=== PATIENT | male | born 1945 | race Caucasian/White ===

== ENCOUNTER 2016-08-29 12:55 | Inpatient (IN) | payer BC, MEDICARE ==
[2016-08-29 13:46] LABS: Basophils % (A) 0 %; CH 32.3; CHCM 33.5; Eosinophils % (A) 0 %; HCT 36.9 % (39.0-53.0); HDW 2.73; HGB 12.3 gm/dL (13.0-17.5); Luc % (Auto) 1; Lymphocytes # (A) 0.3 k/uL (1.0-4.8); Lymphocytes % (A) 3 %; MCH 32.2 pg (25.0-35.0); MCHC 33.3 g/dL (31.0-37.0); MCV 96.5 fL (80.0-100.0); Mean Platelet Volume 7.4; Monocytes # (A) 0.2 k/uL (0-1.0); Monocytes % (A) 2 %; Neutrophils # (A) 9.2 k/uL (1.3-7.7); Neutrophils % (A) 94 %; RBC 3.82 m/uL (4.30-5.90); WBC 9.8 k/uL (3.8-10.6); WBC (Perox) 9.71
[2016-08-29 13:54] LABS: ALT 38 U/L (21-72); AST 17 U/L (17-59); Alkaline Phosphatase 96 U/L (38-126); Anion Gap 12 mmol/L; Blood Urea Nitrogen 24 mg/dL (9-20); Calcium 8.6 mg/dL (8.4-10.2); Carbon Dioxide 24 mmol/L (22-30); Chloride 102 mmol/L (98-107); Glucose 116 mg/dL (74-99); Non-African American GFR(MDRD) >60 (>60 ml/min/1.73 sqM); Partial Thromboplastin Time 24.2 sec (22.0-30.0); Potassium 4.3 mmol/L (3.5-5.1); Prothrombin Time 10.3 sec (9.0-12.0); Sodium 138 mmol/L (137-145); Total Bilirubin 1.2 mg/dL (0.2-1.3); Total Protein 6.5 g/dL (6.3-8.2)
[2016-08-29] MEDS ORDERED: ACETAMINOPHEN IV (For NPO) 1,000 MG in EMPTY BAG 1 BAG IVPB ONE (14:00)
[2016-08-29] MEDS ORDERED: IBUPROFEN 400 MG TAB PO STA (14:00)
--- NOTE | 2016-08-29 14:24 | XR ---
EXAMINATION TYPE: XR chest 2V DATE OF EXAM: 08/29/2016 2:18 PM COMPARISON: NONE TECHNIQUE: PA and lateral views submitted. HISTORY: Fever and cough FINDINGS: The lungs are clear and there is no pneumothorax, pleural effusion, or focal pneumonia. Hyperinflat ion suggests COPD. There is left perihilar and lower lobe subsegmental infiltrate. Hypertrophic change of the spine and arthropathy of the shoulders noted. Coronary artery stenting not ed. IMPRESSION: 1. Left perihilar and lower lobe infiltrate. 2. COPD
[2016-08-29] MEDS ORDERED: AZITHROMYCIN 500 MG TAB PO STA (14:33)
--- NOTE | 2016-08-29 14:40 | ED ---
General Adult HPI - General Chief complaint: Weakness Stated complaint: Weakness Time Seen by Provider: 08/29/16 13:02 Source: EMS Mode of arrival: EMS Limitations: physical limitation - History of Present Illness Initial comments: Patient complains of generalized weakness, cough and shortness of breath. His symptoms have been getting worse for a few days. Patient thinks it might be related to alcoholic trouble. He states he is a daily drinker, however he has not actually had anything to drink for at least 3 weeks. Patient has no belly or back pain. He has no nausea or vomiting. He has no lightheadedness or dizziness. He has no neck pain or stiffness. His weakness is generalized. It is nonfocal. He has taken no medication for his symptoms. He is unaware of any sick contacts. He has not traveled anywhere. - Related Data Home Medications Medication Instructions Recorded Confirmed Clopidogrel Bisulfate [Plavix] 75 mg PO DAILY 08/29/16 08/29/16 Ezetimibe [Zetia] 10 mg PO DAILY 08/29/16 08/29/16 FLUoxetine HCL [PROzac] 20 mg PO DAILY 08/29/16 08/29/16 Metoprolol Tartrate [Lopressor] 25 mg PO DAILY 08/29/16 08/29/16 guaiFENesin SYRUP 100MG/5ML 200 mg PO Q6H PRN 08/29/16 08/29/16 [Robitussin] Allergies Allergy/AdvReac Type Severity Reaction Status Date / Time egg Allergy Unknown Verified 08/29/16 13:16 Penicillins Allergy Unknown Verified 08/29/16 13:16 Review of Systems ROS Statement: Those systems with pertinent positive or pertinent negative responses have been documented in the HPI. ROS Other: All systems not noted in ROS Statement are negative. Past Medical History Past Medical History: COPD, Hyperlipidemia, Hypertension, Myocardial Infarction ([place]) Additional Past Medical History / Comment(s): 2001 [place]; 7 stents; aortic aneurysm coil, pancreatitis History of Any Multi-Drug Resistant Organisms: None Reported Past Surgical History: Adenoidectomy, Tonsillectomy Past Psychological History: Depression Smoking Status: Current every day smoker Past Alcohol Use History: Heavy Past Drug Use History: None Reported General Exam Limitations: physical limitation General appearance: alert, in no apparent distress Head exam: Present: atraumatic, normocephalic, normal inspection Eye exam: Present: normal appearance, PERRL, EOMI. Absent: scleral icterus, conjunctival injection, periorbital swelling ENT exam: Present: normal exam, mucous membranes moist Neck exam: Present: normal inspection. Absent: tenderness, meningismus, lymphadenopathy Respiratory exam: Present: normal lung sounds bilaterally. Absent: respiratory distress, wheezes, rales, rhonchi, stridor Cardiovascular Exam: Present: regular rate, normal rhythm, normal heart sounds. Absent: systolic murmur, diastolic murmur, rubs, gallop, clicks GI/Abdominal exam: Present: soft, normal bowel sounds. Absent: distended, tenderness, guarding, rebound, rigid Extremities exam: Present: normal inspection, full ROM, normal capillary refill. Absent: tenderness, pedal edema, joint swelling, calf tenderness Back exam: Present: normal inspection Neurological exam: Present: alert, oriented X3, CN II-XII intact Psychiatric exam: Present: normal affect, normal mood Skin exam: Present: warm, dry, intact, normal color. Absent: rash Course Vital Signs 08/29/16 08/29/16 08/29/16 13:00 13:12 13:25 Temperature 103.1 F H Pulse Rate 121 H 114 H Pulse Rate [ 126 H [employer] Of [employer] ] Respiratory 18 18 Rate Blood Pressure 140/68 133/67 O2 Sat by Pulse 99 100 Oximetry 08/29/16 08/29/16 13:40 14:15 Temperature 101.3 F H Pulse Rate 108 H 107 H Pulse Rate [ [employer] ] Respiratory 18 18 Rate Blood Pressure 130/70 121/64 O2 Sat by Pulse 98 98 Oximetry EKG Findings - EKG Comments: EKG Findings:: Twelve-lead EKG is obtained, interpreted by me showing ventricular rate 112 bpm, normal CT interval and QRS complexes, no ST elevation or depression, interpreted by me as sinus tachycardia. Medical Decision Making - Medical Decision Making patient presents with weakness, shortness of breath. He is tachycardic and febrile. He is treated with IV fluids, antibiotics and pain medication. X-ray reveals multifocal pneumonia. Therefore I have ordered 2 antibiotics and the patient will be admitted to the hospital. - Lab Data Result diagrams: 08/29/16 13:00 08/29/16 13:00 Lab Results 08/29/16 08/29/16 08/29/16 Range/Units 13:00 13:00 13:00 WBC 9.8 (3.8-10.6) k/uL RBC 3.82 L (4.30-5.90) m/uL Hgb 12.3 L (13.0-17.5) gm/dL Hct 36.9 L (39.0-53.0) % MCV 96.5 (80.0-100.0) fL MCH 32.2 (25.0-35.0) pg MCHC 33.3 (31.0-37.0) g/dL RDW 15.0 (11.5-15.5) % Plt Count 262 (150-450) k/uL Neutrophils % 94 % Lymphocytes % 3 % Monocytes % 2 % Eosinophils % 0 % Basophils % 0 % Neutrophils # 9.2 H (1.3-7.7) k/uL Lymphocytes # 0.3 L (1.0-4.8) k/uL Monocytes # 0.2 (0-1.0) k/uL Eosinophils # 0.0 (0-0.7) k/uL Basophils # 0.0 (0-0.2) k/uL PT (9.0-12.0) sec INR (<1.1) APTT (22.0-30.0) sec Sodium 138 (137-145) mmol/L Potassium 4.3 (3.5-5.1) mmol/L Chloride 102 (98-107) mmol/L Carbon Dioxide 24 (22-30) mmol/L Anion Gap 12 mmol/L BUN 24 H (9-20) mg/dL Creatinine 1.10 (0.66-1.25) mg/dL Est GFR (MDRD) Af Amer >60 (>60 ml/min/1.73 sqM) Est GFR (MDRD) Non-Af >60 (>60 ml/min/1.73 sqM) Glucose 116 H (74-99) mg/dL Plasma Lactic Acid Mani 1.7 (0.7-2.0) mmol/L Calcium 8.6 (8.4-10.2) mg/dL Total Bilirubin 1.2 (0.2-1.3) mg/dL AST 17 (17-59) U/L ALT 38 (21-72) U/L Alkaline Phosphatase 96 (38-126) U/L Troponin I (0.000-0.034) ng/mL Total Protein 6.5 (6.3-8.2) g/dL Albumin 3.1 L (3.5-5.0) g/dL 08/29/16 08/29/16 Range/Units 13:00 13:00 WBC (3.8-10.6) k/uL RBC (4.30-5.90) m/uL Hgb (13.0-17.5) gm/dL Hct (39.0-53.0) % MCV (80.0-100.0) fL MCH (25.0-35.0) pg MCHC (31.0-37.0) g/dL RDW (11.5-15.5) % Plt Count (150-450) k/uL Neutrophils % % Lymphocytes % % Monocytes % % Eosinophils % % Basophils % % Neutrophils # (1.3-7.7) k/uL Lymphocytes # (1.0-4.8) k/uL Monocytes # (0-1.0) k/uL Eosinophils # (0-0.7) k/uL Basophils # (0-0.2) k/uL PT 10.3 (9.0-12.0) sec INR 1.0 (<1.1) APTT 24.2 (22.0-30.0) sec Sodium (137-145) mmol/L Potassium (3.5-5.1) mmol/L Chloride (98-107) mmol/L Carbon Dioxide (22-30) mmol/L Anion Gap mmol/L BUN (9-20) mg/dL Creatinine (0.66-1.25) mg/dL Est GFR (MDRD) Af Amer (>60 ml/min/1.73 sqM) Est GFR (MDRD) Non-Af (>60 ml/min/1.73 sqM) Glucose (74-99) mg/dL Plasma Lactic Acid Mani (0.7-2.0) mmol/L Calcium (8.4-10.2) mg/dL Total Bilirubin (0.2-1.3) mg/dL AST (17-59) U/L ALT (21-72) U/L Alkaline Phosphatase (38-126) U/L Troponin I <0.012 (0.000-0.034) ng/mL Total Protein (6.3-8.2) g/dL Albumin (3.5-5.0) g/dL Disposition Clinical Impression: Pneumonia Disposition: ADMITTED IP TO THIS HOSP Condition: Fair Time of Disposition: 14:40
[2016-08-29] MEDS ORDERED: NALOXONE 0.4 MG/ML 1 ML VIAL IV PRN (14:41)
[2016-08-29] MEDS ORDERED: MORPHINE SULFATE 4 MG/ML SYRINGE IV PRN (14:41)
[2016-08-29] MEDS ORDERED: ACETAMINOPHEN TAB 325 MG TAB PO PRN (14:41)
[2016-08-29] MEDS ORDERED: TEMAZEPAM 15 MG CAP PO PRN ×2 (14:41→16:35)
[2016-08-29 15:23] LABS: Appearance,Urine Clear (Clear); Bilirubin,Urine Negative (Negative); Glucose,Urine (UA) Negative (Negative); Ketones,Urine Negative (Negative); Leukocyte Esterase,Urine Negative (Negative); Mucus,Urine Rare /hpf; Nitrite,Urine Negative (Negative); Particle Count 14565; Protein,Urine 2+ (Negative); Specific Gravity,Urine 1.021 (1.001-1.035); UA Billing (MACRO vs. MICRO) MICRO
[2016-08-29] MEDS ORDERED: guaiFENesin SYRUP 100MG/5ML 200 MG/10 ML CUP PO PRN (16:34)
[2016-08-29] MEDS ORDERED: cloNIDine HCL 0.1 MG TAB PO PRN (16:35)
[2016-08-29] MEDS ORDERED: LORazepam 0.5 MG TAB PO PRN (16:35)
[2016-08-29] MEDS ORDERED: HYDROcodone/APAP 5-325MG 1 EACH TAB PO PRN (16:35)
[2016-08-29] MEDS ORDERED: HYDROmorphone 1 MG/ML 1 ML SYRINGE IVP PRN (16:35)
--- NOTE | 2016-08-29 17:25 | HP ---
DATE OF ADMISSION: 08/29/2016 CHIEF COMPLAINT: Weakness, cough and sputum. HISTORY OF PRESENT ILLNESS: This 71-year-old gentleman with a past medical history of multiple medical problems, including hypertension, COPD, hyperlipidemia, history of myocardial infarction, history of CAD, stent, aortic aneurysm, coiling, history of pancreatitis, adenoidectomy, tonsillectomy, history of depression, being followed by Dr. Surjit Cook in [place], was complaining of generalized weakness and tiredness for the last several days. Patient apparently was smoking and drinking. Patient apparently was drinking up to a fifth of alcohol. Patient stopped alcohol about 2 weeks ago. The patient was living by himself. He was extremely weak and tired. The patient was also having increasing cough and sputum for the last 2 weeks. Because of increasing difficulties, patient came to [facility]. Left hilar and left lower lobe multi-lobar pneumonia was suspected. Patient was admitted for further evaluation and treatment. There is no history of any fever, rigor, chills. No history of headache, loss of consciousness. seizures. Patient expressed a desire to go for rehab. PAST MEDICAL HISTORY: 1. History of COPD. 2. Hypertension. 3. Hyperlipidemia. 4. Myocardial infarction. 5. CAD, stents. 6. Aortic aneurysm with coiling. 7. Pancreatitis. 8. Depression. 9. Adenoidectomy. 10. Tonsillectomy. HOME MEDICATIONS: 1. Robitussin 200 mg p.o. q.6 p.r.n. 2. Lopressor 25 mg p.o. daily. 3. Prozac 20 mg daily. 4. Zetia 10 mg p.o. daily. 5. Plavix 75 mg p.o. daily. ALLERGIES: EGGS and PENICILLIN. FAMILY HISTORY: No history of any heart disease or strokes in the family. SOCIAL HISTORY: Heavy alcohol and smoking. REVIEW OF SYSTEMS: ENT: Diminished hearing. Diminished vision. CARDIOVASCULAR SYSTEM: No angina, palpitations. RESPIRATORY SYSTEM: As mentioned earlier. GI: As mentioned earlier. : No dysuria, retention. NERVOUS SYSTEM: No numbness, weakness. ALLERGY/IMMUNOLOGY: No asthma or hayfever. MUSCULOSKELETAL: As mentioned earlier. HEMATOLOGY/ONCOLOGY: No history of anemia. ENDOCRINE: No history of diabetes or hypothyroidism. CONSTITUTIONAL: As mentioned earlier. DERMATOLOGY: Negative. RHEUMATOLOGY: Negative. PSYCHIATRY: As mentioned earlier. PHYSICAL EXAMINATION: Patient is alert and oriented x3. Pulse is 107, blood pressure 124/64, respiration 18, temperature 101.3, pulse ox 98% on 2 L. HEENT: Conjunctivae normal. Oral mucosa moist. NECK: No jugular venous distention. No carotid bruit. No lymph node enlargement. CARDIOVASCULAR SYSTEM: S1 normal. S2 normal. No S3. No S4. RESPIRATORY SYSTEM: Breath sounds diminished at the bases. Bilateral scattered rhonchi and crackles. Expiratory wheezing also present. ABDOMEN: Soft, non-tender. No mass palpable. LEGS: No edema. No swelling. NERVOUS SYSTEM: Higher functions as mentioned earlier. Moves all 4 limbs. No focal motor or sensory deficit. LYMPHATICS: No lymph node palpable in neck, axillae or groin. SKIN: No ulcer, rash, bleeding. LABS: WBC 9.8, hemoglobin 12.3. Glucose is 116. Albumin is 3.1. Influenza is negative. ASSESSMENT: 1. Multi-lobar pneumonia, perihilar left lower pneumonia, possibly Gram-negative. 2. Ethanol. 3. History of nicotine dependence. 4. Moderate to severe malnutrition with a body mass index of 19.8. 5. Anemia; normocytic anemia of chronic disease. 6. Increased random blood sugar. 7. Increased BUN with some dehydration. 8. History of chronic obstructive pulmonary disease. 9. Hypertension. 10. Hyperlipidemia. 11. History of myocardial infarction 12. History of coronary artery disease, stents. 13. History of aortic aneurysm, coiling. 14. History of pancreatitis. 15. History of adenoidectomy. 16. History of tonsillectomy. 17. History of depression not otherwise specified. 18. Gait dysfunction. 19. FULL CODE. RECOMMENDATIONS AND DISCUSSION: In this 71-year-old gentleman who presented with multiple complex medical issues, we will monitor the patient closely, continue the current medication, continue with symptomatic treatment. Will initiate broad-spectrum IV antibiotics, bronchodilators, PT and OT evaluation. Otherwise, Pulmonary has been consulted. [employer] to arrange rehab for ETOH. Supplement vitamins. See orders for further details. DVT prophylaxis. Resume the home medications. Prognosis guarded because of multiple complex medical issues. Further recommendations to follow. [facility]
[2016-08-29] MEDS: SYMBICORT 160-4.5 MCG INHALER INHALATION SCH (19:19)
[2016-08-29] MEDS: LEVALBUTEROL NEB (CONC) 1.25 MG/0.5 ML AMP INHALATION SCH (19:20)
[2016-08-29] MEDS: IPRATROPIUM 0.5 MG/2.5 ML NEBU INHALATION SCH (19:20)
[2016-08-29 21:23] LABS: Glucose,Whole Blood 181 mg/dL (75-99)
[2016-08-29] MEDS: METOPROLOL TARTRATE 25 MG TAB PO SCH (21:27)
[2016-08-29] MEDS: HEPARIN SODIUM,PORCINE 5,000 UNIT/ML 1 ML VIAL SQ SCH (21:27)
[2016-08-29] MEDS: CLOPIDOGREL 75 MG TAB PO SCH (21:27)
[2016-08-29] MEDS: NICOTINE 14MG/24HR PATCH TRANSDERM SCH (21:27)
[2016-08-29] MEDS: FAMOTIDINE 20 MG TAB PO SCH (21:28)
[2016-08-29] MEDS: PANTOPRAZOLE 40 MG TABLET PO SCH (21:28)
--- NOTE | 2016-08-29 21:39 | XR ---
EXAMINATION TYPE: XR ribs LT DATE OF EXAM: 08/29/2016 6:58 PM COMPARISON: Chest x-ray 416 2:20 PM HISTORY: Left lower rib pain, recent trauma TECHNIQUE: 4 views FINDINGS: There is no displaced rib fracture. No pleural effusion or pneumothorax. However, there is obscuration of the pulmonary vasculature by increased attenuation suggesting interstitial phase pulmo nary edema not seen on the prior study earlier today. IMPRESSION: 1. Negative for fracture or malalignment or pneumothorax or pleural effusion. 2. However, positive for evidence of interstitial phase pulmonary edema, new since the prior chest x- ray of 2:20 PM today
[2016-08-29] MEDS: SODIUM CHLORIDE 0.9% 1,000 ML IV SCH (21:50)
[2016-08-29] MEDS ORDERED: VANCOMYCIN TROUGH DUE 1 EACH MISC MISCELLANE ONE (22:05)
[2016-08-29] MEDS ORDERED: VANCOMYCIN 1,250 MG in SODIUM CHLORIDE 0.9% 250 ML IVPB STA (22:13)
--- NOTE | 2016-08-29 23:03 | CT ---
EXAMINATION TYPE: CT brain wo con DATE OF EXAM: 08/29/2016 10:51 PM COMPARISON: NONE HISTORY: Lethargic. Drowsiness CT DLP: 965.2 mGycm Automated exposure control for dose reduction was used. FINDINGS: There is no acute intracranial hemorrhage, mass effect, or midline shift identified. The cortical sul ci and ventricles prominent with moderate cerebral atrophic changes. Possibility of mild degree of co mmunicating hydrocephalus cannot be excluded. Mild periventricular white matter ischemic changes are noted of chronic nature. The globes are intact and the visualized sinuses are clear. IMPRESSION: No acute intracranial hemorrhage, mass effect, or midline shift is seen. Atrophic changes of brain.
[2016-08-30] MEDS: methylPREDNISolone SOD SUCCI 125 MG/2 ML VIAL IV SCH ×4 (00:17→17:32)
[2016-08-30 00:30] LABS: Amorphous Sediment,Urine Rare /hpf; Appearance,Urine Cloudy (Clear); Bilirubin,Urine Negative (Negative); Glucose,Urine (UA) Negative (Negative); Ketones,Urine Negative (Negative); Leukocyte Esterase,Urine Negative (Negative); Mucus,Urine Rare /hpf; Nitrite,Urine Negative (Negative); Particle Count 11447; Protein,Urine 2+ (Negative); RBC,Urine 6 /hpf (0-5); Specific Gravity,Urine 1.025 (1.001-1.035); Squamous Epithelial Cell,Urine <1 /hpf (0-4); UA Billing (MACRO vs. MICRO) MICRO; WBC,Urine 8 /hpf (0-5)
[2016-08-30] MEDS: FAMOTIDINE 20 MG TAB PO SCH ×2 (01:12→07:40)
[2016-08-30] MEDS: HEPARIN SODIUM,PORCINE 5,000 UNIT/ML 1 ML VIAL SQ SCH ×3 (01:12→20:51)
[2016-08-30] MEDS: CLOPIDOGREL 75 MG TAB PO SCH ×2 (01:12→07:38)
[2016-08-30] MEDS: LEVOFLOXACIN 500MG-D5W PMX 500 MG in DEXTROSE/WATER 1 100ML.BAG IVPB SCH ×2 (02:44→23:36)
[2016-08-30 07:21] LABS: Glucose,Whole Blood 147 mg/dL (75-99)
[2016-08-30] MEDS: EZETIMIBE 10 MG TAB PO SCH (07:38)
[2016-08-30] MEDS: PANTOPRAZOLE 40 MG TABLET PO SCH (07:38)
[2016-08-30] MEDS: METOPROLOL TARTRATE 25 MG TAB PO SCH (07:39)
[2016-08-30] MEDS: NICOTINE 14MG/24HR PATCH TRANSDERM SCH (07:39)
[2016-08-30] MEDS: INSULIN LISPRO (humaLOG) 300 UNIT/3 ML VIAL SQ SCH ×4 (07:40→20:51)
[2016-08-30] MEDS: FLUoxetine HCL 20 MG CAP PO SCH (07:40)
[2016-08-30] MEDS: SODIUM CHLORIDE 0.9% 1,000 ML IV SCH ×2 (07:43→20:52)
[2016-08-30 08:30] LABS: Basophils % (A) 0 %; CHCM 32.5; Eosinophils % (A) 0 %; HCT 33.5 % (39.0-53.0); HDW 2.78; HGB 10.6 gm/dL (13.0-17.5); Luc # (Auto) 0.04; Luc % (Auto) 1; Lymphocytes # (A) 0.3 k/uL (1.0-4.8); Lymphocytes % (A) 6 %; MCH 31.1 pg (25.0-35.0); MCHC 31.5 g/dL (31.0-37.0); MCV 98.7 fL (80.0-100.0); Mean Platelet Volume 7.2; Monocytes # (A) 0.1 k/uL (0-1.0); Monocytes % (A) 2 %; Neutrophils # (A) 4.8 k/uL (1.3-7.7); Neutrophils % (A) 91 %; RBC 3.39 m/uL (4.30-5.90); WBC 5.3 k/uL (3.8-10.6); WBC (Perox) 5.48
[2016-08-30 08:50] LABS: Anion Gap 8 mmol/L; Blood Urea Nitrogen 25 mg/dL (9-20); Calcium 8.1 mg/dL (8.4-10.2); Carbon Dioxide 24 mmol/L (22-30); Chloride 106 mmol/L (98-107); Glucose 136 mg/dL (74-99); Non-African American GFR(MDRD) >60 (>60 ml/min/1.73 sqM); Potassium 4.6 mmol/L (3.5-5.1); Sodium 138 mmol/L (137-145)
[2016-08-30] MEDS: AZITHROMYCIN 500 MG in SODIUM CHLORIDE 0.9% 250 ML IVPB SCH (08:53)
[2016-08-30] MEDS: IPRATROPIUM 0.5 MG/2.5 ML NEBU INHALATION SCH ×4 (08:57→20:00)
[2016-08-30] MEDS: LEVALBUTEROL NEB (CONC) 1.25 MG/0.5 ML AMP INHALATION SCH ×4 (08:57→20:00)
[2016-08-30] MEDS: SYMBICORT 160-4.5 MCG INHALER INHALATION SCH ×2 (08:58→20:00)
[2016-08-30 11:35] LABS: Glucose,Whole Blood 259 mg/dL (75-99)
[2016-08-30] MEDS: THIAMINE 100 MG TAB PO SCH (13:00)
[2016-08-30] MEDS: FOLIC ACID 1 MG TAB PO SCH (13:00)
[2016-08-30] MEDS: MULTIVITAMINS, THERA 1 EACH TAB PO SCH (13:00)
--- NOTE | 2016-08-30 14:26 | P.CNPUL ---
History of Present Illness Consult date: 08/30/16 Reason for consult: dyspnea, cough, COPD, pneumonia Chief complaint: Weakness, shortness of breath, cough History of present illness: This is a 71-year-old patient who comes into the emergency department complaining of weakness cough shortness of breath and minimal phlegm production. Was told there that he had pneumonia. The patient is a heavy smoker. Smoking for a number of years. Apparently does have a history of underlying COPD. Also apparently has history of chronic alcohol abuse. The patient states that he denies any fever or chills. No nausea or vomiting. May had a syncopal episode at home. Not sure. Nonobstructive really good historian. The patient actually looks very well. Doesn't appear that he needs to be in the hospital. No respiratory distress. No audible wheezing. No tachypnea no dyspnea. Review of Systems A 12 point review of system is positive for weakness shortness breath and cough. Not bringing up much phlegm may be just a bit. White in color. No fever no chills. No nausea vomiting or diarrhea. In addition, the patient the patient may have had a syncopal episode. 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 Last Myocardial Infarction Date:: 2001 History of Any Multi-Drug Resistant Organisms: None Reported Past Surgical History: Adenoidectomy, Heart Catheterization With Stent, Tonsillectomy Additional Past Surgical History / Comment(s): 2 HEART CATHS-7 STENTS, AAA REPAIR, URSULA CATARACTS. Past Anesthesia/Blood Transfusion Reactions: No Reported Reaction Date of Last Stent Placement:: UNK Past Psychological History: Depression Smoking Status: Current every day smoker Past Alcohol Use History: Heavy Additional Past Alcohol Use History / Comment(s): PT STATED HAS DRANK HEAVY OFF AND ON IN HIS LIFE. HAS BEEN TO REHAB SEVERAL TIMES FOR ETOH. MORE RECENT PT STATED HE HAD QUIT FOR A FEW YEARS THEN STARTED DRINKING A FIFTH OF WHISKY DAILY FOR 2 MONTHS THEN WENT TO REHAB AT [facility]. STATES HAS'NT HAD ANY ETOH IN 2-3 WEEKS. Past Drug Use History: Heroin, Marijuana Additional Drug Use History / Comment(s): PT STATED WHEN IN HIS 20'S HE SMOPKED MARIJUANA, DID SOME LSD AND OCC SOME HEROIN-WUIT ALL DRUGS IN HIS 30'S - Past Family History Mother Additional Family Medical History / Comment(s): ETOH Father Additional Family Medical History / Comment(s): FROM AAA AT AGE 62 Medications and Allergies Home Medications Medication Instructions Recorded Confirmed Type Clopidogrel Bisulfate [Plavix] 75 mg PO DAILY 08/29/16 08/29/16 History Ezetimibe [Zetia] 10 mg PO DAILY 08/29/16 08/29/16 History FLUoxetine HCL [PROzac] 20 mg PO DAILY 08/29/16 08/29/16 History Metoprolol Tartrate [Lopressor] 25 mg PO DAILY 08/29/16 08/29/16 History guaiFENesin SYRUP 100MG/5ML 200 mg PO Q6H PRN 08/29/16 08/29/16 History [Robitussin] Allergies Allergy/AdvReac Type Severity Reaction Status Date / Time egg Allergy Anaphylaxis Verified 08/29/16 17:11 Penicillins Allergy Unknown Verified 08/29/16 13:16 Physical Exam Osteopathic Statement: *. No significant issues noted on an osteopathic structural exam other than those noted in the History and Physical/Consult. Vitals: Vital Signs Temp Pulse Pulse Pulse Resp BP BP 08/30/16 12:40 86 08/30/16 12:31 88 08/30/16 09:08 82 08/30/16 09:01 82 08/30/16 07:00 97.9 F 78 16 122/56 08/30/16 02:00 112/59 08/29/16 23:00 143/63 08/29/16 22:15 91/51 08/29/16 20:50 97.6 F 75 16 97/55 08/29/16 19:36 96 08/29/16 19:34 08/29/16 19:30 92 08/29/16 16:30 98.3 F 89 16 103/50 08/29/16 15:04 99.0 F 109 H 18 118/65 08/29/16 14:57 116 H 20 121/63 Pulse Ox 08/30/16 12:40 08/30/16 12:31 08/30/16 09:08 08/30/16 09:01 08/30/16 07:00 96 08/30/16 02:00 08/29/16 23:00 08/29/16 22:15 08/29/16 20:50 97 08/29/16 19:36 08/29/16 19:34 0 L 08/29/16 19:30 08/29/16 16:30 98 08/29/16 15:04 99 08/29/16 14:57 98 Intake and Output 08/29/16 08/30/16 08/30/16 22:59 06:59 14:59 Intake Total 975 Output Total 400 500 Balance -400 975 -500 Intake: Intake, IV Titration 975 Amount Levofloxacin 500Mg-D5w 100 Pmx 500 mg In Dextrose/ Water 1 100ml.bag @ 100 mls/hr IVPB Q24H [facility] Rx#: [id number] Sodium Chloride 0.9% 1, 625 000 ml @ 125 mls/hr IV . Q8H [facility] Rx#:[id number] Vancomycin 1,250 mg In 250 Sodium Chloride 0.9% 250 ml @ 125 mls/hr IVPB ONCE [facility] Rx#:[id number] Output: Urine 400 500 Straight 200 Other: Voiding Method Urinal Urinal No acute distress, oriented 3. Not a particularly good historian. No respiratory difficulty or distress. HEENT examination is grossly unremarkable. Mucous membranes are moist. No oral lesions. Neck supple. Full range of motion. No adenopathy or thyromegaly. Neck veins are flat. Cardiovascular examination reveals regular rhythm rate. S1-S2 normal. No S3- S4 or murmur. Pulmonary examination reveals diminished breath sounds. A few scattered rhonchi. No crackles. No distinct wheezes are noted. Abdomen soft bowel sounds are heard. No masses. Extremities are intact. Results - Laboratory Findings CBC and BMP: 08/30/16 07:53 08/30/16 07:53 PT/INR, D-dimer PT 10.3 sec (9.0-12.0) 08/29/16 13:00 INR 1.0 (<1.1) 08/29/16 13:00 Abnormal lab findings: Abnormal Labs 08/29/16 08/29/16 08/30/16 15:13 21:22 00:00 RBC Hgb Hct Lymphocytes # BUN Glucose POC Glucose (mg/dL) 181 H Calcium Urine Protein 2+ H 2+ H Urine Blood Trace H Trace H Urine RBC 6 H Urine WBC 8 H Amorphous Sediment Rare H Urine Mucus Rare H Rare H 08/30/16 08/30/16 08/30/16 07:19 07:53 07:53 RBC 3.39 L Hgb 10.6 L Hct 33.5 L Lymphocytes # 0.3 L BUN 25 H Glucose 136 H POC Glucose (mg/dL) 147 H Calcium 8.1 L Urine Protein Urine Blood Urine RBC Urine WBC Amorphous Sediment Urine Mucus 08/30/16 11:34 RBC Hgb Hct Lymphocytes # BUN Glucose POC Glucose (mg/dL) 259 H Calcium Urine Protein Urine Blood Urine RBC Urine WBC Amorphous Sediment Urine Mucus - Diagnostic Findings Chest x-ray: image reviewed (All labs x-rays and medications are reviewed.) Assessment and Plan (1) Acute bronchitis Status: Acute (2) COPD exacerbation Status: Acute (3) Pneumonia Status: Acute Plan: Plan dated 08/30/2016 The patient's x-rays not really impressive. I'll review the labs medications and x-rays. The patient needs Solu-Medrol. He'll also need Pulmicort 1 mg twice a day along with performist twice a day and duo nebs 4 times a day and when necessary. I think he can get by with one antibiotic. His chest x-ray is not impressive. He should be on so Solu-Medrol. Additional recommendations suggestions are forthcoming. Time with Patient: Greater than 30
[2016-08-30 14:53] VITALS: BMI 19.8
[2016-08-30] MEDS ORDERED: VANCOMYCIN 1,250 MG in SODIUM CHLORIDE 0.9% 250 ML IVPB SCH (16:00)
[2016-08-30 16:56] LABS: Glucose,Whole Blood 205 mg/dL (75-99)
[2016-08-30 20:15] LABS: Glucose,Whole Blood 244 mg/dL (75-99)
--- NOTE | 2016-08-30 20:43 | PN ---
DATE OF SERVICE: 08/30/2016 This 71-year-old gentleman admitted with weakness and cough and sputum had multilobar pneumonia. The patient also ETOH also. The patient is being evaluated by Dr. Beckman for chronic obstructive pulmonary disease as well. The patient is being closely monitored. CAT scan of the brain was also done, which showed no acute abnormality. The patient had an episode of unresponsive today. Rib x-ray showed no fractures. The previous chest x-ray did show some features of pulmonary edema. Past medical history reviewed. Review of systems: CARDIOVASCULAR: As mentioned earlier. RESPIRATORY: As mentioned earlier. GASTROINTESTINAL: As mentioned earlier. : No dysuria. CENTRAL NERVOUS SYSTEM: No numbness, weakness. Current medications are reviewed and include: 1. Tylenol 650 q.6 p.r.n. 2. [place] 5 mg. 3. Zithromax 500 mg daily. 4. Symbicort 160/4.5, 2 puffs b.i.d. 5. Rocephin 1 gram p.o. daily. 6. Catapres. 7. Plavix. 8. Zetia. 9. Prozac. 10. Folic acid. 11. Robitussin. 12. Heparin. 13. Dilaudid. 14. Xopenex. 15. Solu-Medrol. 16. Multivitamins. 17. Narcan. 18. Habitrol. 19. Protonix. 20. Vitamin B1. PHYSICAL EXAMINATION: The patient is alert and oriented times three. Pulse 84, blood pressure 111/59, respirations 18, temperature 97.8, pulse ox 92% on 2 L. HEENT: Conjunctivae normal. NECK: No jugular venous distention. CARDIOVASCULAR: S1, S2 muffled. RESPIRATORY: Breath sounds diminished at the bases. Bilateral scattered rhonchi and crackles, expiratory wheezing also present. ABDOMEN: Soft, nontender. No mass palpable. LEGS: No edema. No swelling. CENTRAL NERVOUS SYSTEM: Higher functions as mentioned earlier. Moves all four limbs. Mild diffuse weakness. Diffuse tremors noted. LYMPHATICS: No lymph nodes palpable in in the neck, axilla or groin. SKIN: Dry skin. LABS: WBC 5.3, hemoglobin is 10.6, sodium noted normal. Glucose noted. ASSESSMENT: 1. Chronic obstructive pulmonary disease, acute exacerbation, with multilobar pneumonia, with perihilar left lower pneumonia, possibly gram-negative. 2. History of ETOH. 3. ETOH withdrawal. 4. History of nicotine dependence. 5. Moderate severe malnutrition with body mass index of 19.8. 6. Anemia, normocytic anemia of chronic disease. 7. Increased random blood sugar. 8. Increased BUN with dehydration. 9. History of chronic obstructive pulmonary disease. 10. Hypertension. 11. Hyperlipidemia. 12. History of myocardial infarction. 13. History of coronary artery disease and stent. 14. History of aortic aneurysm coiling. 15. History of pancreatitis. 16. History of adenoidectomy. 17. History of tonsillectomy. 18. History of depression, not otherwise specified. 19. Gait dysfunction. 20. 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 21. FULL CODE. RECOMMENDATIONS AND DISCUSSION: Continue current medications, continue with monitoring, symptomatic treatment. Otherwise at this time, continue current antibiotics, steroids. Monitor blood sugars closely. Influenza negative. Guarded prognosis because of multiple complex medical issues. Further recommendations to follow. Dr. Beckman input appreciated. community health outreach worker consultation to arrange substance abuse counselling and rehab. [facility]
[2016-08-31] MEDS: methylPREDNISolone SOD SUCCI 125 MG/2 ML VIAL IV SCH ×3 (00:27→12:17)
[2016-08-31] MEDS: LEVALBUTEROL NEB (CONC) 1.25 MG/0.5 ML AMP INHALATION SCH ×3 (07:11→15:07)
[2016-08-31] MEDS: SYMBICORT 160-4.5 MCG INHALER INHALATION SCH ×2 (07:11→18:56)
[2016-08-31] MEDS: IPRATROPIUM 0.5 MG/2.5 ML NEBU INHALATION SCH ×3 (07:11→15:07)
[2016-08-31 07:22] LABS: Glucose,Whole Blood 203 mg/dL (75-99)
[2016-08-31 07:26] LABS: Basophils % (A) 0 %; CH 31.9; CHCM 32.7; Eosinophils % (A) 0 %; HCT 30.3 % (39.0-53.0); HDW 2.81; HGB 9.8 gm/dL (13.0-17.5); Luc # (Auto) 0.06; Luc % (Auto) 1; Lymphocytes # (A) 0.2 k/uL (1.0-4.8); Lymphocytes % (A) 5 %; MCH 31.8 pg (25.0-35.0); MCHC 32.5 g/dL (31.0-37.0); MCV 97.8 fL (80.0-100.0); Mean Platelet Volume 7.4; Monocytes # (A) 0.2 k/uL (0-1.0); Monocytes % (A) 4 %; Neutrophils # (A) 3.9 k/uL (1.3-7.7); Neutrophils % (A) 89 %; RBC 3.09 m/uL (4.30-5.90); RDW 14.7 % (11.5-15.5); WBC 4.3 k/uL (3.8-10.6); WBC (Perox) 4.56
[2016-08-31 07:40] LABS: Anion Gap 8 mmol/L; Blood Urea Nitrogen 22 mg/dL (9-20); Calcium 8.2 mg/dL (8.4-10.2); Carbon Dioxide 22 mmol/L (22-30); Chloride 110 mmol/L (98-107); Glucose 187 mg/dL (74-99); Non-African American GFR(MDRD) >60 (>60 ml/min/1.73 sqM); Potassium 3.7 mmol/L (3.5-5.1); Sodium 140 mmol/L (137-145)
[2016-08-31] MEDS: INSULIN LISPRO (humaLOG) 300 UNIT/3 ML VIAL SQ SCH ×4 (08:05→21:05)
[2016-08-31] MEDS: FLUoxetine HCL 20 MG CAP PO SCH (08:12)
[2016-08-31] MEDS: NICOTINE 14MG/24HR PATCH TRANSDERM SCH (08:12)
[2016-08-31] MEDS: METOPROLOL TARTRATE 12.5 MG TAB PO SCH (08:12)
[2016-08-31] MEDS: HEPARIN SODIUM,PORCINE 5,000 UNIT/ML 1 ML VIAL SQ SCH ×2 (08:12→21:07)
[2016-08-31] MEDS: CLOPIDOGREL 75 MG TAB PO SCH (08:12)
[2016-08-31] MEDS: EZETIMIBE 10 MG TAB PO SCH (08:13)
[2016-08-31] MEDS: PANTOPRAZOLE 40 MG TABLET PO SCH (08:13)
[2016-08-31] MEDS: AZITHROMYCIN 500 MG in SODIUM CHLORIDE 0.9% 250 ML IVPB SCH (10:10)
[2016-08-31 12:12] LABS: Glucose,Whole Blood 234 mg/dL (75-99)
[2016-08-31] MEDS: MULTIVITAMINS, THERA 1 EACH TAB PO SCH (12:17)
[2016-08-31] MEDS: THIAMINE 100 MG TAB PO SCH (12:17)
[2016-08-31] MEDS: FOLIC ACID 1 MG TAB PO SCH (12:17)
--- NOTE | 2016-08-31 13:10 | P.PN ---
Subjective Progress note dated 08/31/2016 This is a 71-year-old gentleman who we saw yesterday in consultation. He came with complaint came into the emergency department complaining of weakness shortness of breath cough and minimal phlegm production. Basically told him that he had a COPD exacerbation. The patient is a heavy smoker. Was told in the ER that he had pneumonia. He is feeling better. Having episode of up and down today. Still coughing. So producing some phlegm. Slight wheezing. Slight shortness of breath prior practically with exertion. No fever no chills. No nausea vomiting or diarrhea. Not a particularly good historian but he isn't able to answer questions appropriately. Objective - Vital Signs Vital signs: Vital Signs Temp 98 F 08/31/16 07:00 Pulse 74 08/31/16 11:20 Resp 17 08/31/16 08:00 BP 126/75 08/31/16 07:00 Pulse Ox 99 08/31/16 07:00 Intake & Output 08/30/16 08/31/16 08/31/16 18:59 06:59 18:59 Intake Total 400 Output Total 500 300 Balance -500 100 Weight 62.596 kg Intake: Oral 400 Output: Urine 500 300 Other: Voiding Method Urinal Urinal - Exam No acute distress, oriented 3. Sitting upright in the chair. Getting supplemental oxygen. HEENT examination is grossly unremarkable. Mucous membranes are moist. Neck supple. Full range of motion. No adenopathy. Cardiovascular examination reveals regular rhythm rate. Lungs reveal a few scattered rhonchi. No wheezes or crackles. Abdomen soft bowel sounds are heard. Extremities are intact. - Labs CBC & Chem 7: 08/31/16 06:49 08/31/16 06:49 Labs: Abnormal Lab Results - Last 24 Hours (Table) 08/30/16 08/30/16 08/31/16 Range/Units 16:55 20:11 06:49 RBC 3.09 L (4.30-5.90) m/uL Hgb 9.8 L (13.0-17.5) gm/dL Hct 30.3 L (39.0-53.0) % Lymphocytes # 0.2 L (1.0-4.8) k/uL Chloride (98-107) mmol/L BUN (9-20) mg/dL Glucose (74-99) mg/dL POC Glucose (mg/dL) 205 H 244 H (75-99) mg/dL Calcium (8.4-10.2) mg/dL 08/31/16 08/31/16 08/31/16 Range/Units 06:49 07:20 11:57 RBC (4.30-5.90) m/uL Hgb (13.0-17.5) gm/dL Hct (39.0-53.0) % Lymphocytes # (1.0-4.8) k/uL Chloride 110 H (98-107) mmol/L BUN 22 H (9-20) mg/dL Glucose 187 H (74-99) mg/dL POC Glucose (mg/dL) 203 H 234 H (75-99) mg/dL Calcium 8.2 L (8.4-10.2) mg/dL Microbiology - Last 24 Hours (Table) 08/29/16 22:22 Blood Culture - Preliminary Blood No Growth after 24 hours 08/29/16 21:55 Blood Culture - Preliminary Blood No Growth after 24 hours 08/29/16 15:13 Urine Culture - Final Urine,Catheterized 08/30/16 00:00 Urine Culture - Preliminary Urine,Catheterized Assessment and Plan (1) Acute bronchitis Status: Acute (2) COPD exacerbation Status: Acute (3) Pneumonia Status: Acute Plan: Plan dated 08/30/2016 The patient's x-rays not really impressive. I'll review the labs medications and x-rays. The patient needs Solu-Medrol. He'll also need Pulmicort 1 mg twice a day along with performist twice a day and duo nebs 4 times a day and when necessary. I think he can get by with one antibiotic. His chest x-ray is not impressive. He should be on so Solu-Medrol. Additional recommendations suggestions are forthcoming. Plan dated 08/31/2016 The patient will continue on all his current medications. He is on Pulmicort along with performist twice a day as well as duo nebs 4 times a day. He's receiving systemic corticosteroids and antibiotic. We'll continue to follow. Prognosis is guarded. Hopefully discharge in next 24-48 hours. Time with Patient: Less than 30
[2016-08-31] MEDS ORDERED: LEVALBUTEROL NEB (CONC) 1.25 MG/0.5 ML AMP INHALATION SCH (15:27)
[2016-08-31] MEDS ORDERED: IPRATROPIUM 0.5 MG/2.5 ML NEBU INHALATION SCH (15:28)
[2016-08-31 16:37] LABS: Glucose,Whole Blood 196 mg/dL (75-99)
[2016-08-31] MEDS: methylPREDNISolone SOD SUCCI 40 MG/ML 1 ML VIAL IV SCH (17:33)
[2016-08-31] MEDS: SODIUM CHLORIDE 0.9% 1,000 ML IV SCH (17:36)
--- NOTE | 2016-08-31 20:04 | PN ---
DATE OF SERVICE: 08/31/2016 This 71-year-old gentleman admitted to the hospital with COPD acute exacerbation also had left lower lobe pneumonia, also had strep pneumonia and sepsis also. Cultures are growing strep pneumonia sepsis and the patient is on extensive bronchodilators, antibiotics. The ID for the strep pneumonia is not available at this time. As mentioned earlier, the patient is on a combination of Zithromax and Levaquin, and as well as IV steroids. Past medical history reviewed. REVIEW OF SYSTEMS: CARDIOVASCULAR: No angina, palpitations. RESPIRATORY: As mentioned earlier. GASTROINTESTINAL: No nausea or vomiting. : No dysuria. Nervous system: No numbness or weakness. ALLERGY/IMMUNOLOGY: No asthma or hayfever. MUSCULOSKELETAL: As mentioned earlier. Current medications are reviewed and include: 1. Tylenol 650. 2. Jean 5 mg. 3. Symbicort 160/4.5, 2 puffs b.i.d. 4. Rocephin. 5. Plavix. 6. Zetia. 7. Prozac. 8. Folic acid. 9. Robitussin. 10. Heparin. 11. Atrovent. 12. Xopenex. 13. Levaquin. 14. Solu-Medrol. 15. Lopressor. 16. Narcan. PHYSICAL EXAMINATION: The patient is alert and oriented times three. Pulse 80. Blood pressure 126/74. Respiratory rate 17. Temperature 98 degrees, pulse ox 99% on 2 L. HEENT: Conjunctivae normal. Oral mucosa moist. NECK: No jugular venous distention. No carotid bruit. No lymph node enlargement. CARDIOVASCULAR: S1, S2 muffled. RESPIRATORY: Breath sounds diminished at the bases, bilateral scattered rhonchi and crackles. ABDOMEN: Soft, nontender. No mass palpable. Legs: No edema. No swelling. CENTRAL NERVOUS SYSTEM: No focal deficits. LABS: The 4.3, hemoglobin 9.8. Accu-Cheks are noted. ASSESSMENT: 1. Chronic obstructive pulmonary disease, acute exacerbation with of multilobar pneumonia with a perihilar left lower lobe pneumonia, possibly strep pneumonia with sepsis. 2. History of ETOH. 3. History of ETOH withdrawal. 4. History of nicotine dependence. 5. Moderate severe malnutrition body mass index 19.8. 6. Anemia, normocytic anemia of chronic disease. 7. Increased random blood sugar. 8. Increased BUN and dehydration. 9. History of chronic obstructive pulmonary disease. 10. Hypertension. 11. Hyperlipidemia. 12. History of myocardial infarction. 13. History of coronary artery disease/stent. 14. History of aortic aneurysm coiling. 15. History of pancreatitis. 16. History of adenoidectomy. 17. History of tonsillectomy. 18. History of depression, not otherwise specified. 19. Gait dysfunction. 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 RECOMMENDATIONS AND DISCUSSION: I recommend to continue with current medications, continue with monitoring, symptomatic treatment. We will check hemoglobin A1c as well. Otherwise, continue the rest of the medications. Continue broad spectrum IV antibiotics. Await ID for the strep pneumonia. Guarded prognosis. Further recommendations to follow. We will repeat a set of blood cultures also.
[2016-08-31 20:33] LABS: Glucose,Whole Blood 261 mg/dL (75-99)
[2016-09-01] MEDS: methylPREDNISolone SOD SUCCI 40 MG/ML 1 ML VIAL IV SCH ×4 (00:03→23:30)
[2016-09-01 07:17] LABS: Basophils % (A) 0 %; CH 31.9; CHCM 32.8; Eosinophils % (A) 0 %; HCT 30.8 % (39.0-53.0); HDW 2.87; HGB 9.9 gm/dL (13.0-17.5); Luc # (Auto) 0.07; Luc % (Auto) 2; Lymphocytes # (A) 0.2 k/uL (1.0-4.8); Lymphocytes % (A) 6 %; MCH 31.3 pg (25.0-35.0); MCHC 32.1 g/dL (31.0-37.0); MCV 97.6 fL (80.0-100.0); Mean Platelet Volume 7.1; Monocytes # (A) 0.3 k/uL (0-1.0); Monocytes % (A) 7 %; Neutrophils # (A) 3.2 k/uL (1.3-7.7); Neutrophils % (A) 85 %; RBC 3.15 m/uL (4.30-5.90); RDW 15.1 % (11.5-15.5); WBC 3.8 k/uL (3.8-10.6); WBC (Perox) 4.05
[2016-09-01] MEDS: IPRATROPIUM-ALBUTEROL 3 ML NEB INHALATION SCH ×4 (07:22→19:10)
[2016-09-01] MEDS: SYMBICORT 160-4.5 MCG INHALER INHALATION SCH ×2 (07:22→19:10)
[2016-09-01 07:26] LABS: Anion Gap 8 mmol/L; Blood Urea Nitrogen 20 mg/dL (9-20); Calcium 8.1 mg/dL (8.4-10.2); Carbon Dioxide 24 mmol/L (22-30); Chloride 111 mmol/L (98-107); Glucose 155 mg/dL (74-99); Non-African American GFR(MDRD) >60 (>60 ml/min/1.73 sqM); Sodium 143 mmol/L (137-145)
[2016-09-01 07:52] LABS: Glucose,Whole Blood 157 mg/dL (75-99)
[2016-09-01] MEDS: EZETIMIBE 10 MG TAB PO SCH (08:08)
[2016-09-01] MEDS: NICOTINE 14MG/24HR PATCH TRANSDERM SCH (08:08)
[2016-09-01] MEDS: CLOPIDOGREL 75 MG TAB PO SCH (08:08)
[2016-09-01] MEDS: METOPROLOL TARTRATE 12.5 MG TAB PO SCH (08:09)
[2016-09-01] MEDS: FLUoxetine HCL 20 MG CAP PO SCH (08:09)
[2016-09-01] MEDS: PANTOPRAZOLE 40 MG TABLET PO SCH (08:09)
[2016-09-01] MEDS: AZITHROMYCIN 500 MG TAB PO SCH (08:09)
[2016-09-01] MEDS: HEPARIN SODIUM,PORCINE 5,000 UNIT/ML 1 ML VIAL SQ SCH ×2 (08:09→19:47)
[2016-09-01] MEDS: INSULIN LISPRO (humaLOG) 300 UNIT/3 ML VIAL SQ SCH ×4 (08:12→19:46)
[2016-09-01 08:20] LABS: Hemoglobin A1C 5.7 % (4.2-6.1)
[2016-09-01 12:02] LABS: Glucose,Whole Blood 195 mg/dL (75-99)
[2016-09-01] MEDS: THIAMINE 100 MG TAB PO SCH (12:27)
[2016-09-01] MEDS: MULTIVITAMINS, THERA 1 EACH TAB PO SCH (12:27)
[2016-09-01] MEDS: FOLIC ACID 1 MG TAB PO SCH (12:27)
[2016-09-01] MEDS: SODIUM CHLORIDE 0.9% 1,000 ML IV SCH (12:30)
--- NOTE | 2016-09-01 14:26 | P.PN ---
Subjective Progress note dated 08/31/2016 This is a 71-year-old gentleman who we saw yesterday in consultation. He came with complaint came into the emergency department complaining of weakness shortness of breath cough and minimal phlegm production. Basically told him that he had a COPD exacerbation. The patient is a heavy smoker. Was told in the ER that he had pneumonia. He is feeling better. Having episode of up and down today. Still coughing. So producing some phlegm. Slight wheezing. Slight shortness of breath prior practically with exertion. No fever no chills. No nausea vomiting or diarrhea. Not a particularly good historian but he isn't able to answer questions appropriately. Progress note dated 09/01/2016 71-year-old male who was admitted with a diagnosis of COPD exacerbation. Has a heavy tobacco history. Also told the emergency room that he had pneumonia. Feeling a bit better. Less short of breath. Still coughing. So some wheezing. Most really mostly short of breath when he exerts himself. No chest pain. No fever no chills. No nausea vomiting or diarrhea. Objective - Vital Signs Vital signs: Vital Signs Temp 98.3 F 09/01/16 07:00 Pulse 86 09/01/16 11:17 Resp 16 09/01/16 07:37 BP 168/80 09/01/16 07:00 Pulse Ox 97 09/01/16 07:00 Intake & Output 08/31/16 09/01/16 09/01/16 18:59 06:59 18:59 Intake Total 1062 Output Total 250 250 Balance 812 -250 Weight 62.596 kg Intake: Intake, IV Titration 400 Amount Sodium Chloride 0.9% 1, 400 000 ml @ 50 mls/hr IV . Q20H [facility] Rx#:[id number] Oral 662 Output: Urine 250 250 Other: Voiding Method Urinal Urinal Urinal # Voids 1 1 1 # Bowel Movements 1 1 1 - Exam No acute distress, oriented 3. Sitting upright in the chair. Getting supplemental oxygen. HEENT examination is grossly unremarkable. Mucous membranes are moist. Neck supple. Full range of motion. No adenopathy. Cardiovascular examination reveals regular rhythm rate. Lungs reveal a few scattered rhonchi. No wheezes or crackles. Abdomen soft bowel sounds are heard. Extremities are intact. - Labs CBC & Chem 7: 09/01/16 06:57 09/01/16 06:57 Labs: Abnormal Lab Results - Last 24 Hours (Table) 08/31/16 08/31/16 09/01/16 Range/Units 16:29 20:17 06:57 RBC 3.15 L (4.30-5.90) m/uL Hgb 9.9 L (13.0-17.5) gm/dL Hct 30.8 L (39.0-53.0) % Lymphocytes # 0.2 L (1.0-4.8) k/uL Chloride (98-107) mmol/L Creatinine (0.66-1.25) mg/dL Glucose (74-99) mg/dL POC Glucose (mg/dL) 196 H 261 H (75-99) mg/dL Calcium (8.4-10.2) mg/dL 09/01/16 09/01/16 09/01/16 Range/Units 06:57 07:15 11:37 RBC (4.30-5.90) m/uL Hgb (13.0-17.5) gm/dL Hct (39.0-53.0) % Lymphocytes # (1.0-4.8) k/uL Chloride 111 H (98-107) mmol/L Creatinine 0.63 L (0.66-1.25) mg/dL Glucose 155 H (74-99) mg/dL POC Glucose (mg/dL) 157 H 195 H (75-99) mg/dL Calcium 8.1 L (8.4-10.2) mg/dL Microbiology - Last 24 Hours (Table) 08/29/16 22:22 Blood Culture - Preliminary Blood No Growth after 48 hours 08/29/16 21:55 Blood Culture - Preliminary Blood No Growth after 48 hours 08/30/16 00:00 Urine Culture - Final Urine,Catheterized Assessment and Plan (1) Acute bronchitis Status: Acute (2) COPD exacerbation Status: Acute (3) Pneumonia Status: Acute Plan: Plan dated 08/30/2016 The patient's x-rays not really impressive. I'll review the labs medications and x-rays. The patient needs Solu-Medrol. He'll also need Pulmicort 1 mg twice a day along with performist twice a day and duo nebs 4 times a day and when necessary. I think he can get by with one antibiotic. His chest x-ray is not impressive. He should be on so Solu-Medrol. Additional recommendations suggestions are forthcoming. Plan dated 08/31/2016 The patient will continue on all his current medications. He is on Pulmicort along with performist twice a day as well as morteza nebs 4 times a day. He's receiving systemic corticosteroids and antibiotic. We'll continue to follow. Prognosis is guarded. Hopefully discharge in next 24-48 hours. Plan dated 09/01/2016 The patient is doing a bit better. He'll continue on his current medications. He will see he's receiving all the usual medications including short acting beta agonist short acting muscarinic antagonist long-acting beta agonist inhaled corticosteroid systemic corticosteroids and antibiotics. Hopefully discharge soon. Meds labs and x-rays are all reviewed. Time with Patient: Less than 30
[2016-09-01 17:18] LABS: Glucose,Whole Blood 181 mg/dL (75-99)
[2016-09-01 19:45] LABS: Glucose,Whole Blood 224 mg/dL (75-99)
--- NOTE | 2016-09-01 23:59 | PN ---
DATE OF SERVICE: 09/01/2016 This is a 71-year-old gentleman was admitted with COPD, acute exacerbation and also multilobar pneumonia and as well as strep pneumonia sepsis also. The patient improving significantly. Appetite is improving. The patient also was significant history of ETOH. The patient is also seeking some type of rehab also at this time. PHYSICAL EXAMINATION: The patient is alert and oriented times three. Pulse 80. Blood pressure 168/86, respiratory rate 17, temperature 98.2. Pulse ox 97% on 2 L. HEENT: Conjunctivae normal. Oral mucosa moist. NECK: No jugular venous distention. No carotid bruit. No lymph node enlargement. CARDIOVASCULAR: S1, S2 muffled. No S3, no S4. RESPIRATORY: Breath sounds diminished at the bases. A few scattered rhonchi and crackles. ABDOMEN: Soft, nontender. Scaphoid. LEGS: No edema. No swelling. Nervous system: No focal deficits. LABS: WBC 3.8, hemoglobin is 9.9, sodium 143. Potassium 4. ASSESSMENT: 1. Chronic obstructive pulmonary disease, acute exacerbation with multilobar pneumonia with hilar and lower lobe pneumonia, possibly strep pneumonia with sepsis. 2. History of ETOH. 3. History of ETOH withdrawal. 4. History of nicotine dependence. 5. Moderate severe malnutrition with body mass index of 19.8. 6. Anemia, normocytic, anemia of chronic disease. 7. Increased random blood sugar. 8. Increased BUN and dehydration. 9. Chronic obstructive pulmonary disease. 10. Hypertension. 11. Hyperlipidemia. 12. History of myocardial infarction. 13. History of coronary artery disease and stent. 14. History of aortic aneurysm with coiling. 15. History of pancreatitis. 16. History of adenoidectomy. 17. History of tonsillectomy. 18. History of depression. 20. Gait dysfunction. 21. Steroid induced diabetes mellitus type 2 possibly. 22. FULL CODE. RECOMMENDATIONS AND DISCUSSION: Recommend to continue current medications, continue with monitoring, symptomatic treatment. Otherwise, at this time, continue with antibiotics. Continue with bronchodilators. PT, OT evaluation and possible ECF rehab. Otherwise, also manager social services to evaluate the patient for home situation and possible drug rehab also. Guarded prognosis. Further recommendations to follow. Prognosis guarded and discussed with the patient. PT has been consulted. Further recommendations to follow. MTDD
[2016-09-02] MEDS: SODIUM CHLORIDE 0.9% 1,000 ML IV SCH (05:37)
[2016-09-02 07:13] LABS: Glucose,Whole Blood 142 mg/dL (75-99)
[2016-09-02] MEDS: HEPARIN SODIUM,PORCINE 5,000 UNIT/ML 1 ML VIAL SQ SCH (07:43)
[2016-09-02] MEDS: METOPROLOL TARTRATE 12.5 MG TAB PO SCH (07:43)
[2016-09-02] MEDS: methylPREDNISolone SOD SUCCI 40 MG/ML 1 ML VIAL IV SCH (07:43)
[2016-09-02] MEDS: INSULIN LISPRO (humaLOG) 300 UNIT/3 ML VIAL SQ SCH ×2 (07:44→13:11)
[2016-09-02] MEDS: FLUoxetine HCL 20 MG CAP PO SCH (07:44)
[2016-09-02] MEDS: AZITHROMYCIN 500 MG TAB PO SCH (07:44)
[2016-09-02] MEDS: EZETIMIBE 10 MG TAB PO SCH (07:44)
[2016-09-02] MEDS: PANTOPRAZOLE 40 MG TABLET PO SCH (07:44)
[2016-09-02] MEDS: CLOPIDOGREL 75 MG TAB PO SCH (07:44)
[2016-09-02] MEDS: NICOTINE 14MG/24HR PATCH TRANSDERM SCH (07:45)
[2016-09-02 07:49] VITALS: BP 176/81; RESP 17; TEMP 98.1
[2016-09-02] MEDS: IPRATROPIUM-ALBUTEROL 3 ML NEB INHALATION SCH (08:15)
[2016-09-02] MEDS: SYMBICORT 160-4.5 MCG INHALER INHALATION SCH (08:15)
[2016-09-02 08:19] LABS: Basophils % (A) 0 %; CH 32.2; CHCM 33.1; Eosinophils % (A) 0 %; HCT 32.6 % (39.0-53.0); HDW 2.81; HGB 10.6 gm/dL (13.0-17.5); Luc # (Auto) 0.14; Luc % (Auto) 4; Lymphocytes # (A) 0.5 k/uL (1.0-4.8); Lymphocytes % (A) 12 %; MCH 31.6 pg (25.0-35.0); MCHC 32.4 g/dL (31.0-37.0); MCV 97.4 fL (80.0-100.0); Monocytes # (A) 0.3 k/uL (0-1.0); Monocytes % (A) 6 %; Neutrophils % (A) 78 %; RBC 3.35 m/uL (4.30-5.90); RDW 15.3 % (11.5-15.5); WBC 3.9 k/uL (3.8-10.6); WBC (Perox) 3.96
[2016-09-02 08:33] LABS: Anion Gap 7 mmol/L; Blood Urea Nitrogen 18 mg/dL (9-20); Calcium 8.2 mg/dL (8.4-10.2); Carbon Dioxide 26 mmol/L (22-30); Chloride 107 mmol/L (98-107); Glucose 108 mg/dL (74-99); Non-African American GFR(MDRD) >60 (>60 ml/min/1.73 sqM); Potassium 4.2 mmol/L (3.5-5.1); Sodium 140 mmol/L (137-145)
[2016-09-02 09:47] VITALS: PULSE 70
--- NOTE | 2016-09-02 11:02 | DS ---
DATE OF ADMISSION: 08/29/2016 DATE OF DISCHARGE: FINAL DIAGNOSES: 1. Chronic obstructive pulmonary disease, acute exacerbation of multilobar pneumonia with a hilar and left lower lobe pneumonia, possibly strep pneumonia, pneumonia with sepsis. 2. History of Ethyl alcohol. 3. History of Ethyl alcohol withdrawal. 4. History of nicotine dependence. 5. Moderate to severe malnutrition with body mass index of 19.8. 6. Anemia, normocytic anemia of chronic disease. 7. Increased random blood sugar. 8. Increased BUN and dehydration, present on admission. 9. Chronic obstructive pulmonary disease. 10. Hypertension essential. 11. Hyperlipidemia. 12. History of myocardial infarction. 13. History of coronary artery disease, stent. 14. History of aortic aneurysm with a coiling. 15. History of pancreatitis. 16. History of adenoidectomy. 17. History of tonsillectomy. 18. History of depression. 19. History of gait dysfunction. 20. History of steroid-induced diabetes mellitus type 2, possibly. 21. FULL CODE. DISCHARGE DISPOSITION: The patient will be discharged in a stable condition with guarded prognosis. Total time taken is 35 minutes. HISTORY OF PRESENT ILLNESS: This is a 71-year-old gentleman with a past medical history of chronic obstructive pulmonary disease acute exacerbations, strep pneumonia, sepsis, cultures are noted which showed strep pneumonia, which is sensitive to all the antibiotics. The patient treated symptomatically, improved significantly. Patient is extremely weak. PT, OT evaluation was done. On exam, CARDIOVASCULAR SYSTEM: S1, S2, muffled. Vital are stable. RESPIRATION: A few scattered rhonchi. The patient will be discharged in a stable condition with the following advice and medications. Patient will be transferred to [facility]. Also recommended an alcohol rehab and AA meetings also. 1. Discharge diet is cardiac. 2. Activity limited until followup. 3. Follow up with primary physician, Surjit Cook. 4. CBC, BMP in 2 to 3 days. Medications are: 1. Tylenol 650 q.6 p.r.n. 2. Zithromax 500 mg p.o. daily for 5 days. 3. Symbicort 160/4.5 two puffs b.i.d. 4. Ceftin 500 mg p.o. b.i.d. for one week. 5. Plavix 75 daily. 6. Yogurt 1 b.i.d.. 7. Zetia 10 mg p.o. daily. 8. Prozac 20 mg p.o. daily. 9. Folic acid 1 mg p.o. daily. 10. [place] 5 mg q.6 p.r.n. 11. Albuterol Atrovent updrafts q.i.d. and p.r.n. for shortness of breath. 12. Ativan 0.5 mg q.4 p.r.n. 13. Lopressor 25 mg p.o. daily. 14. Multivitamin 1 p.o. daily. 15. Habitrol 14 daily. 16. Protonix 40 mg daily. 17. Restoril 50 mg q.h.s. p.r.n. 18. Thiamine 100 mg p.o. daily. 19. Guaifenesin 200 mg q.6 p.r.n. 20. Accu-Cheks a.c. and at bedtime. 21. NovoLog scale, NovoLog scale is 150 to 200 = 2 units, 201 to 250 = 4 units, 251 to 300 = 6 units, 301 to 350 = 8 units, 351 to 400 = 10 units, more than 400 call. 22. Medrol dose pack as directed.
[2016-09-02 11:45] LABS: Glucose,Whole Blood 187 mg/dL (75-99)
[2016-09-02] MEDS: FOLIC ACID 1 MG TAB PO SCH (13:10)
[2016-09-02] MEDS: THIAMINE 100 MG TAB PO SCH (13:11)
[2016-09-02] MEDS: MULTIVITAMINS, THERA 1 EACH TAB PO SCH (13:11)
== END 2016-09-02 13:15 | DRG 871 ==
LOC: EC 12:55 → 5MS5E 14:43
PROVIDERS: ADMIT Hospitalist; ATTEND Hospitalist
DX: A40.9 Streptococcal sepsis, unspecified (principal); E43 Unspecified severe protein-calorie malnutrition; J15.4 Pneumonia due to other streptococci; E09.9 Drug or chemical induced diabetes mellitus without complications; D63.8 Anemia in other chronic diseases classified elsewhere; M06.9 Rheumatoid arthritis, unspecified; J44.0 Chronic obstructive pulmonary disease with (acute) lower respiratory infection; I10 Essential (primary) hypertension; J44.1 Chronic obstructive pulmonary disease with (acute) exacerbation; Z68.1 Body mass index [BMI] 19.9 or less, adult; T38.0X5A Adverse effect of glucocorticoids and synthetic analogues, initial encounter; E86.0 Dehydration; I25.10 Atherosclerotic heart disease of native coronary artery without angina pectoris; R94.4 Abnormal results of kidney function studies; I71.9 Aortic aneurysm of unspecified site, without rupture; F10.20 Alcohol dependence, uncomplicated; R00.0 Tachycardia, unspecified; H54.7 Unspecified visual loss; R53.1 Weakness; E78.5 Hyperlipidemia, unspecified; I25.2 Old myocardial infarction; N42.9 Disorder of prostate, unspecified; F32.9 Major depressive disorder, single episode, unspecified; R26.9 Unspecified abnormalities of gait and mobility; F17.200 Nicotine dependence, unspecified, uncomplicated; J45.909 Unspecified asthma, uncomplicated; H35.30 Unspecified macular degeneration; H91.90 Unspecified hearing loss, unspecified ear; Z81.1 Family history of alcohol abuse and dependence; Z82.49 Family history of ischemic heart disease and other diseases of the circulatory system; Z79.02 Long term (current) use of antithrombotics/antiplatelets; Z88.0 Allergy status to penicillin; Z87.01 Personal history of pneumonia (recurrent); Z87.828 Personal history of other (healed) physical injury and trauma; Z91.012 Allergy to eggs; Z79.899 Other long term (current) drug therapy; Z98.42 Cataract extraction status, left eye; Z98.41 Cataract extraction status, right eye; Z95.5 Presence of coronary angioplasty implant and graft; Z87.19 Personal history of other diseases of the digestive system
CPT/HCPCS: 36415; 70450; 71020; 80048; 80053; 81001; 83036; 83605; 84484; 85025; 85610; 85730; 87040; 87077; 87086; 87186; 87502; 93005; 94640; 94760; 96365; 96375; 99285

== ENCOUNTER 2017-02-13 16:08 | Observation (INO) | payer MEDICARE ==
[2017-02-13] MEDS ORDERED: SODIUM CHLORIDE 0.9% 1,000 ML IV STA (17:00)
[2017-02-13 17:39] LABS: Basophils # (A) 0.1 k/uL (0-0.2); Basophils % (A) 1 %; CHCM 33.9; Eosinophils # (A) 0.3 k/uL (0-0.7); Eosinophils % (A) 5 %; HCT 38.7 % (39.0-53.0); HDW 2.55; HGB 12.8 gm/dL (13.0-17.5); Luc # (Auto) 0.16; Luc % (Auto) 3; Lymphocytes # (A) 1.1 k/uL (1.0-4.8); Lymphocytes % (A) 20 %; MCH 31.4 pg (25.0-35.0); MCHC 33.1 g/dL (31.0-37.0); MCV 94.9 fL (80.0-100.0); Mean Platelet Volume 7.6; Monocytes # (A) 0.3 k/uL (0-1.0); Monocytes % (A) 5 %; Neutrophils # (A) 3.6 k/uL (1.3-7.7); Neutrophils % (A) 67 %; RBC 4.08 m/uL (4.30-5.90); RDW 15.1 % (11.5-15.5); WBC 5.5 k/uL (3.8-10.6)
[2017-02-13 17:49] LABS: ALT 33 U/L (21-72); AST 30 U/L (17-59); Alkaline Phosphatase 80 U/L (38-126); Anion Gap 10 mmol/L; Blood Urea Nitrogen 12 mg/dL (9-20); Calcium 8.4 mg/dL (8.4-10.2); Carbon Dioxide 24 mmol/L (22-30); Chloride 110 mmol/L (98-107); Glucose 90 mg/dL (74-99); Non-African American GFR(MDRD) >60 (>60 ml/min/1.73 sqM); Potassium 4.3 mmol/L (3.5-5.1); Sodium 144 mmol/L (137-145); Total Bilirubin 0.3 mg/dL (0.2-1.3); Total Protein 5.9 g/dL (6.3-8.2)
--- NOTE | 2017-02-13 17:51 | ED ---
General Adult HPI - General Source: EMS, RN notes reviewed Mode of arrival: EMS Limitations: no limitations, physical limitation <Abdiaziz Church - Last Filed: 02/13/17 20:00> <Dex Thomas - Last Filed: 02/13/17 20:59> - General Chief complaint: Back Pain/Injury Stated complaint: Fall/Back Pain Time Seen by Provider: 02/13/17 16:43 - History of Present Illness Initial comments: Patient 71-year-old male who presents emergency room today by EMS, the chief complaint of a fall that occurred prior to arrival. He does admit that he fell getting out of his chair. He admits that 4 days ago he fell when he was on his porch. He states was wateriness followers and tripped over his sandals falling on his lower back. He does admit that he's had pain in the back since. He states that he was getting out of his recliner when he fell forward. He states he believes it was the pain that caused the fall. He does admit that he's been experiencing pain in the lower back. Denies any radiation. Denies any bowel or bladder incontinence retention. He does admit that he fell earlier today was down for approximately an hour making his way over to the phone to call 911. Patient does admit that he did suffer some abrasions to his arms. He states tetanus is up-to-date. Does admit to being on a blood thinner. he didn' t does admit to being a daily drinker Patient denies any recent fever, chills, shortness of breath, chest pain, abdominal pain, nausea or vomiting, dysuria or hematuria, constipation or diarrhea, headaches or visual changes, or any other complaints. (Abdiaziz Church) - Related Data Home Medications Medication Instructions Recorded Confirmed Clopidogrel Bisulfate [Plavix] 75 mg PO DAILY 08/29/16 08/29/16 Ezetimibe [Zetia] 10 mg PO DAILY 08/29/16 08/29/16 FLUoxetine HCL [PROzac] 20 mg PO DAILY 08/29/16 08/29/16 Metoprolol Tartrate [Lopressor] 25 mg PO DAILY 08/29/16 08/29/16 guaiFENesin SYRUP 100MG/5ML 200 mg PO Q6H PRN 08/29/16 08/29/16 [Robitussin] Previous Rx's Medication Instructions Recorded Acetaminophen Tab [Tylenol] 650 mg PO Q6HR PRN #0 tab 09/02/16 Azithromycin [Zithromax] 500 mg PO DAILY #0 tab 09/02/16 Budesonide-Formot 160-4.5 Mcg 2 puff INHALATION RT-BID puff 09/02/16 [Symbicort 160-4.5 Mcg Inhaler] Cefuroxime Axetil [Ceftin] 500 mg PO BID #14 tab 09/02/16 Folic Acid 1 mg PO DAILY@1200 tab 09/02/16 HYDROcodone/APAP 5-325MG [Ravenden 1 each PO Q6HR PRN #20 tab 09/02/16 5-325] Ipratropium-Albuterol Nebulize 3 ml INHALATION RT-QID ampul.neb 09/02/16 [Duoneb 0.5 mg-3 mg/3 ml Soln] LORazepam [Ativan] 0.5 mg PO Q4HR PRN #20 tab 09/02/16 Multivitamins, Thera [Multivitamin 1 each PO DAILY@1200 tab 09/02/16 (formulary)] Nicotine 14Mg/24Hr Patch [Habitrol] 1 patch TRANSDERM DAILY patch 09/02/16 Pantoprazole [Protonix] 40 mg PO AC-BRKFST tablet. 09/02/16 Temazepam [Restoril] 15 mg PO HS PRN #20 cap 09/02/16 Thiamine [Vitamin B-1] 100 mg PO DAILY@1200 tab 09/02/16 methylPREDNISolone Dose Pack 4 mg PO DIRECTED #21 package 09/02/16 [Medrol Dose Pack] Hydrocodone/Acetaminophen [Ravenden 1 each PO Q6HR PRN #15 tab 02/13/17 5-325] Allergies Allergy/AdvReac Type Severity Reaction Status Date / Time egg Allergy Anaphylaxis Verified 02/13/17 17:28 Penicillins Allergy Unknown Verified 02/13/17 17:28 Childhood Review of Systems ROS Other: All systems not noted in ROS Statement are negative. <Abdiaziz Church - Last Filed: 02/13/17 20:00> ROS Other: All systems not noted in ROS Statement are negative. <Dex Thomas - Last Filed: 02/13/17 20:59> ROS Statement: Those systems with pertinent positive or pertinent negative responses have been documented in the HPI. 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 Last Myocardial Infarction Date:: 2001 History of Any Multi-Drug Resistant Organisms: None Reported Past Surgical History: Adenoidectomy, Heart Catheterization With Stent, Tonsillectomy Additional Past Surgical History / Comment(s): 2 HEART CATHS-7 STENTS, AAA REPAIR, URSULA CATARACTS. Past Anesthesia/Blood Transfusion Reactions: No Reported Reaction Date of Last Stent Placement:: UNK Past Psychological History: Depression Smoking Status: Current every day smoker Past Alcohol Use History: Heavy Past Drug Use History: Heroin, Marijuana - Past Family History Mother Additional Family Medical History / Comment(s): ETOH Father Additional Family Medical History / Comment(s): FROM AAA AT AGE 62 <Abdiaziz Church - Last Filed: 02/13/17 20:00> General Exam Limitations: no limitations, physical limitation <Abdiaziz Church - Last Filed: 02/13/17 20:00> <Dex Thomas - Last Filed: 02/13/17 20:59> - General Exam Comments Initial Comments: General: The patient is awake and alert, in no distress, and does not appear acutely ill. Eye: Pupils are equal, round and reactive to light, extra-ocular movements are intact. No nystagmus. There is normal conjunctiva bilaterally. No signs of icterus. Ears, nose, mouth and throat: There are moist mucous membranes and no oral lesions. Neck: The neck is supple, there is no tenderness or JVD. Cardiovascular: There is a regular rate and rhythm. No murmur, rub or gallop is appreciated. Respiratory: Lungs are clear to auscultation, respirations are non-labored, breath sounds are equal. No wheezes, stridor, rales, or rhonchi. Gastrointestinal: Soft, non-distended, non-tender abdomen without masses or organomegaly noted. There is no rebound or guarding present. No CVA tenderness. Bowel sounds are unremarkable. Musculoskeletal: Normal ROM patient does have normal appearance of thoracic and lumbar spine. No step-offs forms appreciated. Patient does have tenderness midline of the lower lumbar. Does have tenderness particularly in both left and right sides. Strength 5/5. Sensation intact. Pulses equal bilaterally 2+. Neurological: A&O x 3. CN II-XII intact, There are no obvious motor or sensory deficits. Coordination appears grossly intact. Speech is normal. Skin: Superficial abrasions to the forearms. No active bleeding. Psychiatric: Cooperative, appropriate mood & affect, normal judgment. (Abdiaziz Church) EKG Findings - EKG Comments: EKG Findings:: EKG performed at 1712: Shows normal sinus rhythm at 87 bpm. PA interval 138. QRS is 96. QT/QTC 378/454. No acute ST changes. <Abdiaziz Church - Last Filed: 02/13/17 20:00> Medical Decision Making - Lab Data Result diagrams: 02/13/17 17:30 02/13/17 17:30 <Abdiaziz Church - Last Filed: 02/13/17 20:00> - Lab Data Result diagrams: 02/13/17 17:30 02/13/17 17:30 <Dex Thomas - Last Filed: 02/13/17 20:59> - Medical Decision Making Case discussed in detail with attending physician Dr. Thomas. Patient's abrasions were cleaned here in the emergency room and dressed. His tetanus is up-to-date. His x-rays have been reviewed showing no acute fractures or dislocations. CT of the head was reviewed by radiologist who verbally over the phone states that there is no acute findings. Official read is unable to be seen at this time as computer system is currently down. Patient reexamined at this time shows no signs of distress. States he would like to be discharged home at this time. (Abdiaziz Church) The patient was seen and examined. All diagnostics were reviewed. The case was discussed with the PA and I agree with the findings as documented to the point that case was passed off to myself. The patient initially was going to be attempted to be discharged home however he was unable to get out of the cart. He was unable to stand due to his back pain and weakness. Is felt as though he would require admission to the hospital for further treatment. The case is discussed with internal medicine and they are agreeable. (Dex Thomas) - Lab Data Lab Results 02/13/17 02/13/17 02/13/17 Range/Units 17:30 17:30 17:30 WBC 5.5 (3.8-10.6) k/uL RBC 4.08 L (4.30-5.90) m/uL Hgb 12.8 L (13.0-17.5) gm/dL Hct 38.7 L (39.0-53.0) % MCV 94.9 (80.0-100.0) fL MCH 31.4 (25.0-35.0) pg MCHC 33.1 (31.0-37.0) g/dL RDW 15.1 (11.5-15.5) % Plt Count 164 (150-450) k/uL Neutrophils % 67 % Lymphocytes % 20 % Monocytes % 5 % Eosinophils % 5 % Basophils % 1 % Neutrophils # 3.6 (1.3-7.7) k/uL Lymphocytes # 1.1 (1.0-4.8) k/uL Monocytes # 0.3 (0-1.0) k/uL Eosinophils # 0.3 (0-0.7) k/uL Basophils # 0.1 (0-0.2) k/uL PT (9.0-12.0) sec INR (<1.2) APTT (22.0-30.0) sec Sodium 144 (137-145) mmol/L Potassium 4.3 (3.5-5.1) mmol/L Chloride 110 H (98-107) mmol/L Carbon Dioxide 24 (22-30) mmol/L Anion Gap 10 mmol/L BUN 12 (9-20) mg/dL Creatinine 0.77 (0.66-1.25) mg/dL Est GFR (MDRD) Af Amer >60 (>60 ml/min/1.73 sqM) Est GFR (MDRD) Non-Af >60 (>60 ml/min/1.73 sqM) Glucose 90 (74-99) mg/dL Calcium 8.4 (8.4-10.2) mg/dL Total Bilirubin 0.3 (0.2-1.3) mg/dL AST 30 (17-59) U/L ALT 33 (21-72) U/L Alkaline Phosphatase 80 (38-126) U/L Total Creatine Kinase 34 L (55-170) U/L CK-MB (CK-2) 1.3 (0.0-2.4) ng/mL CK-MB (CK-2) Rel Index 3.8 Troponin I <0.012 (0.000-0.034) ng/mL Total Protein 5.9 L (6.3-8.2) g/dL Albumin 3.4 L (3.5-5.0) g/dL Serum Alcohol 218 mg/dL 02/13/17 Range/Units 17:30 WBC (3.8-10.6) k/uL RBC (4.30-5.90) m/uL Hgb (13.0-17.5) gm/dL Hct (39.0-53.0) % MCV (80.0-100.0) fL MCH (25.0-35.0) pg MCHC (31.0-37.0) g/dL RDW (11.5-15.5) % Plt Count (150-450) k/uL Neutrophils % % Lymphocytes % % Monocytes % % Eosinophils % % Basophils % % Neutrophils # (1.3-7.7) k/uL Lymphocytes # (1.0-4.8) k/uL Monocytes # (0-1.0) k/uL Eosinophils # (0-0.7) k/uL Basophils # (0-0.2) k/uL PT 9.6 (9.0-12.0) sec INR 0.9 (<1.2) APTT 21.9 L (22.0-30.0) sec Sodium (137-145) mmol/L Potassium (3.5-5.1) mmol/L Chloride (98-107) mmol/L Carbon Dioxide (22-30) mmol/L Anion Gap mmol/L BUN (9-20) mg/dL Creatinine (0.66-1.25) mg/dL Est GFR (MDRD) Af Amer (>60 ml/min/1.73 sqM) Est GFR (MDRD) Non-Af (>60 ml/min/1.73 sqM) Glucose (74-99) mg/dL Calcium (8.4-10.2) mg/dL Total Bilirubin (0.2-1.3) mg/dL AST (17-59) U/L ALT (21-72) U/L Alkaline Phosphatase (38-126) U/L Total Creatine Kinase (55-170) U/L CK-MB (CK-2) (0.0-2.4) ng/mL CK-MB (CK-2) Rel Index Troponin I (0.000-0.034) ng/mL Total Protein (6.3-8.2) g/dL Albumin (3.5-5.0) g/dL Serum Alcohol mg/dL Disposition Time of Disposition: 20:08 <Abdiaziz Church - Last Filed: 02/13/17 20:00> Decision Date: 02/13/17 Decision Time: 20:58 <Dex Thomas - Last Filed: 02/13/17 20:59> Clinical Impression: Fall, Abrasion, Acute exacerbation of chronic low back pain, Arthritis, lumbar spine, Alcohol intoxication, Alcohol abuse Disposition: ADMITTED IP TO THIS [facility] Condition: Fair Additional Instructions: Please use medication as discussed. Please follow-up with family doctor in the next 2 days of symptoms have not improved. Please return to emergency room if the symptoms increase or worsen or for any other concerns. Prescriptions: Hydrocodone/Acetaminophen [Ravenden 5-325] 1 each PO Q6HR PRN #15 tab PRN Reason: Pain
[2017-02-13 17:53] LABS: INR 0.9 (<1.2); Partial Thromboplastin Time 21.9 sec (22.0-30.0); Prothrombin Time 9.6 sec (9.0-12.0)
[2017-02-13 18:00] LABS: Alcohol 218 mg/dL; Creatine Kinase 34 U/L (55-170)
[2017-02-13 18:14] LABS: Creatine Kinase MB 1.3 ng/mL (0.0-2.4); Troponin I <0.012 ng/mL (0.000-0.034)
[2017-02-13] MEDS ORDERED: MORPHINE SULFATE 4 MG/ML SYRINGE IV STA (19:53)
--- NOTE | 2017-02-13 20:51 | XR ---
EXAMINATION TYPE: XR lumbar spine 2 or 3V DATE OF EXAM: 02/13/2017 COMPARISON: NONE HISTORY: Back pain. Multiple falls. TECHNIQUE: 3 views FINDINGS: There is 15% anterior wedging of L4 vertebra. Vertebra have normal alignment. Disc spaces a re normal. Aortoiliac stent is noted. Posterior elements appear intact. Sacroiliac joints appear inta ct. IMPRESSION: Mild compression fracture of L5 with some sclerosis.. This is probably old. No definite acute fracture.
--- NOTE | 2017-02-13 20:51 | XR ---
EXAMINATION TYPE: XR pelvis AP view DATE OF EXAM: 02/13/2017 COMPARISON: NONE HISTORY: Pain TECHNIQUE: Single view FINDINGS: Pelvic ring is intact. There is narrowing of hip joint spaces with acetabular spurring. The re is spurring on the femoral heads. I see no definite fracture. IMPRESSION: Moderate hypertrophic osteoarthritis. No fracture.
--- NOTE | 2017-02-13 20:51 | XR ---
EXAMINATION TYPE: XR chest 2V DATE OF EXAM: 02/13/2017 COMPARISON: 08/29/2016 HISTORY: Back pain TECHNIQUE: Frontal and lateral views of the chest are obtained. FINDINGS: There is no heart failure nor confluent pneumonic infiltrate. There are no hilar masses. T horacic aorta is atheromatous. Heart size is normal. Bony thorax is intact. IMPRESSION: No active cardiopulmonary disease. Normal heart. There is clearing of infiltrate in the left lung compared to old exam.
[2017-02-13] MEDS ORDERED: HYDROcodone/APAP 5-325MG 1 EACH TAB PO PRN (21:04)
[2017-02-13] MEDS ORDERED: NALOXONE 0.4 MG/ML 1 ML VIAL IV PRN (21:04)
[2017-02-13] MEDS ORDERED: ONDANSETRON 4 MG/2 ML VIAL IVP PRN (21:04)
[2017-02-13] MEDS ORDERED: ACETAMINOPHEN TAB 325 MG TAB PO PRN (21:04)
[2017-02-13] MEDS ORDERED: KETOROLAC 30 MG/ML 1 ML VIAL IVP STA (21:04)
[2017-02-13] MEDS ORDERED: TEMAZEPAM 15 MG CAP PO PRN (21:07)
[2017-02-13] MEDS ORDERED: LORazepam 2 MG/ML SYRINGE IV PRN ×4 (21:08)
[2017-02-13] MEDS ORDERED: THIAMINE 100 MG/ML 2 ML VIAL IM STA (21:08)
[2017-02-14] MEDS: MORPHINE SULFATE 4 MG/ML SYRINGE IV PRN (01:02)
[2017-02-14] MEDS: SYMBICORT 160-4.5 MCG INHALER INHALATION SCH ×2 (07:18→21:29)
[2017-02-14] MEDS: IPRATROPIUM-ALBUTEROL 3 ML NEB INHALATION SCH ×4 (07:18→21:29)
--- NOTE | 2017-02-14 07:26 | CT ---
EXAMINATION TYPE: CT brain wo con DATE OF EXAM: 02/13/2017 COMPARISON: 08/29/2016 INDICATION: Pain injury fall DLP: 1039.80 mGycm, Automated exposure control for dose reduction was used. CONTRAST: None CT of the brain is performed utilizing 3 mm thick sections through the posterior fossa and 3 mm thick sections through the remaining calvarium. Study is performed within 24 hours of arrival to the hosp [facility]. No abnormal hyperdensity is present to suggest an acute intracranial hemorrhage. No mass lesion is evident. No acute infarcts are evident. Some mild periventricular white matter hypodensity is present, likely on the basis of chronic white matter ischemic changes. Ventricles and sulci are moderately prominent for the patient age. Paranasal sinuses and mastoid air cells within the [id number] are clear. IMPRESSIONS: 1. Atrophy with periventricular white matter ischemic changes. 2. Preliminary report was provided by the on-call radiologist.
[2017-02-14] MEDS: FLUoxetine HCL 20 MG CAP PO SCH (08:55)
[2017-02-14] MEDS: METOPROLOL TARTRATE 25 MG TAB PO SCH (08:55)
[2017-02-14] MEDS: ENOXAPARIN 40 MG/0.4 ML SYRINGE SQ SCH (08:55)
[2017-02-14] MEDS: NICOTINE 14MG/24HR PATCH TRANSDERM SCH (08:55)
[2017-02-14] MEDS: CLOPIDOGREL 75 MG TAB PO SCH (08:55)
[2017-02-14] MEDS: PANTOPRAZOLE 40 MG/10 ML VIAL IV SCH (08:55)
[2017-02-14] MEDS: MULTIVITAMINS, THERA 1 EACH TAB PO SCH (11:40)
[2017-02-14] MEDS: THIAMINE 100 MG TAB PO SCH ×2 (11:40→16:52)
[2017-02-14] MEDS: FOLIC ACID 1 MG TAB PO SCH (11:40)
[2017-02-14] MEDS ORDERED: THIAMINE 100 MG TAB PO SCH (12:00)
[2017-02-15] MEDS: IPRATROPIUM-ALBUTEROL 3 ML NEB INHALATION SCH ×4 (07:32→20:04)
[2017-02-15] MEDS: SYMBICORT 160-4.5 MCG INHALER INHALATION SCH ×2 (07:33→20:01)
[2017-02-15] MEDS: MORPHINE SULFATE 4 MG/ML SYRINGE IV PRN ×3 (08:19→18:44)
[2017-02-15] MEDS: METOPROLOL TARTRATE 25 MG TAB PO SCH (08:20)
[2017-02-15] MEDS: PANTOPRAZOLE 40 MG/10 ML VIAL IV SCH (08:20)
[2017-02-15] MEDS: ENOXAPARIN 40 MG/0.4 ML SYRINGE SQ SCH (08:20)
[2017-02-15] MEDS: NICOTINE 14MG/24HR PATCH TRANSDERM SCH (08:20)
[2017-02-15] MEDS: FLUoxetine HCL 20 MG CAP PO SCH (08:20)
[2017-02-15] MEDS: CLOPIDOGREL 75 MG TAB PO SCH (08:21)
--- NOTE | 2017-02-15 12:49 | HP ---
DATE OF SERVICE: 02/14/2017 The chief complaints are fall and back pain and alcohol intoxication. HISTORY OF PRESENT ILLNESS: This is a 71-year-old gentleman with the past medical history of multiple medical problems including COPD, history of myocardial infarction, CA of the pancreas, also history of EtOH, also. The patient apparent had significant alcohol intake, the patient admitted with a fall. There is no history of fever, chills or rigors. There is no history of headache, loss of consciousness at this time. PAST MEDICAL HISTORY: History of asthma, COPD, hypertension, hyperlipidemia, prostate disorder, depression. Medications prior to admission include, home medication are: 1. Humira Pen 40 mg subQ q.14 days. 2. Folic acid 1 mg daily. 3. Methotrexate 12.5 mg p.o. daily. 4. Zetia 10 mg daily. 5. Lopressor 50 mg p.o. daily. 6. Plavix 75 mg p.o. daily. Allergies are PENICILLIN. FAMILY HISTORY: EtOH. SOCIAL HISTORY: History of alcohol and history of EtOH. Remote history of THC and heroin. REVIEW OF SYSTEMS: ENT: No diminished hearing or diminished vision. CARDIOVASCULAR SYSTEM: No angina or palpitation. RESPIRATORY: As mentioned earlier. GI: No nausea. : No dysuria. NERVOUS SYSTEM: No numbness or weakness. ALLERGY/IMMUNOLOGY: No asthma or hayfever. MUSCULOSKELETAL: As mentioned earlier. HEMATOLOGY: No history of anemia. ENDOCRINE: No history of diabetes or hypothyroidism. CONSTITUTIONAL: As mentioned earlier. DERMATOLOGY: Negative. PSYCHIATRY: As mentioned earlier. PHYSICAL EXAM: Patient is alert and oriented x3. The pulse is 76, blood pressure 161/77, respirations 18, temperature is 96.9, pulse ox 99% on room air. HEENT: Conjunctivae normal. NECK: No jugular venous distension. CARDIOVASCULAR: S1, S2, muffled. RESPIRATORY: Breath sounds at the bases, a few scattered rhonchi, no crackles. ABDOMEN: Soft, nontender, no mass palpable. LEGS: No edema, no swelling. NERVOUS SYSTEM: Higher functions as mentioned earlier. Moves all 4 limbs. LYMPHATICS: No lymph node enlargement in the neck or axillae. SKIN: No ulcer, rash or bleeding. LABS: WBC is 5.5, hemoglobin is 12.8 and albumin is 3.4, alcohol 218. ASSESSMENT: 1. Acute alcohol intoxication. 2. Chronic obstructive pulmonary disease. 3. Hypertension. 4. History of pneumonia. 6. History of depression. 7. Gait dysfunction. 8. History of polysubstance abuse. 9. FULL CODE. RECOMMENDATION: In this 71-year-old gentleman who presented with multiple complex medical issues, will monitor the patient closely, continue with the symptomatic treatment, resume the home medications. Social Work consulted to arrange alcohol rehab as an outpatient. Guarded prognosis. Further recommendations to follow. MTDD
[2017-02-15] MEDS: THIAMINE 100 MG TAB PO SCH ×2 (12:54→17:48)
[2017-02-15] MEDS: FOLIC ACID 1 MG TAB PO SCH (12:54)
[2017-02-15] MEDS: MULTIVITAMINS, THERA 1 EACH TAB PO SCH (12:54)
[2017-02-15 13:56] LABS: Appearance,Urine Clear (Clear); Bilirubin,Urine Negative (Negative); Glucose,Urine (UA) Negative (Negative); Ketones,Urine Negative (Negative); Leukocyte Esterase,Urine Negative (Negative); Nitrite,Urine Negative (Negative); PH, Urine 7.5 (5.0-8.0); Protein,Urine Trace (Negative); Specific Gravity,Urine 1.009 (1.001-1.035); UA Billing (MACRO vs. MICRO) CHEM
[2017-02-16] MEDS ORDERED: PANTOPRAZOLE 40 MG TABLET PO SCH (06:30)
[2017-02-16] MEDS: MORPHINE SULFATE 4 MG/ML SYRINGE IV PRN ×2 (06:49→11:08)
[2017-02-16] MEDS: SYMBICORT 160-4.5 MCG INHALER INHALATION SCH (07:27)
[2017-02-16] MEDS: IPRATROPIUM-ALBUTEROL 3 ML NEB INHALATION SCH ×2 (07:28→11:13)
[2017-02-16] MEDS: METOPROLOL TARTRATE 25 MG TAB PO SCH (08:30)
[2017-02-16] MEDS: ENOXAPARIN 40 MG/0.4 ML SYRINGE SQ SCH (08:30)
[2017-02-16] MEDS: CLOPIDOGREL 75 MG TAB PO SCH (08:30)
[2017-02-16] MEDS: NICOTINE 14MG/24HR PATCH TRANSDERM SCH (08:30)
[2017-02-16] MEDS: FLUoxetine HCL 20 MG CAP PO SCH (08:30)
[2017-02-16 08:57] VITALS: BP 137/73; PULSE 93; RESP 16; TEMP 96.3
[2017-02-16] MEDS ORDERED: EZETIMIBE 10 MG TAB PO SCH (09:00)
[2017-02-16] MEDS: FOLIC ACID 1 MG TAB PO SCH (12:11)
[2017-02-16] MEDS: THIAMINE 100 MG TAB PO SCH (12:11)
[2017-02-16] MEDS: MULTIVITAMINS, THERA 1 EACH TAB PO SCH (12:11)
--- NOTE | 2017-02-16 13:29 | PN ---
DATE OF SERVICE: 02/15/17 This 71-year-old gentleman who was admitted with acute alcohol intoxication is also complaining of some weakness and cough also. No chest pain. No palpitations. No fever. CT scan of the brain was done which showed atrophy and periventricular changes. PHYSICAL EXAMINATION: On exam, alert and oriented times three. Pulse 80. Blood pressure 139/77. Respiratory rate 18. Temperature 98.9. Pulse ox 97% on room air. HEENT: Conjunctivae normal. NECK: No JVD. CARDIOVASCULAR: S1, S2 normal. RESPIRATORY: Breath sounds diminished at the bases. Scattered rhonchi. ABDOMEN: Soft. Nontender. LEGS: No edema. No swelling. NERVOUS SYSTEM: No focal deficits. LABS: WBC 5.8, Hemoglobin 12.8, albumin 3.4. Alcohol 289. ASSESSMENT: 1. Acute alcohol intoxication. 2. Chronic obstructive pulmonary disease. 3. Hypertension. 4. History of pneumonia. 5. History of depression. 6. Gait dysfunction. RECOMMENDATIONS AND DISCUSSION: Continue the current medications, continue monitoring, symptomatic treatment. Otherwise, at this time, I recommend continue CIWA protocol. Continue Vitamins. Increase ambulation. Guarded prognosis. Further recommendations to follow. MTDD
--- NOTE | 2017-02-16 15:53 | P.DS ---
Providers Date of admission: 02/13/17 21:04 Attending physician: Checo Blake Primary care physician: Surjit Cook DO Hospital Course: This 71-year-old gentleman was admitted with acute alcohol intoxication. Improved significantly with conservative management. On exam vitals stable cardio S1 and S2 normal abdomen soft nontender nervous system no focal deficit. Patient be discharged in stable but guarded prognosis. Recommended alcohol rehab. Assessment 1. Acute alcohol intoxication 2. COPD 3. Hypertension Patient Condition at Discharge: Fair Plan - Discharge Summary New Discharge Prescriptions: New Budesonide-Formot 160-4.5 Mcg [Symbicort 160-4.5 Mcg Inhaler] 2 puff INHALATION RT-BID puff FLUoxetine HCL [PROzac] 20 mg PO DAILY cap Folic Acid 1 mg PO DAILY@1200 tab HYDROcodone/APAP 5-325MG [Belden 5-325] 1 each PO Q4HR PRN #30 tab PRN Reason: Moderate Pain Ipratropium-Albuterol Nebulize [Duoneb 0.5 mg-3 mg/3 ml Soln] 3 ml INHALATION RT-QID neb LORazepam [Ativan] 1 mg PO TID PRN #40 tab PRN Reason: Anxiety Metoprolol Tartrate [Lopressor] 25 mg PO DAILY tab Multivitamins, Thera [Multivitamin (formulary)] 1 each PO DAILY@1200 tab Nicotine 14Mg/24Hr Patch [Habitrol] 1 patch TRANSDERM DAILY patch Thiamine [Vitamin B-1] 100 mg PO DAILY #30 tab Continue Clopidogrel Bisulfate [Plavix] 75 mg PO DAILY Metoprolol Tartrate [Lopressor] 50 mg PO DAILY Adalimumab [Humira Pen] 40 mg SQ Q14D Folic Acid 1 mg PO DAILY Methotrexate [Xatmep Oral Soln] 12.5 mg PO Q7D Ezetimibe [Zetia] 10 mg PO DAILY Discharge Medication List Clopidogrel Bisulfate [Plavix] 75 mg PO DAILY 08/29/16 [History] Adalimumab [Humira Pen] 40 mg SQ Q14D 02/14/17 [History] Ezetimibe [Zetia] 10 mg PO DAILY 02/14/17 [History] Folic Acid 1 mg PO DAILY 02/14/17 [History] Methotrexate [Xatmep Oral Soln] 12.5 mg PO Q7D 02/14/17 [History] Metoprolol Tartrate [Lopressor] 50 mg PO DAILY 02/14/17 [History] Budesonide-Formot 160-4.5 Mcg [Symbicort 160-4.5 Mcg Inhaler] 2 puff INHALATION RT-BID puff 02/16/17 [Rx] FLUoxetine HCL [PROzac] 20 mg PO DAILY cap 02/16/17 [Rx] Folic Acid 1 mg PO DAILY@1200 tab 02/16/17 [Rx] HYDROcodone/APAP 5-325MG [Belden 5-325] 1 each PO Q4HR PRN #30 tab 02/16/17 [Rx] Ipratropium-Albuterol Nebulize [Duoneb 0.5 mg-3 mg/3 ml Soln] 3 ml INHALATION RT -QID neb 02/16/17 [Rx] LORazepam [Ativan] 1 mg PO TID PRN #40 tab 02/16/17 [Rx] Metoprolol Tartrate [Lopressor] 25 mg PO DAILY tab 02/16/17 [Rx] Multivitamins, Thera [Multivitamin (formulary)] 1 each PO DAILY@1200 tab [Rx] Nicotine 14Mg/24Hr Patch [Habitrol] 1 patch TRANSDERM DAILY patch 02/16/17 [Rx] Thiamine [Vitamin B-1] 100 mg PO DAILY #30 tab 02/16/17 [Rx] Follow up Appointment(s)/Referral(s): pcp, [Other] - 3 Days Ambulatory/Diagnostic Orders: Complete Blood Count w/diff [LAB.AMB] Location: Determined By Patient Patient Instructions/Handouts: How to Stop Smoking (DC), Abuse of Alcohol (DC) , Fall Prevention (DC) Activity/Diet/Wound Care/Special Instructions: Please use medication as discussed. Please follow-up with family doctor in the next 2 days of symptoms have not improved. Please return to emergency room if the symptoms increase or worsen or for any other concerns. diet reg act limited till f/u no etoh attend rehab and aa. Discharge Disposition: HOME SELF-CARE
== END 2017-02-16 14:24 | disposition home or self-care (01) ==
LOC: EC 16:08 → 4MS4W 21:04
PROVIDERS: ADMIT Hospitalist; ATTEND Hospitalist
DX: F10.129 Alcohol abuse with intoxication, unspecified (principal); J44.9 Chronic obstructive pulmonary disease, unspecified; I10 Essential (primary) hypertension; M54.5 Low back pain; S40.819A Abrasion of unspecified upper arm, initial encounter; W07.XXXA Fall from chair, initial encounter; Y92.89 Other specified places as the place of occurrence of the external cause; E78.5 Hyperlipidemia, unspecified; I25.2 Old myocardial infarction; M06.9 Rheumatoid arthritis, unspecified; F32.9 Major depressive disorder, single episode, unspecified; F17.200 Nicotine dependence, unspecified, uncomplicated; M19.90 Unspecified osteoarthritis, unspecified site; N42.9 Disorder of prostate, unspecified; R26.9 Unspecified abnormalities of gait and mobility; Z79.899 Other long term (current) drug therapy; Z91.012 Allergy to eggs; Z88.0 Allergy status to penicillin; Z79.51 Long term (current) use of inhaled steroids; Z79.82 Long term (current) use of aspirin; Z95.5 Presence of coronary angioplasty implant and graft; Z91.81 History of falling; Z85.07 Personal history of malignant neoplasm of pancreas; Z79.02 Long term (current) use of antithrombotics/antiplatelets; Z87.01 Personal history of pneumonia (recurrent)
CPT/HCPCS: 36415; 70450; 71020; 72100; 72170; 80053; 80320; 81003; 82550; 82553; 84484; 85025; 85610; 85730; 93005; 94640; 96361; 96372; 96374; 96375; 96376; 99285

== ENCOUNTER 2017-11-22 08:55 | Inpatient (IN) | payer MEDICARE ==
[2017-11-22] MEDS ORDERED: SODIUM CHLORIDE 0.9% 1,000 ML with MVI, ADULT NO.4 WITH VIT K 10 ML, THIAMINE 100 MG, F... IV ONE ×4 (09:00)
[2017-11-22] MEDS ORDERED: SODIUM CHLORIDE 0.9% 2,000 ML IV ONE (09:00)
[2017-11-22] MEDS ORDERED: SODIUM CHLORIDE 0.9% 1,000 ML IV STA ×2 (09:00→12:30)
--- NOTE | 2017-11-22 09:24 | XR ---
EXAMINATION TYPE: XR chest 1V portable DATE OF EXAM: 11/22/2017 HISTORY: pain. REFERENCE: Previous study dated 02/13/2017. FINDINGS: The lungs are overinflated. There is some scarring at the left lung base. Lungs are otherwi se clear. Pleural spaces are clear. Heart size is upper limits of normal. IMPRESSION: 1. COPD. 2. BORDERLINE CARDIOMEGALY.
--- NOTE | 2017-11-22 09:25 | XR ---
EXAMINATION TYPE: XR pelvis AP view , ONE VIEW DATE OF EXAM ORDERED: 11/22/2017 HISTORY: Pain. COMPARISON: Previous study dated 02/13/2017. FINDINGS: There are fairly severe degenerative changes within both hips. There has been a previous a ortoiliac stent graft. Osseous structures about the pelvis are unremarkable. No fracture is seen. IMPRESSION: 1. NO ACUTE OSSEOUS LESION. 2. POSTSURGICAL CHANGE. 3. DEGENERATIVE CHANGE WITHIN BOTH HIPS.
[2017-11-22 09:39] LABS: Basophils % (A) 0 %; Eosinophils # (A) 0.1 k/uL (0-0.7); Eosinophils % (A) 1 %; HCT 46.4 % (39.0-53.0); Lymphocytes # (A) 0.5 k/uL (1.0-4.8); Lymphocytes % (A) 6 %; MCH 31.3 pg (25.0-35.0); MCHC 32.3 g/dL (31.0-37.0); MCV 97.2 fL (80.0-100.0); Mean Platelet Volume 8.8; Monocytes # (A) 0.5 k/uL (0-1.0); Monocytes % (A) 5 %; Neutrophils # (A) 7.9 k/uL (1.3-7.7); Neutrophils % (A) 88 %; Platelet Count 184 k/uL (150-450); RBC 4.78 m/uL (4.30-5.90); RDW 15.4 % (11.5-15.5)
[2017-11-22 09:47] LABS: Ammonia <9 umol/L (<30)
[2017-11-22 09:48] LABS: ALT 53 U/L (21-72); AST 67 U/L (17-59); Albumin 3.7 g/dL (3.5-5.0); Alcohol <10 mg/dL; Alkaline Phosphatase 106 U/L (38-126); Amylase 134 U/L (30-110); Anion Gap 19 mmol/L; Calcium 9.7 mg/dL (8.4-10.2); Carbon Dioxide 22 mmol/L (22-30); Chloride 110 mmol/L (98-107); Glucose 225 mg/dL (74-99); Lipase 194 U/L (23-300); Magnesium 2.6 mg/dL (1.6-2.3); Potassium 4.5 mmol/L (3.5-5.1); Sodium 151 mmol/L (137-145); Total Protein 6.4 g/dL (6.3-8.2)
[2017-11-22 09:54] LABS: INR 0.9 (<1.2); Prothrombin Time 9.4 sec (9.0-12.0)
[2017-11-22 09:55] LABS: Partial Thromboplastin Time 20.2 sec (22.0-30.0)
[2017-11-22 09:59] LABS: Blood Urea Nitrogen 84 mg/dL (9-20)
[2017-11-22 10:03] LABS: Lactic Acid, Venous 2.6 mmol/L (0.7-2.0)
[2017-11-22] MEDS ORDERED: LORazepam 2 MG/ML INJ IV STA (10:03)
[2017-11-22 10:31] LABS: Creatine Kinase MB 11.3 ng/mL (0.0-2.4); Troponin I 0.169 ng/mL (0.000-0.034)
--- NOTE | 2017-11-22 10:38 | CT ---
EXAMINATION TYPE: CT brain gabriel rothman DATE OF EXAM: 11/22/2017 COMPARISON: Previous CT scan of the brain dated 02/13/2017 HISTORY: Fall CT DLP: 1535.1 mGycm Automated exposure control for dose reduction was used. TECHNIQUE: CT scan of the head and cervical spine are performed without contrast. FINDINGS: BRAIN: There are generalized changes of sulcal prominence and ventriculomegaly, compatible with atrop hic change. There is periventricular white matter lucency, compatible small vessel ischemic change. T here is no acute focal lesion, mass effect or midline shift identified. I do not see evidence of intr acranial blood. There is a right frontal scalp hematoma. The bony calvarium is intact. Visualized por tions of the paranasal sinuses and mastoids are clear. IMPRESSION: 1. NO ACUTE INTRACRANIAL ABNORMALITY. 2. ATROPHIC CHANGE. 3. CHRONIC WHITE MATTER ISCHEMIC CHANGE. 4. RIGHT FRONTAL SCALP HEMATOMA. CERVICAL SPINE: There are emphysematous changes throughout the visualized portions of the lungs. Prevertebral soft tissues are unremarkable. Vertebral body height and alignment are maintained. Atlantoaxial relationships are normal. There is diffuse degenerative disc disease, hypertrophic spondylosis and uncovertebral joint disease with relative sparing of the C2-3 and C3-4 articulations. There is facet arthropathy in the C2-3 face t on the left and in both facets at the C3-4 level. No fracture is identified. IMPRESSION: 1. NO ACUTE OSSEOUS LESION. 2. MODERATE DEGENERATIVE CHANGES. 3. EMPHYSEMATOUS CHANGE.
--- NOTE | 2017-11-22 10:55 | ED ---
Fall HPI - General Chief Complaint: Fall Stated Complaint: Fell few days ago Time Seen by Provider: 11/22/17 08:55 Source: patient, family, EMS, RN notes reviewed, old records reviewed Mode of arrival: EMS - History of Present Illness Initial Comments: This is a 72-year-old male with a history of alcohol abuse history of using marijuana and heroin the past history of COPD pancreatic cancer who was seen by his son this morning and found on the floor he apparently laid for about 3-4 days patient not sure how he ended up on the floor he states he was not able to get up he states he has pain to his head neck is extremities this everywhere he was found be incontinent of urine per paramedics. No evidence of nausea vomiting he is a decreased oral intake for the past several days. Initial history and history depression and history of COPD and hypertension. MD Complaint: fall, other - Related Data Home Medications Medication Instructions Recorded Confirmed Clopidogrel Bisulfate [Plavix] 75 mg PO DAILY MDD SEE COMMENTS 08/29/16 11/22/17 Adalimumab [Humira Pen] 40 mg SQ Q14D 02/14/17 11/22/17 Ezetimibe [Zetia] 10 mg PO DAILY MDD SEE COMMENTS 02/14/17 11/22/17 Metoprolol Tartrate [Lopressor] 50 mg PO DAILY MDD SEE COMMENTS 02/14/17 Ergocalciferol (Vitamin D2) 50,000 unit PO Q7D 11/22/17 11/22/17 [Vitamin D2] Previous Rx's Medication Instructions Recorded Budesonide-Formot 160-4.5 Mcg 2 puff INHALATION RT-BID puff 02/16/17 [Symbicort 160-4.5 Mcg Inhaler] Allergies Allergy/AdvReac Type Severity Reaction Status Date / Time egg Allergy Anaphylaxis Verified 11/22/17 11:12 Penicillins Allergy Unknown Verified 11/22/17 11:12 Childhood Review of Systems ROS Statement: Those systems with pertinent positive or pertinent negative responses have been documented in the HPI. ROS Other: All systems not noted in ROS Statement are negative. 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 Last Myocardial Infarction Date:: 2001 History of Any Multi-Drug Resistant Organisms: None Reported Past Surgical History: Adenoidectomy, Heart Catheterization With Stent, Tonsillectomy Additional Past Surgical History / Comment(s): 2 HEART CATHS-7 STENTS, AAA REPAIR, USRULA CATARACTS. Past Anesthesia/Blood Transfusion Reactions: No Reported Reaction Date of Last Stent Placement:: UNK Past Psychological History: Depression Smoking Status: Current every day smoker Past Alcohol Use History: Abuse, Heavy Past Drug Use History: Heroin, Marijuana - Past Family History Mother Additional Family Medical History / Comment(s): ETOH Father Additional Family Medical History / Comment(s): FROM AAA AT AGE 62 General Exam - General Exam Comments Initial Comments: This a well-developed sec appearing male who is awake and alert though at times confused Limitations: no limitations General appearance: alert, lethargic Head exam: Present: normocephalic, other (Contusions noted to the right forehead no step-off or crepitation) ENT exam: Present: mucous membranes dry Neck exam: Present: normal inspection, tenderness (Cervical collar is in place mild tenderness palpation of the lateral neck musculature no definite spinous process tenderness), other. Absent: meningismus, lymphadenopathy Respiratory exam: Present: decreased breath sounds Cardiovascular Exam: Present: normal rhythm, tachycardia GI/Abdominal exam: Present: soft, normal bowel sounds. Absent: distended, tenderness, guarding, rebound, rigid Rectal exam: Present: other (Stage II sacral decubitus noted genitalia appears be unremarkable no evidence of any blood per rectum) Extremities exam: Present: full ROM, tenderness, normal capillary refill, other (Ecchymosis seen over the extremities bilaterally especially over the posterior right shoulder.) Neurological exam: Present: alert, altered, CN II-XII intact Psychiatric exam: Present: normal affect, normal mood Skin exam: Present: warm Course Vital Signs 11/22/17 11/22/17 11/22/17 08:59 10:36 12:02 Temperature 97.4 F L Pulse Rate 141 H 131 H 132 H Respiratory 24 22 16 Rate Blood Pressure 185/114 160/102 178/92 O2 Sat by Pulse 99 99 97 Oximetry - Reevaluation(s) Reevaluation #1: 11/22/17 10:55 The patient did have evidence of a tremor he was given small dose of benzodiazepine. Additionally the CT of the head and neck were negative for acute findings the c-collar was removed by me. Reevaluation #2: 11/22/17 10:56 Of note the patient was evaluated immediately upon arrival and I did remove the backboard after the initial exam. Reevaluation #3: 11/22/17 12:30 Patient is resting comfortably he did require the Ativan earlier. I did discuss the case with the patient's son was present I also did discuss case with Dr. Whitaker. The patient will be admitted Medical Decision Making - Lab Data Result diagrams: 11/22/17 09:22 11/22/17 09:22 Lab Results 11/22/17 11/22/17 11/22/17 Range/Units 09:22 09:22 09:22 WBC (3.8-10.6) k/uL RBC (4.30-5.90) m/uL Hgb (13.0-17.5) gm/dL Hct (39.0-53.0) % MCV (80.0-100.0) fL MCH (25.0-35.0) pg MCHC (31.0-37.0) g/dL RDW (11.5-15.5) % Plt Count (150-450) k/uL Neutrophils % % Lymphocytes % % Monocytes % % Eosinophils % % Basophils % % Neutrophils # (1.3-7.7) k/uL Lymphocytes # (1.0-4.8) k/uL Monocytes # (0-1.0) k/uL Eosinophils # (0-0.7) k/uL Basophils # (0-0.2) k/uL PT 9.4 (9.0-12.0) sec INR 0.9 (<1.2) APTT 20.2 L (22.0-30.0) sec Sodium (137-145) mmol/L Potassium (3.5-5.1) mmol/L Chloride (98-107) mmol/L Carbon Dioxide (22-30) mmol/L Anion Gap mmol/L BUN (9-20) mg/dL Creatinine (0.66-1.25) mg/dL Est GFR (CKD-EPI)AfAm (>60 ml/min/1.73 sqM) Est GFR (CKD-EPI)NonAf (>60 ml/min/1.73 sqM) Glucose (74-99) mg/dL Plasma Lactic Acid Mani 2.6 H* (0.7-2.0) mmol/L Calcium (8.4-10.2) mg/dL Magnesium (1.6-2.3) mg/dL Total Bilirubin (0.2-1.3) mg/dL AST (17-59) U/L ALT (21-72) U/L Alkaline Phosphatase (38-126) U/L Ammonia <9 (<30) umol/L Total Creatine Kinase (55-170) U/L CK-MB (CK-2) (0.0-2.4) ng/mL CK-MB (CK-2) Rel Index Troponin I (0.000-0.034) ng/mL NT-Pro-B Natriuret Pep 1960 pg/mL Total Protein (6.3-8.2) g/dL Albumin (3.5-5.0) g/dL Amylase (30-110) U/L Lipase (23-300) U/L Serum Alcohol mg/dL 11/22/17 11/22/17 11/22/17 Range/Units 09:22 09:22 09:22 WBC 9.0 (3.8-10.6) k/uL RBC 4.78 (4.30-5.90) m/uL Hgb 15.0 (13.0-17.5) gm/dL Hct 46.4 (39.0-53.0) % MCV 97.2 (80.0-100.0) fL MCH 31.3 (25.0-35.0) pg MCHC 32.3 (31.0-37.0) g/dL RDW 15.4 (11.5-15.5) % Plt Count 184 (150-450) k/uL Neutrophils % 88 % Lymphocytes % 6 % Monocytes % 5 % Eosinophils % 1 % Basophils % 0 % Neutrophils # 7.9 H (1.3-7.7) k/uL Lymphocytes # 0.5 L (1.0-4.8) k/uL Monocytes # 0.5 (0-1.0) k/uL Eosinophils # 0.1 (0-0.7) k/uL Basophils # 0.0 (0-0.2) k/uL PT (9.0-12.0) sec INR (<1.2) APTT (22.0-30.0) sec Sodium 151 H (137-145) mmol/L Potassium 4.5 (3.5-5.1) mmol/L Chloride 110 H (98-107) mmol/L Carbon Dioxide 22 (22-30) mmol/L Anion Gap 19 mmol/L BUN 84 H* (9-20) mg/dL Creatinine 1.41 H (0.66-1.25) mg/dL Est GFR (CKD-EPI)AfAm 57 (>60 ml/min/1.73 sqM) Est GFR (CKD-EPI)NonAf 50 (>60 ml/min/1.73 sqM) Glucose 225 H (74-99) mg/dL Plasma Lactic Acid Mani (0.7-2.0) mmol/L Calcium 9.7 (8.4-10.2) mg/dL Magnesium 2.6 H (1.6-2.3) mg/dL Total Bilirubin 2.0 H (0.2-1.3) mg/dL AST 67 H (17-59) U/L ALT 53 (21-72) U/L Alkaline Phosphatase 106 (38-126) U/L Ammonia (<30) umol/L Total Creatine Kinase 1175 H (55-170) U/L CK-MB (CK-2) 11.3 H* (0.0-2.4) ng/mL CK-MB (CK-2) Rel Index 1.0 Troponin I 0.169 H* (0.000-0.034) ng/mL NT-Pro-B Natriuret Pep pg/mL Total Protein 6.4 (6.3-8.2) g/dL Albumin 3.7 (3.5-5.0) g/dL Amylase 134 H (30-110) U/L Lipase 194 (23-300) U/L Serum Alcohol <10 mg/dL Disposition Clinical Impression: Syncope, Fall, Rhabdomyolysis, Acute renal failure (ARF), Dehydration, Alcohol abuse, Failure to thrive, Elevated troponin I level, Decubitus ulcer Disposition: ADMITTED IP TO THIS HOSP Condition: Stable Referrals: Surjit Cook MD [Primary Care Provider] - 1-2 days
[2017-11-22] MEDS ORDERED: NALOXONE 0.4 MG/ML 1 ML VIAL IV PRN (12:32)
--- NOTE | 2017-11-22 12:39 | ED ---
Medical Decision Making - Lab Data Result diagrams: 11/22/17 09:22 11/22/17 09:22 Lab Results 11/22/17 11/22/17 11/22/17 Range/Units 09:22 09:22 09:22 WBC (3.8-10.6) k/uL RBC (4.30-5.90) m/uL Hgb (13.0-17.5) gm/dL Hct (39.0-53.0) % MCV (80.0-100.0) fL MCH (25.0-35.0) pg MCHC (31.0-37.0) g/dL RDW (11.5-15.5) % Plt Count (150-450) k/uL Neutrophils % % Lymphocytes % % Monocytes % % Eosinophils % % Basophils % % Neutrophils # (1.3-7.7) k/uL Lymphocytes # (1.0-4.8) k/uL Monocytes # (0-1.0) k/uL Eosinophils # (0-0.7) k/uL Basophils # (0-0.2) k/uL PT 9.4 (9.0-12.0) sec INR 0.9 (<1.2) APTT 20.2 L (22.0-30.0) sec Sodium (137-145) mmol/L Potassium (3.5-5.1) mmol/L Chloride (98-107) mmol/L Carbon Dioxide (22-30) mmol/L Anion Gap mmol/L BUN (9-20) mg/dL Creatinine (0.66-1.25) mg/dL Est GFR (CKD-EPI)AfAm (>60 ml/min/1.73 sqM) Est GFR (CKD-EPI)NonAf (>60 ml/min/1.73 sqM) Glucose (74-99) mg/dL Plasma Lactic Acid Mani 2.6 H* (0.7-2.0) mmol/L Calcium (8.4-10.2) mg/dL Magnesium (1.6-2.3) mg/dL Total Bilirubin (0.2-1.3) mg/dL AST (17-59) U/L ALT (21-72) U/L Alkaline Phosphatase (38-126) U/L Ammonia <9 (<30) umol/L Total Creatine Kinase (55-170) U/L CK-MB (CK-2) (0.0-2.4) ng/mL CK-MB (CK-2) Rel Index Troponin I (0.000-0.034) ng/mL NT-Pro-B Natriuret Pep 1960 pg/mL Total Protein (6.3-8.2) g/dL Albumin (3.5-5.0) g/dL Amylase (30-110) U/L Lipase (23-300) U/L Serum Alcohol mg/dL 11/22/17 11/22/17 11/22/17 Range/Units 09:22 09:22 09:22 WBC 9.0 (3.8-10.6) k/uL RBC 4.78 (4.30-5.90) m/uL Hgb 15.0 (13.0-17.5) gm/dL Hct 46.4 (39.0-53.0) % MCV 97.2 (80.0-100.0) fL MCH 31.3 (25.0-35.0) pg MCHC 32.3 (31.0-37.0) g/dL RDW 15.4 (11.5-15.5) % Plt Count 184 (150-450) k/uL Neutrophils % 88 % Lymphocytes % 6 % Monocytes % 5 % Eosinophils % 1 % Basophils % 0 % Neutrophils # 7.9 H (1.3-7.7) k/uL Lymphocytes # 0.5 L (1.0-4.8) k/uL Monocytes # 0.5 (0-1.0) k/uL Eosinophils # 0.1 (0-0.7) k/uL Basophils # 0.0 (0-0.2) k/uL PT (9.0-12.0) sec INR (<1.2) APTT (22.0-30.0) sec Sodium 151 H (137-145) mmol/L Potassium 4.5 (3.5-5.1) mmol/L Chloride 110 H (98-107) mmol/L Carbon Dioxide 22 (22-30) mmol/L Anion Gap 19 mmol/L BUN 84 H* (9-20) mg/dL Creatinine 1.41 H (0.66-1.25) mg/dL Est GFR (CKD-EPI)AfAm 57 (>60 ml/min/1.73 sqM) Est GFR (CKD-EPI)NonAf 50 (>60 ml/min/1.73 sqM) Glucose 225 H (74-99) mg/dL Plasma Lactic Acid Mani (0.7-2.0) mmol/L Calcium 9.7 (8.4-10.2) mg/dL Magnesium 2.6 H (1.6-2.3) mg/dL Total Bilirubin 2.0 H (0.2-1.3) mg/dL AST 67 H (17-59) U/L ALT 53 (21-72) U/L Alkaline Phosphatase 106 (38-126) U/L Ammonia (<30) umol/L Total Creatine Kinase 1175 H (55-170) U/L CK-MB (CK-2) 11.3 H* (0.0-2.4) ng/mL CK-MB (CK-2) Rel Index 1.0 Troponin I 0.169 H* (0.000-0.034) ng/mL NT-Pro-B Natriuret Pep pg/mL Total Protein 6.4 (6.3-8.2) g/dL Albumin 3.7 (3.5-5.0) g/dL Amylase 134 H (30-110) U/L Lipase 194 (23-300) U/L Serum Alcohol <10 mg/dL Disposition Clinical Impression: Syncope, Fall, Rhabdomyolysis, Acute renal failure (ARF), Dehydration, Alcohol abuse, Failure to thrive, Elevated troponin I level, Decubitus ulcer, Tachycardia Disposition: ADMITTED IP TO THIS [facility] Condition: Serious Referrals: Surjit Cook MD [Primary Care Provider] - 1-2 days
--- NOTE | 2017-11-22 12:42 | ED ---
Medical Decision Making - Lab Data Result diagrams: 11/22/17 09:22 11/22/17 09:22 Lab Results 11/22/17 11/22/17 11/22/17 Range/Units 09:22 09:22 09:22 WBC (3.8-10.6) k/uL RBC (4.30-5.90) m/uL Hgb (13.0-17.5) gm/dL Hct (39.0-53.0) % MCV (80.0-100.0) fL MCH (25.0-35.0) pg MCHC (31.0-37.0) g/dL RDW (11.5-15.5) % Plt Count (150-450) k/uL Neutrophils % % Lymphocytes % % Monocytes % % Eosinophils % % Basophils % % Neutrophils # (1.3-7.7) k/uL Lymphocytes # (1.0-4.8) k/uL Monocytes # (0-1.0) k/uL Eosinophils # (0-0.7) k/uL Basophils # (0-0.2) k/uL PT 9.4 (9.0-12.0) sec INR 0.9 (<1.2) APTT 20.2 L (22.0-30.0) sec Sodium (137-145) mmol/L Potassium (3.5-5.1) mmol/L Chloride (98-107) mmol/L Carbon Dioxide (22-30) mmol/L Anion Gap mmol/L BUN (9-20) mg/dL Creatinine (0.66-1.25) mg/dL Est GFR (CKD-EPI)AfAm (>60 ml/min/1.73 sqM) Est GFR (CKD-EPI)NonAf (>60 ml/min/1.73 sqM) Glucose (74-99) mg/dL Plasma Lactic Acid Mani 2.6 H* (0.7-2.0) mmol/L Calcium (8.4-10.2) mg/dL Magnesium (1.6-2.3) mg/dL Total Bilirubin (0.2-1.3) mg/dL AST (17-59) U/L ALT (21-72) U/L Alkaline Phosphatase (38-126) U/L Ammonia <9 (<30) umol/L Total Creatine Kinase (55-170) U/L CK-MB (CK-2) (0.0-2.4) ng/mL CK-MB (CK-2) Rel Index Troponin I (0.000-0.034) ng/mL NT-Pro-B Natriuret Pep 1960 pg/mL Total Protein (6.3-8.2) g/dL Albumin (3.5-5.0) g/dL Amylase (30-110) U/L Lipase (23-300) U/L Serum Alcohol mg/dL 11/22/17 11/22/17 11/22/17 Range/Units 09:22 09:22 09:22 WBC 9.0 (3.8-10.6) k/uL RBC 4.78 (4.30-5.90) m/uL Hgb 15.0 (13.0-17.5) gm/dL Hct 46.4 (39.0-53.0) % MCV 97.2 (80.0-100.0) fL MCH 31.3 (25.0-35.0) pg MCHC 32.3 (31.0-37.0) g/dL RDW 15.4 (11.5-15.5) % Plt Count 184 (150-450) k/uL Neutrophils % 88 % Lymphocytes % 6 % Monocytes % 5 % Eosinophils % 1 % Basophils % 0 % Neutrophils # 7.9 H (1.3-7.7) k/uL Lymphocytes # 0.5 L (1.0-4.8) k/uL Monocytes # 0.5 (0-1.0) k/uL Eosinophils # 0.1 (0-0.7) k/uL Basophils # 0.0 (0-0.2) k/uL PT (9.0-12.0) sec INR (<1.2) APTT (22.0-30.0) sec Sodium 151 H (137-145) mmol/L Potassium 4.5 (3.5-5.1) mmol/L Chloride 110 H (98-107) mmol/L Carbon Dioxide 22 (22-30) mmol/L Anion Gap 19 mmol/L BUN 84 H* (9-20) mg/dL Creatinine 1.41 H (0.66-1.25) mg/dL Est GFR (CKD-EPI)AfAm 57 (>60 ml/min/1.73 sqM) Est GFR (CKD-EPI)NonAf 50 (>60 ml/min/1.73 sqM) Glucose 225 H (74-99) mg/dL Plasma Lactic Acid Mani (0.7-2.0) mmol/L Calcium 9.7 (8.4-10.2) mg/dL Magnesium 2.6 H (1.6-2.3) mg/dL Total Bilirubin 2.0 H (0.2-1.3) mg/dL AST 67 H (17-59) U/L ALT 53 (21-72) U/L Alkaline Phosphatase 106 (38-126) U/L Ammonia (<30) umol/L Total Creatine Kinase 1175 H (55-170) U/L CK-MB (CK-2) 11.3 H* (0.0-2.4) ng/mL CK-MB (CK-2) Rel Index 1.0 Troponin I 0.169 H* (0.000-0.034) ng/mL NT-Pro-B Natriuret Pep pg/mL Total Protein 6.4 (6.3-8.2) g/dL Albumin 3.7 (3.5-5.0) g/dL Amylase 134 H (30-110) U/L Lipase 194 (23-300) U/L Serum Alcohol <10 mg/dL Critical Care Time Critical Care Time: Yes Critical Care Time: 43 minutes of critical care time which includes initial monitoring of the EMS run and discussed with paramedics history physical labs x-rays several reevaluation of the patient discussed with patient's family regarding findings discussion with the admitting physician review of old charting that was available documentation of the above admission orders. Disposition Clinical Impression: Syncope, Fall, Rhabdomyolysis, Acute renal failure (ARF), Dehydration, Alcohol abuse, Failure to thrive, Elevated troponin I level, Decubitus ulcer, Tachycardia Disposition: ADMITTED IP TO THIS [facility] Condition: Serious Referrals: Surjit Cook MD [Primary Care Provider] - 1-2 days
[2017-11-22] MEDS ORDERED: ADALIMUMAB 80 MG/1.6 ML KIT SQ SCH (12:45)
[2017-11-22] MEDS ORDERED: THIAMINE 100 MG/ML 2 ML VIAL IM STA (12:48)
[2017-11-22] MEDS ORDERED: LORazepam 2 MG/ML INJ IV PRN ×3 (12:48)
[2017-11-22] MEDS: ERGOCALCIFEROL 50,000 UNIT CAP PO SCH (15:45)
[2017-11-22] MEDS: SODIUM CHLORIDE 0.9% 1,000 ML IV SCH ×2 (15:46→21:56)
--- NOTE | 2017-11-22 15:54 | P.HPIM ---
History of Present Illness H&P Date: 11/22/17 Chief Complaint: Found down This is a 72-year-old male with a history of alcohol abuse with binge drinking, history of marijuana use, COPD, pancreatic cancer who presented to the emergency department after he was found on the floor by his son. The patient lives by himself and normally is able to take care of himself when he does not drink. It is unknown how many days patient was laying on the floor for. When the patient was found he was very confused and not able to give any reliable history. He answered questions with meaningless words. Per the paramedics he was found incontinent to his urine. In the emergency department he was found to be tachycardic, hypertensive. Laboratory findings were significant for elevated sodium at 151, lactic acidosis 2.4, acute renal failure with a creatinine level of 1.4, total CK was elevated at 1100. Patient was given a total of 3 L of normal saline IV and subsequently was admitted to the hospital for further evaluation and management. 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 Last Myocardial Infarction Date:: 2001 History of Any Multi-Drug Resistant Organisms: None Reported Past Surgical History: Adenoidectomy, Heart Catheterization With Stent, Tonsillectomy Additional Past Surgical History / Comment(s): 2 HEART CATHS-7 STENTS, AAA REPAIR, URSULA CATARACTS. Past Anesthesia/Blood Transfusion Reactions: No Reported Reaction Date of Last Stent Placement:: UNK Past Psychological History: Depression Smoking Status: Current every day smoker Past Alcohol Use History: Abuse, Heavy Past Drug Use History: Heroin, Marijuana - Past Family History Mother Additional Family Medical History / Comment(s): ETOH Father Additional Family Medical History / Comment(s): FROM AAA AT AGE 62 Medications and Allergies Home Medications Medication Instructions Recorded Confirmed Type Clopidogrel Bisulfate [Plavix] 75 mg PO DAILY MDD SEE COMMENTS 08/29/16 History Adalimumab [Humira Pen] 40 mg SQ Q14D 02/14/17 11/22/17 History Ezetimibe [Zetia] 10 mg PO DAILY MDD SEE COMMENTS 02/14/17 11/22/17 History Metoprolol Tartrate [Lopressor] 50 mg PO DAILY MDD SEE COMMENTS 02/14/17 History Budesonide-Formot 160-4.5 Mcg 2 puff INHALATION RT-BID puff 02/16/17 11/22/17 Rx [Symbicort 160-4.5 Mcg Inhaler] Ergocalciferol (Vitamin D2) 50,000 unit PO Q7D 11/22/17 11/22/17 History [Vitamin D2] Allergies Allergy/AdvReac Type Severity Reaction Status Date / Time egg Allergy Anaphylaxis Verified 11/22/17 11:12 Penicillins Allergy Unknown Verified 11/22/17 11:12 Childhood Physical Exam Vitals: Vital Signs Temp Pulse Resp BP Pulse Ox 11/22/17 12:02 132 H 16 178/92 97 11/22/17 10:36 131 H 22 160/102 99 11/22/17 08:59 97.4 F L 141 H 24 185/114 99 Intake and Output 11/21/17 11/22/17 11/22/17 22:59 06:59 14:59 Other: Weight 65.771 kg Constitutional: No acute distress, disheveled look HEENT:Anicteric sclerae, moist conjunctiva, no lid-lag, PERRLA, right-sided scalp bruise/hematoma right above the right eye, poor oral dentition, Oropharynx clear, no erythema, exudates Neck: Supple, FROM, no masses, or JVD, No carotid bruits, No thyromegaly Lungs: Clear to auscultation, Clear to percussion, Normal respiratory effort, no accessory muscle use Cardiovascular: Tachycardic, regular, No murmurs, gallops, or rubs, No peripheral edema Abdominal: Soft, Nontender, no guarding, rebound or rigidity, Normoactive bowel sounds, No hepatomegaly, No splenomegaly, No palpable mass Skin: Multiple bruises especially on the upper extremities and face, Normal temperature, tone, texture, turgor, no induration, No subcutaneous nodules, No rash, lesions, stage I decubitus ulcer Extremities: no digital cyanosis, No clubbing, Pedal pulses intact and symmetrical, Radial pulses intact and symmetrical, No calf tenderness Psychiatric: Alert but disoriented Neuro: Gen. weakness, moving all extremities. Cranial nerves II-XII grossly intact, no focal sensory deficits Results CBC & Chem 7: 11/22/17 09:22 11/22/17 09:22 Labs: Abnormal Lab Results - Last 24 Hours (Table) 11/22/17 11/22/17 11/22/17 Range/Units 09:22 09:22 09:22 Neutrophils # (1.3-7.7) k/uL Lymphocytes # (1.0-4.8) k/uL APTT 20.2 L (22.0-30.0) sec Sodium 151 H (137-145) mmol/L Chloride 110 H (98-107) mmol/L BUN 84 H* (9-20) mg/dL Creatinine 1.41 H (0.66-1.25) mg/dL Glucose 225 H (74-99) mg/dL Plasma Lactic Acid Mani 2.6 H* (0.7-2.0) mmol/L Magnesium 2.6 H (1.6-2.3) mg/dL Total Bilirubin 2.0 H (0.2-1.3) mg/dL AST 67 H (17-59) U/L Total Creatine Kinase (55-170) U/L CK-MB (CK-2) (0.0-2.4) ng/mL Troponin I (0.000-0.034) ng/mL Amylase 134 H (30-110) U/L 11/22/17 11/22/17 Range/Units 09:22 09:22 Neutrophils # 7.9 H (1.3-7.7) k/uL Lymphocytes # 0.5 L (1.0-4.8) k/uL APTT (22.0-30.0) sec Sodium (137-145) mmol/L Chloride (98-107) mmol/L BUN (9-20) mg/dL Creatinine (0.66-1.25) mg/dL Glucose (74-99) mg/dL Plasma Lactic Acid Mani (0.7-2.0) mmol/L Magnesium (1.6-2.3) mg/dL Total Bilirubin (0.2-1.3) mg/dL AST (17-59) U/L Total Creatine Kinase 1175 H (55-170) U/L CK-MB (CK-2) 11.3 H* (0.0-2.4) ng/mL Troponin I 0.169 H* (0.000-0.034) ng/mL Amylase (30-110) U/L Assessment and Plan Plan: -Fall/Rhabdomyolysis: IV fluids CT head & neck reviewed--nothing acute -Sinus tachycardia: Likely sec to dehydration IV fluids as above -Stage 1 decub ulcer: Protect with adhesive bandage -Acute renal failure: Likely sec to rhabdo and dehydration IV fluids Follow up cr in am Avoid nephrotoxic meds -Chronic asthma, COPD, Hyperlipidemia, Hypertension, Hx of myocardial Infarction ([place]) s/p stenting, Hx of rheumatoid Arthritis ([place]): Stable Resume home meds
[2017-11-22] MEDS ORDERED: METOPROLOL SUCCINATE (ER) 50 MG TAB.ER.24H PO STA (16:07)
[2017-11-22] MEDS ORDERED: METOPROLOL TARTRATE 50 MG TAB PO STA (16:08)
[2017-11-22] MEDS: SYMBICORT 160-4.5 MCG INHALER INHALATION SCH (20:02)
[2017-11-23 06:15] LABS: Basophils % (A) 0 %; Eosinophils # (A) 0.1 k/uL (0-0.7); Eosinophils % (A) 1 %; HCT 35.5 % (39.0-53.0); HGB 11.6 gm/dL (13.0-17.5); Lymphocytes # (A) 0.7 k/uL (1.0-4.8); Lymphocytes % (A) 11 %; MCH 32.3 pg (25.0-35.0); MCHC 32.6 g/dL (31.0-37.0); Macrocytosis Slight; Mean Platelet Volume 7.6; Monocytes # (A) 0.4 k/uL (0-1.0); Monocytes % (A) 7 %; Neutrophils % (A) 79 %; Platelet Count 133 k/uL (150-450); RBC 3.58 m/uL (4.30-5.90); RDW 15.4 % (11.5-15.5); WBC 6.4 k/uL (3.8-10.6)
[2017-11-23 06:29] LABS: Albumin 2.5 g/dL (3.5-5.0); Magnesium 2.3 mg/dL (1.6-2.3); Phosphorus 3.2 mg/dL (2.5-4.5); Total Bilirubin 1.3 mg/dL (0.2-1.3); Total Protein 4.8 g/dL (6.3-8.2)
[2017-11-23] MEDS: SODIUM CHLORIDE 0.9% 1,000 ML IV SCH (06:58)
[2017-11-23] MEDS ORDERED: SODIUM CHLORIDE 0.45% 1,000 ML IV SCH (07:00)
[2017-11-23] MEDS: METOPROLOL TARTRATE 50 MG TAB PO SCH (07:53)
[2017-11-23] MEDS: EZETIMIBE 10 MG TAB PO SCH (07:54)
[2017-11-23] MEDS: CLOPIDOGREL 75 MG TAB PO SCH (07:54)
[2017-11-23] MEDS: SYMBICORT 160-4.5 MCG INHALER INHALATION SCH ×2 (09:05→19:48)
--- NOTE | 2017-11-23 12:30 | P.PN ---
Subjective Progress Note Date: 11/23/17 Principal diagnosis: Dehydration, renal failure, change in mental status Patient is more awake and oriented compared to when he came in, he is still significantly weak and not able to feed himself as of yet. Objective - Vital Signs Vital signs: Vital Signs Temp 97.2 F L 11/23/17 10:52 Pulse 83 11/23/17 10:52 Resp 18 11/23/17 10:52 BP 166/81 11/23/17 10:52 Pulse Ox 98 11/23/17 10:52 Intake & Output 11/22/17 11/23/17 11/23/17 18:59 06:59 18:59 Intake Total 250 Balance 250 Weight 65.7 kg 66.5 kg Intake: Intake, IV Titration 250 Amount Sodium Chloride 0.9% 1, 250 000 ml @ 125 mls/hr IV . Q8H [facility] Rx#:[id number] Other: Voiding Method Diaper Diaper Diaper Incontinent Incontinent Incontinent # Voids 0 1 - Exam Constitutional: No acute distress, disheveled look HEENT:Anicteric sclerae, moist conjunctiva, no lid-lag, PERRLA, right-sided scalp bruise/hematoma right above the right eye, poor oral dentition, Oropharynx clear, no erythema, exudates Neck: Supple, FROM, no masses, or JVD, No carotid bruits, No thyromegaly Lungs: Clear to auscultation, Clear to percussion, Normal respiratory effort, no accessory muscle use Cardiovascular: Tachycardic, regular, No murmurs, gallops, or rubs, No peripheral edema Abdominal: Soft, Nontender, no guarding, rebound or rigidity, Normoactive bowel sounds, No hepatomegaly, No splenomegaly, No palpable mass Skin: Multiple bruises especially on the upper extremities and face, Normal temperature, tone, texture, turgor, no induration, No subcutaneous nodules, No rash, lesions, stage I decubitus ulcer Extremities: no digital cyanosis, No clubbing, Pedal pulses intact and symmetrical, Radial pulses intact and symmetrical, No calf tenderness Psychiatric: Alert and oriented Neuro: Gen. weakness, moving all extremities. Cranial nerves II-XII grossly intact, no focal sensory deficits - Labs CBC & Chem 7: 11/23/17 05:45 11/23/17 10:42 Labs: Abnormal Lab Results - Last 24 Hours (Table) 11/22/17 11/22/17 11/23/17 Range/Units 15:10 15:10 05:45 RBC 3.58 L (4.30-5.90) m/uL Hgb 11.6 L D (13.0-17.5) gm/dL Hct 35.5 L (39.0-53.0) % Plt Count 133 L (150-450) k/uL Lymphocytes # 0.7 L (1.0-4.8) k/uL Sodium (137-145) mmol/L Chloride (98-107) mmol/L BUN (9-20) mg/dL Calcium (8.4-10.2) mg/dL Creatine Kinase 871 H (55-170) U/L Troponin I 0.150 H* (0.000-0.034) ng/mL Total Protein (6.3-8.2) g/dL Albumin (3.5-5.0) g/dL 11/23/17 11/23/17 Range/Units 05:45 10:42 RBC (4.30-5.90) m/uL Hgb (13.0-17.5) gm/dL Hct (39.0-53.0) % Plt Count (150-450) k/uL Lymphocytes # (1.0-4.8) k/uL Sodium 157 H 155 H (137-145) mmol/L Chloride 126 H* 122 H* (98-107) mmol/L BUN 47 H (9-20) mg/dL Calcium 8.0 L (8.4-10.2) mg/dL Creatine Kinase (55-170) U/L Troponin I (0.000-0.034) ng/mL Total Protein 4.8 L (6.3-8.2) g/dL Albumin 2.5 L (3.5-5.0) g/dL Assessment and Plan Plan: -Fall/Rhabdomyolysis: IV fluids CT head & neck reviewed--nothing acute -Sinus tachycardia: Likely sec to dehydration Resolved Back on metoprolol. IV fluids as above -Stage 1 decub ulcer: Protect with adhesive bandage -Acute renal failure: Resolved Likely sec to rhabdo and dehydration IV fluids -Severe hypernatremia: Likely secondary to dehydration IV fluids switched from normal saline to D5 half normal saline. Follow-up sodium levels every 6 hours -ETOH abuse: [facility] protocol -Chronic asthma, COPD, Hyperlipidemia, Hypertension, Hx of myocardial Infarction ([place]) s/p stenting, Hx of rheumatoid Arthritis ([place]): Stable Resume home meds
[2017-11-23] MEDS: DEXTROSE 5%-0.45% NACL 1,000 ML IV SCH ×2 (16:09→16:15)
[2017-11-23 17:07] LABS: Appearance,Urine Clear (Clear); Bacteria,Urine Rare /hpf; Bilirubin,Urine Negative (Negative); Blood,Urine Trace (Negative); Color,Urine Yellow; Glucose,Urine (UA) Negative (Negative); Granular Casts,Urine 5 /lpf (0); Ketones,Urine Negative (Negative); Leukocyte Esterase,Urine Negative (Negative); Mucus,Urine Rare /hpf; Nitrite,Urine Negative (Negative); PH, Urine 5.5 (5.0-8.0); Protein,Urine 1+ (Negative); RBC,Urine 1 /hpf (0-5); Squamous Epithelial Cell,Urine <1 /hpf (0-4); WBC,Urine 2 /hpf (0-5)
[2017-11-23 17:43] LABS: Amphetamine Screen,Urine Not Detected (NotDetected); Barbiturate Screen,Urine Not Detected (NotDetected); Benzodiazepines Screen,Urine Detected (NotDetected); Cocaine Screen,Urine Not Detected (NotDetected); Methadone Screen, Urine Not Detected (NotDetected); Opiate Screen,Urine Not Detected (NotDetected); Oxycodone Screen, Urine Not Detected (NotDetected); Phencyclidine Screen,Urine Not Detected (NotDetected); Tricyclic Antidepressant,Urine Not Detected (NotDetected); Urn Cannabinoid Scrn Not Detected (NotDetected)
[2017-11-23 23:53] LABS: Potassium 3.7 mmol/L (3.5-5.1)
[2017-11-24] MEDS: DEXTROSE 5%-0.45% NACL 1,000 ML IV SCH ×3 (06:22→17:31)
[2017-11-24] MEDS: SYMBICORT 160-4.5 MCG INHALER INHALATION SCH ×2 (09:16→19:11)
[2017-11-24] MEDS: CLOPIDOGREL 75 MG TAB PO SCH (09:17)
[2017-11-24] MEDS: METOPROLOL TARTRATE 50 MG TAB PO SCH (09:17)
[2017-11-24] MEDS: EZETIMIBE 10 MG TAB PO SCH (09:17)
--- NOTE | 2017-11-24 11:49 | P.PN ---
Subjective Progress Note Date: 11/24/17 Principal diagnosis: Dehydration, renal failure, change in mental status Patient is still significantly weak. He is unable to get out of bed. He is complaining of pain all over his body. No nausea or vomiting. No fevers or chills. No chest pain or shortness of breath. Objective - Vital Signs Vital signs: Vital Signs Temp 97.1 F L 11/24/17 08:00 Pulse 88 11/24/17 08:00 Resp 18 11/24/17 08:00 BP 153/70 11/24/17 08:00 Pulse Ox 96 11/24/17 08:00 Intake & Output 11/23/17 11/24/17 11/24/17 18:59 06:59 18:59 Intake Total 120 Output Total 300 Balance -180 Weight 65.5 kg Intake: Oral 120 Output: Urine 300 Other: Voiding Method Diaper Diaper Diaper Incontinent Incontinent Incontinent # Voids 1 1 - Exam Constitutional: No acute distress, disheveled look HEENT:Anicteric sclerae, moist conjunctiva, no lid-lag, PERRLA, right-sided scalp bruise/hematoma right above the right eye, poor oral dentition, Oropharynx clear, no erythema, exudates Neck: Supple, FROM, no masses, or JVD, No carotid bruits, No thyromegaly Lungs: Clear to auscultation, Clear to percussion, Normal respiratory effort, no accessory muscle use Cardiovascular: Tachycardic, regular, No murmurs, gallops, or rubs, No peripheral edema Abdominal: Soft, Nontender, no guarding, rebound or rigidity, Normoactive bowel sounds, No hepatomegaly, No splenomegaly, No palpable mass Skin: Multiple bruises especially on the upper extremities and face, Normal temperature, tone, texture, turgor, no induration, No subcutaneous nodules, No rash, lesions, stage I decubitus ulcer Extremities: no digital cyanosis, No clubbing, Pedal pulses intact and symmetrical, Radial pulses intact and symmetrical, No calf tenderness Psychiatric: Alert and oriented Neuro: Gen. weakness, moving all extremities. Cranial nerves II-XII grossly intact, no focal sensory deficits - Labs CBC & Chem 7: 11/23/17 05:45 11/23/17 23:19 Labs: Abnormal Lab Results - Last 24 Hours (Table) 11/23/17 11/23/17 11/23/17 Range/Units 16:55 16:55 16:57 Sodium 149 H (137-145) mmol/L Chloride 116 H (98-107) mmol/L Urine Protein 1+ H (Negative) Urine Blood Trace H (Negative) Urine Bacteria Rare H (None) /hpf Urine Mucus Rare H (None) /hpf U Benzodiazepines Scrn Detected H (NotDetected) 11/23/17 Range/Units 23:19 Sodium (137-145) mmol/L Chloride 114 H (98-107) mmol/L Urine Protein (Negative) Urine Blood (Negative) Urine Bacteria (None) /hpf Urine Mucus (None) /hpf U Benzodiazepines Scrn (NotDetected) Assessment and Plan Plan: -Fall/Rhabdomyolysis: Continue IV fluids Resolved -Stage 1 decub ulcer: Protect with adhesive bandage -Severe hypernatremia: Likely secondary to dehydration Resolved Continue D5 half normal saline. -ETOH abuse: [facility] protocol Advised to quit -General weakness PT/OT -Chronic asthma, COPD, Hyperlipidemia, Hypertension, Hx of myocardial Infarction ([place]) s/p stenting, Hx of rheumatoid Arthritis ([place]): Stable Resume home meds Anticipated discharge: 1-2 days, will likely need rehab placement
[2017-11-24] MEDS ORDERED: cefTRIAXone 2,000 MG in SODIUM CHLORIDE 0.9% 100 ML IVPB SCH (17:00)
--- NOTE | 2017-11-24 17:14 | XR ---
EXAMINATION: XR chest 1V portable DATE AND TIME: 11/24/2017 5:04 PM ORDERING PROVIDER: Justin Ontiveros MD CLINICAL INDICATION: pneumonia/fever TECHNIQUE: AP upright portable COMPARISON: 11/22/2017 and 02/13/2017 radiograph DESCRIPTION: There is a 1.5 cm opacity superimposed over the right scapula is superimposed over the r ight upper lobe laterally. This can be further characterized with CT. The lungs are otherwise clear. No evidence of pulmonary edema. No consolidative opacity to suggest pneumonia. The pleural spaces are negative. The cardiac silhouette is not enlarged. The mediastinal and pleural silhouettes are unremarkable. The skeletal structures are intact without focal findings. The soft tissues are unremarkable. IMPRESSION: 1.5 CM OPACITY NOTED OVER THE RIGHT SCAPULA; DISCUSSED.
--- NOTE | 2017-11-24 17:21 | P.CONS ---
History of Present Illness - Reason for Consult Consult date: 11/24/17 - Chief Complaint Fall - History of Present Illness 72-year-old male presents to Hospital EMS after the patient's son found him on the floor of his condo. Is related that the patient was hospitalized last time he did go to rehab which was the [facility] in [place]. He apparently improved and was back to his home environment. He is noted to have a history of alcohol abuse and when he is actively drinking will have follow-up. It's unclear amount of time patient was on the floor but apparently could be up to 3 days. It admission the patient was very weak, poor historian and evidence of significant metabolic derangement including hypernatremia and acute renal failure and elevated creatinine kinase level. With hydration the patient's hyponatremia has improved as has his elevated creatinine. The patient over has a pressure ulceration on the sacral area and has now developed fever and the infectious diseases consultation was requested. The patient is a poor historian although he is arousable to interact the quality of his content of speech is poor. However was able to follow simple commands. Review of data reveals difficulty with his chronic alcoholism, COPD, and no history of pancreatic cancer as well as rheumatoid arthritis. Medication list shows utilization of marrow which is now on hold given his current infection. 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 Last Myocardial Infarction Date:: 2001 History of Any Multi-Drug Resistant Organisms: None Reported Past Surgical History: Adenoidectomy, Heart Catheterization With Stent, Tonsillectomy Additional Past Surgical History / Comment(s): 2 HEART CATHS-7 STENTS, AAA REPAIR, URSULA CATARACTS. Past Anesthesia/Blood Transfusion Reactions: No Reported Reaction Date of Last Stent Placement:: UNK Past Psychological History: Depression Smoking Status: Current every day smoker Past Alcohol Use History: Abuse, Heavy Additional Past Alcohol Use History / Comment(s): As noted when he has while he lives in his condominium, no one lives with him. Current smoker. Ongoing alcohol use binging at times. Related has been many years since he has used marijuana or heroin. No animals living with him. No experience related. NoTravel is related Past Drug Use History: Heroin, Marijuana - Past Family History Mother Additional Family Medical History / Comment(s): ETOH Father Additional Family Medical History / Comment(s): FROM AAA AT AGE 62 Medications and Allergies Home Medications and Allergies Comment(s): Current Medications Acetaminophen (Tylenol Tab) 650 mg PO Q6HR PRN PRN Reason: Mild Pain or Fever > 100.5 Budesonide/Formoterol Fumarate (Symbicort 160-4.5 Mcg Inhaler) 2 puff INHALATION RT-BID [facility] Last Admin: 11/24/17 09:16 Dose: 2 puff Ceftriaxone Sodium (Rocephin) 2,000 mg IVP Q24HR [facility] Clopidogrel Bisulfate (Plavix) 75 mg PO DAILY [facility] Last Admin: 11/24/17 09:17 Dose: 75 mg Ezetimibe (Zetia) 10 mg PO DAILY [facility] Last Admin: 11/24/17 09:17 Dose: 10 mg Ergocalciferol (Vitamin D2) 50,000 unit PO Q7D [facility] Last Admin: 11/22/17 15:45 Dose: 50,000 unit Dextrose/Sodium Chloride (Dextrose 5%-1/2ns Iv Soln) 1,000 mls @ 125 mls/hr IV .Q8H [facility] Last Admin: 11/24/17 09:18 Dose: 125 mls/hr Clindamycin Phosphate 600 mg/ (Dextrose/Water) 54 mls @ 100 mls/hr IVPB Q8HR [facility] Lorazepam (Ativan) 1 mg IV Q2HR PRN PRN Reason: CIWA 8 or 9 Last Admin: 11/24/17 15:17 Dose: 1 mg Lorazepam (Ativan) 1 mg IV Q1HR PRN PRN Reason: CIWA 10 to 15 Last Admin: 11/22/17 13:23 Dose: 1 mg Metoprolol Tartrate (Lopressor) 50 mg PO DAILY [facility] Last Admin: 11/24/17 09:17 Dose: 50 mg Naloxone HCl (Narcan) 0.2 mg IV Q2M PRN PRN Reason: Opioid Reversal Home Medications Medication Instructions Recorded Confirmed Type Clopidogrel Bisulfate [Plavix] 75 mg PO DAILY MDD SEE COMMENTS 08/29/16 History Adalimumab [Humira Pen] 40 mg SQ Q14D 02/14/17 11/22/17 History Ezetimibe [Zetia] 10 mg PO DAILY MDD SEE COMMENTS 02/14/17 11/22/17 History Metoprolol Tartrate [Lopressor] 50 mg PO DAILY MDD SEE COMMENTS 02/14/17 History Budesonide-Formot 160-4.5 Mcg 2 puff INHALATION RT-BID puff 02/16/17 11/22/17 Rx [Symbicort 160-4.5 Mcg Inhaler] Ergocalciferol (Vitamin D2) 50,000 unit PO Q7D 11/22/17 11/22/17 History [Vitamin D2] Allergies Allergy/AdvReac Type Severity Reaction Status Date / Time egg Allergy Anaphylaxis Verified 11/22/17 11:12 Penicillins Allergy Unknown Verified 11/22/17 11:12 Childhood Physical Exam Vitals: Vital Signs Temp Pulse Resp BP Pulse Ox 11/24/17 16:00 103 F H 121 H 22 128/60 95 11/24/17 12:00 97.2 F L 102 H 18 136/70 94 L 11/24/17 08:00 97.1 F L 88 18 153/70 96 11/24/17 04:10 90 19 11/24/17 04:00 97.5 F L 83 18 165/72 99 11/24/17 00:15 98.9 F 85 19 144/71 99 11/23/17 20:15 97.8 F 90 19 169/74 96 Intake and Output 11/24/17 11/24/17 11/24/17 06:59 14:59 22:59 Intake Total 720 Balance 720 Intake: Oral 720 Other: Voiding Method Diaper Diaper Incontinent Incontinent # Voids 1 1 1 # Bowel Movements 3 Weight 65.5 kg 65.5 kg 72-year-old male resting quietly as I arrived. He feels warm to touch and temperature is taken at 103.2. HEENT: Anicteric conjunctiva are pink and moist nasal mucosa grossly intact without significant lesions, there is no thrush. Dentition is poor Neck: The neck is supple without significant lymphadenopathy or thyromegaly. Lungs: There is symmetrical air entry, expiratory wheezes are heard, a few basilar crackles are heard right greater than left Heart: Regular rate and rhythm with an audible S1-S2, no S3 no S4. There is no significant murmur click or rub, PMI was nondisplaced. Abdomen: Positive bowel sounds soft and nontender without palpable masses or organomegaly. There was no guarding or rebound. Extremities: The upper extremities show evidence of the IV site that is without difficulty. Evidence of multiple ecchymosis of the upper extremities are noted there are eschars on both upper extremities. The lower extremities have some edema which is minimal and the extremities are well perfused. Sacrum is evidence of the extensive eschar approximate 4 x 4 increase to the nursing photography for data. It is slightly tender to touch it is not fluctuant and there is no expressible purulence. Neuro: Patient is arousable and becomes awake, did have some Ativan earlier, is able to speak but the quality of content is poor. Results CBC & Chem 7: 11/23/17 05:45 11/23/17 23:19 Labs: Abnormal Lab Results - Last 24 Hours (Table) 11/23/17 11/23/17 11/23/17 Range/Units 16:55 16:55 16:57 Sodium 149 H (137-145) mmol/L Chloride 116 H (98-107) mmol/L Urine Protein 1+ H (Negative) Urine Blood Trace H (Negative) Urine Bacteria Rare H (None) /hpf Urine Mucus Rare H (None) /hpf U Benzodiazepines Scrn Detected H (NotDetected) 11/23/17 Range/Units 23:19 Sodium (137-145) mmol/L Chloride 114 H (98-107) mmol/L Urine Protein (Negative) Urine Blood (Negative) Urine Bacteria (None) /hpf Urine Mucus (None) /hpf U Benzodiazepines Scrn (NotDetected) Laboratory Results WBC 6.4 k/uL (3.8-10.6) 11/23/17 05:45 RBC 3.58 m/uL (4.30-5.90) L 11/23/17 05:45 Hgb 11.6 gm/dL (13.0-17.5) L D 11/23/17 05:45 Hct 35.5 % (39.0-53.0) L 11/23/17 05:45 MCV 99.0 fL (80.0-100.0) 11/23/17 05:45 MCH 32.3 pg (25.0-35.0) 11/23/17 05:45 MCHC 32.6 g/dL (31.0-37.0) 11/23/17 05:45 RDW 15.4 % (11.5-15.5) 11/23/17 05:45 Plt Count 133 k/uL (150-450) L 11/23/17 05:45 Neutrophils % 79 % 11/23/17 05:45 Lymphocytes % 11 % 11/23/17 05:45 Monocytes % 7 % 11/23/17 05:45 Eosinophils % 1 % 11/23/17 05:45 Basophils % 0 % 11/23/17 05:45 Neutrophils # 5.0 k/uL (1.3-7.7) 11/23/17 05:45 Lymphocytes # 0.7 k/uL (1.0-4.8) L 11/23/17 05:45 Monocytes # 0.4 k/uL (0-1.0) 11/23/17 05:45 Eosinophils # 0.1 k/uL (0-0.7) 11/23/17 05:45 Basophils # 0.0 k/uL (0-0.2) 11/23/17 05:45 Macrocytosis Slight 11/23/17 05:45 PT 9.4 sec (9.0-12.0) 11/22/17 09:22 INR 0.9 (<1.2) 11/22/17 09:22 APTT 20.2 sec (22.0-30.0) L 11/22/17 09:22 Sodium 144 mmol/L (137-145) 11/23/17 23:19 Potassium 3.7 mmol/L (3.5-5.1) 11/23/17 23:19 Chloride 114 mmol/L (98-107) H 11/23/17 23:19 Carbon Dioxide 23 mmol/L (22-30) 11/23/17 23:19 Anion Gap 7 mmol/L 11/23/17 23:19 BUN 47 mg/dL (9-20) H 11/23/17 05:45 Creatinine 1.02 mg/dL (0.66-1.25) 11/23/17 05:45 Est GFR (CKD-EPI)AfAm 85 (>60 ml/min/1.73 sqM) 11/23/17 05:45 Est GFR (CKD-EPI)NonAf 73 (>60 ml/min/1.73 sqM) 11/23/17 05:45 Glucose 96 mg/dL (74-99) 11/23/17 05:45 Lactic Ac Sepsis Rflx Y 11/22/17 10:03 Plasma Lactic Acid Mani 0.9 mmol/L (0.7-2.0) 11/22/17 15:10 Calcium 8.0 mg/dL (8.4-10.2) L 11/23/17 05:45 Phosphorus 3.2 mg/dL (2.5-4.5) 11/23/17 05:45 Magnesium 2.3 mg/dL (1.6-2.3) 11/23/17 05:45 Total Bilirubin 1.3 mg/dL (0.2-1.3) 11/23/17 05:45 AST 58 U/L (17-59) 11/23/17 05:45 ALT 56 U/L (21-72) 11/23/17 05:45 Alkaline Phosphatase 98 U/L (38-126) 11/23/17 05:45 Ammonia <9 umol/L (<30) 11/22/17 09:22 Creatine Kinase 871 U/L (55-170) H 11/22/17 15:10 Total Creatine Kinase 1175 U/L (55-170) H 11/22/17 09:22 CK-MB (CK-2) 11.3 ng/mL (0.0-2.4) H* 11/22/17 09:22 CK-MB (CK-2) Rel Index 1.0 11/22/17 09:22 Troponin I 0.150 ng/mL (0.000-0.034) H* 11/22/17 15:10 NT-Pro-B Natriuret Pep 1960 pg/mL 11/22/17 09:22 Total Protein 4.8 g/dL (6.3-8.2) L 11/23/17 05:45 Albumin 2.5 g/dL (3.5-5.0) L 11/23/17 05:45 Amylase 134 U/L (30-110) H 11/22/17 09:22 Lipase 194 U/L (23-300) 11/22/17 09:22 Urine Color Yellow 11/23/17 16:55 Urine Appearance Clear (Clear) 11/23/17 16:55 Urine pH 5.5 (5.0-8.0) 11/23/17 16:55 Ur Specific [place] 1.020 (1.001-1.035) 11/23/17 16:55 Urine Protein 1+ (Negative) H 11/23/17 16:55 Urine Glucose (UA) Negative (Negative) 11/23/17 16:55 Urine Ketones Negative (Negative) 11/23/17 16:55 Urine Blood Trace (Negative) H 11/23/17 16:55 Urine Nitrite Negative (Negative) 11/23/17 16:55 Urine Bilirubin Negative (Negative) 11/23/17 16:55 Urine Urobilinogen 4.0 mg/dL (<2.0) 11/23/17 16:55 Ur Leukocyte Esterase Negative (Negative) 11/23/17 16:55 Urine RBC 1 /hpf (0-5) 11/23/17 16:55 Urine WBC 2 /hpf (0-5) 11/23/17 16:55 Ur Squamous Epith Cells <1 /hpf (0-4) 11/23/17 16:55 Urine Bacteria Rare /hpf (None) H 11/23/17 16:55 Granular Casts 5 /lpf (0) 11/23/17 16:55 Urine Mucus Rare /hpf (None) H 11/23/17 16:55 Urine Opiates Screen Not Detected (NotDetected) 11/23/17 16:55 Ur Oxycodone Screen Not Detected (NotDetected) 11/23/17 16:55 Urine Methadone Screen Not Detected (NotDetected) 11/23/17 16:55 Ur Propoxyphene Screen Not Detected (NotDetected) 11/23/17 16:55 Ur Barbiturates Screen Not Detected (NotDetected) 11/23/17 16:55 U Tricyclic Antidepress Not Detected (NotDetected) 11/23/17 16:55 Ur Phencyclidine Scrn Not Detected (NotDetected) 11/23/17 16:55 Ur Amphetamines Screen Not Detected (NotDetected) 11/23/17 16:55 U Methamphetamines Scrn Not Detected (NotDetected) 11/23/17 16:55 U Benzodiazepines Scrn Detected (NotDetected) H 11/23/17 16:55 Urine Cocaine Screen Not Detected (NotDetected) 11/23/17 16:55 U Marijuana (THC) Screen Not Detected (NotDetected) 11/23/17 16:55 Serum Alcohol <10 mg/dL 11/22/17 09:22 Assessment and Plan (1) Alcohol abuse Current Visit: Yes Status: Acute Code(s): F10.10 - ALCOHOL ABUSE, UNCOMPLICATED SNOMED Code(s): 55916409 (2) Fall Current Visit: Yes Status: Acute Code(s): W19.XXXA - UNSPECIFIED FALL, INITIAL ENCOUNTER SNOMED Code(s): 2438582 (3) Rhabdomyolysis Current Visit: Yes Status: Acute Code(s): M62.82 - RHABDOMYOLYSIS SNOMED Code(s): 264073571 (4) Fever Narrative/Plan: 72-year-old male presents to Hospital after the son found patient on the floor potentially up to 3 days, after he had a fall likely after binge drinking. It admission the patient had significant metabolic derangement especially with hypernatremia, acute renal failure and elevated creatinine kinase. With hydration has been some improvement patient was showing some improvement however now has a high-grade fever of 103 and also pressure ulceration. The pressure ulcer in the operative foam is an ideal choice at this point in time since it is an eschar. We'll consider alternative therapies over the next few days. Patient however is febrile at this time there is concerns for sepsis given the high-grade fever and concerns would be to pneumonia, does have a history of Streptococcus pneumoniae bacteremia in the past, infection related to his wound as well as urinary infection. Lactic acid, urine culture and blood cultures have been requested. Given his alcoholism, altered mentation, COPD concern for aspiration pneumonia antibiotic therapy is initiated after cultures with Rocephin and clindamycin. Patient is hemodynamically stable. He is being monitored for alcohol withdrawal be the [facility] protocol. Metabolic arrangements have markedly improved since admission and hydration. Is related his mentation is improved slightly since his admission. Current Visit: Yes Status: Acute Code(s): R50.9 - FEVER, UNSPECIFIED SNOMED Code(s): 864027916
[2017-11-24] MEDS: ACETAMINOPHEN TAB 325 MG TAB PO PRN (17:31)
[2017-11-24] MEDS: cefTRIAXone IN SWFI 2,000 MG/20 ML SYRINGE IVP SCH (17:47)
[2017-11-24] MEDS: CLINDAMYCIN 600 MG in DEXTROSE 5% IN WATER 50 ML IVPB SCH ×4 (17:48→23:30)
[2017-11-24 21:07] LABS: Glucose,Whole Blood 229 mg/dL (75-99)
[2017-11-25] MEDS: DEXTROSE 5%-0.45% NACL 1,000 ML IV SCH ×2 (02:46→12:12)
[2017-11-25 06:05] LABS: Glucose,Whole Blood 124 mg/dL (75-99)
[2017-11-25 06:19] LABS: Basophils % (A) 0 %; Eosinophils # (A) 0.1 k/uL (0-0.7); Eosinophils % (A) 3 %; HCT 29.8 % (39.0-53.0); Lymphocytes # (A) 0.5 k/uL (1.0-4.8); Lymphocytes % (A) 16 %; MCH 31.5 pg (25.0-35.0); MCHC 32.3 g/dL (31.0-37.0); MCV 97.6 fL (80.0-100.0); Mean Platelet Volume 7.5; Monocytes # (A) 0.2 k/uL (0-1.0); Monocytes % (A) 7 %; Neutrophils # (A) 2.4 k/uL (1.3-7.7); Neutrophils % (A) 73 %; Platelet Count 138 k/uL (150-450); RBC 3.06 m/uL (4.30-5.90); RDW 15.4 % (11.5-15.5); WBC 3.3 k/uL (3.8-10.6)
[2017-11-25 06:29] LABS: Anion Gap 8 mmol/L; Blood Urea Nitrogen 18 mg/dL (9-20); Calcium 7.8 mg/dL (8.4-10.2); Carbon Dioxide 23 mmol/L (22-30); Chloride 111 mmol/L (98-107); Glucose 120 mg/dL (74-99); Magnesium 1.8 mg/dL (1.6-2.3); Phosphorus 2.8 mg/dL (2.5-4.5); Potassium 3.6 mmol/L (3.5-5.1); Sodium 142 mmol/L (137-145)
[2017-11-25 06:32] LABS: HGB 9.6 gm/dL (13.0-17.5)
[2017-11-25] MEDS: SYMBICORT 160-4.5 MCG INHALER INHALATION SCH ×2 (08:48→20:50)
[2017-11-25] MEDS: CLINDAMYCIN 600 MG in DEXTROSE 5% IN WATER 50 ML IVPB SCH ×4 (09:06→16:02)
[2017-11-25] MEDS: METOPROLOL TARTRATE 50 MG TAB PO SCH (09:07)
[2017-11-25] MEDS: CLOPIDOGREL 75 MG TAB PO SCH (09:07)
[2017-11-25] MEDS: EZETIMIBE 10 MG TAB PO SCH (09:07)
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
[2017-11-25 12:09] LABS: Glucose,Whole Blood 130 mg/dL (75-99)
[2017-11-25] MEDS: cefTRIAXone IN SWFI 2,000 MG/20 ML SYRINGE IVP SCH ×2 (12:10→12:11)
[2017-11-25] MEDS: PANTOPRAZOLE 40 MG TABLET PO SCH (12:11)
[2017-11-25] MEDS: ACETAMINOPHEN TAB 325 MG TAB PO PRN ×2 (16:01→18:46)
[2017-11-25] MEDS: HEPARIN SODIUM,PORCINE 5,000 UNIT/ML 1 ML VIAL SQ SCH (16:03)
[2017-11-25 16:29] LABS: Glucose,Whole Blood 188 mg/dL (75-99)
--- NOTE | 2017-11-25 19:59 | MR ---
EXAMINATION TYPE: MR dee deeine/lspine wo/w con DATE OF EXAM: 11/25/2017 COMPARISON: Lumbar spine x-ray February 13, 2017. HISTORY: Mid/lower back pain, fall TECHNIQUE: Multiplanar, multisequence images of the thoracic and lumbar spine are performed without and with IV contrast, utilizing 6 mL intravenous Gadavist FINDINGS: T-SPINE: FINDINGS: Spinal cord shows normal course, caliber, and signal as it courses the thoracic spine. Donte tebral body heights and alignment are satisfactory. There is slight scoliotic curvature on coronal im ages. No suspicious posterior disc herniations are seen on sagittal images. Bone marrow signal intens ity is maintained. No suspicious enhancement is seen. There is mild multilevel anterior spurring in t he lower thoracic spine. Review of the axial images shows no significant spinal canal stenosis or neural foraminal narrowing at any thoracic level. Incidental note is made of small bilateral pleural effusions with associated compressive atelectasis. IMPRESSION: No significant acute posttraumatic abnormality is seen to account for patient's symptoms. L-SPINE: There is moderate compression or height loss is prominent superior and anterior endplates L5 level. S ome height loss was present on prior plain films. There is new enhancement however. Slight posterior retropulsion of superior L5 is seen measured up to 3 mm. Sagittal images of the lumbar spine show donte tebral body heights and alignment to otherwise appear satisfactory. The intervertebral discs demonstr ate multilevel disc desiccation with disc space heights are fairly well-maintained. No suspicious pos terior disc herniations are present. The conus medullaris is normal in position and signal ending mid L1 level. The bone marrow signal intensity is within normal limits. Nonspecific enhancement of some lumbosacral nerve roots is present. No suspicious enhancement is otherwise identified. Mild to minim al multilevel anterior spurring is seen. Axial images show the T12-L1, L1-L2, and L2-L3 levels to appear within normal limits. Axial images at L3-L4 level show mild to moderate facet degenerative changes bilaterally. Spinal giovana l is preserved. Bilateral neural foramina are patent. Axial images at L4-L5 level show moderate to advanced facet degenerative changes and ligamentum flavu m hypertrophy. There is moderate broad disc bulge with central disc protrusion component. There is ef facement anterior and posterior lateral thecal sac and axial image 19. There is mild to moderate bila teral anterior inferior neural foraminal narrowing. Axial images at L5-S1 level show mild to moderate facet degenerative changes bilaterally. Spinal giovana l is preserved. Bilateral neural foramina are patent. There is distal infrarenal abdominal aortic aneurysm measuring up to 4.3 cm transversely axial image 16. No extension into bifurcation is seen. There are a few simple appearing cysts scattered throughou t visualized portion of both kidneys. IMPRESSION: Suspect acute on chronic moderate compression fracture L5 level. Fracture line does not e xtend to the posterior vertebral body margin, there is some posterior migration of superior L5 verteb ra along with degenerative change causing most prominent spinal canal stenosis L4-L5 and superior L5 level. Note is made of 4.3 cm aneurysm of the distal abdominal aorta.
[2017-11-25 20:34] LABS: Glucose,Whole Blood 153 mg/dL (75-99)
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
[2017-11-26] MEDS: DEXTROSE 5%-0.45% NACL 1,000 ML IV SCH ×4 (00:18→21:03)
[2017-11-26] MEDS: CLINDAMYCIN 600 MG in DEXTROSE 5% IN WATER 50 ML IVPB SCH ×6 (00:18→15:12)
[2017-11-26] MEDS: HEPARIN SODIUM,PORCINE 5,000 UNIT/ML 1 ML VIAL SQ SCH ×4 (00:18→23:07)
[2017-11-26 06:07] LABS: Glucose,Whole Blood 120 mg/dL (75-99)
[2017-11-26 06:16] LABS: Basophils % (A) 0 %; Eosinophils # (A) 0.1 k/uL (0-0.7); Eosinophils % (A) 3 %; HCT 27.8 % (39.0-53.0); HGB 9.1 gm/dL (13.0-17.5); Lymphocytes # (A) 0.5 k/uL (1.0-4.8); Lymphocytes % (A) 17 %; MCH 30.9 pg (25.0-35.0); MCHC 32.8 g/dL (31.0-37.0); MCV 94.4 fL (80.0-100.0); Mean Platelet Volume 7.6; Monocytes # (A) 0.2 k/uL (0-1.0); Monocytes % (A) 8 %; Neutrophils # (A) 1.8 k/uL (1.3-7.7); Neutrophils % (A) 69 %; Platelet Count 177 k/uL (150-450); RBC 2.95 m/uL (4.30-5.90); RDW 14.7 % (11.5-15.5); WBC 2.6 k/uL (3.8-10.6)
[2017-11-26 06:32] LABS: ALT 54 U/L (21-72); AST 29 U/L (17-59); Albumin 2.1 g/dL (3.5-5.0); Alkaline Phosphatase 89 U/L (38-126); Anion Gap 8 mmol/L; Blood Urea Nitrogen 16 mg/dL (9-20); Calcium 7.9 mg/dL (8.4-10.2); Carbon Dioxide 27 mmol/L (22-30); Chloride 106 mmol/L (98-107); Creatine Kinase 78 U/L (55-170); Glucose 112 mg/dL (74-99); Potassium 3.6 mmol/L (3.5-5.1); Sodium 141 mmol/L (137-145); Total Bilirubin 0.3 mg/dL (0.2-1.3); Total Protein 4.4 g/dL (6.3-8.2)
[2017-11-26] MEDS: PANTOPRAZOLE 40 MG TABLET PO SCH (07:01)
[2017-11-26] MEDS: METOPROLOL TARTRATE 50 MG TAB PO SCH (07:50)
[2017-11-26] MEDS: CLOPIDOGREL 75 MG TAB PO SCH (07:50)
[2017-11-26] MEDS: EZETIMIBE 10 MG TAB PO SCH (07:50)
[2017-11-26] MEDS: THIAMINE 100 MG TAB PO SCH (07:51)
[2017-11-26] MEDS: FOLIC ACID 1 MG TAB PO SCH (07:51)
[2017-11-26] MEDS: SYMBICORT 160-4.5 MCG INHALER INHALATION SCH ×2 (08:13→21:24)
[2017-11-26] MEDS ORDERED: traMADol 50 MG TAB PO PRN (09:13)
[2017-11-26 11:35] LABS: Glucose,Whole Blood 158 mg/dL (75-99)
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
[2017-11-26] MEDS: HYDROcodone/APAP 5-325MG 1 EACH TAB PO PRN ×2 (15:12→20:59)
[2017-11-26 16:31] LABS: Glucose,Whole Blood 170 mg/dL (75-99)
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
--- NOTE | 2017-11-26 21:04 | P.PN ---
Subjective Progress Note Date: 11/26/17 72-year-old male presents to Hospital EMS after the patient's son found him on the floor of his condo. Is related that the patient was hospitalized last time he did go to rehab which was the [facility] in [place]. He apparently improved and was back to his home environment. He is noted to have a history of alcohol abuse and when he is actively drinking will have follow-up. It's unclear amount of time patient was on the floor but apparently could be up to 3 days. It admission the patient was very weak, poor historian and evidence of significant metabolic derangement including hypernatremia and acute renal failure and elevated creatinine kinase level. With hydration the patient's hyponatremia has improved as has his elevated creatinine. The patient over has a pressure ulceration on the sacral area and has now developed fever and the infectious diseases consultation was requested. The patient is a poor historian although he is arousable to interact the quality of his content of speech is poor. However was able to follow simple commands. Review of data reveals difficulty with his chronic alcoholism, COPD, and no history of pancreatic cancer as well as rheumatoid arthritis. Medication list shows utilization of marrow which is now on hold given his current infection. The patient is an MRI of the LS spine show evidence of the L5 fracture remains a poor historian. The high fevers of yesterday have now improved. On 11/26/2017 the patient has shown some improvement. He is much more awake alert and interactive. Is partially sitting up in ingesting his meal without any difficulties. Relates his appetite is good and is having no nausea or emesis. Pain control is modest at this time. Objective - Vital Signs Vital signs: Vital Signs Temp 98.0 F 11/26/17 15:47 Pulse 76 11/26/17 15:47 Resp 14 11/26/17 15:47 BP 124/66 11/26/17 15:47 Pulse Ox 95 11/26/17 15:47 Intake & Output 11/26/17 11/26/17 11/27/17 06:59 18:59 06:59 Intake Total 1762 Output Total 203 400 Balance -203 1362 Weight 70.5 kg Intake: IV 1000 Dextrose 5%-0.45% NaCl 1, 1000 000 ml @ 125 mls/hr IV . Q8H [facility] Rx#:[id number] Intake, IV Titration 50 Amount Clindamycin 600 mg In 50 Dextrose 5% in Water 50 ml @ 100 mls/hr IVPB Q8HR [facility] Rx#:[id number] Oral 712 Output: Urine 200 400 Stool 3 Other: Voiding Method Diaper Urinal Incontinent Diaper Incontinent # Voids 1 - Exam 72-year-old male resting quietly not febrile today, able to sit up and eat HEENT: Anicteric conjunctiva are pink and moist nasal mucosa grossly intact without significant lesions, there is no thrush. Dentition is poor Neck: The neck is supple without significant lymphadenopathy or thyromegaly. Lungs: There is symmetrical air entry, expiratory wheezes are heard, a few basilar crackles are heard right greater than left Heart: Regular rate and rhythm with an audible S1-S2, no S3 no S4. There is no significant murmur click or rub, PMI was nondisplaced. Abdomen: Positive bowel sounds soft and nontender without palpable masses or organomegaly. There was no guarding or rebound. Extremities: The upper extremities show evidence of the IV site that is without difficulty. Evidence of multiple ecchymosis of the upper extremities are noted , as well as on the right shoulder blade and hematoma to the right temporal area , there are eschars on both upper extremities. The lower extremities have some edema which is minimal and the extremities are well perfused. Sacrum is evidence of the extensive eschar approximate 4 x 4 cm please refer to the nursing photography for data. It is slightly tender to touch it is not fluctuant and there is no expressible purulence. Neuro: Patient is now awake and alert eating his meal and able to communicate with some clarity. - Labs CBC & Chem 7: 11/26/17 05:51 11/26/17 05:51 Labs: Abnormal Lab Results - Last 24 Hours (Table) 11/26/17 11/26/17 11/26/17 Range/Units 05:51 05:51 06:06 WBC 2.6 L (3.8-10.6) k/uL RBC 2.95 L (4.30-5.90) m/uL Hgb 9.1 L (13.0-17.5) gm/dL Hct 27.8 L (39.0-53.0) % Lymphocytes # 0.5 L (1.0-4.8) k/uL Glucose 112 H (74-99) mg/dL POC Glucose (mg/dL) 120 H (75-99) mg/dL Calcium 7.9 L (8.4-10.2) mg/dL Total Protein 4.4 L (6.3-8.2) g/dL Albumin 2.1 L (3.5-5.0) g/dL 11/26/17 11/26/17 Range/Units 11:29 16:29 WBC (3.8-10.6) k/uL RBC (4.30-5.90) m/uL Hgb (13.0-17.5) gm/dL Hct (39.0-53.0) % Lymphocytes # (1.0-4.8) k/uL Glucose (74-99) mg/dL POC Glucose (mg/dL) 158 H 170 H (75-99) mg/dL Calcium (8.4-10.2) mg/dL Total Protein (6.3-8.2) g/dL Albumin (3.5-5.0) g/dL Microbiology - Last 24 Hours (Table) 11/24/17 16:52 Blood Culture - Preliminary Blood No Growth after 48 hours 11/24/17 23:25 Urine Culture - Final Urine,Voided 11/24/17 17:23 Blood Culture Gram Stain - Preliminary Blood Blood Culture - Preliminary Gram Neg Bacilli 11/24/17 17:23 Blood Culture - Final Blood Laboratory Results WBC 2.6 k/uL (3.8-10.6) L 11/26/17 05:51 RBC 2.95 m/uL (4.30-5.90) L 11/26/17 05:51 Hgb 9.1 gm/dL (13.0-17.5) L 11/26/17 05:51 Hct 27.8 % (39.0-53.0) L 11/26/17 05:51 MCV 94.4 fL (80.0-100.0) 11/26/17 05:51 MCH 30.9 pg (25.0-35.0) 11/26/17 05:51 MCHC 32.8 g/dL (31.0-37.0) 11/26/17 05:51 RDW 14.7 % (11.5-15.5) 11/26/17 05:51 Plt Count 177 k/uL (150-450) 11/26/17 05:51 Neutrophils % 69 % 11/26/17 05:51 Lymphocytes % 17 % 11/26/17 05:51 Monocytes % 8 % 11/26/17 05:51 Eosinophils % 3 % 11/26/17 05:51 Basophils % 0 % 11/26/17 05:51 Neutrophils # 1.8 k/uL (1.3-7.7) 11/26/17 05:51 Lymphocytes # 0.5 k/uL (1.0-4.8) L 11/26/17 05:51 Monocytes # 0.2 k/uL (0-1.0) 11/26/17 05:51 Eosinophils # 0.1 k/uL (0-0.7) 11/26/17 05:51 Basophils # 0.0 k/uL (0-0.2) 11/26/17 05:51 Macrocytosis Slight 11/23/17 05:45 PT 9.4 sec (9.0-12.0) 11/22/17 09:22 INR 0.9 (<1.2) 11/22/17 09:22 APTT 20.2 sec (22.0-30.0) L 11/22/17 09:22 Sodium 141 mmol/L (137-145) 11/26/17 05:51 Potassium 3.6 mmol/L (3.5-5.1) 11/26/17 05:51 Chloride 106 mmol/L (98-107) 11/26/17 05:51 Carbon Dioxide 27 mmol/L (22-30) 11/26/17 05:51 Anion Gap 8 mmol/L 11/26/17 05:51 BUN 16 mg/dL (9-20) 11/26/17 05:51 Creatinine 0.80 mg/dL (0.66-1.25) 11/26/17 05:51 Est GFR (CKD-EPI)AfAm >90 (>60 ml/min/1.73 sqM) 11/26/17 05:51 Est GFR (CKD-EPI)NonAf 90 (>60 ml/min/1.73 sqM) 11/26/17 05:51 Glucose 112 mg/dL (74-99) H 11/26/17 05:51 POC Glucose (mg/dL) 170 mg/dL (75-99) H 11/26/17 16:29 POC Glu [employer] Worker ID Stacy Cary 11/26/17 16:29 Lactic Ac Sepsis Rflx Y 11/22/17 10:03 Plasma Lactic Acid Mani 1.3 mmol/L (0.7-2.0) 11/24/17 16:52 Calcium 7.9 mg/dL (8.4-10.2) L 11/26/17 05:51 Phosphorus 2.8 mg/dL (2.5-4.5) 11/25/17 05:52 Magnesium 1.8 mg/dL (1.6-2.3) 11/25/17 05:52 Total Bilirubin 0.3 mg/dL (0.2-1.3) 11/26/17 05:51 AST 29 U/L (17-59) 11/26/17 05:51 ALT 54 U/L (21-72) 11/26/17 05:51 Alkaline Phosphatase 89 U/L (38-126) 11/26/17 05:51 Ammonia <9 umol/L (<30) 11/22/17 09:22 Creatine Kinase 78 U/L (55-170) 11/26/17 05:51 Total Creatine Kinase 1175 U/L (55-170) H 11/22/17 09:22 CK-MB (CK-2) 11.3 ng/mL (0.0-2.4) H* 11/22/17 09:22 CK-MB (CK-2) Rel Index 1.0 11/22/17 09:22 Troponin I 0.150 ng/mL (0.000-0.034) H* 11/22/17 15:10 NT-Pro-B Natriuret Pep 1960 pg/mL 11/22/17 09:22 Total Protein 4.4 g/dL (6.3-8.2) L 11/26/17 05:51 Albumin 2.1 g/dL (3.5-5.0) L 11/26/17 05:51 Amylase 134 U/L (30-110) H 11/22/17 09:22 Lipase 194 U/L (23-300) 11/22/17 09:22 Urine Color Yellow 11/23/17 16:55 Urine Appearance Clear (Clear) 11/23/17 16:55 Urine pH 5.5 (5.0-8.0) 11/23/17 16:55 Ur Specific [place] 1.020 (1.001-1.035) 11/23/17 16:55 Urine Protein 1+ (Negative) H 11/23/17 16:55 Urine Glucose (UA) Negative (Negative) 11/23/17 16:55 Urine Ketones Negative (Negative) 11/23/17 16:55 Urine Blood Trace (Negative) H 11/23/17 16:55 Urine Nitrite Negative (Negative) 11/23/17 16:55 Urine Bilirubin Negative (Negative) 11/23/17 16:55 Urine Urobilinogen 4.0 mg/dL (<2.0) 11/23/17 16:55 Ur Leukocyte Esterase Negative (Negative) 11/23/17 16:55 Urine RBC 1 /hpf (0-5) 11/23/17 16:55 Urine WBC 2 /hpf (0-5) 11/23/17 16:55 Ur Squamous Epith Cells <1 /hpf (0-4) 11/23/17 16:55 Urine Bacteria Rare /hpf (None) H 11/23/17 16:55 Granular Casts 5 /lpf (0) 11/23/17 16:55 Urine Mucus Rare /hpf (None) H 11/23/17 16:55 Urine Opiates Screen Not Detected (NotDetected) 11/23/17 16:55 Ur Oxycodone Screen Not Detected (NotDetected) 11/23/17 16:55 Urine Methadone Screen Not Detected (NotDetected) 11/23/17 16:55 Ur Propoxyphene Screen Not Detected (NotDetected) 11/23/17 16:55 Ur Barbiturates Screen Not Detected (NotDetected) 11/23/17 16:55 U Tricyclic Antidepress Not Detected (NotDetected) 11/23/17 16:55 Ur Phencyclidine Scrn Not Detected (NotDetected) 11/23/17 16:55 Ur Amphetamines Screen Not Detected (NotDetected) 11/23/17 16:55 U Methamphetamines Scrn Not Detected (NotDetected) 11/23/17 16:55 U Benzodiazepines Scrn Detected (NotDetected) H 11/23/17 16:55 Urine Cocaine Screen Not Detected (NotDetected) 11/23/17 16:55 U Marijuana (THC) Screen Not Detected (NotDetected) 11/23/17 16:55 Serum Alcohol <10 mg/dL 11/22/17 09:22 Laboratory Results WBC 2.6 k/uL (3.8-10.6) L 11/26/17 05:51 RBC 2.95 m/uL (4.30-5.90) L 11/26/17 05:51 Hgb 9.1 gm/dL (13.0-17.5) L 11/26/17 05:51 Hct 27.8 % (39.0-53.0) L 11/26/17 05:51 MCV 94.4 fL (80.0-100.0) 11/26/17 05:51 MCH 30.9 pg (25.0-35.0) 11/26/17 05:51 MCHC 32.8 g/dL (31.0-37.0) 11/26/17 05:51 RDW 14.7 % (11.5-15.5) 11/26/17 05:51 Plt Count 177 k/uL (150-450) 11/26/17 05:51 Neutrophils % 69 % 11/26/17 05:51 Lymphocytes % 17 % 11/26/17 05:51 Monocytes % 8 % 11/26/17 05:51 Eosinophils % 3 % 11/26/17 05:51 Basophils % 0 % 11/26/17 05:51 Neutrophils # 1.8 k/uL (1.3-7.7) 11/26/17 05:51 Lymphocytes # 0.5 k/uL (1.0-4.8) L 11/26/17 05:51 Monocytes # 0.2 k/uL (0-1.0) 11/26/17 05:51 Eosinophils # 0.1 k/uL (0-0.7) 11/26/17 05:51 Basophils # 0.0 k/uL (0-0.2) 11/26/17 05:51 Macrocytosis Slight 11/23/17 05:45 PT 9.4 sec (9.0-12.0) 11/22/17 09:22 INR 0.9 (<1.2) 11/22/17 09:22 APTT 20.2 sec (22.0-30.0) L 11/22/17 09:22 Sodium 141 mmol/L (137-145) 11/26/17 05:51 Potassium 3.6 mmol/L (3.5-5.1) 11/26/17 05:51 Chloride 106 mmol/L (98-107) 11/26/17 05:51 Carbon Dioxide 27 mmol/L (22-30) 11/26/17 05:51 Anion Gap 8 mmol/L 11/26/17 05:51 BUN 16 mg/dL (9-20) 11/26/17 05:51 Creatinine 0.80 mg/dL (0.66-1.25) 11/26/17 05:51 Est GFR (CKD-EPI)AfAm >90 (>60 ml/min/1.73 sqM) 11/26/17 05:51 Est GFR (CKD-EPI)NonAf 90 (>60 ml/min/1.73 sqM) 11/26/17 05:51 Glucose 112 mg/dL (74-99) H 11/26/17 05:51 POC Glucose (mg/dL) 170 mg/dL (75-99) H 11/26/17 16:29 POC Glu [employer] Work[employer] ID Stacy Cary 11/26/17 16:29 Lactic Ac Sepsis Rflx Y 11/22/17 10:03 Plasma Lactic Acid Mani 1.3 mmol/L (0.7-2.0) 11/24/17 16:52 Calcium 7.9 mg/dL (8.4-10.2) L 11/26/17 05:51 Phosphorus 2.8 mg/dL (2.5-4.5) 11/25/17 05:52 Magnesium 1.8 mg/dL (1.6-2.3) 11/25/17 05:52 Total Bilirubin 0.3 mg/dL (0.2-1.3) 11/26/17 05:51 AST 29 U/L (17-59) 11/26/17 05:51 ALT 54 U/L (21-72) 11/26/17 05:51 Alkaline Phosphatase 89 U/L (38-126) 11/26/17 05:51 Ammonia <9 umol/L (<30) 11/22/17 09:22 Creatine Kinase 78 U/L (55-170) 11/26/17 05:51 Total Creatine Kinase 1175 U/L (55-170) H 11/22/17 09:22 CK-MB (CK-2) 11.3 ng/mL (0.0-2.4) H* 11/22/17 09:22 CK-MB (CK-2) Rel Index 1.0 11/22/17 09:22 Troponin I 0.150 ng/mL (0.000-0.034) H* 11/22/17 15:10 NT-Pro-B Natriuret Pep 1960 pg/mL 11/22/17 09:22 Total Protein 4.4 g/dL (6.3-8.2) L 11/26/17 05:51 Albumin 2.1 g/dL (3.5-5.0) L 11/26/17 05:51 Amylase 134 U/L (30-110) H 11/22/17 09:22 Lipase 194 U/L (23-300) 11/22/17 09:22 Urine Color Yellow 11/23/17 16:55 Urine Appearance Clear (Clear) 11/23/17 16:55 Urine pH 5.5 (5.0-8.0) 11/23/17 16:55 Ur Specific [place] 1.020 (1.001-1.035) 11/23/17 16:55 Urine Protein 1+ (Negative) H 11/23/17 16:55 Urine Glucose (UA) Negative (Negative) 11/23/17 16:55 Urine Ketones Negative (Negative) 11/23/17 16:55 Urine Blood Trace (Negative) H 11/23/17 16:55 Urine Nitrite Negative (Negative) 11/23/17 16:55 Urine Bilirubin Negative (Negative) 11/23/17 16:55 Urine Urobilinogen 4.0 mg/dL (<2.0) 11/23/17 16:55 Ur Leukocyte Esterase Negative (Negative) 11/23/17 16:55 Urine RBC 1 /hpf (0-5) 11/23/17 16:55 Urine WBC 2 /hpf (0-5) 11/23/17 16:55 Ur Squamous Epith Cells <1 /hpf (0-4) 11/23/17 16:55 Urine Bacteria Rare /hpf (None) H 11/23/17 16:55 Granular Casts 5 /lpf (0) 11/23/17 16:55 Urine Mucus Rare /hpf (None) H 11/23/17 16:55 Urine Opiates Screen Not Detected (NotDetected) 11/23/17 16:55 Ur Oxycodone Screen Not Detected (NotDetected) 11/23/17 16:55 Urine Methadone Screen Not Detected (NotDetected) 11/23/17 16:55 Ur Propoxyphene Screen Not Detected (NotDetected) 11/23/17 16:55 Ur Barbiturates Screen Not Detected (NotDetected) 11/23/17 16:55 U Tricyclic Antidepress Not Detected (NotDetected) 11/23/17 16:55 Ur Phencyclidine Scrn Not Detected (NotDetected) 11/23/17 16:55 Ur Amphetamines Screen Not Detected (NotDetected) 11/23/17 16:55 U Methamphetamines Scrn Not Detected (NotDetected) 11/23/17 16:55 U Benzodiazepines Scrn Detected (NotDetected) H 11/23/17 16:55 Urine Cocaine Screen Not Detected (NotDetected) 11/23/17 16:55 U Marijuana (THC) Screen Not Detected (NotDetected) 11/23/17 16:55 Serum Alcohol <10 mg/dL 11/22/17 09:22 Assessment and Plan (1) Alcohol abuse Current Visit: Yes Status: Acute Code(s): F10.10 - ALCOHOL ABUSE, UNCOMPLICATED SNOMED Code(s): 16325081 (2) Fall Current Visit: Yes Status: Acute Code(s): W19.XXXA - UNSPECIFIED FALL, INITIAL ENCOUNTER SNOMED Code(s): 3780173 (3) Rhabdomyolysis Current Visit: Yes Status: Acute Code(s): M62.82 - RHABDOMYOLYSIS SNOMED Code(s): 127605699 (4) Fever Narrative/Plan: 72-year-old male presents to Hospital after the son found patient on the floor potentially up to 3 days, after he had a fall likely after binge drinking. It admission the patient had significant metabolic derangement especially with hypernatremia, acute renal failure and elevated creatinine kinase. With hydration has been some improvement patient was showing some improvement however now has a high-grade fever of 103 and also pressure ulceration. The pressure ulcer in the operative foam is an ideal choice at this point in time since it is an eschar. We'll consider alternative therapies over the next few days. Patient however is febrile at this time there is concerns for sepsis given the high-grade fever and concerns would be to pneumonia, does have a history of Streptococcus pneumoniae bacteremia in the past, infection related to his wound as well as urinary infection. Lactic acid, urine culture and blood cultures have been requested. Given his alcoholism, altered mentation, COPD concern for aspiration pneumonia antibiotic therapy is initiated after cultures with Rocephin and clindamycin. Patient is hemodynamically stable. He is being monitored for alcohol withdrawal be the [facility] protocol. Metabolic arrangements have markedly improved since admission and hydration. Is related his mentation is improved slightly since his admission. There is minimal improvement today. Most significant is improvement of fever. There is evidence of an blood culture that is positive for gram-negative bacilli , chest x-ray did not appear to reveal evidence of pneumonia at this time. Until culture is more finalized continue current antibiotic therapy and may require further alteration based on finding however with his improvement of fever seems to be showing a current improvement. The mild leukopenia that has occurred is likely on the bases the gram-negative sepsis concerns to pneumonia and urinary infection. 11/26/2017 reveals the patient has further improvement. He is now sitting up able to ingest his medial. He is more comfortable still has pain from this time on the floor with the multiple wounds. He is denying nausea or emesis. He still feels quite weak. As noted there is a positive blood culture for gram- negative bacilli. Once is identified further antibiotic alterations can be made. Follow blood culture requested to ensure that the bacteremia has resolved. Current Visit: Yes Status: Acute Code(s): R50.9 - FEVER, UNSPECIFIED SNOMED Code(s): 732084679
[2017-11-26 21:05] LABS: Glucose,Whole Blood 152 mg/dL (75-99)
--- NOTE | 2017-11-26 22:26 | CONS ---
CONSULTATION DATE OF CONSULTATION: 11/26/2017. CHIEF COMPLAINT: Rhabdomyolysis. HISTORY OF PRESENT ILLNESS: Mr. Aguirre is a 72-year-old, male, who is being evaluated by the neurology service per the request of Dr. Whitaker for rhabdomyolysis. The patient has a history of alcohol abuse and did have a binge a few days ago. It is unclear if the patient passed out on the ground or he fell to the ground. It seems like the patient was unconscious on the floor for several hours. The patient lives alone. The patient states that he remembers eventually waking up, but he was too sore to move. He actually stayed on the ground another 2 days before anyone came to check up on him. When he was found by his son, he was quite confused. EMS was called and he was brought into [facility] Emergency Room. A CT scan of the brain was done, which showed a superficial hematoma. No acute intracranial abnormalities were seen. There was generalized atrophy and small- vessel ischemic changes. His CPK was significantly elevated and he was started on IV hydration immediately. His renal function initially showed renal insufficiency, but this has improved with IV hydration. The patient was also complaining of spinal pain. He did undergo an MRI of the thoracic and lumbar spine last night which showed evidence of a compression fracture at L5. An incidental finding of a 4.3-cm abdominal aortic aneurysm was also seen. His initial CBC showed pancytopenia. A repeat CBC today showed improvement in his platelet counts at 177,000. He continues to have leukopenia at 2.6 and anemia with a hemoglobin of 9.1 and hematocrit of 27%. At the time of my evaluation, the patient is much more awake and appears to be back to his baseline. He denies any headache or dizziness. He is complaining of left knee pain. Orthopedic surgery has been consulted. PAST MEDICAL HISTORY: Alcohol abuse, asthma, chronic obstructive pulmonary disease, dyslipidemia, hypertension, coronary artery disease, history of myocardial infarction, history of coronary artery stent placement, benign prosthetic hypertrophy, rheumatoid arthritis, known history of abdominal aortic aneurysm, history of tonsillectomy and cataract surgery, history of depression. SOCIAL HISTORY: The patient is a current every day smoker. He drinks alcohol heavily. He denies any current drug use, but does have history of heroin and marijuana use in the past. FAMILY HISTORY: Positive for aneurysms and alcohol abuse. HOME MEDICATIONS: Reviewed in the chart. ALLERGIES: PENICILLIN and EGGS. REVIEW OF SYSTEMS: CONSTITUTIONAL: Negative. EYES: Negative. ENT: Positive for chronic diminished hearing. CARDIOVASCULAR: Negative. RESPIRATORY: Positive for occasional shortness of breath. NEUROLOGICAL: As mentioned above. GASTROINTESTINAL: Positive for occasional heartburn. GENITOURINARY: Positive for urinary urgency. MUSCULOSKELETAL: As mentioned above. DERMATOLOGICAL: Negative. ENDOCRINE: Negative. PSYCHIATRIC: Positive for history of depression. PHYSICAL EXAM: Vital signs show a temperature of 98.4, pulse 87, respirations 18, blood pressure 126/63. GENERAL APPEARANCE: The patient is a well-developed, elderly male, who appears to be in no acute distress. HEENT: The patient has a superficial hematoma in the right frontal region. No facial asymmetry is seen. NECK: Supple with no masses felt. CARDIOVASCULAR: Regular rate and rhythm. ABDOMEN: Nontender nondistended. Extremities showed no edema or clubbing. NEUROLOGICAL: The patient is awake and oriented x3. Speech and language are normal. Strength is 5-/5 in bilateral upper extremities, 4/5 in the left hip flexors, 4+/5 on the right lower extremity. Sensory was normal to light touch in all 4 extremities. Mild postural tremors are seen. No seizure-like activity is noticed. MUSCULOSKELETAL: Tenderness to palpation is felt along the lower lumbar spine. He also had tenderness to palpation felt along the medial left knee. Pain is present with knee flexion and extension. IMPRESSION: 1. Acute rhabdomyolysis. 2. Recent fall. 3. Alcohol abuse. 4. Lumbar compression fracture. 5. Renal insufficiency. RECOMMENDATION: The patient did have some binge drinking, as he has a long-standing history of alcohol abuse. It seems like he passed out on the ground and was out for several hours. When he woke up, he was already having significant rhabdomyolysis which likely caused him to be unable to get up. His CPK is improving with IV hydration. Continue IV hydration as tolerated. His strength is improving, though he continues to have some more weakness on the left lower extremity compared to the right. His MRI did show a compression fracture. at L5. He will likely need to be fitted for a brace. Orthopedic Surgery has been consulted. I also recommend further workup for his left knee pain by Orthopedic Surgery. Continue analgesics as tolerated. I counseled the patient extensively on alcohol and tobacco cessation. The patient currently lives alone. He will likely need inpatient rehab for further strengthening. Physical Therapy has been consulted. I will continue to follow with you. Further recommendations to follow. Thank you for allowing me to participate in the care of your patient. If you have any questions, please feel free to contact me. AMADO / TANISHA: [phone] /
[2017-11-27] MEDS: CLINDAMYCIN 600 MG in DEXTROSE 5% IN WATER 50 ML IVPB SCH ×6 (00:30→16:00)
[2017-11-27] MEDS: HYDROcodone/APAP 5-325MG 1 EACH TAB PO PRN ×3 (01:33→19:53)
[2017-11-27 07:34] LABS: HCT 27.2 % (39.0-53.0); MCH 31.4 pg (25.0-35.0); MCV 94.9 fL (80.0-100.0); Mean Platelet Volume 7.2; Platelet Count 213 k/uL (150-450); RBC 2.87 m/uL (4.30-5.90); RDW 15.2 % (11.5-15.5); WBC 3.5 k/uL (3.8-10.6)
[2017-11-27] MEDS: SYMBICORT 160-4.5 MCG INHALER INHALATION SCH ×2 (07:42→19:23)
--- NOTE | 2017-11-27 07:56 | P.PN ---
Progress Note - Text Progress Note Date: 11/27/17 The patient is seen and examined today at bedside. I reviewed the H&P and reviewed the case with physician rehabilitation assistant yesterday and is on the patient today. He says his motion in his left leg is doing somewhat better today though he still feels somewhat weak in his left leg. I reviewed the MRI as well as x-rays of his left knee. On exam he has sustained dorsal to plantar flexion and EHL at the bilateral lower extremity. He has some decreased strength with his last left quad and left hamstring globally. He is nontender to palpation over his thigh and calf. His knee does not have any significant effusion there is no crepitus or point tenderness. There is no pain with internal and external rotation of his hip. His back is nontender to palpation. His abdomen soft Imaging His MRI shows a chronic compression fracture at L5 there is some disc protrusion and disc bulging without severe stenosis. His x-rays of his left knee so show some complications of his vasculature and there are some arthritic change at the medial compartment and at the screw pole of the patella. There is no acute fracture or dislocation. Assessment and plan Muscle medical issues including rhabdomyolysis with substance issues He is continuing to be managed with ankle management and infectious disease and will continue with him in terms of his overall course. He has a chronic compression fracture at L5 Left knee pain without instability or bony fracture In terms of his orthopedic issues I do not plan any specific surgical intervention at this point. We have ordered an LSO brace for him which may help with some comfort for his low back. I think in terms of his lower extremity he may have had some injury with his prolonged issue do not see any obvious instability or injury. It does not seem to extend from his lumbar spine specifically. I think that he should try to mobilize further with physical therapy and weight-bear as tolerated. It is okay from an ORIF peek standpoint for the patient to be discharged when he is stable with medicine and infectious disease. We can follow him up in approximately 3-4 weeks for recheck evaluation of his back and leg.
--- NOTE | 2017-11-27 08:09 | XR ---
EXAMINATION TYPE: XR knee complete LT DATE OF EXAM: 11/26/2017 COMPARISON: NONE HISTORY: Pain TECHNIQUE: Four views are submitted. FINDINGS: Arthropathy of the knee joint and patellofemoral joint with small spurs noted involving the upper [place] patella. Vascular calcification seen. Mild diffuse osteopenia. Osseous structures are intact. N o acute fracture seen. IMPRESSION: 1. No acute fracture or dislocation. 2. Arthropathy.
[2017-11-27] MEDS: DEXTROSE 5%-0.45% NACL 1,000 ML IV SCH ×2 (09:10→11:35)
[2017-11-27] MEDS: HEPARIN SODIUM,PORCINE 5,000 UNIT/ML 1 ML VIAL SQ SCH ×2 (09:20→16:00)
[2017-11-27] MEDS: METOPROLOL TARTRATE 50 MG TAB PO SCH (09:20)
[2017-11-27] MEDS: CLOPIDOGREL 75 MG TAB PO SCH (09:20)
[2017-11-27] MEDS: EZETIMIBE 10 MG TAB PO SCH (09:20)
[2017-11-27] MEDS: PANTOPRAZOLE 40 MG TABLET PO SCH (09:20)
[2017-11-27] MEDS: cefTRIAXone IN SWFI 2,000 MG/20 ML SYRINGE IVP SCH (09:53)
[2017-11-27] MEDS: THIAMINE 100 MG TAB PO SCH (11:35)
[2017-11-27] MEDS: FOLIC ACID 1 MG TAB PO SCH (11:35)
[2017-11-27 11:47] VITALS: BMI 22.3
--- NOTE | 2017-11-27 12:49 | P.PN ---
Subjective Progress Note Date: 11/27/17 Principal diagnosis: Bacteremia, rhabdomyolysis Denies any chills, diet tolerated, no fever Objective - Vital Signs Vital signs: Vital Signs Temp 97.4 F L 11/27/17 09:14 Pulse 86 11/27/17 09:14 Resp 16 11/27/17 09:14 BP 123/73 11/27/17 09:16 Pulse Ox 93 L 11/27/17 09:14 Intake & Output 11/26/17 11/27/17 11/27/17 18:59 06:59 18:59 Intake Total 1762 1200 1750 Output Total 400 426 375 Balance 2370 985 1972 Weight 70.5 kg Intake: IV 1000 1200 1200 Dextrose 5%-0.45% NaCl 1, 1000 1200 1200 000 ml @ 125 mls/hr IV . Q8H [facility] Rx#:[id number] Intake, IV Titration 50 50 Amount Clindamycin 600 mg In 50 50 Dextrose 5% in Water 50 ml @ 100 mls/hr IVPB Q8HR [facility] Rx#:[id number] Oral 712 500 Output: Urine 400 425 375 Stool 1 Other: Voiding Method Urinal Urinal Urinal Diaper Diaper Diaper Incontinent Incontinent Incontinent # Voids 1 - Exam gen:alert and oriented lungs:clear to auscultation heart:s1s2 abdomen:soft and depressible,non tender ext:no edema - Labs CBC & Chem 7: 11/27/17 06:50 11/26/17 05:51 Labs: Abnormal Lab Results - Last 24 Hours (Table) 11/26/17 11/26/17 11/27/17 Range/Units 16:29 21:03 06:50 WBC 3.5 L (3.8-10.6) k/uL RBC 2.87 L (4.30-5.90) m/uL Hgb 9.0 L (13.0-17.5) gm/dL Hct 27.2 L (39.0-53.0) % POC Glucose (mg/dL) 170 H 152 H (75-99) mg/dL Microbiology - Last 24 Hours (Table) 11/24/17 17:23 Blood Culture Gram Stain - Final Blood Blood Culture - Final Escherichia coli 11/24/17 16:52 Blood Culture - Preliminary Blood No Growth after 48 hours 05/14/18 23:25 Urine Culture - Final Urine,Voided Assessment and Plan (1) Bacteremia Narrative/Plan: On Rocephin and clindamycin Infectious disease following Current Visit: Yes Status: Acute Code(s): R78.81 - BACTEREMIA SNOMED Code( s): 2296364 (2) Chronic anemia Narrative/Plan: Stable Current Visit: Yes Status: Acute Code(s): D64.9 - ANEMIA, UNSPECIFIED SNOMED Code(s): 774987824 (3) Hypertension Narrative/Plan: Controlled Continue metoprolol Current Visit: Yes Status: Acute Code(s): I10 - ESSENTIAL (PRIMARY) HYPERTENSION SNOMED Code(s): 62533057 (4) CAD (coronary artery disease) Narrative/Plan: No chest pain Continue Plavix Current Visit: Yes Status: Acute Code(s): I25.10 - ATHSCL HEART DISEASE OF [place] CORONARY ARTERY W/O ANG PCTRS SNOMED Code(s): 44351305 (5) Rheumatoid arthritis Current Visit: Yes Status: Acute Code(s): M06.9 - RHEUMATOID ARTHRITIS, UNSPECIFIED SNOMED Code(s): 42434530 (6) Alcohol abuse Current Visit: Yes Status: Acute Code(s): F10.10 - ALCOHOL ABUSE, UNCOMPLICATED SNOMED Code(s): 46227829 (7) Compression fracture of L5 lumbar vertebra Narrative/Plan: No surgical intervention at this time Brace in place Current Visit: Yes Status: Acute Code(s): S32.050A - WEDGE COMPRESSION FRACTURE OF FIFTH LUMBAR VERTEBRA, INIT SNOMED Code(s): 081951836 (8) Decubitus ulcer Current Visit: Yes Status: Acute Code(s): L89.90 - PRESSURE ULCER OF UNSPECIFIED SITE, UNSPECIFIED STAGE SNOMED Code(s): 635087440
[2017-11-27] MEDS ORDERED: ONDANSETRON 4 MG/2 ML VIAL IVP PRN (14:02)
--- NOTE | 2017-11-27 16:30 | P.PN ---
Subjective Progress Note Date: 11/27/17 Patient is a 72-year-old male who is being followed by the neurology service for rhabdomyolysis. Patient has a history of alcohol abuse and did have a binge a few days ago. Patient had a fall and it appears patient was unconscious for an unknown amount of time. Patient was on the floor for 2 days before anyone came to check on him. Patient was found by his son and he was quite confused. EMS was called and patient was brought to [facility] for further evaluation. Upon arrival, computed tomography scan of the brain was done which showed superficial hematoma. CT showed no acute intracranial abnormalities. CT did show generalized atrophy and small vessel ischemic changes. Patient was started on IV hydration immediately for elevated CPK. Patient had MRI done of the thoracic and lumbar spine due to fall. MRI did show evidence of a compression fracture at L5. Orthopedics for consult today. At the time of my evaluation, patient's resting comfortably in bed and appears to be in no acute distress. Objective - Vital Signs Vital signs: Vital Signs Temp 98.4 F 11/27/17 15:09 Pulse 69 11/27/17 15:09 Resp 18 11/27/17 15:09 BP 153/60 11/27/17 15:09 Pulse Ox 96 11/27/17 15:35 Intake & Output 11/26/17 11/27/17 11/27/17 18:59 06:59 18:59 Intake Total 1762 1200 1750 Output Total 400 426 375 Balance 9711 300 7122 Weight 70.5 kg Intake: IV 1000 1200 1200 Dextrose 5%-0.45% NaCl 1, 1000 1200 1200 000 ml @ 125 mls/hr IV . Q8H [facility] Rx#:[id number] Intake, IV Titration 50 50 Amount Clindamycin 600 mg In 50 50 Dextrose 5% in Water 50 ml @ 100 mls/hr IVPB Q8HR [facility] Rx#:[id number] Oral 712 500 Output: Urine 400 425 375 Stool 1 Other: Voiding Method Urinal Urinal Urinal Diaper Diaper Diaper Incontinent Incontinent Incontinent # Voids 1 - Exam PHYSICAL EXAM: GENERAL APPEARANCE: Patient is a well-developed, male who appears to be in no acute distress. HEENT: Normocephalic, atraumatic, no facial asymmetry is seen. Neck is supple with no masses felt. CARDIOVASCULAR: Regular rate and rhythm. ABDOMEN: Nontender, nondistended. EXTREMITIES: Show no edema or clubbing. NEUROLOGICAL EXAM: Patient is awake, alert, and oriented 3. Speech and language are normal. Strength is 5/5 in bilateral upper extremities and 4/5 in the left lower extremity and 4+/5 on the right lower extremity. Sensory exam is normal to light touch in all 4 extremities. Mild postural tremors are seen. No seizure-like activity noted. - Labs CBC & Chem 7: 11/27/17 06:50 11/26/17 05:51 Labs: Abnormal Lab Results - Last 24 Hours (Table) 11/26/17 11/26/17 11/27/17 Range/Units 16:29 21:03 06:50 WBC 3.5 L (3.8-10.6) k/uL RBC 2.87 L (4.30-5.90) m/uL Hgb 9.0 L (13.0-17.5) gm/dL Hct 27.2 L (39.0-53.0) % POC Glucose (mg/dL) 170 H 152 H (75-99) mg/dL Microbiology - Last 24 Hours (Table) 11/24/17 17:23 Blood Culture Gram Stain - Final Blood Blood Culture - Final Escherichia coli 11/24/17 16:52 Blood Culture - Preliminary Blood No Growth after 48 hours 11/24/17 23:25 Urine Culture - Final Urine,Voided Assessment and Plan Plan: Impression: 1. Acute rhabdomyolysis 2. Recent fall 3. Alcohol abuse 4. Lumbar compression fracture 5. Renal insufficiency Recommendation: Patient did sustain a fall after heavy drinking at home. Patient has lumbar compression fracture and orthosis been consulted. Due to unknown downtime, patient had developed rhabdomyolysis which is likely caused his lower extremity weakness. CPK is improving with IV hydration. As you recall, computed tomography scan showed no acute intracranial abnormality. Patient will likely need inpatient rehab since he does live alone. Continue neurological checks. No further neurological workup needed at this time. I will continue to follow with you on an as-needed basis. Feel free to call with any questions or concerns. I performed an examination of the patient and discussed the management with the STATUE CARVER. I have reviewed the STATUE CAR[facility] notes and agree with the findings and plan of therapy.
[2017-11-28] MEDS: HYDROcodone/APAP 5-325MG 1 EACH TAB PO PRN ×5 (00:30→21:06)
[2017-11-28] MEDS: CLINDAMYCIN 600 MG in DEXTROSE 5% IN WATER 50 ML IVPB SCH ×8 (00:33→23:50)
[2017-11-28] MEDS: HEPARIN SODIUM,PORCINE 5,000 UNIT/ML 1 ML VIAL SQ SCH ×4 (00:33→23:50)
[2017-11-28] MEDS: DEXTROSE 5%-0.45% NACL 1,000 ML IV SCH ×3 (06:41→21:07)
[2017-11-28] MEDS: SYMBICORT 160-4.5 MCG INHALER INHALATION SCH ×2 (07:46→21:09)
[2017-11-28 07:56] LABS: HCT 28.1 % (39.0-53.0); HGB 9.5 gm/dL (13.0-17.5); MCH 32.3 pg (25.0-35.0); MCHC 33.8 g/dL (31.0-37.0); MCV 95.6 fL (80.0-100.0); Mean Platelet Volume 7.1; Platelet Count 283 k/uL (150-450); RBC 2.94 m/uL (4.30-5.90); WBC 3.8 k/uL (3.8-10.6)
[2017-11-28 08:03] LABS: Anion Gap 6 mmol/L; Blood Urea Nitrogen 10 mg/dL (9-20); Calcium 8.1 mg/dL (8.4-10.2); Carbon Dioxide 29 mmol/L (22-30); Chloride 104 mmol/L (98-107); Glucose 115 mg/dL (74-99); Potassium 3.8 mmol/L (3.5-5.1); Sodium 139 mmol/L (137-145)
[2017-11-28] MEDS: EZETIMIBE 10 MG TAB PO SCH (09:38)
[2017-11-28] MEDS: PANTOPRAZOLE 40 MG TABLET PO SCH (09:38)
[2017-11-28] MEDS: cefTRIAXone IN SWFI 2,000 MG/20 ML SYRINGE IVP SCH (09:38)
[2017-11-28] MEDS: FOLIC ACID 1 MG TAB PO SCH (09:38)
[2017-11-28] MEDS: CLOPIDOGREL 75 MG TAB PO SCH (09:39)
[2017-11-28] MEDS: METOPROLOL TARTRATE 50 MG TAB PO SCH (09:39)
[2017-11-28] MEDS: THIAMINE 100 MG TAB PO SCH (09:39)
--- NOTE | 2017-11-28 14:13 | P.PN ---
Subjective Progress Note Date: 11/28/17 Patient complaint of severe back pain last night reports now that his pain is controlled, apparently the pa patient has not been calling for this medication around the clock. Advised him to request for his pain medications before the severity gets too bad. Patient afebrile overnight Objective - Vital Signs Vital signs: Vital Signs Temp 98.1 F 11/28/17 07:20 Pulse 75 11/28/17 07:20 Resp 16 11/28/17 07:20 BP 166/67 11/28/17 07:20 Pulse Ox 93 L 11/28/17 07:20 Intake & Output 11/27/17 11/28/17 11/28/17 18:59 06:59 18:59 Intake Total 2750 590 Output Total 375 450 Balance 2375 590 -450 Weight 70.5 kg Intake: IV 2200 Dextrose 5%-0.45% NaCl 1, 2200 000 ml @ 125 mls/hr IV . Q8H [facility] Rx#:[id number] Intake, IV Titration 50 Amount Clindamycin 600 mg In 50 Dextrose 5% in Water 50 ml @ 100 mls/hr IVPB Q8HR [facility] Rx#:[id number] Oral 500 590 Output: Urine 375 450 Other: Voiding Method Urinal Urinal Urinal Diaper Diaper Diaper Incontinent Incontinent Incontinent - Exam Constitutional: No acute distress, conversant, pleasant Eyes: Anicteric sclerae, moist conjunctiva, no lid-lag, PERRLA ENMT: NC/AT,Oropharynx clear, no erythema, exudates Neck:Supple, FROM, no masses, or JVD, No carotid bruits; No thyromegaly Lungs: Clear to auscultation, Clear to percussion, Normal respiratory effort, no accessory muscle use Cardiovascular: Heart regular in rate and rhythm, No murmurs, gallops, or rubs no peripheral edema Abdominal: Soft Nontender, nom distended, no guarding, no rebound or rigidity, Normoactive bowel sounds No hepatomegaly, No splenomegaly, No palpable mass No abdominal wall hernia noted Skin: Normal temperature, tone, texture, turgor, No induration No subcutaneous nodules, No rash, lesions, No ulcers Extremities:No digital cyanosis No clubbing, Pedal pulses intact and symmetrical Radial pulses intact and symmetrical Normal gait and station, No calf tenderness Psychiatric: Alert and oriented to person, place and time, Appropriate affect Intact judgement Neuro: Muscles Strength 5/5 in all 4 extremities, Sensation to light touch grossly present throughout, Cranial nerves II-XII grossly intact. No focal sensory deficits - Labs CBC & Chem 7: 11/28/17 07:11 11/28/17 07:11 Labs: Abnormal Lab Results - Last 24 Hours (Table) 11/28/17 11/28/17 Range/Units 07:11 07:11 RBC 2.94 L (4.30-5.90) m/uL Hgb 9.5 L (13.0-17.5) gm/dL Hct 28.1 L (39.0-53.0) % Glucose 115 H (74-99) mg/dL Calcium 8.1 L (8.4-10.2) mg/dL Microbiology - Last 24 Hours (Table) 11/24/17 16:52 Blood Culture - Preliminary Blood No Growth after 72 hours 11/26/17 15:54 Blood Culture - Preliminary Blood No Growth after 24 hours Assessment and Plan (1) E coli bacteremia Narrative/Plan: * Continue with Rocephin * Implanted DC tomorrow would continue antibiotics for another 10 days for a total of 14 days for E. coli bacteremia Current Visit: Yes Status: Acute Code(s): R78.81 - BACTEREMIA SNOMED Code( s): 068079652915 (2) Sepsis Narrative/Plan: * Secondary to E. coli bacteremia, follow-up chest x-ray not suggesting any aspiration * Blood cultures largely pansensitive * Appreciate ID recommendations per Dr. Ontiveros * Repeat blood cultures negative 1 day * Continue current antibiotic regimen Current Visit: Yes Status: Acute Code(s): A41.9 - SEPSIS, UNSPECIFIED ORGANISM SNOMED Code(s): 57391911 (3) CAD (coronary artery disease) Current Visit: Yes Status: Acute Code(s): I25.10 - ATHSCL HEART DISEASE OF [place] CORONARY ARTERY W/O ANG PCTRS SNOMED Code(s): 56922546 (4) Chronic anemia Narrative/Plan: Hemoglobin stable at 9.5 continue to monitor Current Visit: Yes Status: Acute Code(s): D64.9 - ANEMIA, UNSPECIFIED SNOMED Code(s): 956599275 (5) Compression fracture of L5 lumbar vertebra Narrative/Plan: * Patient seen by Dr. Prasia a EXOS LSO brace in place * Continue norco regimen Current Visit: Yes Status: Acute Code(s): S32.050A - WEDGE COMPRESSION FRACTURE OF FIFTH LUMBAR VERTEBRA, INIT SNOMED Code(s): 531077262 (6) Decubitus ulcer Current Visit: Yes Status: Acute Code(s): L89.90 - PRESSURE ULCER OF UNSPECIFIED SITE, UNSPECIFIED STAGE SNOMED Code(s): 623591748
[2017-11-29] MEDS: HYDROcodone/APAP 5-325MG 1 EACH TAB PO PRN ×4 (02:37→20:39)
[2017-11-29] MEDS: DEXTROSE 5%-0.45% NACL 1,000 ML IV SCH ×3 (06:49→20:40)
[2017-11-29] MEDS: SYMBICORT 160-4.5 MCG INHALER INHALATION SCH ×2 (07:21→20:07)
[2017-11-29] MEDS: EZETIMIBE 10 MG TAB PO SCH (08:06)
[2017-11-29] MEDS: CLOPIDOGREL 75 MG TAB PO SCH (08:06)
[2017-11-29] MEDS: HEPARIN SODIUM,PORCINE 5,000 UNIT/ML 1 ML VIAL SQ SCH ×2 (08:06→15:47)
[2017-11-29] MEDS: CIPROFLOXACIN HCL 500 MG TAB PO SCH ×2 (08:06→20:39)
[2017-11-29] MEDS: CLINDAMYCIN 600 MG in DEXTROSE 5% IN WATER 50 ML IVPB SCH ×4 (08:06→15:47)
[2017-11-29] MEDS: PANTOPRAZOLE 40 MG TABLET PO SCH (08:06)
[2017-11-29] MEDS: cefTRIAXone IN SWFI 2,000 MG/20 ML SYRINGE IVP SCH (08:06)
[2017-11-29] MEDS: THIAMINE 100 MG TAB PO SCH (08:07)
[2017-11-29] MEDS: METOPROLOL TARTRATE 50 MG TAB PO SCH (08:07)
[2017-11-29] MEDS: FOLIC ACID 1 MG TAB PO SCH (08:07)
[2017-11-29] MEDS: ERGOCALCIFEROL 50,000 UNIT CAP PO SCH (10:38)
--- NOTE | 2017-11-29 14:57 | P.DS ---
Providers Date of admission: 11/22/17 12:32 Expected date of discharge: 11/29/17 Attending physician: Kory Whitaker MD Consults: 11/24/17 14:39 Consult Physician Routine Consulting Provider: Justin Ontiveros Consult Reason/Comments: wound care Do you want consulting provider notified?: Yes 11/25/17 12:28 Consult Physician Routine Consulting Provider: Molina Malik Consult Reason/Comments: let leg weakness, urinary incontinence Do you want consulting provider notified?: Yes 11/26/17 10:28 Consult Physician Routine Consulting Provider: Lauren Cao Consult Reason/Comments: L5 vertebral fracture Do you want consulting provider notified?: Yes Primary care physician: Surjit Cook - Discharge Diagnosis(es) (1) Sepsis Current Visit: Yes Status: Acute (2) E coli bacteremia Current Visit: Yes Status: Acute (3) CAD (coronary artery disease) Current Visit: Yes Status: Acute (4) Chronic anemia Current Visit: Yes Status: Acute (5) Compression fracture of L5 lumbar vertebra Current Visit: Yes Status: Acute (6) Decubitus ulcer Current Visit: Yes Status: Acute (7) Rhabdomyolysis Current Visit: Yes Status: Acute Hospital Course: The patient is a 72-year-old male that was admitted for fall due to acute alcohol intoxication and subsequent rhabdomyolysis with acute renal failure and dehydration, the patient was started on IV fluids and his creatinine trended down from 1.4 back to his baseline. The patient was noted to be tachycardic with fever and was found to be septic secondary to E. coli bacteremia, given his history of alcohol intoxication and fall with chest x- ray suggesting possible infectious process it was thought that the patient also had aspiration pneumonia and he was started on clindamycin and Rocephin, repeat of the chest x-ray ruled out any underlying aspiration pneumonia is continued on Rocephin until his repeat blood cultures were clear of bacteremia. The patient had been complaining of ongoing lower back pain after his fall and MRI of the back was performed which showed acute on chronic moderate compression fracture of L5 with slight posterior retropulsion of 3 mm along with multilevel DJD, orthopedic consult was placed and the patient was seen by Dr. Soni who recommended Exos LSO brace for the L5 compression fracture deformity along with [place] 11/13/2024 every 4 hours when necessary pain. The patient was noted to have a stage I sacral decubital ulcer that did not appear infected that was treated conservatively. The patient was subsequently discharged to [facility] to receive ongoing rehab. He was discharged there on ciprofloxacin for his E. coli bacteremia to complete a total of 14 day course. This discharge process took approximately 35 minutes Constitutional: No acute distress, conversant, pleasant Eyes: Anicteric sclerae, moist conjunctiva, no lid-lag, PERRLA ENMT: NC/AT,Oropharynx clear, no erythema, exudates Neck:Supple, FROM, no masses, or JVD, No carotid bruits; No thyromegaly Lungs: Clear to auscultation, Clear to percussion, Normal respiratory effort, no accessory muscle use Cardiovascular: Heart regular in rate and rhythm, No murmurs, gallops, or rubs no peripheral edema Abdominal: Soft Nontender, nom distended, no guarding, no rebound or rigidity, Normoactive bowel sounds No hepatomegaly, No splenomegaly, No palpable mass No abdominal wall hernia noted Skin: Normal temperature, tone, texture, turgor, No induration No subcutaneous nodules, No rash, lesions, sacral decubital ulcer stage I Extremities:No digital cyanosis No clubbing, Pedal pulses intact and symmetrical Radial pulses intact and symmetrical Normal gait and station, No calf tenderness Neuro: Muscles Strength 5/5 in all 4 extremities, Sensation to light touch grossly present throughout, Cranial nerves II-XII grossly intact. No focal sensory deficits Patient Condition at Discharge: Serious Plan - Discharge Summary Discharge Rx Participant: No New Discharge Prescriptions: New Acetaminophen Tab [Tylenol] 650 mg PO Q6HR PRN tab PRN Reason: Mild Pain Or Fever > 100.5 Ciprofloxacin HCl [Cipro] 500 mg PO BID #20 tab HYDROcodone/APAP 5-325MG [[place] 5-325] 1 each PO Q4HR PRN #20 tab PRN Reason: Pain Continue Clopidogrel Bisulfate [Plavix] 75 mg PO DAILY MDD SEE COMMENTS Metoprolol Tartrate [Lopressor] 50 mg PO DAILY MDD SEE COMMENTS Adalimumab [Humira Pen] 40 mg SQ Q14D Ezetimibe [Zetia] 10 mg PO DAILY MDD SEE COMMENTS Budesonide-Formot 160-4.5 Mcg [Symbicort 160-4.5 Mcg Inhaler] 2 puff INHALATION RT-BID puff Ergocalciferol (Vitamin D2) [Vitamin D2] 50,000 unit PO Q7D Discharge Medication List Clopidogrel Bisulfate [Plavix] 75 mg PO DAILY MDD SEE COMMENTS 08/29/16 [History ] Adalimumab [Humira Pen] 40 mg SQ Q14D 02/14/17 [History] Ezetimibe [Zetia] 10 mg PO DAILY MDD SEE COMMENTS 02/14/17 [History] Metoprolol Tartrate [Lopressor] 50 mg PO DAILY MDD SEE COMMENTS 02/14/17 [ History] Budesonide-Formot 160-4.5 Mcg [Symbicort 160-4.5 Mcg Inhaler] 2 puff INHALATION RT-BID puff 02/16/17 [Rx] Ergocalciferol (Vitamin D2) [Vitamin D2] 50,000 unit PO Q7D 11/22/17 [History] Acetaminophen Tab [Tylenol] 650 mg PO Q6HR PRN tab 11/28/17 [Rx] Ciprofloxacin HCl [Cipro] 500 mg PO BID #20 tab 11/28/17 [Rx] HYDROcodone/APAP 5-325MG [[place] 5-325] 1 each PO Q4HR PRN #20 tab 11/28/17 [Rx] Follow up Appointment(s)/Referral(s): Surjit Cook MD [Primary Care Provider] - 1-2 days Lauren Cao DO [Doctor of Osteopathic Medicine] - 12/19/17 1:00 pm (For low back and left knee) Molina Malik MD [STAFF PHYSICIAN] - 1 Week (office will call the patient with the appointmentn time) Activity/Diet/Wound Care/Special Instructions: Planning for [place] upon discharge. Discharge Disposition: DC/TRNS INTERMEDIATE CARE FAC
--- NOTE | 2017-11-29 19:04 | P.PN ---
Subjective Progress Note Date: 11/29/17 72-year-old male presents to Hospital EMS after the patient's son found him on the floor of his condo. Is related that the patient was hospitalized last time he did go to rehab which was the [facility] in [place]. He apparently improved and was back to his home environment. He is noted to have a history of alcohol abuse and when he is actively drinking will have follow-up. It's unclear amount of time patient was on the floor but apparently could be up to 3 days. It admission the patient was very weak, poor historian and evidence of significant metabolic derangement including hypernatremia and acute renal failure and elevated creatinine kinase level. With hydration the patient's hyponatremia has improved as has his elevated creatinine. The patient over has a pressure ulceration on the sacral area and has now developed fever and the infectious diseases consultation was requested. The patient is a poor historian although he is arousable to interact the quality of his content of speech is poor. However was able to follow simple commands. Review of data reveals difficulty with his chronic alcoholism, COPD, and no history of pancreatic cancer as well as rheumatoid arthritis. Medication list shows utilization of marrow which is now on hold given his current infection. The patient is an MRI of the LS spine show evidence of the L5 fracture remains a poor historian. The high fevers of yesterday have now improved. On 11/26/2017 the patient has shown some improvement. He is much more awake alert and interactive. Is partially sitting up in ingesting his meal without any difficulties. Relates his appetite is good and is having no nausea or emesis. Pain control is modest at this time. 11/29/2017 the patient continues have some improvement. Overall there is improvement awaits for discharge to rehabilitation facility. Still having significant pain upon attempts for moving. Objective - Vital Signs Vital signs: Vital Signs Temp 98.4 F 11/29/17 15:46 Pulse 65 11/29/17 15:46 Resp 17 11/29/17 15:46 BP 150/65 11/29/17 15:46 Pulse Ox 95 11/29/17 15:46 Intake & Output 11/29/17 11/29/17 11/30/17 06:59 18:59 06:59 Intake Total 4690 100 Output Total 701 Balance 3989 100 Weight 68.5 kg Intake: Intake, IV Titration 2000 Amount Dextrose 5%-0.45% NaCl 1, 2000 000 ml @ 125 mls/hr IV . Q8H [facility] Rx#:[id number] Oral 2690 100 Output: Urine 700 Stool 1 Other: Voiding Method Urinal Urinal Diaper Diaper Incontinent Incontinent # Voids 4 1 # Bowel Movements 1 1 - Exam 72-year-old male resting quietly fevers completely resolved was up in the chair for a bit. HEENT: Anicteric conjunctiva are pink and moist nasal mucosa grossly intact without significant lesions, there is no thrush. Dentition is poor Neck: The neck is supple without significant lymphadenopathy or thyromegaly. Lungs: There is symmetrical air entry, expiratory wheezes are heard, a few basilar crackles are heard right greater than left Heart: Regular rate and rhythm with an audible S1-S2, no S3 no S4. There is no significant murmur click or rub, PMI was nondisplaced. Abdomen: Positive bowel sounds soft and nontender without palpable masses or organomegaly. There was no guarding or rebound. Extremities: The upper extremities show evidence of the IV site that is without difficulty. Evidence of multiple ecchymosis of the upper extremities are noted , as well as on the right shoulder blade and hematoma to the right temporal area , there are eschars on both upper extremities. The lower extremities have some edema which is minimal and the extremities are well perfused. Sacrum is evidence of the extensive eschar approximate 4 x 4 cm please refer to the nursing photography for data. It is slightly tender to touch it is not fluctuant and there is no expressible purulence. Neuro: Patient is awake alert conversational having no difficulties with eating his meals - Labs CBC & Chem 7: 11/28/17 07:11 11/28/17 07:11 Labs: Microbiology - Last 24 Hours (Table) 11/26/17 15:54 Blood Culture - Preliminary Blood No Growth after 72 hours 11/24/17 16:52 Blood Culture - Preliminary Blood No Growth after 96 hours Laboratory Results WBC 3.8 k/uL (3.8-10.6) 11/28/17 07:11 RBC 2.94 m/uL (4.30-5.90) L 11/28/17 07:11 Hgb 9.5 gm/dL (13.0-17.5) L 11/28/17 07:11 Hct 28.1 % (39.0-53.0) L 11/28/17 07:11 MCV 95.6 fL (80.0-100.0) 11/28/17 07:11 MCH 32.3 pg (25.0-35.0) 11/28/17 07:11 MCHC 33.8 g/dL (31.0-37.0) 11/28/17 07:11 RDW 15.0 % (11.5-15.5) 11/28/17 07:11 Plt Count 283 k/uL (150-450) 11/28/17 07:11 Neutrophils % 69 % 11/26/17 05:51 Lymphocytes % 17 % 11/26/17 05:51 Monocytes % 8 % 11/26/17 05:51 Eosinophils % 3 % 11/26/17 05:51 Basophils % 0 % 11/26/17 05:51 Neutrophils # 1.8 k/uL (1.3-7.7) 11/26/17 05:51 Lymphocytes # 0.5 k/uL (1.0-4.8) L 11/26/17 05:51 Monocytes # 0.2 k/uL (0-1.0) 11/26/17 05:51 Eosinophils # 0.1 k/uL (0-0.7) 11/26/17 05:51 Basophils # 0.0 k/uL (0-0.2) 11/26/17 05:51 Macrocytosis Slight 11/23/17 05:45 PT 9.4 sec (9.0-12.0) 11/22/17 09:22 INR 0.9 (<1.2) 11/22/17 09:22 APTT 20.2 sec (22.0-30.0) L 11/22/17 09:22 Sodium 139 mmol/L (137-145) 11/28/17 07:11 Potassium 3.8 mmol/L (3.5-5.1) 11/28/17 07:11 Chloride 104 mmol/L (98-107) 11/28/17 07:11 Carbon Dioxide 29 mmol/L (22-30) 11/28/17 07:11 Anion Gap 6 mmol/L 11/28/17 07:11 BUN 10 mg/dL (9-20) 11/28/17 07:11 Creatinine 0.77 mg/dL (0.66-1.25) 11/28/17 07:11 Est GFR (CKD-EPI)AfAm >90 (>60 ml/min/1.73 sqM) 11/28/17 07:11 Est GFR (CKD-EPI)NonAf >90 (>60 ml/min/1.73 sqM) 11/28/17 07:11 Glucose 115 mg/dL (74-99) H 11/28/17 07:11 POC Glucose (mg/dL) 152 mg/dL (75-99) H 11/26/17 21:03 POC Glu Kiln Tester ID Kaveh Reinoso 11/26/17 21:03 Lactic Ac Sepsis Rflx Y 11/22/17 10:03 Plasma Lactic Acid Mani 1.3 mmol/L (0.7-2.0) 11/24/17 16:52 Calcium 8.1 mg/dL (8.4-10.2) L 11/28/17 07:11 Phosphorus 2.8 mg/dL (2.5-4.5) 11/25/17 05:52 Magnesium 1.8 mg/dL (1.6-2.3) 11/25/17 05:52 Total Bilirubin 0.3 mg/dL (0.2-1.3) 11/26/17 05:51 AST 29 U/L (17-59) 11/26/17 05:51 ALT 54 U/L (21-72) 11/26/17 05:51 Alkaline Phosphatase 89 U/L (38-126) 11/26/17 05:51 Ammonia <9 umol/L (<30) 11/22/17 09:22 Creatine Kinase 78 U/L (55-170) 11/26/17 05:51 Total Creatine Kinase 1175 U/L (55-170) H 11/22/17 09:22 CK-MB (CK-2) 11.3 ng/mL (0.0-2.4) H* 11/22/17 09:22 CK-MB (CK-2) Rel Index 1.0 11/22/17 09:22 Troponin I 0.150 ng/mL (0.000-0.034) H* 11/22/17 15:10 NT-Pro-B Natriuret Pep 1960 pg/mL 11/22/17 09:22 Total Protein 4.4 g/dL (6.3-8.2) L 11/26/17 05:51 Albumin 2.1 g/dL (3.5-5.0) L 11/26/17 05:51 Amylase 134 U/L (30-110) H 11/22/17 09:22 Lipase 194 U/L (23-300) 11/22/17 09:22 Urine Color Yellow 11/23/17 16:55 Urine Appearance Clear (Clear) 11/23/17 16:55 Urine pH 5.5 (5.0-8.0) 11/23/17 16:55 Ur Specific [place] 1.020 (1.001-1.035) 11/23/17 16:55 Urine Protein 1+ (Negative) H 11/23/17 16:55 Urine Glucose (UA) Negative (Negative) 11/23/17 16:55 Urine Ketones Negative (Negative) 11/23/17 16:55 Urine Blood Trace (Negative) H 11/23/17 16:55 Urine Nitrite Negative (Negative) 11/23/17 16:55 Urine Bilirubin Negative (Negative) 11/23/17 16:55 Urine Urobilinogen 4.0 mg/dL (<2.0) 11/23/17 16:55 Ur Leukocyte Esterase Negative (Negative) 11/23/17 16:55 Urine RBC 1 /hpf (0-5) 11/23/17 16:55 Urine WBC 2 /hpf (0-5) 11/23/17 16:55 Ur Squamous Epith Cells <1 /hpf (0-4) 11/23/17 16:55 Urine Bacteria Rare /hpf (None) H 11/23/17 16:55 Granular Casts 5 /lpf (0) 11/23/17 16:55 Urine Mucus Rare /hpf (None) H 11/23/17 16:55 Urine Opiates Screen Not Detected (NotDetected) 11/23/17 16:55 Ur Oxycodone Screen Not Detected (NotDetected) 11/23/17 16:55 Urine Methadone Screen Not Detected (NotDetected) 11/23/17 16:55 Ur Propoxyphene Screen Not Detected (NotDetected) 11/23/17 16:55 Ur Barbiturates Screen Not Detected (NotDetected) 11/23/17 16:55 U Tricyclic Antidepress Not Detected (NotDetected) 11/23/17 16:55 Ur Phencyclidine Scrn Not Detected (NotDetected) 11/23/17 16:55 Ur Amphetamines Screen Not Detected (NotDetected) 11/23/17 16:55 U Methamphetamines Scrn Not Detected (NotDetected) 11/23/17 16:55 U Benzodiazepines Scrn Detected (NotDetected) H 11/23/17 16:55 Urine Cocaine Screen Not Detected (NotDetected) 11/23/17 16:55 U Marijuana (THC) Screen Not Detected (NotDetected) 11/23/17 16:55 Serum Alcohol <10 mg/dL 11/22/17 09:22 Microbiology 11/26/17 15:54 Blood Blood Culture - Preliminary No Growth after 72 hours 11/24/17 16:52 Blood Blood Culture - Preliminary No Growth after 96 hours 11/24/17 17:23 Blood Blood Culture Gram Stain - Final 11/24/17 17:23 Blood Blood Culture - Final Escherichia coli 11/24/17 23:25 Urine,Voided Urine Culture - Final 11/24/17 17:23 Blood Blood Culture - Final Assessment and Plan (1) Alcohol abuse Current Visit: Yes Status: Acute Code(s): F10.10 - ALCOHOL ABUSE, UNCOMPLICATED SNOMED Code(s): 41080582 (2) Fall Current Visit: Yes Status: Acute Code(s): W19.XXXA - UNSPECIFIED FALL, INITIAL ENCOUNTER SNOMED Code(s): 6072154 (3) Rhabdomyolysis Current Visit: Yes Status: Acute Code(s): M62.82 - RHABDOMYOLYSIS SNOMED Code(s): 614826007 (4) Fever Narrative/Plan: 72-year-old male presents to Hospital after the son found patient on the floor potentially up to 3 days, after he had a fall likely after binge drinking. It admission the patient had significant metabolic derangement especially with hypernatremia, acute renal failure and elevated creatinine kinase. With hydration has been some improvement patient was showing some improvement however now has a high-grade fever of 103 and also pressure ulceration. The pressure ulcer in the operative foam is an ideal choice at this point in time since it is an eschar. We'll consider alternative therapies over the next few days. Patient however is febrile at this time there is concerns for sepsis given the high-grade fever and concerns would be to pneumonia, does have a history of Streptococcus pneumoniae bacteremia in the past, infection related to his wound as well as urinary infection. Lactic acid, urine culture and blood cultures have been requested. Given his alcoholism, altered mentation, COPD concern for aspiration pneumonia antibiotic therapy is initiated after cultures with Rocephin and clindamycin. Patient is hemodynamically stable. He is being monitored for alcohol withdrawal be the [facility] protocol. Metabolic arrangements have markedly improved since admission and hydration. Is related his mentation is improved slightly since his admission. There is minimal improvement today. Most significant is improvement of fever. There is evidence of an blood culture that is positive for gram-negative bacilli , chest x-ray did not appear to reveal evidence of pneumonia at this time. Until culture is more finalized continue current antibiotic therapy and may require further alteration based on finding however with his improvement of fever seems to be showing a current improvement. The mild leukopenia that has occurred is likely on the bases the gram-negative sepsis concerns to pneumonia and urinary infection. 11/26/2017 reveals the patient has further improvement. He is now sitting up able to ingest his medial. He is more comfortable still has pain from this time on the floor with the multiple wounds. He is denying nausea or emesis. He still feels quite weak. As noted there is a positive blood culture for gram- negative bacilli. Once is identified further antibiotic alterations can be made. Follow blood culture requested to ensure that the bacteremia has resolved. 11/29/2017 patient continues to improve will need rehab status post his bout of sepsis and L5 fracture and profound generalized weakness. We have requested that the orthopedic surgeon again help with acquiring the LSO brace that they have requested since it is not yet arrived. This should help discomfort help him with his rehab. Case is discussed with the hospitalist and he will be a candidate for oral ciprofloxacin to complete 2 weeks of therapy for his E. coli bacteremia and sepsis that is now resolving. Continue local care to the eschar to his sacrum this occurred after his fall in his showing some improvement without evidence of purulence at that site. He other skin lesions are starting to improve with the topical therapy. Current Visit: Yes Status: Acute Code(s): R50.9 - FEVER, UNSPECIFIED SNOMED Code(s): 896748093
[2017-11-30] MEDS: HYDROcodone/APAP 5-325MG 1 EACH TAB PO PRN ×4 (00:11→16:43)
[2017-11-30] MEDS: CLINDAMYCIN 600 MG in DEXTROSE 5% IN WATER 50 ML IVPB SCH ×4 (00:11→08:23)
[2017-11-30] MEDS: HEPARIN SODIUM,PORCINE 5,000 UNIT/ML 1 ML VIAL SQ SCH ×3 (00:11→16:39)
[2017-11-30] MEDS: DEXTROSE 5%-0.45% NACL 1,000 ML IV SCH ×4 (03:55→22:53)
[2017-11-30] MEDS: SYMBICORT 160-4.5 MCG INHALER INHALATION SCH ×2 (07:26→21:11)
[2017-11-30] MEDS: CIPROFLOXACIN HCL 500 MG TAB PO SCH ×2 (08:21→22:53)
[2017-11-30] MEDS: CLOPIDOGREL 75 MG TAB PO SCH (08:21)
[2017-11-30] MEDS: PANTOPRAZOLE 40 MG TABLET PO SCH (08:21)
[2017-11-30] MEDS: FOLIC ACID 1 MG TAB PO SCH (08:21)
[2017-11-30] MEDS: METOPROLOL TARTRATE 50 MG TAB PO SCH (08:22)
[2017-11-30] MEDS: EZETIMIBE 10 MG TAB PO SCH (08:22)
[2017-11-30] MEDS: THIAMINE 100 MG TAB PO SCH (08:22)
[2017-11-30] MEDS: cefTRIAXone IN SWFI 2,000 MG/20 ML SYRINGE IVP SCH (08:23)
--- NOTE | 2017-11-30 09:29 | P.PN ---
Subjective Progress Note Date: 11/30/17 Patient much more comfortable today denies any complaints apart his back pain is improved still has not received his braces yet, otherwise no acute events overnight Objective - Vital Signs Vital signs: Vital Signs Temp 98.6 F 11/30/17 07:00 Pulse 70 11/30/17 07:00 Resp 16 11/30/17 07:02 BP 147/69 11/30/17 07:00 Pulse Ox 94 L 11/30/17 07:00 Intake & Output 11/29/17 11/30/17 11/30/17 18:59 06:59 18:59 Intake Total 100 590 250 Output Total 1600 Balance 100 -1010 250 Weight 69.8 kg Intake: Oral 100 590 250 Output: Urine 1000 Stool 600 Other: Voiding Method Urinal Urinal Diaper Diaper Incontinent Incontinent # Voids 1 3 1 # Bowel Movements 1 1 - Exam Constitutional: No acute distress, conversant, pleasant Eyes: Anicteric sclerae, moist conjunctiva, no lid-lag, PERRLA ENMT: NC/AT,Oropharynx clear, no erythema, exudates Neck:Supple, FROM, no masses, or JVD, No carotid bruits; No thyromegaly Lungs: Clear to auscultation, Clear to percussion, Normal respiratory effort, no accessory muscle use Cardiovascular: Heart regular in rate and rhythm, No murmurs, gallops, or rubs no peripheral edema Abdominal: Soft Nontender, nom distended, no guarding, no rebound or rigidity, Normoactive bowel sounds No hepatomegaly, No splenomegaly, No palpable mass No abdominal wall hernia noted Skin: Normal temperature, tone, texture, turgor, No induration No subcutaneous nodules, No rash, lesions, No ulcers Extremities:No digital cyanosis No clubbing, Pedal pulses intact and symmetrical Radial pulses intact and symmetrical Normal gait and station, No calf tenderness Psychiatric: Alert and oriented to person, place and time, Appropriate affect Intact judgement Neuro: Muscles Strength 5/5 in all 4 extremities, Sensation to light touch grossly present throughout, Cranial nerves II-XII grossly intact. No focal sensory deficits - Labs CBC & Chem 7: 11/28/17 07:11 11/28/17 07:11 Labs: Microbiology - Last 24 Hours (Table) 11/24/17 16:52 Blood Culture - Preliminary Blood No Growth after 120 hours 11/26/17 15:54 Blood Culture - Preliminary Blood No Growth after 72 hours Assessment and Plan (1) Sepsis Narrative/Plan: * Secondary to E. coli bacteremia, follow-up chest x-ray not suggesting any aspiration * Blood cultures largely pansensitive * Appreciate ID recommendations per Dr. Ontiveros * Repeat blood cultures negative 2 day * Discontinue Rocephin and clindamycin initiated ciprofloxacin Current Visit: Yes Status: Resolved Code(s): A41.9 - SEPSIS, UNSPECIFIED ORGANISM SNOMED Code(s): 97030467 (2) E coli bacteremia Narrative/Plan: * Discontinue Rocephin continue with ciprofloxacin * Implanted DC tomorrow would continue antibiotics for another 10 days for a total of 14 days for E. coli bacteremia Current Visit: Yes Status: Resolved Code(s): R78.81 - BACTEREMIA SNOMED Code(s): 785166645318 (3) CAD (coronary artery disease) Current Visit: Yes Status: Acute Code(s): I25.10 - ATHSCL HEART DISEASE OF [place] CORONARY ARTERY W/O ANG PCTRS SNOMED Code(s): 86111937 (4) Chronic anemia Narrative/Plan: Hemoglobin stable at 9.5 continue to monitor Current Visit: Yes Status: Acute Code(s): D64.9 - ANEMIA, UNSPECIFIED SNOMED Code(s): 648246966 (5) Compression fracture of L5 lumbar vertebra Narrative/Plan: * Patient seen by Dr. Zachariah tamez EXOS LSO brace in place * Continue norco regimen Current Visit: Yes Status: Acute Code(s): S32.050A - [place] COMPRESSION FRACTURE OF FIFTH LUMBAR VERTEBRA, INIT SNOMED Code(s): 942405268 (6) Decubitus ulcer Current Visit: Yes Status: Acute Code(s): L89.90 - PRESSURE ULCER OF UNSPECIFIED SITE, UNSPECIFIED STAGE SNOMED Code(s): 791978042 (7) Rhabdomyolysis Current Visit: Yes Status: Resolved Code(s): M62.82 - RHABDOMYOLYSIS SNOMED Code(s): 994556931 (8) Acute renal failure (ARF) Current Visit: Yes Status: Resolved Code(s): N17.9 - ACUTE KIDNEY FAILURE, UNSPECIFIED SNOMED Code(s): 51955408 Plan: Patient ready for discharge apparently there is a insurance prior authorization unable to be discharged to [facility] today despite being stable and ready for discharge Also awaiting patient's brace for his back
--- NOTE | 2017-11-30 09:39 | P.PN ---
Subjective Progress Note Date: 11/30/17 Patient much more comfortable today denies any complaints apart his back pain is improved still has not received his braces yet, otherwise no acute events overnight Objective - Vital Signs Vital signs: Vital Signs Temp 98.6 F 11/30/17 07:00 Pulse 70 11/30/17 07:00 Resp 16 11/30/17 07:02 BP 147/69 11/30/17 07:00 Pulse Ox 94 L 11/30/17 07:00 Intake & Output 11/29/17 11/30/17 11/30/17 18:59 06:59 18:59 Intake Total 100 590 250 Output Total 1600 Balance 100 -1010 250 Weight 69.8 kg Intake: Oral 100 590 250 Output: Urine 1000 Stool 600 Other: Voiding Method Urinal Urinal Diaper Diaper Incontinent Incontinent # Voids 1 3 1 # Bowel Movements 1 1 - Exam Constitutional: No acute distress, conversant, pleasant Eyes: Anicteric sclerae, moist conjunctiva, no lid-lag, PERRLA ENMT: NC/AT,Oropharynx clear, no erythema, exudates Neck:Supple, FROM, no masses, or JVD, No carotid bruits; No thyromegaly Lungs: Clear to auscultation, Clear to percussion, Normal respiratory effort, no accessory muscle use Cardiovascular: Heart regular in rate and rhythm, No murmurs, gallops, or rubs no peripheral edema Abdominal: Soft Nontender, nom distended, no guarding, no rebound or rigidity, Normoactive bowel sounds No hepatomegaly, No splenomegaly, No palpable mass No abdominal wall hernia noted Skin: Normal temperature, tone, texture, turgor, No induration No subcutaneous nodules, No rash, lesions, No ulcers Extremities:No digital cyanosis No clubbing, Pedal pulses intact and symmetrical Radial pulses intact and symmetrical Normal gait and station, No calf tenderness Psychiatric: Alert and oriented to person, place and time, Appropriate affect Intact judgement Neuro: Muscles Strength 5/5 in all 4 extremities, Sensation to light touch grossly present throughout, Cranial nerves II-XII grossly intact. No focal sensory deficits - Labs CBC & Chem 7: 11/28/17 07:11 11/28/17 07:11 Labs: Microbiology - Last 24 Hours (Table) 11/24/17 16:52 Blood Culture - Preliminary Blood No Growth after 120 hours 11/26/17 15:54 Blood Culture - Preliminary Blood No Growth after 72 hours Assessment and Plan (1) Sepsis Narrative/Plan: * Secondary to E. coli bacteremia, follow-up chest x-ray not suggesting any aspiration * Blood cultures largely pansensitive * Appreciate ID recommendations per Dr. Ontiveros * Repeat blood cultures negative 2 day * Discontinue Rocephin and clindamycin initiated ciprofloxacin Current Visit: Yes Status: Resolved Code(s): A41.9 - SEPSIS, UNSPECIFIED ORGANISM SNOMED Code(s): 90342750 (2) E coli bacteremia Narrative/Plan: * Discontinue Rocephin continue with ciprofloxacin * Implanted DC tomorrow would continue antibiotics for another 10 days for a total of 14 days for E. coli bacteremia Current Visit: Yes Status: Resolved Code(s): R78.81 - BACTEREMIA SNOMED Code(s): 210989644318 (3) CAD (coronary artery disease) Current Visit: Yes Status: Acute Code(s): I25.10 - ATHSCL HEART DISEASE OF [place] CORONARY ARTERY W/O ANG PCTRS SNOMED Code(s): 10740428 (4) Chronic anemia Narrative/Plan: Hemoglobin stable at 9.5 continue to monitor Current Visit: Yes Status: Acute Code(s): D64.9 - ANEMIA, UNSPECIFIED SNOMED Code(s): 554902697 (5) Compression fracture of L5 lumbar vertebra Narrative/Plan: * Patient seen by Dr. Zachariah tamez EXOS LSO brace in place * Continue norco regimen Current Visit: Yes Status: Acute Code(s): S32.050A - WEDGE COMPRESSION FRACTURE OF FIFTH LUMBAR VERTEBRA, INIT SNOMED Code(s): 558223480 (6) Decubitus ulcer Current Visit: Yes Status: Acute Code(s): L89.90 - PRESSURE ULCER OF UNSPECIFIED SITE, UNSPECIFIED STAGE SNOMED Code(s): 828496599 (7) Rhabdomyolysis Current Visit: Yes Status: Resolved Code(s): M62.82 - RHABDOMYOLYSIS SNOMED Code(s): 314037959 (8) Acute renal failure (ARF) Current Visit: Yes Status: Resolved Code(s): N17.9 - ACUTE KIDNEY FAILURE, UNSPECIFIED SNOMED Code(s): 13589051 Plan: Patient ready for discharge apparently there is a insurance prior authorization unable to be discharged to [facility] today despite being stable and ready for discharge Also awaiting patient's brace for his back
[2017-12-01] MEDS: HEPARIN SODIUM,PORCINE 5,000 UNIT/ML 1 ML VIAL SQ SCH ×2 (01:05→07:14)
[2017-12-01] MEDS: HYDROcodone/APAP 5-325MG 1 EACH TAB PO PRN ×2 (01:10→10:28)
[2017-12-01 07:04] VITALS: BP 152/61; PULSE 71; RESP 16; TEMP 98.2
[2017-12-01] MEDS: EZETIMIBE 10 MG TAB PO SCH (07:13)
[2017-12-01] MEDS: FOLIC ACID 1 MG TAB PO SCH (07:14)
[2017-12-01] MEDS: METOPROLOL TARTRATE 50 MG TAB PO SCH (07:14)
[2017-12-01] MEDS: PANTOPRAZOLE 40 MG TABLET PO SCH (07:14)
[2017-12-01] MEDS: CIPROFLOXACIN HCL 500 MG TAB PO SCH (07:14)
[2017-12-01] MEDS: CLOPIDOGREL 75 MG TAB PO SCH (07:14)
[2017-12-01] MEDS: THIAMINE 100 MG TAB PO SCH (07:14)
[2017-12-01] MEDS: DEXTROSE 5%-0.45% NACL 1,000 ML IV SCH (07:15)
[2017-12-01] MEDS: SYMBICORT 160-4.5 MCG INHALER INHALATION SCH (07:17)
--- NOTE | 2017-12-01 08:51 | P.PN ---
Progress Note - Text Progress Note Date: 12/01/17 Patient is a very pleasant 72-year-old male who is seen and examined at bedside for follow up evaluation for his known L5 compression fracture and left knee pain. Patient sustained a fall at home approximately one week ago after heavy drinking and passed out. He was unable to get up off the floor and was found by his son approximately 3 or 4 days later. He was brought to the emergency department for further evaluation on 11/22/2017 for further evaluation and has been admitted. He is currently being seen by medicine, infectious disease, and neurology. He is known to have a significant medical history including alcoholism, cardiac stenting, rheumatoid arthritis, chronic asthma, COPD, hyperlipidemia, and hypertension. He continues to be treated treated for rhabdomyolysis, decubitus ulcer with eschar over the lower sacral area, and pneumonia. He states he'll most like to be discharged today. An Exos LSO brace has been delivered and fitted appropriately. Patient states his brace has provided some relief of his low back pain at the fracture site. He states he is also had improvement of his left knee pain has increased mobility of the left lower extremity. He denies any specific lower extremity radiculopathy bilaterally. He denies any right lower extremity weakness. He is on Plavix and states he bruises easily. He has bruising on bilateral hands. He also has significant bruising over the right shoulder and trapezius after the fall. Patient states he has a history of heavy alcohol drinking over the past 50 years. He states he previously drank approximately 1 pint of liquor per day during his working years that has increased that to a fifth of liquor per day since [facility]. He states he has been in multiple facilities for rehabilitation but continues to drink. He states he does have a history of going through delirium tremens from alcohol withdrawal previously. States again at the bedside he is not experiencing any symptoms of delirium tremens. He has no new complaints today. During this admission an MRI of the lumbar spine was performed which did show increased fracture at L5. X-rays the left knee should no evidence of fracture dislocation. Physical exam: Patient is awake, alert, and oriented 3 Vital signs stable Good chest excursion with adequate inspiration and expiration; currently on an O2 nasal cannula Abdomen soft nontender Examination of lumbar spine reveals skin is intact with no abrasions, lacerations, or bruises; no erythema, purulence or signs of infection Examination of the thoracic spine shows evidence of a red elevation along the midline of the mid thoracic spine with some erythema and mild pain with palpation Oh significant with palpation along the midline of the lower lumbar spine Evidence of a dressing over the decubitus ulcer site of the lower cervical region Dorsiflexion, plantarflexion, and extensor hallucis longus positive sustained bilaterally Lower extremity strength 5/5 on the right Better range of motion with knee extension and hip flexion for the left lower extremity; is able to independently lift the left lower extremity and extend the left knee No significant pain with palpation over the left medial knee No significant swelling, erythema, bruising, or obvious signs of infection over the left knee No significant increased pain with passive range of motion of the knee No significant joint line tenderness No lower extremity hyperreflexia bilaterally Negative Lasegue's test bilaterally No signs or symptoms of DVT; no calf pain No pain with internal and external rotation of the hips bilaterally Neurovascularly intact Significant bruising over the bilateral hands and over the right shoulder and trapezius with some improvement Swelling and bruising over the right lateral forehead with some improvement Pertinent studies: X-rays left knee taken on 11/26/2017: No evidence of fracture or dislocation; arthropathy of the knee joint and patellofemoral joint with small spurs noted involving the upper margin patella; diffuse osteopenia MRI of the lumbar spine: Suspected acute on chronic moderate compression fracture deformity of L5 with slight posterior retropulsion of 3 mm; overall alignment appears be adequately maintained; multilevel disc desiccation; bone marrow signal intensity within normal limits; L3-4 moderate facet changes bilaterally; L4-5 moderate to advanced facet degenerative change, ligamentum flavum hypertrophy, broad-based disc protrusion, and posterior migration of L5 resulting in spinal canal stenosis; L5-S1 moderate facet degenerative changes bilaterally; distal infrarenal abdominal or urinary aneurysm measuring 4.3 cm Assessment: Acute on chronic L5 compression fracture deformity 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 Patient has been discussed in detail with Dr. Hal Cao. Since being seen and examined, an Exos LSO brace has been delivered and fitted appropriately for the L5 compression fracture deformity. Patient has imaging which indicates acute on chronic L5 compression fracture deformity and patient does have increased back pain status post fall. Brace should be worn while sitting upright or greater 45, while working with therapy, during ambulation, and during increase activities. Brace is not have to worn while lying in bed or while bathing. In regards to his left knee pain, we'll continue conservative treatment. He has had improvement of his left knee pain and has had better mobility of the left knee without difficulty. We not currently planning for any further treatment or evaluation regards to his left knee. 2. Infectious disease, medicine, and neurology will continue to follow patient for his other significant medical diagnoses including alcohol abuse, rhabdomyolysis, decubitus ulcer, and pneumonia
== END 2017-12-01 13:10 | DRG 872 ==
LOC: EC 08:55 → 6SEL 12:32 → 3SUR 11-27 00:43
PROVIDERS: ADMIT Internal Medicine; ATTEND Internal Medicine
DX: A41.51 Sepsis due to Escherichia coli [E. coli] (principal); D61.818 Other pancytopenia; E87.0 Hyperosmolality and hypernatremia; M48.56XA Collapsed vertebra, not elsewhere classified, lumbar region, initial encounter for fracture; M62.82 Rhabdomyolysis; N17.9 Acute kidney failure, unspecified; E78.5 Hyperlipidemia, unspecified; E86.0 Dehydration; F10.20 Alcohol dependence, uncomplicated; F32.9 Major depressive disorder, single episode, unspecified; I10 Essential (primary) hypertension; I25.10 Atherosclerotic heart disease of native coronary artery without angina pectoris; I25.2 Old myocardial infarction; I71.4 Abdominal aortic aneurysm, without rupture; L89.151 Pressure ulcer of sacral region, stage 1; M06.9 Rheumatoid arthritis, unspecified; M48.061 Spinal stenosis, lumbar region without neurogenic claudication; M51.26 Other intervertebral disc displacement, lumbar region; R32 Unspecified urinary incontinence; R62.7 Adult failure to thrive; M25.562 Pain in left knee; R79.89 Other specified abnormal findings of blood chemistry; J44.9 Chronic obstructive pulmonary disease, unspecified; S00.03XA Contusion of scalp, initial encounter; S00.83XA Contusion of other part of head, initial encounter; H35.30 Unspecified macular degeneration; F17.200 Nicotine dependence, unspecified, uncomplicated; Z79.02 Long term (current) use of antithrombotics/antiplatelets; Z79.51 Long term (current) use of inhaled steroids; Z79.899 Other long term (current) drug therapy; Z95.5 Presence of coronary angioplasty implant and graft; Z85.07 Personal history of malignant neoplasm of pancreas; Z88.0 Allergy status to penicillin; Z91.012 Allergy to eggs; Z87.01 Personal history of pneumonia (recurrent); Z98.42 Cataract extraction status, left eye; Z98.41 Cataract extraction status, right eye; Z96.1 Presence of intraocular lens; Z81.1 Family history of alcohol abuse and dependence; Z82.49 Family history of ischemic heart disease and other diseases of the circulatory system; W19.XXXA Unspecified fall, initial encounter; Y92.009 Unspecified place in unspecified non-institutional (private) residence as the place of occurrence of the external cause
CPT/HCPCS: 36415; 70450; 71045; 72125; 72157; 72158; 72170; 80048; 80051; 80053; 80306; 80320; 81001; 82140; 82150; 82550; 82553; 83605; 83690; 83735; 83880; 84100; 84484; 85025; 85027; 85610; 85730; 87040; 87077; 87086; 87186; 93005; 94640; 94760; 96365; 96366; 96375; 99291

== ENCOUNTER 2018-02-08 23:18 | Emergency (ER) | payer MEDICARE ==
--- NOTE | 2018-02-08 23:59 | ED ---
General Adult HPI <Srikanth Abbasi - Last Filed: 02/09/18 01:30> - General Source: patient, RN notes reviewed Mode of arrival: EMS Limitations: no limitations <Carlos A Kerns - Last Filed: 02/09/18 21:51> - General Chief complaint: Altered Mental Status Stated complaint: altered mental status Time Seen by Provider: 02/08/18 23:35 - History of Present Illness Initial comments: Patient is a pleasant 72-year-old male presenting to the emergency department after rolling out of bed. This did occur at the local nursing facility. Patient denies any significant injury. Patient does reportedly have cushions on the floor near his bed secondary to history of similar problems previously. Staff reported that patient was acting somewhat differently and refuses medications earlier. Patient denies any concerns and states he is feeling normal. No headache. No neck pain. No chest pain or dyspnea. (Carlos A Kerns) - Related Data Home Medications Medication Instructions Recorded Confirmed Clopidogrel Bisulfate [Plavix] 75 mg PO DAILY MDD SEE COMMENTS 08/29/16 02/09/18 Ezetimibe [Zetia] 10 mg PO DAILY MDD SEE COMMENTS 02/14/17 02/09/18 Metoprolol Tartrate [Lopressor] 50 mg PO DAILY MDD SEE COMMENTS 02/14/17 Ergocalciferol (Vitamin D2) 50,000 unit PO Q7D 11/22/17 02/09/18 [Vitamin D2] Ertapenem [INVanz] 1 gm IVPB Q24H 02/09/18 02/09/18 Lactose-Reduced Food [Ensure Plus] 1 can PO 02/09/18 Lactulose 10 gm PO 02/09/18 Mirtazapine [Remeron] 15 mg PO HS 02/09/18 02/09/18 oxyCODONE HCL [OxyCONTIN] 10 mg PO Q12H 02/09/18 02/09/18 Previous Rx's Medication Instructions Recorded Budesonide-Formot 160-4.5 Mcg 2 puff INHALATION RT-BID puff 02/16/17 [Symbicort 160-4.5 Mcg Inhaler] Acetaminophen Tab [Tylenol] 650 mg PO Q6HR PRN tab 11/28/17 Azithromycin [Zithromax Z-pack] 250 mg PO DIRECTED #6 tab 02/09/18 Allergies Allergy/AdvReac Type Severity Reaction Status Date / Time egg Allergy Anaphylaxis Verified 11/22/17 11:12 Penicillins Allergy Unknown Verified 11/22/17 11:12 Childhood Review of Systems ROS Other: All systems not noted in ROS Statement are negative. <Srikanth Abbasi - Last Filed: 02/09/18 01:30> ROS Other: All systems not noted in ROS Statement are negative. Constitutional: Denies: fever Eyes: Denies: eye pain ENT: Denies: ear pain Respiratory: Denies: cough Cardiovascular: Denies: chest pain Endocrine: Denies: fatigue Gastrointestinal: Denies: abdominal pain Genitourinary: Denies: dysuria Musculoskeletal: Reports: arthralgia (Chronic arthritis) Skin: Denies: rash Neurological: Reports: confusion <Carlos A Kenrs - Last Filed: 02/09/18 21:51> ROS Statement: Those systems with pertinent positive or pertinent negative responses have been documented in the HPI. 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 Last Myocardial Infarction Date:: 2001 History of Any Multi-Drug Resistant Organisms: None Reported Past Surgical History: Adenoidectomy, Heart Catheterization With Stent, Tonsillectomy Additional Past Surgical History / Comment(s): 2 HEART CATHS-7 STENTS, AAA REPAIR, URSULA CATARACTS. Past Anesthesia/Blood Transfusion Reactions: No Reported Reaction Date of Last Stent Placement:: UNK Past Psychological History: Depression Smoking Status: Current every day smoker Past Alcohol Use History: Abuse, Heavy Past Drug Use History: Heroin, Marijuana - Past Family History Mother Additional Family Medical History / Comment(s): ETOH Father Additional Family Medical History / Comment(s): FROM AAA AT AGE 62 <Carlos A Kerns - Last Filed: 02/09/18 21:51> General Exam Limitations: no limitations General appearance: alert, in no apparent distress Head exam: Present: atraumatic, normocephalic Eye exam: Present: normal appearance, PERRL, EOMI. Absent: nystagmus ENT exam: Present: normal oropharynx Neck exam: Present: normal inspection. Absent: tenderness Respiratory exam: Present: normal lung sounds bilaterally Cardiovascular Exam: Present: regular rate, normal rhythm GI/Abdominal exam: Present: soft. Absent: tenderness Extremities exam: Present: normal inspection, full ROM. Absent: tenderness Neurological exam: Present: alert, CN II-XII intact. Absent: motor sensory deficit Expanded Patient oriented to: Present: person, place. Absent: time Speech: Present: fluid speech Motor strength exam: RUE: 5, LUE: 5, RLE: 5, LLE: 5 Eye Response: (4) open spontaneously Motor Response: (6) obeys commands Verbal Response: (4) confused conversation (Disoriented to time) Psychiatric exam: Present: normal affect, normal mood Skin exam: Present: normal color <Carlos A Kerns - Last Filed: 02/09/18 21:51> Vital Signs 02/08/18 02/09/18 23:25 01:36 Temperature 99.5 F 98.5 F Pulse Rate 88 86 Respiratory 18 20 Rate Blood Pressure 129/68 130/62 O2 Sat by Pulse 94 L 96 Oximetry Medical Decision Making - Lab Data Result diagrams: 02/08/18 23:33 02/08/18 23:33 <Srikanth Abbasi - Last Filed: 02/09/18 01:30> - Lab Data Result diagrams: 02/08/18 23:33 02/08/18 23:33 - Radiology Data Radiology results: report reviewed (Computed tomography scan of the brain shows atrophy. No acute intercranial abnormality.), image reviewed (Chest x-ray shows atelectasis. Cannot rule out entirely pneumonia.) <Carlos A Kerns - Last Filed: 02/09/18 21:51> - Lab Data Lab Results 02/08/18 02/08/18 02/08/18 Range/Units 23:33 23:33 23:33 WBC 5.4 (3.8-10.6) k/uL RBC 3.34 L (4.30-5.90) m/uL Hgb 10.0 L (13.0-17.5) gm/dL Hct 29.5 L (39.0-53.0) % MCV 88.4 (80.0-100.0) fL MCH 29.8 (25.0-35.0) pg MCHC 33.7 (31.0-37.0) g/dL RDW 13.6 (11.5-15.5) % Plt Count 265 (150-450) k/uL Neutrophils % 58 % Lymphocytes % 23 % Monocytes % 7 % Eosinophils % 8 % Basophils % 1 % Neutrophils # 3.1 (1.3-7.7) k/uL Lymphocytes # 1.3 (1.0-4.8) k/uL Monocytes # 0.4 (0-1.0) k/uL Eosinophils # 0.4 (0-0.7) k/uL Basophils # 0.0 (0-0.2) k/uL PT 10.4 (9.0-12.0) sec INR 1.1 (<1.2) APTT 24.4 (22.0-30.0) sec Sodium 139 (137-145) mmol/L Potassium 4.6 (3.5-5.1) mmol/L Chloride 107 (98-107) mmol/L Carbon Dioxide 24 (22-30) mmol/L Anion Gap 8 mmol/L BUN 22 H (9-20) mg/dL Creatinine 0.90 (0.66-1.25) mg/dL Est GFR (CKD-EPI)AfAm >90 (>60 ml/min/1.73 sqM) Est GFR (CKD-EPI)NonAf 85 (>60 ml/min/1.73 sqM) Glucose 109 H (74-99) mg/dL Calcium 9.2 (8.4-10.2) mg/dL Total Bilirubin 0.4 (0.2-1.3) mg/dL AST 22 (17-59) U/L ALT 28 (21-72) U/L Alkaline Phosphatase 97 (38-126) U/L Total Protein 6.3 (6.3-8.2) g/dL Albumin 3.4 L (3.5-5.0) g/dL Urine Color Urine Appearance (Clear) Urine pH (5.0-8.0) Ur Specific Holder (1.001-1.035) Urine Protein (Negative) Urine Glucose (UA) (Negative) Urine Ketones (Negative) Urine Blood (Negative) Urine Nitrite (Negative) Urine Bilirubin (Negative) Urine Urobilinogen (<2.0) mg/dL Ur Leukocyte Esterase (Negative) Urine Opiates Screen (NotDetected) Ur Oxycodone Screen (NotDetected) Urine Methadone Screen (NotDetected) Ur Propoxyphene Screen (NotDetected) Ur Barbiturates Screen (NotDetected) U Tricyclic Antidepress (NotDetected) Ur Phencyclidine Scrn (NotDetected) Ur Amphetamines Screen (NotDetected) U Methamphetamines Scrn (NotDetected) U Benzodiazepines Scrn (NotDetected) Urine Cocaine Screen (NotDetected) U Marijuana (THC) Screen (NotDetected) 02/09/18 Range/Units 01:08 WBC (3.8-10.6) k/uL RBC (4.30-5.90) m/uL Hgb (13.0-17.5) gm/dL Hct (39.0-53.0) % MCV (80.0-100.0) fL MCH (25.0-35.0) pg MCHC (31.0-37.0) g/dL RDW (11.5-15.5) % Plt Count (150-450) k/uL Neutrophils % % Lymphocytes % % Monocytes % % Eosinophils % % Basophils % % Neutrophils # (1.3-7.7) k/uL Lymphocytes # (1.0-4.8) k/uL Monocytes # (0-1.0) k/uL Eosinophils # (0-0.7) k/uL Basophils # (0-0.2) k/uL PT (9.0-12.0) sec INR (<1.2) APTT (22.0-30.0) sec Sodium (137-145) mmol/L Potassium (3.5-5.1) mmol/L Chloride (98-107) mmol/L Carbon Dioxide (22-30) mmol/L Anion Gap mmol/L BUN (9-20) mg/dL Creatinine (0.66-1.25) mg/dL Est GFR (CKD-EPI)AfAm (>60 ml/min/1.73 sqM) Est GFR (CKD-EPI)NonAf (>60 ml/min/1.73 sqM) Glucose (74-99) mg/dL Calcium (8.4-10.2) mg/dL Total Bilirubin (0.2-1.3) mg/dL AST (17-59) U/L ALT (21-72) U/L Alkaline Phosphatase (38-126) U/L Total Protein (6.3-8.2) g/dL Albumin (3.5-5.0) g/dL Urine Color Yellow Urine Appearance Clear (Clear) Urine pH 6.0 (5.0-8.0) Ur Specific Holder 1.018 (1.001-1.035) Urine Protein Trace H (Negative) Urine Glucose (UA) Negative (Negative) Urine Ketones Negative (Negative) Urine Blood Negative (Negative) Urine Nitrite Negative (Negative) Urine Bilirubin Negative (Negative) Urine Urobilinogen 2.0 (<2.0) mg/dL Ur Leukocyte Esterase Negative (Negative) Urine Opiates Screen Not Detected (NotDetected) Ur Oxycodone Screen Detected H (NotDetected) Urine Methadone Screen Not Detected (NotDetected) Ur Propoxyphene Screen Not Detected (NotDetected) Ur Barbiturates Screen Not Detected (NotDetected) U Tricyclic Antidepress Not Detected (NotDetected) Ur Phencyclidine Scrn Not Detected (NotDetected) Ur Amphetamines Screen Not Detected (NotDetected) U Methamphetamines Scrn Not Detected (NotDetected) U Benzodiazepines Scrn Not Detected (NotDetected) Urine Cocaine Screen Not Detected (NotDetected) U Marijuana (THC) Screen Not Detected (NotDetected) Disposition <Srikanth Abbasi - Last Filed: 02/09/18 01:30> Is patient prescribed a controlled substance at d/c from ED?: No <Carlos A Kerns - Last Filed: 02/09/18 21:51> Clinical Impression: Pneumonia Disposition: HOME SELF-CARE Condition: Good Instructions: Altered Mental Status (ED) Prescriptions: Azithromycin [Zithromax Z-pack] 250 mg PO DIRECTED #6 tab Referrals: Felipe Crain MD [Primary Care Provider] - 1-2 days
[2018-02-09 00:12] LABS: Basophils % (A) 1 %; Eosinophils # (A) 0.4 k/uL (0-0.7); Eosinophils % (A) 8 %; HCT 29.5 % (39.0-53.0); Lymphocytes # (A) 1.3 k/uL (1.0-4.8); Lymphocytes % (A) 23 %; MCH 29.8 pg (25.0-35.0); MCHC 33.7 g/dL (31.0-37.0); MCV 88.4 fL (80.0-100.0); Mean Platelet Volume 6.4; Monocytes # (A) 0.4 k/uL (0-1.0); Monocytes % (A) 7 %; Neutrophils # (A) 3.1 k/uL (1.3-7.7); Neutrophils % (A) 58 %; Platelet Count 265 k/uL (150-450); RBC 3.34 m/uL (4.30-5.90); RDW 13.6 % (11.5-15.5); WBC 5.4 k/uL (3.8-10.6)
[2018-02-09 00:18] LABS: INR 1.1 (<1.2); Partial Thromboplastin Time 24.4 sec (22.0-30.0); Prothrombin Time 10.4 sec (9.0-12.0)
[2018-02-09 00:23] LABS: ALT 28 U/L (21-72); AST 22 U/L (17-59); Albumin 3.4 g/dL (3.5-5.0); Alkaline Phosphatase 97 U/L (38-126); Anion Gap 8 mmol/L; Blood Urea Nitrogen 22 mg/dL (9-20); Calcium 9.2 mg/dL (8.4-10.2); Carbon Dioxide 24 mmol/L (22-30); Chloride 107 mmol/L (98-107); Glucose 109 mg/dL (74-99); Potassium 4.6 mmol/L (3.5-5.1); Sodium 139 mmol/L (137-145); Total Bilirubin 0.4 mg/dL (0.2-1.3); Total Protein 6.3 g/dL (6.3-8.2)
--- NOTE | 2018-02-09 00:57 | CT ---
EXAMINATION TYPE: CT brain wo con DATE OF EXAM: 02/09/2018 COMPARISON: 11/22/2017 HISTORY: AMS CT DLP: 1047.10 mGycm Automated exposure control for dose reduction was used. FINDINGS: There is cerebral cortical atrophy. There is no mass effect nor midline shift. There is no sign of in tracranial hemorrhage. The calvarium is intact. There is debris in the right external auditory canal. IMPRESSION: CEREBRAL ATROPHY. NO ACUTE INTRACRANIAL ABNORMALITY. NO ADVERSE CHANGE COMPARED TO OLD EXAM.
--- NOTE | 2018-02-09 00:59 | XR ---
EXAMINATION TYPE: XR chest 2V DATE OF EXAM: 02/09/2018 COMPARISON: 11/24/2017 HISTORY: Altered mental status TECHNIQUE: Frontal and lateral views of the chest are obtained. FINDINGS: There is some mild linear density at the left lung base. There is no heart failure. Heart size is normal. There is probably a hiatal hernia. There is no pleural effusion. Bony thorax is intac t. There is old ununited right clavicle fracture. There is left-sided central venous catheter with th e tip in the superior vena cava. IMPRESSION: There is new atelectasis at the left lung base. Left lower lobe pneumonia cannot be enti rely excluded. Possible hiatal hernia.
[2018-02-09 01:21] LABS: Appearance,Urine Clear (Clear); Bilirubin,Urine Negative (Negative); Blood,Urine Negative (Negative); Color,Urine Yellow; Glucose,Urine (UA) Negative (Negative); Ketones,Urine Negative (Negative); Leukocyte Esterase,Urine Negative (Negative); Nitrite,Urine Negative (Negative); Protein,Urine Trace (Negative); Specific Gravity,Urine 1.018 (1.001-1.035)
[2018-02-09] MEDS ORDERED: cefTRIAXone IN SWFI 1,000 MG/10 ML SYRINGE IVP STA (01:29)
[2018-02-09] MEDS ORDERED: AZITHROMYCIN 500 MG TAB PO STA (01:29)
[2018-02-09 01:34] LABS: Amphetamine Screen,Urine Not Detected (NotDetected); Barbiturate Screen,Urine Not Detected (NotDetected); Benzodiazepines Screen,Urine Not Detected (NotDetected); Cocaine Screen,Urine Not Detected (NotDetected); Methadone Screen, Urine Not Detected (NotDetected); Opiate Screen,Urine Not Detected (NotDetected); Oxycodone Screen, Urine Detected (NotDetected); Phencyclidine Screen,Urine Not Detected (NotDetected); Tricyclic Antidepressant,Urine Not Detected (NotDetected); Urn Cannabinoid Scrn Not Detected (NotDetected)
[2018-02-09 01:38] VITALS: BP 130/62; PULSE 86; RESP 20; TEMP 98.5
== END 2018-02-09 02:06 | disposition home or self-care (01) ==
LOC: EC 23:18
DX: J18.9 Pneumonia, unspecified organism (principal); E78.5 Hyperlipidemia, unspecified; I10 Essential (primary) hypertension; I25.2 Old myocardial infarction; M06.9 Rheumatoid arthritis, unspecified; F32.9 Major depressive disorder, single episode, unspecified; F17.200 Nicotine dependence, unspecified, uncomplicated; Z79.01 Long term (current) use of anticoagulants; Z79.899 Other long term (current) drug therapy; Z88.0 Allergy status to penicillin; Z91.012 Allergy to eggs; Z95.5 Presence of coronary angioplasty implant and graft
CPT/HCPCS: 36415; 70450; 71046; 80053; 80306; 81003; 85025; 85610; 85730; 99285

== ENCOUNTER 2018-05-20 16:27 | Inpatient (IN) | payer MEDICARE ==
[2018-05-20] MEDS ORDERED: SODIUM CHLORIDE 0.9% 1,000 ML IV STA (16:55)
[2018-05-20] MEDS ORDERED: ONDANSETRON 4 MG/2 ML VIAL IVP STA (16:55)
[2018-05-20] MEDS ORDERED: PANTOPRAZOLE 40 MG/10 ML VIAL IVP STA (16:57)
--- NOTE | 2018-05-20 17:15 | ED ---
General Adult HPI - General Chief complaint: Nausea/Vomiting/Diarrhea Stated complaint: vomiting/diarrhea Time Seen by Provider: 05/20/18 16:46 Source: EMS, RN notes reviewed Mode of arrival: EMS Limitations: physical limitation - History of Present Illness Initial comments: Patient 72-year-old male presented to the emergency room today with a chief complaint of nausea vomiting diarrhea over the last 2-3 weeks. Patient does admit that his had approximately 5 bouts of diarrhea per day. He does not that it's been dark. States is supposed be on Plavix because had a difficult time keeping it down due to nausea vomiting. Patient is to abdominal cramping that' s been located on the right side of the abdomen. States comes and goes. Patient denies any other complaints or symptoms. Patient denies any recent fever , chills, shortness of breath, chest pain, back pain, numbness or tingling, dysuria or hematuria, constipation, headaches or visual changes, or any other complaints. - Related Data Home Medications Medication Instructions Recorded Confirmed Clopidogrel Bisulfate [Plavix] 75 mg PO DAILY 08/29/16 05/20/18 Ezetimibe [Zetia] 10 mg PO DAILY 02/14/17 05/20/18 Metoprolol Tartrate [Lopressor] 50 mg PO DAILY 02/14/17 05/20/18 Ergocalciferol (Vitamin D2) 50,000 unit PO FR 11/22/17 05/20/18 [Vitamin D2] FLUoxetine HCL [PROzac] 20 mg PO DAILY 02/26/18 05/20/18 Allergies Allergy/AdvReac Type Severity Reaction Status Date / Time egg Allergy Anaphylaxis Verified 05/20/18 17:03 Penicillins Allergy Unknown Verified 05/20/18 17:03 Childhood Review of Systems ROS Statement: Those systems with pertinent positive or pertinent negative responses have been documented in the HPI. ROS Other: All systems not noted in ROS Statement are negative. 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 Last Myocardial Infarction Date:: 2002 History of Any Multi-Drug Resistant Organisms: None Reported Past Surgical History: Adenoidectomy, Heart Catheterization With Stent, Tonsillectomy Additional Past Surgical History / Comment(s): 2 HEART CATHS-7 STENTS, AAA REPAIR, URSULA CATARACTS. Past Anesthesia/Blood Transfusion Reactions: No Reported Reaction Date of Last Stent Placement:: UNK Past Psychological History: Depression Smoking Status: Current every day smoker Past Alcohol Use History: Abuse, Heavy Past Drug Use History: Heroin, Marijuana - Past Family History Mother Additional Family Medical History / Comment(s): ETOH Father Additional Family Medical History / Comment(s): FROM AAA AT AGE 62 General Exam - General Exam Comments Initial Comments: General: The patient is awake and alert, in no distress, and does not appear acutely ill. Eye: Pupils are equal, round and reactive to light. Extra-ocular movements are intact. No nystagmus. There is normal conjunctiva bilaterally. No signs of icterus. Ears, nose, mouth and throat: There are moist mucous membranes and no oral lesions. Neck: The neck is supple, there is no tenderness or JVD. Cardiovascular: There is a regular rate and rhythm. No murmur, rub or gallop is appreciated. Respiratory: Lungs are clear to auscultation, respirations are non-labored, breath sounds are equal. No wheezes, stridor, rales, or rhonchi. Gastrointestinal: Soft on palpation. Patient does have tenderness both right upper and lower quadrant. No rebound, guarding or CVA tenderness. Musculoskeletal: Normal ROM, no tenderness. Sensation intact. Strength 5/5. Pulses equal bilaterally 2+. Neurological: A&O x 3. CN II-XII intact, There are no obvious motor or sensory deficits. Coordination appears grossly intact. Speech is normal. Skin: Skin is warm and dry and no rashes or lesions are noted. Psychiatric: Cooperative, appropriate mood & affect, normal judgment. Limitations: physical limitation Course Vital Signs 05/20/18 05/20/18 16:32 19:45 Temperature 98.3 F 97.9 F Pulse Rate 80 73 Respiratory 18 17 Rate Blood Pressure 114/79 127/71 O2 Sat by Pulse 100 100 Oximetry Medical Decision Making - Medical Decision Making Patient reexamined at this time is resting comfortably. Patient's abdomen soft on palpation. CT of the abdomen and pelvis does reveal a aortic aneurysm 4.5 cm. Does show left lower lobe pneumonia. No other acute abnormalities. Results were discussed with patient. Patient omits that had diarrhea for the past 3 weeks. He states that he's had a digital time getting himself to the bathroom at home. States his multiple feces throughout his apartment. He states lives by himself and there is no one there to help him. Patient will be admitted to the hospital started on antibiotic to cover for possible pneumonia. Case is discussed physician Dr Solis - Lab Data Result diagrams: 05/20/18 16:45 05/20/18 16:45 Lab Results 05/20/18 05/20/18 05/20/18 Range/Units 16:45 16:45 16:45 WBC 7.2 (3.8-10.6) k/uL RBC 4.09 L (4.30-5.90) m/uL Hgb 11.7 L (13.0-17.5) gm/dL Hct 36.5 L (39.0-53.0) % MCV 89.2 (80.0-100.0) fL MCH 28.5 (25.0-35.0) pg MCHC 31.9 (31.0-37.0) g/dL RDW 15.4 (11.5-15.5) % Plt Count 359 (150-450) k/uL Neutrophils % 77 % Lymphocytes % 14 % Monocytes % 4 % Eosinophils % 4 % Basophils % 0 % Neutrophils # 5.6 (1.3-7.7) k/uL Lymphocytes # 1.0 (1.0-4.8) k/uL Monocytes # 0.3 (0-1.0) k/uL Eosinophils # 0.3 (0-0.7) k/uL Basophils # 0.0 (0-0.2) k/uL PT 11.0 (9.0-12.0) sec INR 1.1 (<1.2) APTT 24.5 (22.0-30.0) sec Sodium 138 (137-145) mmol/L Potassium 3.9 (3.5-5.1) mmol/L Chloride 102 (98-107) mmol/L Carbon Dioxide 25 (22-30) mmol/L Anion Gap 11 mmol/L BUN 14 (9-20) mg/dL Creatinine 1.06 (0.66-1.25) mg/dL Est GFR (CKD-EPI)AfAm 81 (>60 ml/min/1.73 sqM) Est GFR (CKD-EPI)NonAf 70 (>60 ml/min/1.73 sqM) Glucose 92 (74-99) mg/dL Calcium 9.3 (8.4-10.2) mg/dL Total Bilirubin 0.5 (0.2-1.3) mg/dL AST 25 (17-59) U/L ALT 31 (21-72) U/L Alkaline Phosphatase 111 (38-126) U/L Total Protein 6.6 (6.3-8.2) g/dL Albumin 3.4 L (3.5-5.0) g/dL Amylase 83 (30-110) U/L Lipase 142 (23-300) U/L Stool Occult Blood (Negative) 05/20/18 Range/Units 17:54 WBC (3.8-10.6) k/uL RBC (4.30-5.90) m/uL Hgb (13.0-17.5) gm/dL Hct (39.0-53.0) % MCV (80.0-100.0) fL MCH (25.0-35.0) pg MCHC (31.0-37.0) g/dL RDW (11.5-15.5) % Plt Count (150-450) k/uL Neutrophils % % Lymphocytes % % Monocytes % % Eosinophils % % Basophils % % Neutrophils # (1.3-7.7) k/uL Lymphocytes # (1.0-4.8) k/uL Monocytes # (0-1.0) k/uL Eosinophils # (0-0.7) k/uL Basophils # (0-0.2) k/uL PT (9.0-12.0) sec INR (<1.2) APTT (22.0-30.0) sec Sodium (137-145) mmol/L Potassium (3.5-5.1) mmol/L Chloride (98-107) mmol/L Carbon Dioxide (22-30) mmol/L Anion Gap mmol/L BUN (9-20) mg/dL Creatinine (0.66-1.25) mg/dL Est GFR (CKD-EPI)AfAm (>60 ml/min/1.73 sqM) Est GFR (CKD-EPI)NonAf (>60 ml/min/1.73 sqM) Glucose (74-99) mg/dL Calcium (8.4-10.2) mg/dL Total Bilirubin (0.2-1.3) mg/dL AST (17-59) U/L ALT (21-72) U/L Alkaline Phosphatase (38-126) U/L Total Protein (6.3-8.2) g/dL Albumin (3.5-5.0) g/dL Amylase (30-110) U/L Lipase (23-300) U/L Stool Occult Blood Negative (Negative) Disposition Clinical Impression: Acute diarrhea, CAP (community acquired pneumonia) Disposition: HOME SELF-CARE Condition: Good Is patient prescribed a controlled substance at d/c from ED?: No Referrals: Surjit Cook DO [Primary Care Provider] - 1-2 days Time of Disposition: 20:05
[2018-05-20 17:50] LABS: Basophils % (A) 0 %; Eosinophils # (A) 0.3 k/uL (0-0.7); Eosinophils % (A) 4 %; HCT 36.5 % (39.0-53.0); HGB 11.7 gm/dL (13.0-17.5); Lymphocytes % (A) 14 %; MCH 28.5 pg (25.0-35.0); MCHC 31.9 g/dL (31.0-37.0); MCV 89.2 fL (80.0-100.0); Mean Platelet Volume 6.8; Monocytes # (A) 0.3 k/uL (0-1.0); Monocytes % (A) 4 %; Neutrophils # (A) 5.6 k/uL (1.3-7.7); Neutrophils % (A) 77 %; Platelet Count 359 k/uL (150-450); RBC 4.09 m/uL (4.30-5.90); RDW 15.4 % (11.5-15.5); WBC 7.2 k/uL (3.8-10.6)
[2018-05-20 17:58] LABS: INR 1.1 (<1.2); Partial Thromboplastin Time 24.5 sec (22.0-30.0)
[2018-05-20 18:03] LABS: Albumin 3.4 g/dL (3.5-5.0); Calcium 9.3 mg/dL (8.4-10.2); Potassium 3.9 mmol/L (3.5-5.1); Total Bilirubin 0.5 mg/dL (0.2-1.3); Total Protein 6.6 g/dL (6.3-8.2)
--- NOTE | 2018-05-20 18:54 | CT ---
EXAMINATION TYPE: CT abdomen pelvis w con DATE OF EXAM: 05/20/2018 COMPARISON: None HISTORY: N/V/D x [address] DLP: 563.9 mGycm Automated exposure control for dose reduction was used. TECHNIQUE: Helical acquisition of images was performed from the lung bases through the pelvis. CONTRAST: Performed without Oral Contrast and with IV Contrast, patient injected with 100 mL of Isovue 300. FINDINGS: There is some wedge-shaped infiltrate at the lateral left lung base. There is mild adjacent pleural t hickening. There is mild pulmonary emphysema. There is reticular infiltrate in the lingula left upper lobe. There is small linear density at the posterior lung bases. There is no mobile pleural effusion . Heart size is normal. There is no pericardial effusion. Stomach appears normal. Liver shows no focal defect. Spleen appears normal. There is no evidence of pancreatic mass. There is no adrenal mass. The kidneys show satisfactory contrast opacification. There is no hydronephrosis. There are multiple sma ll bilateral renal calculi. There are numerous bilateral renal cortical cysts. These measure up to 3. 5 cm. There is no hydronephrosis. There is aortic endograft noted. There is fusiform aneurysm of the lower abdominal aorta that measures up to 4.5 cm. There is no evidence of leakage. There is patency o f the endograft. There is no retroperitoneal adenopathy. Bladder distends smoothly. There is no inguinal hernia. There is prostatic calcification. I see no intestinal wall thickening. There are no dilated loops. There i s atherosclerotic vascular calcification. There is no ascites. There is no sign of free air. There is compression deformity of 40% of the L5 vertebral body that appears old. There is slight depr ession superior endplate of T12 of 5%. The bony pelvis appears intact. I see no focal bone destructio n. IMPRESSION: COPD. LEFT LOWER LOBE PATCHY PNEUMONIA AND SCARRING. NONOBSTRUCTING BILATERAL RENAL CALCULI. MULTIPLE RENAL CYSTS. ABDOMINAL AORTIC ANEURYSM.
[2018-05-20] MEDS ORDERED: NALOXONE 0.4 MG/ML 1 ML VIAL IV PRN (20:06)
[2018-05-20] MEDS ORDERED: ONDANSETRON 4 MG/2 ML VIAL IVP PRN (20:06)
[2018-05-20] MEDS ORDERED: LEVOFLOXACIN 500MG-D5W PMX 500 MG in DEXTROSE/WATER 1 100ML.BAG IVPB STA (20:07)
[2018-05-20 20:28] LABS: Appearance,Urine Clear (Clear); Bilirubin,Urine Negative (Negative); Blood,Urine Moderate (Negative); Color,Urine Yellow; Glucose,Urine (UA) Negative (Negative); Ketones,Urine Trace (Negative); Leukocyte Esterase,Urine Negative (Negative); Mucus,Urine Few /hpf; Nitrite,Urine Negative (Negative); PH, Urine 5.5 (5.0-8.0); Protein,Urine Trace (Negative); RBC,Urine >182 /hpf (0-5); Specific Gravity,Urine 1.022 (1.001-1.035); Squamous Epithelial Cell,Urine <1 /hpf (0-4); Urobilinogen,Urine <2.0 mg/dL (<2.0); WBC,Urine 3 /hpf (0-5)
[2018-05-20 22:16] VITALS: BMI 19.3
--- NOTE | 2018-05-20 23:22 | P.HPIM ---
History of Present Illness H&P Date: 05/20/18 Chief Complaint: diarrhea 72-year-old male with history of hypertension and CAD. Status post stents Patient presented the hospital due to repeated nausea vomiting and diarrhea. He reports the symptoms for the past 3 weeks. He tried to power through but with no improvement. He reached a point where he can't keep anything down not even his medications. He describes his vomiting as clear liquid just the water he drinks. Denies any biliary vomiting denies any bloody vomiting denies any coffee-ground vomiting. He describes his diarrhea as dark but denies any fresh blood. He he describes his diarrhea as explosive very frequent every day he had no bowel movement since he been to the hospital. Due to his poor condition he had no axis to food for the past few days as he was unable to go out and shop. He wasn't able to take his medications either. Otherwise he denies any fevers or chills he denies any recent traveling. He denies any sick contacts. He also reports some vague diffuse abdominal pain and aches rated it as 10 out of 10 with severe sometimes epigastric in nature. He also describes significant weight loss. He estimated his weight to be 175 pounds a year and a half ago currently he has lost over 100 pounds. He currently reports feeling hungry denies any chest pain or trouble breathing denies any fevers or chills, denies any coughing He otherwise feels comfortable In the ED workup revealed chronic anemia stable, CT of the abdomen showed 4.5 cm abdominal aortic aneurysm. Per ED doctor he reported that his house was filthy and patient was unable to care for himself and he did not have any family or friends to help him out. Review of Systems Pertinent positives as noted in HPI. 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 Last Myocardial Infarction Date:: 2001 History of Any Multi-Drug Resistant Organisms: None Reported Past Surgical History: Adenoidectomy, Heart Catheterization With Stent, Tonsillectomy Additional Past Surgical History / Comment(s): 2 HEART CATHS-7 STENTS, AAA REPAIR, URSULA CATARACTS. Past Anesthesia/Blood Transfusion Reactions: No Reported Reaction Date of Last Stent Placement:: UNK Past Psychological History: Depression Smoking Status: Current every day smoker Past Alcohol Use History: Abuse, Heavy Additional Past Alcohol Use History / Comment(s): As noted when he has while he lives in his condominium, no one lives with him. Current smoker. Ongoing alcohol use binging at times. Related has been many years since he has used marijuana or heroin. No animals living with him. No experience related. NoTravel is related Past Drug Use History: Heroin, Marijuana Additional Drug Use History / Comment(s): PT STATED WHEN IN HIS 20'S HE SMOPKED MARIJUANA, DID SOME LSD AND OCC SOME HEROIN-WUIT ALL DRUGS IN HIS 30'S - Past Family History Mother Additional Family Medical History / Comment(s): ETOH Father Additional Family Medical History / Comment(s): FROM AAA AT AGE 62 Medications and Allergies Home Medications Medication Instructions Recorded Confirmed Type Clopidogrel Bisulfate [Plavix] 75 mg PO DAILY 08/29/16 05/20/18 History Ezetimibe [Zetia] 10 mg PO DAILY 02/14/17 05/20/18 History Metoprolol Tartrate [Lopressor] 50 mg PO DAILY 02/14/17 05/20/18 History Ergocalciferol (Vitamin D2) 50,000 unit PO FR 11/22/17 05/20/18 History [Vitamin D2] FLUoxetine HCL [PROzac] 20 mg PO DAILY 02/26/18 05/20/18 History Allergies Allergy/AdvReac Type Severity Reaction Status Date / Time egg Allergy Anaphylaxis Verified 05/20/18 17:03 Penicillins Allergy Unknown Verified 05/20/18 17:03 Childhood Physical Exam Vitals: Vital Signs Temp Pulse Resp BP Pulse Ox 05/20/18 21:44 98.1 F 75 16 135/78 98 05/20/18 19:45 97.9 F 73 17 127/71 100 05/20/18 16:32 98.3 F 80 18 114/79 100 Intake and Output 05/20/18 05/20/18 05/21/18 14:59 22:59 06:59 Other: Weight 61.235 kg Constitutional: No acute distress, conversant, pleasant, cachectic Eyes: Anicteric sclerae, moist conjunctiva, no lid-lag Pupils equal round reactive to light ENMT: NC/AT Oropharynx clear, no erythema, exudates Neck: Supple, FROM, no masses, or JVD No carotid bruits No thyromegaly Lungs: Clear to auscultation Clear to percussion Normal respiratory effort, no accessory muscle use Cardiovascular: Heart regular in rate and rhythm, No murmurs, gallops, or rubs No peripheral edema Abdominal: Soft Nontender, no guarding, rebound or rigidity Abdomen moving with respiration Normoactive bowel sounds No hepatomegaly, No splenomegaly No palpable mass No abdominal wall hernia noted Skin: Normal temperature, tone, texture, turgor No induration No subcutaneous nodules No rash, lesions No ulcers Extremities: No digital cyanosis No clubbing Pedal pulses intact and symmetrical Radial pulses intact and symmetrical No calf tenderness Psychiatric: Alert and oriented to person, place and time Appropriate affect fair judgment Neuro Muscles Strength 4/5 in all 4 extremities Sensation to light touch grossly present throughout Cranial nerves II-XII grossly intact No focal sensory deficits Lymphatics: no palpable cervical or supraclavicular , or inguinal lymph nodes Results CBC & Chem 7: 05/20/18 16:45 05/20/18 16:45 Labs: Abnormal Lab Results - Last 24 Hours (Table) 05/20/18 05/20/18 05/20/18 Range/Units 16:45 16:45 19:45 RBC 4.09 L (4.30-5.90) m/uL Hgb 11.7 L (13.0-17.5) gm/dL Hct 36.5 L (39.0-53.0) % Albumin 3.4 L (3.5-5.0) g/dL Urine Protein Trace H (Negative) Urine Ketones Trace H (Negative) Urine Blood Moderate H (Negative) Urine RBC >182 H (0-5) /hpf Urine Mucus Few H (None) /hpf Thrombosis Risk Factor Assmnt - Choose All That Apply Any of the Below Risk Factors Present?: No Each Risk Factor Represents 2 Points: Age 61-74 years Other congenital or acquired thrombophilia - If yes, enter type in comment: No Thrombosis Risk Factor Assessment Total Risk Factor Score: 2 Thrombosis Risk Factor Assessment Level: Low Risk Assessment and Plan Assessment: 72-year-old male with history of hypertension CAD status post stents admitted as inpatient with speculum in stable more than 48 hours due to intractable nausea vomiting and frequent diarrhea for the past 3 weeks. Patient is debilitated unable to take care of himself or his apartment. Patient also reports significant weight loss of more than 100 pounds over the past year and a half. Patient reported dark stools but no stan blood and he denies any hematemesis or coffee-ground vomiting. Plan: Repeated nausea vomiting and diarrhea unclear underlying cause Symptomatic control Check stool for C. diff IV fluid hydration Encourage by mouth intake as tolerated Refeeding syndrome Patient claims that he hadn't had by mouth intake for over a week now She also claims that he has lost over 100 pounds over the past year and half Follow up phosphorus and magnesium and other electrolytes daily replace as needed Hypertension resume home meds Metoprolol History of CAD status post stents Resume Plavix Hyperlipidemia Resume Zetia Tobacco smoking Patient counseled to quit smoking Nicotine replacement therapies offered Severe protein calorie malnutrition Secondary to decreased by mouth intake Consider performing age-appropriate cancer screening as now patient including but not limited to colonoscopy. DVT prophylaxis heparin subcu 3 times a day Generalized debility PT/OT Surrogate decision-maker: Patient's son Omer CODE STATUS: Full code Discussed with: Patient, ER, RN Anticipated discharge: 48-[address]: Pending clinical course possible subacute rehab A total of 60 minutes was spent on the care of this complex patient more than 50 % of the time was spent in counseling and care coordination.
[2018-05-20] MEDS: SODIUM CHLORIDE 0.9% 1,000 ML IV SCH (23:29)
[2018-05-21] MEDS: HEPARIN SODIUM,PORCINE 5,000 UNIT/ML 1 ML VIAL SQ SCH ×3 (00:43→11:58)
[2018-05-21] MEDS: FLUoxetine HCL 20 MG CAP PO SCH (08:52)
[2018-05-21] MEDS: CLOPIDOGREL 75 MG TAB PO SCH (08:52)
[2018-05-21] MEDS: NICOTINE 21MG/24HR PATCH TRANSDERM SCH (08:53)
[2018-05-21] MEDS: SODIUM CHLORIDE 0.9% 1,000 ML IV SCH (08:53)
[2018-05-21] MEDS: METOPROLOL TARTRATE 50 MG TAB PO SCH (08:53)
[2018-05-21] MEDS ORDERED: EZETIMIBE 10 MG TAB PO SCH (09:00)
--- NOTE | 2018-05-21 11:38 | P.PN ---
Subjective Progress Note Date: 05/21/18 Principal diagnosis: diarrhea Patient is a 72 year old male with a past medical history of COPD, HTN, CT, AAA , and CT who presented with nausea, vomiting, and diarrhea has been intractable for 3 weeks. On arrival to the ER his vital signs were stable. Laboratory analysis revealed a slight anemia with hemoglobin of 11.7. Fecal occult blood was negative. Electrolytes were within normal limits. CT of abdomen and pelvis was performed which showed left lower lobe pneumonia versus scarring and nonobstructing right renal calculi with multiple renal cysts and an abdominal aortic aneurysm. There is concern about his inability to get to the bathroom and that he lived alone as well as the duration of his symptoms. He was placed in admission. He did not have a bowel movement for 12 hours after admission but did have a liquid stool on his first bowel movement. Fecal occult blood was negative. Patient seen and examined at bedside. Patient reports that he started having diarrhea 3 weeks ago and was unable to get to the bathroom. He reports that he will need a bilateral hands accompanied clean his house. He also states he has been so weak is unable to drive and has not had any new food his house for 3-4 weeks. He states that he is significantly weak and doesn't trust himself to drive. We discussed if he has someone to stay with him at home as this is typically an outpatient workup for chronic diarrhea. He complains of abdominal pain with nausea however his appetite appears intact as he ate over half of his tracing including a banana multiple glasses of orange juice per nursing as well as hashbrowns. He has been complaining of being hungry to nursing staff. He denies any chest pain or shortness of breath. He has a PCP but has not seen him in several weeks. He also follows the wound care clinic for a stage IV pressure ulcer which is healing. We discussed having him meet with social work to determine a safe discharge plan. Objective - Vital Signs Vital signs: Vital Signs Temp 98.5 F 05/21/18 07:00 Pulse 62 05/21/18 07:00 Resp 12 05/21/18 07:00 BP 130/58 05/21/18 07:00 Pulse Ox 99 05/21/18 07:00 Intake & Output 05/20/18 05/21/18 05/21/18 18:59 06:59 18:59 Intake Total 600 Balance 600 Weight 61.235 kg 61.235 kg 61.235 kg Intake: Intake, IV Titration 600 Amount Sodium Chloride 0.9% 1, 600 000 ml @ 100 mls/hr IV . Q10H [facility] Rx#:[id number] - Exam General: Chronically ill-appearing, cachectic, no distress, appears older than stated age Derm: Healing pressure wound to stay calm, no unusual rashes/lesions no unusual ecchymoses, warm, dry Head: atraumatic, normocephalic, symmetric Eyes: EOMI, no lid lag, anicteric sclera Mouth: no lip lesion, mucus membranes moist Cardiovascular: S1S2 reg, no murmur, positive posterior tibial pulse bilateral, Lungs: CTA bilateral, no rhonchi, no rales , no accessory muscle use Abdominal: soft, nontender to palpation, no guarding, no appreciable organomegaly Ext: no gross muscle atrophy, no edema, no contractures Neuro: CN II-XI grossly intact, no focal neuro deficits Psych: Alert, oriented, appropriate affect - Labs CBC & Chem 7: 05/20/18 16:45 05/20/18 16:45 Labs: Abnormal Lab Results - Last 24 Hours (Table) 05/20/18 05/20/18 05/20/18 Range/Units 16:45 16:45 19:45 RBC 4.09 L (4.30-5.90) m/uL Hgb 11.7 L (13.0-17.5) gm/dL Hct 36.5 L (39.0-53.0) % Albumin 3.4 L (3.5-5.0) g/dL Urine Protein Trace H (Negative) Urine Ketones Trace H (Negative) Urine Blood Moderate H (Negative) Urine RBC >182 H (0-5) /hpf Urine Mucus Few H (None) /hpf Assessment and Plan Assessment: Chronic diarrhea with nausea and vomiting -CT negative -Patient is tolerating diet -C. diff and fecal lactoferrin pending -Consult GI - last colonoscopy approximately 5 years ago Severe protein calorie malnutrition with BMI 19.4 and 30 pound weight loss in the last year -Dietitian consultation -Protein supplementation Concerns for possible refeeding syndrome -Repeat phosphorus and magnesium later today if patient will allow blood draw. Refused this morning -However patient electrolytes were completely within normal on presentation to the ER. Social stressors -Patient states that he needs [employer] to clean his house prior to discharge -Had social work meet with patient he adamantly refuses rehabilitation and wants to return home -Patient will attempt to coordinate a safe discharge plan with [employer] and increased services at home Stage III pressure ulcer, healing -Offload -Follow up with wound care -optifoam Dyslipidemia -Stop Zetia with side effect of diarrhea -Start Questran Hypertension -Continue metoprolol Patient will be maintained as an inpatient overnight tonight to help him facilitate a safe discharge plan. We will repeat laboratory analysis hopefully this afternoon if he is willing and plan on discharge in the morning pending GI evaluation. I discussed with the patient that he likely will need a colonoscopy and that chronic diarrhea is typically outpatient workup.
[2018-05-21] MEDS: CHOLESTYRAMINE (WITH SUGAR) 4 GM PACKET PO SCH (19:23)
[2018-05-21] MEDS ORDERED: SODIUM CHLORIDE 0.9% 1,000 ML IV ONE (20:51)
[2018-05-21] MEDS ORDERED: DICYCLOMINE 10 MG CAP PO PRN (22:51)
--- NOTE | 2018-05-21 22:59 | P.CONS ---
History of Present Illness - Reason for Consult Consult date: 05/21/18 Diarrhea Requesting physician: Jessica Rice - Chief Complaint Nausea, vomiting, diarrhea - History of Present Illness The patient is a 72-year-old male with a medical history significant for hypertension and COPD who presents to the hospital for evaluation of reported nausea, vomiting and diarrhea. Per the patient he has had over 2 weeks of symptoms. He reports multiple episodes of vomiting, nonbloody, nonbilious vomitus. He also reports daily loose bowel movements with associated urgency and episodes of incontinence. He reports he is been having 3-4 loose bowel movements daily which is unusual for him. He reports that because of the bowel movements he is been unable to leave his home and it has affected his activities of daily living. He reports associated diffuse sharp abdominal pain prior to bowel movements which is relieved with defecation. He denies any new antibiotics, unusual food, change in medications or travel. He reports his last colonoscopy was approximately 5 years ago. He states that he has lost approximately 75 pounds over the past year and a half. On presentation the patient was found to have a hemoglobin of 11.7, stool was negative for occult blood and WBC count was found to be 7.2. Patient had a computed tomography scan of the abdomen which showed a 4.5 cm abdominal aortic aneurysm, findings in the lung consistent with COPD and bilateral nonobstructing renal calculi. Review of Systems REVIEW OF SYSTEMS: CARDIO: Denies any chest pain or palpitations. PULMONARY: Denies any shortness of breath or wheezing. GENITOURINARY: No dysuria or hematuria. MUSCULOSKELETAL: No weakness reported. SKIN: Denies any new rashes or lesions, jaundice or pallor. PSYCHIATRIC: Denies any depression or anxiety. NEUROLOGY: Denies headache, denies any new focal deficits. EARS: No tinnitus, discharge or new hearing loss. NOSE: No discharge or congestion. EYES: No pain in eyes or change in vision. CONSTITUTIONAL: No recent weight loss. No fever, chills, night sweats. 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 Last Myocardial Infarction Date:: 2001 History of Any Multi-Drug Resistant Organisms: None Reported Past Surgical History: Adenoidectomy, Heart Catheterization With Stent, Tonsillectomy Additional Past Surgical History / Comment(s): 2 HEART CATHS-7 STENTS, AAA REPAIR, URSULA CATARACTS. Past Anesthesia/Blood Transfusion Reactions: No Reported Reaction Date of Last Stent Placement:: UNK Past Psychological History: Depression Smoking Status: Current every day smoker Past Alcohol Use History: Abuse, Heavy Additional Past Alcohol Use History / Comment(s): As noted when he has while he lives in his condominium, no one lives with him. Current smoker. Ongoing alcohol use binging at times. Related has been many years since he has used marijuana or heroin. No animals living with him. No experience related. NoTravel is related Past Drug Use History: Heroin, Marijuana Additional Drug Use History / Comment(s): PT STATED WHEN IN HIS 20'S HE SMOPKED MARIJUANA, DID SOME LSD AND OCC SOME HEROIN-WUIT ALL DRUGS IN HIS 30'S - Past Family History Mother Additional Family Medical History / Comment(s): ETOH Father Additional Family Medical History / Comment(s): FROM AAA AT AGE 62 Medications and Allergies Home Medications Medication Instructions Recorded Confirmed Type Clopidogrel Bisulfate [Plavix] 75 mg PO DAILY 08/29/16 05/20/18 History Ezetimibe [Zetia] 10 mg PO DAILY 02/14/17 05/20/18 History Metoprolol Tartrate [Lopressor] 50 mg PO DAILY 02/14/17 05/20/18 History Ergocalciferol (Vitamin D2) 50,000 unit PO FR 11/22/17 05/20/18 History [Vitamin D2] FLUoxetine HCL [PROzac] 20 mg PO DAILY 02/26/18 05/20/18 History Allergies Allergy/AdvReac Type Severity Reaction Status Date / Time egg Allergy Anaphylaxis Verified 05/20/18 17:03 Penicillins Allergy Unknown Verified 05/20/18 17:03 Childhood Physical Exam Vitals: Vital Signs Temp Pulse Resp BP BP Pulse Ox 05/21/18 20:20 75/35 05/21/18 19:39 98.2 F 98 13 102/38 05/21/18 19:00 82/30 102/38 05/21/18 15:00 98.6 F 74 12 81/44 95 05/21/18 07:00 98.5 F 62 12 130/58 99 05/20/18 23:00 98.4 F 67 16 120/56 98 Intake and Output 05/21/18 05/21/18 05/21/18 06:59 14:59 22:59 Intake Total 600 800 Balance 600 800 Intake: Intake, IV Titration 600 800 Amount Sodium Chloride 0.9% 1, 600 800 000 ml @ 100 mls/hr IV . Q10H BIANCA Rx#:[id number] Other: # Voids 1 Weight 61.235 kg 61.235 kg On physical examination, patient appears comfortable in no apparent distress. HEAD: Normocephalic, atraumatic. EYES: No scleral icterus. No conjunctival injection. MOUTH: No lesions, tongue midline. NECK: Trachea midline, no gross abnormalities. CHEST: Clear to auscultation with no wheezing or rhonchi appreciated. HEART: Regular rate and rhythm. ABDOMEN: Soft, obese. Bowel sounds are positive. No organomegaly. No guarding or rigidity. EXTREMITIES: No pedal edema. SKIN: No rashes, no jaundice. NEUROLOGIC: Alert and oriented x3. No focal deficits. Results CBC & Chem 7: 05/20/18 16:45 05/20/18 16:45 Labs: Microbiology - Last 24 Hours (Table) 05/21/18 10:21 Stool Culture - Preliminary Stool CT scan - abdomen: report reviewed (Computed tomography scan of the abdomen which showed a 4.5 cm abdominal aortic aneurysm, findings in the lung consistent with COPD and bilateral nonobstructing renal calculi.) Assessment and Plan (1) Acute diarrhea Narrative/Plan: Patient reports 2-3 weeks of loose bowel movements with associated urgency, incontinence and abdominal pain. Likely represents a infectious etiology, given the acuity of the symptoms. No GI pathology noted on computed tomography scan of the abdomen. Stool for occult blood was negative. Symptoms improved after admission. Current Visit: Yes Status: Acute Code(s): R19.7 - DIARRHEA, UNSPECIFIED SNOMED Code(s): 119211180 (2) Abdominal pain Narrative/Plan: Cramping abdominal pain relieved with bowel movement. Current Visit: Yes Status: Acute Code(s): R10.9 - UNSPECIFIED ABDOMINAL PAIN SNOMED Code(s): 01651783 (3) Nausea & vomiting Current Visit: Yes Status: Acute Code(s): R11.2 - NAUSEA WITH VOMITING, UNSPECIFIED SNOMED Code(s): 68890173 Plan: Supportive care Stool studies ordered including PCR for Clostridium difficile, culture, and lactoferrin Dicyclomine ordered for abdominal pain Okay for diet, will recommend low fiber low lactose Monitor stool output Continue fluid hydration Thank you for allowing us to participate in the care of this patient we will continue to follow
[2018-05-21 23:08] VITALS: RESP 16
[2018-05-22] MEDS: SODIUM CHLORIDE 0.9% 1,000 ML IV SCH ×2 (08:00→11:20)
[2018-05-22] MEDS: FLUoxetine HCL 20 MG CAP PO SCH (08:26)
[2018-05-22] MEDS: CLOPIDOGREL 75 MG TAB PO SCH (08:26)
[2018-05-22] MEDS: NICOTINE 21MG/24HR PATCH TRANSDERM SCH (08:27)
[2018-05-22 10:11] LABS: Calcium 8.2 mg/dL (8.4-10.2); Magnesium 1.5 mg/dL (1.6-2.3); Phosphorus 1.7 mg/dL (2.5-4.5); Potassium 3.6 mmol/L (3.5-5.1)
[2018-05-22 10:17] LABS: HCT 28.7 % (39.0-53.0); MCH 30.2 pg (25.0-35.0); MCHC 32.9 g/dL (31.0-37.0); MCV 91.7 fL (80.0-100.0); Mean Platelet Volume 6.6; Platelet Count 252 k/uL (150-450); RBC 3.13 m/uL (4.30-5.90); RDW 15.5 % (11.5-15.5); WBC 5.4 k/uL (3.8-10.6)
[2018-05-22] MEDS ORDERED: SODIUM PHOSPHATE 10 MMOL in SODIUM CHLORIDE 0.9% 250 ML IVPB SCH (10:30)
[2018-05-22 10:34] LABS: HGB 9.5 gm/dL (13.0-17.5)
[2018-05-22] MEDS ORDERED: SODIUM GLYCEROPHOSPHATE 20 MMOL in SODIUM CHLORIDE 0.9% 250 ML IV ONE (11:00)
[2018-05-22] MEDS: CHOLESTYRAMINE (WITH SUGAR) 4 GM PACKET PO SCH (11:21)
[2018-05-22] MEDS: HEPARIN SODIUM,PORCINE 5,000 UNIT/ML 1 ML VIAL SQ SCH ×3 (11:21→16:16)
[2018-05-22] MEDS: METOPROLOL TARTRATE 50 MG TAB PO SCH (11:21)
[2018-05-22] MEDS: MAGNESIUM SULFATE-D5W PMX 1 GM in DEXTROSE/WATER 1 100ML.BAG IVPB SCH ×3 (12:14→15:43)
[2018-05-22 14:30] VITALS: BP 103/41; PULSE 67; TEMP 98.3
--- NOTE | 2018-05-22 16:56 | P.DS ---
Providers Date of admission: 05/20/18 20:29 Expected date of discharge: 05/22/18 Attending physician: Дмитрий Sorenson MD Consults: 05/21/18 07:37 Consult Physician Routine Consulting Provider: Fernie Cruz Consult Reason/Comments: Diarrhea X 3 weeks Do you want consulting provider notified?: Yes Primary care physician: Surjit Cook, DO Hospital Course: Discharge Diagnosis: Acute diarrhea likely secondary to infectious gastroenteritis Abdominal pain Severe protein calorie malnutrition with BMI 19.4 Alcoholism Social stressors-minimal help at home. Patient refused placement. Given community resources Stage III pressure ulcer, healing Dyslipidemia Hypertension Repeating syndrome ruled out Hypomagnesemia Hypophosphatemia Anemia- at baseline of 9.5 Hospital Course: Patient is a 72 year old male with a past medical history of COPD, HTN, [place], AAA , and [place] who presented with nausea, vomiting, and diarrhea has been intractable for 3 weeks. On arrival to the ER his vital signs were stable. Laboratory analysis revealed a slight anemia with hemoglobin of 11.7. Fecal occult blood was negative. Electrolytes were within normal limits. CT of abdomen and pelvis was performed which showed left lower lobe pneumonia versus scarring and nonobstructing right renal calculi with multiple renal cysts and an abdominal aortic aneurysm. There is concern about his inability to get to the bathroom and that he lived alone as well as the duration of his symptoms. He was placed in admission. He did not have a bowel movement for 12 hours after admission but did have a liquid stool on his first bowel movement. Fecal occult blood was negative, c diff negative. Seen by GI and felt to have infectious diarrhea they recommended bentyl. Patient was tolerating a diet without vomiting. Had one bowl movement during his hospitalization. He was determined stable for discharge. We offered to set up rehab if unable to care for himself. Patient refused. He was given community resources of cleaning, home health aids, meals on wheels. We also arranged for home health. He was discharged home. He was started on questran and his zetia was stopped as it does have incidence of diarrhea. He was also started on PRN bentyl but did not require any during hospitalization. He was also started on protonix. Patient seen and examined at bedside. Still complains of a source stomach, no diarrha, no vomiting, still feels weak. Does not want rehab when asked again today. Told patient he needs to make arrangements for help at home. Vital signs reviewed and stable. General: non toxic, no distress, appears at stated age, cachexia Derm: warm, dry Head: atraumatic, normocephalic, symmetric Eyes: EOMI, no lid lag, anicteric sclera Mouth: no lip lesion, mucus membranes moist Cardiovascular: S1S2 reg, no murmur, positive posterior tibial pulse bilateral, Lungs: CTA bilateral, no rhonchi, no rales , no accessory muscle use Abdominal: soft, nontender to palpation, no guarding, no appreciable organomegaly Ext: no gross muscle atrophy, no edema, no contractures Neuro: CN II-XI grossly intact, no focal neuro deficits Psych: Alert, oriented, appropriate affect A total of 35 minutes of time were spent preparing this complex discharge summary . Pertinent Studies: CT abdomen and pelvis-COPD, left lower lobe patchy pneumonia versus scarring, nonobstructing bilateral renal calculi, aortic aneurysm Patient Condition at Discharge: Good Plan - Discharge Summary Discharge Rx Participant: No New Discharge Prescriptions: New Cholestyramine (with Sugar) [Questran Packet] 4 gm PO BID@1000,1800 #60 packet Dicyclomine [Bentyl] 10 mg PO QID PRN #40 cap PRN Reason: Gi Upset Pantoprazole [Protonix] 40 mg PO DAILY #30 tablet.dr Continue Clopidogrel Bisulfate [Plavix] 75 mg PO DAILY Metoprolol Tartrate [Lopressor] 50 mg PO DAILY Ergocalciferol (Vitamin D2) [Vitamin D2] 50,000 unit PO FR FLUoxetine HCL [PROzac] 20 mg PO DAILY Discontinued Ezetimibe [Zetia] 10 mg PO DAILY Discharge Medication List Clopidogrel Bisulfate [Plavix] 75 mg PO DAILY 08/29/16 [History] Metoprolol Tartrate [Lopressor] 50 mg PO DAILY 02/14/17 [History] Ergocalciferol (Vitamin D2) [Vitamin D2] 50,000 unit PO FR 11/22/17 [History] FLUoxetine HCL [PROzac] 20 mg PO DAILY 02/26/18 [History] Cholestyramine (with Sugar) [Questran Packet] 4 gm PO BID@1000,1800 #60 packet 05/22/18 [Rx] Dicyclomine [Bentyl] 10 mg PO QID PRN #40 cap 05/22/18 [Rx] Pantoprazole [Protonix] 40 mg PO DAILY #30 tablet. 05/22/18 [Rx] Follow up Appointment(s)/Referral(s): Surjit Cook DO [Primary Care Provider] - 05/26/18 11:00 am [facility] - Fernie Cruz MD [STAFF PHYSICIAN] - 06/09/18 11:30 am ( ) Activity/Diet/Wound Care/Special Instructions: heart healthy diet activity as tolerated Discharge Disposition: HOME WITH HOME HEALTH SERVICES
[2018-05-22] MEDS ORDERED: SODIUM GLYCEROPHOSPHATE 10 MMOL in SODIUM CHLORIDE 0.9% 250 ML IV ONE (20:00)
--- NOTE | 2018-05-27 08:23 | CDI ---
Last Revision, June 2017 Documentation Clarification Form Date: 05/27/18 From: Elizabeth Fox Phone: If you have a question regarding this query, please contact Mary Angelo at [phone] between 8am and 5pm. Admit Date: 05/20/2018 8:29:00 PM Patient Name: Omer Aguirre Visit Number: [id number] Discharge Date: 05/27/18 ATTENTION: The Clinical Documentation Specialists (CDI) and [facility] Coding Staff appreciate your assistance in clarifying documentation. Please respond to the clarification below the line at the bottom and electronically sign. The CDI & [facility] Coding staff will review the response and follow-up if needed. Please note: Queries are made part of the Legal Health Record. If you have any questions, please contact the author of this message via ITS. Дмитрий Mccarty MD A pressure ulcer stage III was documented in the discharge summary and 05/21 progress note. Pressure ulcer stage IV was documented in the 05/21 progress note. History/Risk Factors: Patient has sever malnutrition and infectious gastroenteritis with severe diarrhea. Clinical Indicators: Pressure ulcer which he follows in the wound care cliinic. Location: Unspecified Wound description: Healing Treatment: Offload, optifoam In your professional opinion, can you please clarify the location and laterality of the pressure ulcer? Also, can you please clarify the stage of the ulcer? Stage 1 Pressure/Decubitus Ulcer (intact skin, non-blanching redness of local area) Stage 2 Pressure/Decubitus Ulcer (Partial thickness, loss of dermis, pink wound bed) Stage 3 Pressure/Decubitus Ulcer (Full thickness tissue loss) Stage 4 Pressure/Decubitus Ulcer (Full thickness tissue loss with exposed bone , tendon, or muscle. May have slough or eschar present) Unstageable Other condition, please specify Unable to determine MTDD
--- NOTE | 2018-05-27 08:25 | CDI ---
Last Revision, June 2017 Documentation Clarification Form Date: 05/27/18 From: Elizabeth Fox Phone: If you have a question regarding this query, please contact Mary Angelo at [phone] between 8am and 5pm. Admit Date: 05/20/2018 8:29:00 PM Patient Name: Omer Aguirre Visit Number: [id number] Discharge Date: 05/27/18 ATTENTION: The Clinical Documentation Specialists (CDI) and [facility] Coding Staff appreciate your assistance in clarifying documentation. Please respond to the clarification below the line at the bottom and electronically sign. The CDI & [facility] Coding staff will review the response and follow-up if needed. Please note: Queries are made part of the Legal Health Record. If you have any questions, please contact the author of this message via ITS. Дмитрий Mccarty MD A pressure ulcer stage III was documented in the discharge summary and 05/21 progress note. Pressure ulcer stage IV was documented in the 05/21 progress note. History/Risk Factors: Patient has sever malnutrition and infectious gastroenteritis with severe diarrhea. Clinical Indicators: Pressure ulcer which he follows in the wound care cliinic. Location: Unspecified Wound description: Healing Treatment: Offload, optifoam In your professional opinion, can you please clarify the location and laterality of the pressure ulcer? Also, can you please clarify the stage of the ulcer? Stage 1 Pressure/Decubitus Ulcer (intact skin, non-blanching redness of local area) Stage 2 Pressure/Decubitus Ulcer (Partial thickness, loss of dermis, pink wound bed) Stage 3 Pressure/Decubitus Ulcer (Full thickness tissue loss) Stage 4 Pressure/Decubitus Ulcer (Full thickness tissue loss with exposed bone , tendon, or muscle. May have slough or eschar present) Unstageable Other condition, please specify Unable to determine Stage III pressure ulcer as documented [facility]
== END 2018-05-22 17:30 | disposition home health service (06) | DRG 391 ==
LOC: EC 16:27 → 4SSUR 20:29
PROVIDERS: ADMIT Internal Medicine; ATTEND Internal Medicine
DX: A09 Infectious gastroenteritis and colitis, unspecified (principal); L89.93 Pressure ulcer of unspecified site, stage 3; E43 Unspecified severe protein-calorie malnutrition; Z68.1 Body mass index [BMI] 19.9 or less, adult; D64.9 Anemia, unspecified; E78.5 Hyperlipidemia, unspecified; E83.39 Other disorders of phosphorus metabolism; E83.42 Hypomagnesemia; F17.210 Nicotine dependence, cigarettes, uncomplicated; F32.9 Major depressive disorder, single episode, unspecified; I10 Essential (primary) hypertension; I25.10 Atherosclerotic heart disease of native coronary artery without angina pectoris; I25.2 Old myocardial infarction; M06.9 Rheumatoid arthritis, unspecified; N20.0 Calculus of kidney; J44.9 Chronic obstructive pulmonary disease, unspecified; N42.9 Disorder of prostate, unspecified; H35.30 Unspecified macular degeneration; R15.9 Full incontinence of feces; Z79.02 Long term (current) use of antithrombotics/antiplatelets; Z79.899 Other long term (current) drug therapy; Z88.0 Allergy status to penicillin; Z91.012 Allergy to eggs; Z87.01 Personal history of pneumonia (recurrent); Z86.79 Personal history of other diseases of the circulatory system; Z95.5 Presence of coronary angioplasty implant and graft; Z98.42 Cataract extraction status, left eye; Z98.41 Cataract extraction status, right eye; Z96.1 Presence of intraocular lens; Z71.6 Tobacco abuse counseling
CPT/HCPCS: 36415; 74177; 80048; 80053; 81001; 82150; 82272; 83630; 83690; 83735; 84100; 85025; 85027; 85610; 85730; 87045; 87046; 87086; 96361; 96365; 96375; 99285

== ENCOUNTER 2018-07-13 20:54 | Emergency (ER) | payer MEDICARE ==
[2018-07-13 21:04] VITALS: RESP 16; TEMP 97
[2018-07-13] MEDS ORDERED: SODIUM CHLORIDE 0.9% 500 ML 500 ML IV STA (21:22)
[2018-07-13] MEDS ORDERED: SODIUM CHLORIDE 0.9% 1,000 ML IV STA (21:22)
[2018-07-13 22:07] LABS: Anisocytosis Moderate; Basophils # (A) 0.1 k/uL (0-0.2); Basophils % (A) 1 %; Eosinophils # (A) 0.1 k/uL (0-0.7); Eosinophils % (A) 2 %; HCT 43.3 % (39.0-53.0); HGB 13.4 gm/dL (13.0-17.5); INR 0.9 (<1.2); Lymphocytes # (A) 0.8 k/uL (1.0-4.8); Lymphocytes % (A) 13 %; MCHC 30.9 g/dL (31.0-37.0); Macrocytosis Moderate; Mean Platelet Volume 6.4; Monocytes # (A) 0.2 k/uL (0-1.0); Monocytes % (A) 3 %; Neutrophils # (A) 4.8 k/uL (1.3-7.7); Neutrophils % (A) 79 %; Platelet Count 361 k/uL (150-450); RBC 4.32 m/uL (4.30-5.90); RDW 20.1 % (11.5-15.5)
[2018-07-13 22:08] LABS: MCV 100.4 fL (80.0-100.0)
[2018-07-13 22:22] LABS: ALT 33 U/L (21-72); AST 60 U/L (17-59); Albumin 4.5 g/dL (3.5-5.0); Alkaline Phosphatase 157 U/L (38-126); Amylase 117 U/L (30-110); Anion Gap 18 mmol/L; Blood Urea Nitrogen 16 mg/dL (9-20); Calcium 9.5 mg/dL (8.4-10.2); Carbon Dioxide 22 mmol/L (22-30); Chloride 103 mmol/L (98-107); Lipase 137 U/L (23-300); Magnesium 2.1 mg/dL (1.6-2.3); Potassium 4.4 mmol/L (3.5-5.1); Sodium 143 mmol/L (137-145); Total Bilirubin 0.8 mg/dL (0.2-1.3); Total Protein 7.9 g/dL (6.3-8.2)
[2018-07-13 22:34] LABS: Creatine Kinase MB 4.6 ng/mL (0.0-2.4); Troponin I 0.016 ng/mL (0.000-0.034)
[2018-07-13 22:43] LABS: Glucose 43 mg/dL (74-99)
[2018-07-13 22:44] LABS: Alcohol 149 mg/dL
--- NOTE | 2018-07-13 22:48 | XR ---
EXAMINATION TYPE: XR chest 2V DATE OF EXAM: 07/13/2018 COMPARISON: 02/09/2018 HISTORY: Cough TECHNIQUE: Frontal and lateral views of the chest are obtained. FINDINGS: There is some coarse infiltrate and probable pleural thickening in the left lower lateral lung field. The other lung gil are clear. There is old right clavicle fracture. There is no pleura l effusion. Heart size is normal. Thoracic aorta is atheromatous. Thoracic spine is intact. IMPRESSION: There is some pleural and pulmonary scarring in the lingula left upper lobe increased co mpared to last exam. Normal heart.
--- NOTE | 2018-07-13 22:50 | XR ---
EXAMINATION TYPE: XR pelvis AP view DATE OF EXAM: 07/13/2018 COMPARISON: 11/22/2017 HISTORY: Pain after a fall TECHNIQUE: Single view FINDINGS: There is narrowing of hip joint spaces with acetabular spurring. There is deformity of the left femoral head articular surface consistent with chronic avascular necrosis. There is aorto iliac stent noted. The pelvic ring appears intact. I see no pelvic fracture. IMPRESSION: Osteoarthritis. Chronic avascular necrosis left femoral head. No fracture seen. No change compared to old exam.
--- NOTE | 2018-07-13 22:52 | XR ---
EXAMINATION TYPE: XR lumbosacral spine min 4V DATE OF EXAM: 07/13/2018 COMPARISON: 02/13/2017 HISTORY: Back pain TECHNIQUE: 6 views. FINDINGS: The lumbar vertebra have normal alignment. There is 40% anterior wedging of L5 vertebral body. There is aortoiliac stent noted. The sacroiliac joints appear normal. Posterior elements appear intact. IMPRESSION: There is compression fracture of L5 that has progressed slightly compared to old exam. No evidence of an fracture.
--- NOTE | 2018-07-14 00:23 | ED ---
Alcohol HPI - General Chief Complaint: Alcohol Stated Complaint: ETOH, Fall Time Seen by Provider: 07/13/18 21:11 Source: patient, EMS, RN notes reviewed Mode of arrival: EMS Limitations: no limitations - History of Present Illness Initial Comments: This is a 73-year-old male brought in for evaluation he does admit to drinking alcohol tonight he states he could not get out of his chair note he felt very weak no headache no blurry vision just generalized weakness that he could not get up he denies any chest pain cough phlegm production fevers chills or sweats no focal weakness to his generalized weakness. He complains some pain to his low back area as he did apparently fall when trying to get up. No head neck or upper back pain MD Complaint: alcohol intoxication - Related Data Home Medications Medication Instructions Recorded Confirmed Clopidogrel Bisulfate [Plavix] 75 mg PO DAILY 08/29/16 05/20/18 Metoprolol Tartrate [Lopressor] 50 mg PO DAILY 02/14/17 05/20/18 Ergocalciferol (Vitamin D2) 50,000 unit PO FR 11/22/17 05/20/18 [Vitamin D2] FLUoxetine HCL [PROzac] 20 mg PO DAILY 02/26/18 05/20/18 Previous Rx's Medication Instructions Recorded Cholestyramine (with Sugar) 4 gm PO BID@1000,1800 #60 packet 05/22/18 [Questran Packet] Dicyclomine [Bentyl] 10 mg PO QID PRN #40 cap 05/22/18 Pantoprazole [Protonix] 40 mg PO DAILY #30 tablet. 05/22/18 Ibuprofen 800 mg PO Q6HR PRN #20 tablet 07/14/18 Allergies Allergy/AdvReac Type Severity Reaction Status Date / Time egg Allergy Anaphylaxis Verified 07/13/18 21:03 Penicillins Allergy Unknown Verified 07/13/18 21:03 Childhood Review of Systems ROS Statement: Those systems with pertinent positive or pertinent negative responses have been documented in the HPI. ROS Other: All systems not noted in ROS Statement are negative. 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 Last Myocardial Infarction Date:: 2001 History of Any Multi-Drug Resistant Organisms: None Reported Past Surgical History: Adenoidectomy, Heart Catheterization With Stent, Tonsillectomy Additional Past Surgical History / Comment(s): 2 HEART CATHS-7 STENTS, AAA REPAIR, URSULA CATARACTS. Past Anesthesia/Blood Transfusion Reactions: No Reported Reaction Date of Last Stent Placement:: UNK Past Psychological History: Depression Smoking Status: Current every day smoker Past Alcohol Use History: Abuse, Heavy Past Drug Use History: Heroin, Marijuana - Past Family History Mother Additional Family Medical History / Comment(s): ETOH Father Additional Family Medical History / Comment(s): FROM AAA AT AGE 62 General Exam - General Exam Comments Initial Comments: Is a well-developed well-nourished awake alert male he does have smell of alcohol conjoiners on his breath Limitations: no limitations General appearance: alert, in no apparent distress, lethargic Head exam: Present: atraumatic, normocephalic, normal inspection Eye exam: Present: normal appearance, PERRL, EOMI. Absent: scleral icterus, conjunctival injection, periorbital swelling ENT exam: Present: normal exam, mucous membranes moist Neck exam: Present: normal inspection. Absent: tenderness, meningismus, lymphadenopathy Respiratory exam: Present: normal lung sounds bilaterally. Absent: respiratory distress, wheezes, rales, rhonchi, stridor Cardiovascular Exam: Present: regular rate, normal rhythm, normal heart sounds. Absent: systolic murmur, diastolic murmur, rubs, gallop, clicks GI/Abdominal exam: Present: soft, normal bowel sounds. Absent: distended, tenderness, guarding, rebound, rigid Extremities exam: Present: normal inspection, full ROM, normal capillary refill. Absent: tenderness, pedal edema, joint swelling, calf tenderness Back exam: Present: normal inspection, tenderness, paraspinal tenderness. Absent: CVA tenderness (R), CVA tenderness (L), muscle spasm, vertebral tenderness Neurological exam: Present: alert, oriented X3, CN II-XII intact Psychiatric exam: Present: normal affect, normal mood Skin exam: Present: warm, dry, intact, normal color. Absent: rash Course Vital Signs 07/13/18 07/13/18 21:00 23:22 Temperature 97 F L Pulse Rate 93 110 H Respiratory 16 16 Rate Blood Pressure 184/85 165/92 O2 Sat by Pulse 97 Oximetry - Reevaluation(s) Reevaluation #1: 07/14/18 00:22 Patient was noted have a blood glucose and evaluation of 43. He was given food and did improve his mentation Medical Decision Making - Medical Decision Making Reevaluation patient reveals he is more awake and alert I did discuss the findings with him no evidence of acute fractures or subluxations. I did send the patient is deemed to be sober he will be discharged additionally repeat Accu -Chek is adequate. He did have a diet while here. - Lab Data Result diagrams: 07/13/18 21:48 07/13/18 21:48 Lab Results 07/13/18 07/13/18 07/13/18 Range/Units 21:48 21:48 21:48 WBC (3.8-10.6) k/uL RBC (4.30-5.90) m/uL Hgb (13.0-17.5) gm/dL Hct (39.0-53.0) % MCV (80.0-100.0) fL MCH (25.0-35.0) pg MCHC (31.0-37.0) g/dL RDW (11.5-15.5) % Plt Count (150-450) k/uL Neutrophils % % Lymphocytes % % Monocytes % % Eosinophils % % Basophils % % Neutrophils # (1.3-7.7) k/uL Lymphocytes # (1.0-4.8) k/uL Monocytes # (0-1.0) k/uL Eosinophils # (0-0.7) k/uL Basophils # (0-0.2) k/uL Anisocytosis Macrocytosis PT 10.0 (9.0-12.0) sec INR 0.9 (<1.2) Sodium 143 (137-145) mmol/L Potassium 4.4 (3.5-5.1) mmol/L Chloride 103 (98-107) mmol/L Carbon Dioxide 22 (22-30) mmol/L Anion Gap 18 mmol/L BUN 16 (9-20) mg/dL Creatinine 0.87 (0.66-1.25) mg/dL Est GFR (CKD-EPI)AfAm >90 (>60 ml/min/1.73 sqM) Est GFR (CKD-EPI)NonAf 86 (>60 ml/min/1.73 sqM) Glucose 43 L* (74-99) mg/dL Calcium 9.5 (8.4-10.2) mg/dL Magnesium 2.1 (1.6-2.3) mg/dL Total Bilirubin 0.8 (0.2-1.3) mg/dL AST 60 H (17-59) U/L ALT 33 (21-72) U/L Alkaline Phosphatase 157 H (38-126) U/L Ammonia (<30) umol/L Total Creatine Kinase 142 (55-170) U/L CK-MB (CK-2) 4.6 H (0.0-2.4) ng/mL CK-MB (CK-2) Rel Index 3.2 Troponin I 0.016 (0.000-0.034) ng/mL Total Protein 7.9 (6.3-8.2) g/dL Albumin 4.5 (3.5-5.0) g/dL Amylase 117 H (30-110) U/L Lipase 137 (23-300) U/L Serum Alcohol 149 mg/dL 07/13/18 07/13/18 Range/Units 21:48 22:38 WBC 6.0 (3.8-10.6) k/uL RBC 4.32 (4.30-5.90) m/uL Hgb 13.4 D (13.0-17.5) gm/dL Hct 43.3 (39.0-53.0) % MCV 100.4 H D (80.0-100.0) fL MCH 31.0 (25.0-35.0) pg MCHC 30.9 L (31.0-37.0) g/dL RDW 20.1 H (11.5-15.5) % Plt Count 361 (150-450) k/uL Neutrophils % 79 % Lymphocytes % 13 % Monocytes % 3 % Eosinophils % 2 % Basophils % 1 % Neutrophils # 4.8 (1.3-7.7) k/uL Lymphocytes # 0.8 L (1.0-4.8) k/uL Monocytes # 0.2 (0-1.0) k/uL Eosinophils # 0.1 (0-0.7) k/uL Basophils # 0.1 (0-0.2) k/uL Anisocytosis Moderate Macrocytosis Moderate PT (9.0-12.0) sec INR (<1.2) Sodium (137-145) mmol/L Potassium (3.5-5.1) mmol/L Chloride (98-107) mmol/L Carbon Dioxide (22-30) mmol/L Anion Gap mmol/L BUN (9-20) mg/dL Creatinine (0.66-1.25) mg/dL Est GFR (CKD-EPI)AfAm (>60 ml/min/1.73 sqM) Est GFR (CKD-EPI)NonAf (>60 ml/min/1.73 sqM) Glucose (74-99) mg/dL Calcium (8.4-10.2) mg/dL Magnesium (1.6-2.3) mg/dL Total Bilirubin (0.2-1.3) mg/dL AST (17-59) U/L ALT (21-72) U/L Alkaline Phosphatase (38-126) U/L Ammonia <9 (<30) umol/L Total Creatine Kinase (55-170) U/L CK-MB (CK-2) (0.0-2.4) ng/mL CK-MB (CK-2) Rel Index Troponin I (0.000-0.034) ng/mL Total Protein (6.3-8.2) g/dL Albumin (3.5-5.0) g/dL Amylase (30-110) U/L Lipase (23-300) U/L Serum Alcohol mg/dL - EKG Data -: EKG Interpreted by Me EKG shows normal: sinus rhythm (X-ray of the rate 91 appear interval 136 QRS 120 QT since QTC 396/487 left exodeviation pulmonary disease pattern no acute changes noted) - Radiology Data Radiology results: report reviewed (I did review the imaging and reports no evidence of acute findings.), image reviewed Disposition Clinical Impression: Alcohol intoxication, Hypoglycemia, Back pain Disposition: HOME SELF-CARE Condition: Good Instructions: Alcohol Intoxication (ED), Non-diabetic Hypoglycemia (ED) Prescriptions: Ibuprofen 800 mg PO Q6HR PRN #20 tablet PRN Reason: Pain Is patient prescribed a controlled substance at d/c from ED?: No Referrals: Surjit Cook, DO [Primary Care Provider] - 1-2 days
[2018-07-14 00:35] LABS: Glucose,Whole Blood 142 mg/dL (75-99)
[2018-07-14 00:35] LABS: Glucose,Whole Blood 52 mg/dL (75-99)
[2018-07-14] MEDS ORDERED: IBUPROFEN 800 MG TAB PO STA (00:37)
[2018-07-14 00:43] VITALS: BP 157/98; PULSE 101
== END 2018-07-14 03:01 | disposition home or self-care (01) ==
LOC: EC 20:54
DX: F10.129 Alcohol abuse with intoxication, unspecified (principal); E16.2 Hypoglycemia, unspecified; M54.5 Low back pain; J98.4 Other disorders of lung; I10 Essential (primary) hypertension; I25.2 Old myocardial infarction; F32.9 Major depressive disorder, single episode, unspecified; F17.200 Nicotine dependence, unspecified, uncomplicated; Z81.1 Family history of alcohol abuse and dependence; Z88.0 Allergy status to penicillin; Z91.012 Allergy to eggs; Z79.02 Long term (current) use of antithrombotics/antiplatelets; Z79.899 Other long term (current) drug therapy; Z95.5 Presence of coronary angioplasty implant and graft; Z86.79 Personal history of other diseases of the circulatory system; W19.XXXA Unspecified fall, initial encounter; Y93.89 Activity, other specified; Y92.009 Unspecified place in unspecified non-institutional (private) residence as the place of occurrence of the external cause
CPT/HCPCS: 99284; 96360; 96361; 36415 ×2; 93005; 80053; 82140; 82150; 82550; 82553; 83690; 83735; 84484; 85025; 85610; 72110; 72170; 71046; G0480; 80320

== ENCOUNTER 2018-07-21 20:06 | Inpatient (IN) | payer MEDICARE ==
[2018-07-21] MEDS ORDERED: SODIUM CHLORIDE 0.9% 1,000 ML with MVI, ADULT NO.4 WITH VIT K 10 ML, THIAMINE 100 MG, F... IV ONE ×4 (20:55)
[2018-07-21] MEDS ORDERED: SODIUM CHLORIDE 0.9% 500 ML 500 ML IV STA (20:55)
[2018-07-21 21:24] LABS: Ammonia <9 umol/L (<30)
[2018-07-21 21:26] LABS: ALT 57 U/L (21-72); AST 101 U/L (17-59); Albumin 3.4 g/dL (3.5-5.0); Alcohol <10 mg/dL; Alkaline Phosphatase 117 U/L (38-126); Amylase 112 U/L (30-110); Anion Gap 10 mmol/L; Blood Urea Nitrogen 36 mg/dL (9-20); Calcium 8.7 mg/dL (8.4-10.2); Carbon Dioxide 24 mmol/L (22-30); Chloride 108 mmol/L (98-107); Glucose 163 mg/dL (74-99); INR 0.9 (<1.2); Lactic Acid, Venous 6.1 mmol/L (0.7-2.0); Lipase 95 U/L (23-300); Magnesium 1.9 mg/dL (1.6-2.3); Partial Thromboplastin Time 22.4 sec (22.0-30.0); Potassium 4.1 mmol/L (3.5-5.1); Prothrombin Time 9.8 sec (9.0-12.0); Sodium 142 mmol/L (137-145); Total Bilirubin 1.1 mg/dL (0.2-1.3)
[2018-07-21] MEDS ORDERED: SODIUM CHLORIDE 0.9% 1,000 ML IV STA (21:28)
[2018-07-21] MEDS ORDERED: SODIUM CHLORIDE 0.9% 2,000 ML IV ONE (21:28)
[2018-07-21 21:32] LABS: Anisocytosis Slight; Basophils % (A) 0 %; Eosinophils # (A) 0.1 k/uL (0-0.7); Eosinophils % (A) 2 %; HCT 37.4 % (39.0-53.0); HGB 12.4 gm/dL (13.0-17.5); Lymphocytes # (A) 0.4 k/uL (1.0-4.8); Lymphocytes % (A) 10 %; MCH 33.2 pg (25.0-35.0); MCHC 33.1 g/dL (31.0-37.0); MCV 100.3 fL (80.0-100.0); Macrocytosis Moderate; Mean Platelet Volume 7.6; Monocytes # (A) 0.3 k/uL (0-1.0); Monocytes % (A) 8 %; Neutrophils # (A) 3.1 k/uL (1.3-7.7); Neutrophils % (A) 78 %; Platelet Count 186 k/uL (150-450); RBC 3.73 m/uL (4.30-5.90); RDW 19.2 % (11.5-15.5)
[2018-07-21 21:41] LABS: Creatine Kinase MB 4.9 ng/mL (0.0-2.4)
[2018-07-21 21:42] LABS: Troponin I 0.057 ng/mL (0.000-0.034)
--- NOTE | 2018-07-21 22:18 | CT ---
EXAMINATION: CT brain wo con DATE AND TIME: 07/21/2018 9:58 PM CLINICAL INDICATION: PHH; Pain TECHNIQUE: Standard departmental protocol.; 1204.4; COMPARISON: 02/09/2018 FINDINGS: The calvarium is intact. There is no intracranial hemorrhage. There is no intracranial mass or mass effect. No definite new intra-axial attenuation defect. The angelica tricles are noted to be more prominent than the sulcal pattern and cisterns; this is similar to the p rior study. The paranasal sinuses, middle ear cavities, and mastoid sinus air cells are clear. The orbits are unremarkable. IMPRESSION: 1) NO DEFINITE ACUTE PROCESS. 2) Ventricles more prominent than the sulcal pattern, a nonspecific pattern which can correlate with a clinical diagnosis of normal pressure hydrocephalus.
--- NOTE | 2018-07-21 22:32 | XR ---
EXAMINATION TYPE: XR Hip RT and AP Pelvis DATE OF EXAM: 07/21/2018 COMPARISON: 07/13/2018 HISTORY: Fall. Hip pain TECHNIQUE: A single AP view of the pelvis is obtained. Two views of the right hip are obtained. FINDINGS: The pelvic ring appears intact. There is hypertrophic acetabular spurring and hip joint spa ce narrowing. There is hypertrophic spurring of the femoral heads. I see no acute right femoral fract ure. 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 No fracture seen. No change.
--- NOTE | 2018-07-21 22:34 | XR ---
EXAMINATION TYPE: XR chest 2V DATE OF EXAM: 07/21/2018 COMPARISON: 07/13/2018 HISTORY: COPD TECHNIQUE: Frontal and lateral views of the chest are obtained. FINDINGS: There is no heart failure. There is minimal infiltrate left lower lobe. Heart size is norm al. Thoracic aorta is atheromatous. There is osteopenia. IMPRESSION: No heart failure. There is increased infiltrate and atelectasis in left lower lobe luis antonio red to old exam.
[2018-07-21 22:41] LABS: Appearance,Urine Clear (Clear); Bilirubin,Urine Negative (Negative); Blood,Urine Moderate (Negative); Color,Urine Yellow; Glucose,Urine (UA) Negative (Negative); Ketones,Urine 1+ (Negative); Leukocyte Esterase,Urine Negative (Negative); Mucus,Urine Rare /hpf; Nitrite,Urine Negative (Negative); Protein,Urine 3+ (Negative); RBC,Urine 7 /hpf (0-5); Specific Gravity,Urine 1.022 (1.001-1.035); Urobilinogen,Urine <2.0 mg/dL (<2.0); WBC,Urine 2 /hpf (0-5)
--- NOTE | 2018-07-21 22:59 | ED ---
General Adult HPI - General Chief complaint: Fall Stated complaint: fall Time Seen by Provider: 07/21/18 20:50 Source: patient, EMS, RN notes reviewed Mode of arrival: EMS Limitations: altered mental status - History of Present Illness Initial comments: Is a 73-year-old male history of alcoholism who was brought in by EMS due to falls. He drinking a lot. He denies any head neck or back pain. He does complain some hip pain. He purely fell was on the ground for 2 days. He has a fevers chills nausea vomiting sweats at this time - Related Data Home Medications Medication Instructions Recorded Confirmed Clopidogrel Bisulfate [Plavix] 75 mg PO DAILY 08/29/16 05/20/18 Metoprolol Tartrate [Lopressor] 50 mg PO DAILY 02/14/17 05/20/18 Ergocalciferol (Vitamin D2) 50,000 unit PO FR 11/22/17 05/20/18 [Vitamin D2] FLUoxetine HCL [PROzac] 20 mg PO DAILY 02/26/18 05/20/18 Previous Rx's Medication Instructions Recorded Cholestyramine (with Sugar) 4 gm PO BID@1000,1800 #60 packet 05/22/18 [Questran Packet] Dicyclomine [Bentyl] 10 mg PO QID PRN #40 cap 05/22/18 Pantoprazole [Protonix] 40 mg PO DAILY #30 tablet. 05/22/18 Levofloxacin [Levaquin] 750 mg PO DAILY 5 Days #5 tab 07/24/18 Ibuprofen [Motrin] 600 mg PO Q8HR PRN #1 tab 07/28/18 Multivitamins, Thera [Multivitamin 1 each PO DAILY@1200 tab 07/28/18 (formulary)] Thiamine [Vitamin B-1] 100 mg PO DAILY tab 07/28/18 Allergies Allergy/AdvReac Type Severity Reaction Status Date / Time egg Allergy Anaphylaxis Verified 07/22/18 11:16 Penicillins Allergy Unknown Verified 07/22/18 11:16 Childhood Review of Systems ROS Statement: Those systems with pertinent positive or pertinent negative responses have been documented in the HPI. ROS Other: All systems not noted in ROS Statement are negative. 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 Last Myocardial Infarction Date:: 2001 History of Any Multi-Drug Resistant Organisms: None Reported Past Surgical History: Adenoidectomy, Heart Catheterization With Stent, Tonsillectomy Additional Past Surgical History / Comment(s): 2 HEART CATHS-7 STENTS, AAA REPAIR, URSULA CATARACTS. Past Anesthesia/Blood Transfusion Reactions: No Reported Reaction Date of Last Stent Placement:: UNK Past Psychological History: Depression Smoking Status: Current every day smoker Past Alcohol Use History: Abuse, Heavy Past Drug Use History: Heroin, Marijuana - Past Family History Mother Additional Family Medical History / Comment(s): ETOH Father Additional Family Medical History / Comment(s): FROM AAA AT AGE 62 General Exam - General Exam Comments Initial Comments: Is a well-developed sec appearing male who is awake alert oriented 3 with a [place] Coma Scale of 15 he does have bruising around his right orbit. No step- off or crepitation patient is disheveled. Limitations: altered mental status General appearance: alert, in no apparent distress Head exam: Present: normocephalic, other Eye exam: Present: PERRL, EOMI, other (Injected conjunctiva) ENT exam: Present: mucous membranes dry Neck exam: Present: normal inspection, full ROM, other (No stridor JVD or bruits ). Absent: tenderness, meningismus, lymphadenopathy Respiratory exam: Present: decreased breath sounds Cardiovascular Exam: Present: normal rhythm, tachycardia, normal heart sounds. Absent: systolic murmur, diastolic murmur, rubs, gallop, clicks GI/Abdominal exam: Present: soft, normal bowel sounds. Absent: distended, tenderness, guarding, rebound, rigid Rectal exam: Present: deferred Extremities exam: Present: full ROM, tenderness, normal capillary refill, other (Abrasions over the right lower leg lateral aspect some tenderness over the hip no step-off or crepitation no shortening or rotation) Back exam: Present: full ROM, tenderness, paraspinal tenderness. Absent: CVA tenderness (R), CVA tenderness (L), muscle spasm, vertebral tenderness Neurological exam: Present: alert, oriented X3, CN II-XII intact Psychiatric exam: Present: normal affect, normal mood Skin exam: Present: warm, dry. Absent: intact Course Vital Signs 07/21/18 07/21/18 07/21/18 20:08 20:33 21:00 Temperature 98.9 F Pulse Rate 117 H 106 H Pulse Rate [ Pulse Oximetery ] Respiratory 18 29 H Rate Blood Pressure 178/98 178/90 Blood Pressure [Left Arm] O2 Sat by Pulse 95 95 95 Oximetry 07/21/18 07/21/18 07/21/18 22:00 22:26 23:00 Temperature Pulse Rate 105 H 117 H Pulse Rate [ Pulse Oximetery ] Respiratory 18 28 H Rate Blood Pressure 171/88 171/91 181/88 Blood Pressure [Left Arm] O2 Sat by Pulse 97 Oximetry 07/22/18 07/22/18 07/22/18 04:49 05:00 05:39 Temperature 98.2 F 98.2 F Pulse Rate 92 Pulse Rate [ 111 H 110 H Pulse Oximetery ] Respiratory 18 29 H 18 Rate Blood Pressure 146/74 Blood Pressure 152/77 152/77 [Left Arm] O2 Sat by Pulse 93 L 93 L Oximetry 07/22/18 07/22/18 06:00 08:50 Temperature 98.4 F Pulse Rate 98 Pulse Rate [ 82 Pulse Oximetery ] Respiratory 30 H 18 Rate Blood Pressure 158/83 Blood Pressure 153/80 [Left Arm] O2 Sat by Pulse Oximetry EKG Findings - EKG Results: EKG: interpreted by ERMD, sinus rhythm (Sinus tachycardia rate 120. Interval 1: 30 QRS duration 110 daily since QTC 340/491 left exodeviation poor R-wave progression possible left atrial enlargement) Medical Decision Making - Medical Decision Making This case was started on computer in a paper supplement for the paper charting the patient was admitted with diagnosis of rhabdomyolysis dehydration alcohol abuse lactic acidosis failure to thrive also elevated troponin I did discuss case with Dr. Rodney. Patient was admitted to telemetry. - Lab Data Result diagrams: 07/28/18 06:37 07/28/18 06:37 Lab Results 07/21/18 07/21/18 07/21/18 Range/Units 20:47 20:47 20:47 WBC (3.8-10.6) k/uL RBC (4.30-5.90) m/uL Hgb (13.0-17.5) gm/dL Hct (39.0-53.0) % MCV (80.0-100.0) fL MCH (25.0-35.0) pg MCHC (31.0-37.0) g/dL RDW (11.5-15.5) % Plt Count (150-450) k/uL Neutrophils % % Lymphocytes % % Monocytes % % Eosinophils % % Basophils % % Neutrophils # (1.3-7.7) k/uL Lymphocytes # (1.0-4.8) k/uL Monocytes # (0-1.0) k/uL Eosinophils # (0-0.7) k/uL Basophils # (0-0.2) k/uL Anisocytosis Macrocytosis PT 9.8 (9.0-12.0) sec INR 0.9 (<1.2) APTT 22.4 (22.0-30.0) sec Sodium 142 (137-145) mmol/L Potassium 4.1 (3.5-5.1) mmol/L Chloride 108 H (98-107) mmol/L Carbon Dioxide 24 (22-30) mmol/L Anion Gap 10 mmol/L BUN 36 H (9-20) mg/dL Creatinine 0.96 (0.66-1.25) mg/dL Est GFR (CKD-EPI)AfAm >90 (>60 ml/min/1.73 sqM) Est GFR (CKD-EPI)NonAf 79 (>60 ml/min/1.73 sqM) Glucose 163 H (74-99) mg/dL POC Glucose (mg/dL) (75-99) mg/dL POC Glu [employer] ID Lactic Ac Sepsis Rflx Plasma Lactic Acid Mani (0.7-2.0) mmol/L Calcium 8.7 (8.4-10.2) mg/dL Magnesium 1.9 (1.6-2.3) mg/dL Total Bilirubin 1.1 (0.2-1.3) mg/dL AST 101 H (17-59) U/L ALT 57 (21-72) U/L Alkaline Phosphatase 117 (38-126) U/L Ammonia (<30) umol/L Total Creatine Kinase 867 H (55-170) U/L CK-MB (CK-2) 4.9 H (0.0-2.4) ng/mL CK-MB (CK-2) Rel Index 0.6 Troponin I 0.057 H* (0.000-0.034) ng/mL Total Protein 6.0 L (6.3-8.2) g/dL Albumin 3.4 L (3.5-5.0) g/dL Amylase 112 H (30-110) U/L Lipase 95 (23-300) U/L Urine Color Urine Appearance (Clear) Urine pH (5.0-8.0) Ur Specific [place] (1.001-1.035) Urine Protein (Negative) Urine Glucose (UA) (Negative) Urine Ketones (Negative) Urine Blood (Negative) Urine Nitrite (Negative) Urine Bilirubin (Negative) Urine Urobilinogen (<2.0) mg/dL Ur Leukocyte Esterase (Negative) Urine RBC (0-5) /hpf Urine WBC (0-5) /hpf Urine Mucus (None) /hpf Serum Alcohol <10 mg/dL 07/21/18 07/21/18 07/21/18 Range/Units 20:47 20:47 21:26 WBC 4.0 (3.8-10.6) k/uL RBC 3.73 L (4.30-5.90) m/uL Hgb 12.4 L (13.0-17.5) gm/dL Hct 37.4 L (39.0-53.0) % MCV 100.3 H (80.0-100.0) fL MCH 33.2 (25.0-35.0) pg MCHC 33.1 (31.0-37.0) g/dL RDW 19.2 H (11.5-15.5) % Plt Count 186 (150-450) k/uL Neutrophils % 78 % Lymphocytes % 10 % Monocytes % 8 % Eosinophils % 2 % Basophils % 0 % Neutrophils # 3.1 (1.3-7.7) k/uL Lymphocytes # 0.4 L (1.0-4.8) k/uL Monocytes # 0.3 (0-1.0) k/uL Eosinophils # 0.1 (0-0.7) k/uL Basophils # 0.0 (0-0.2) k/uL Anisocytosis Slight Macrocytosis Moderate PT (9.0-12.0) sec INR (<1.2) APTT (22.0-30.0) sec Sodium (137-145) mmol/L Potassium (3.5-5.1) mmol/L Chloride (98-107) mmol/L Carbon Dioxide (22-30) mmol/L Anion Gap mmol/L BUN (9-20) mg/dL Creatinine (0.66-1.25) mg/dL Est GFR (CKD-EPI)AfAm (>60 ml/min/1.73 sqM) Est GFR (CKD-EPI)NonAf (>60 ml/min/1.73 sqM) Glucose (74-99) mg/dL POC Glucose (mg/dL) (75-99) mg/dL POC Glu [employer] ID Lactic Ac Sepsis Rflx Y Plasma Lactic Acid Mani 6.1 H* (0.7-2.0) mmol/L Calcium (8.4-10.2) mg/dL Magnesium (1.6-2.3) mg/dL Total Bilirubin (0.2-1.3) mg/dL AST (17-59) U/L ALT (21-72) U/L Alkaline Phosphatase (38-126) U/L Ammonia <9 (<30) umol/L Total Creatine Kinase (55-170) U/L CK-MB (CK-2) (0.0-2.4) ng/mL CK-MB (CK-2) Rel Index Troponin I (0.000-0.034) ng/mL Total Protein (6.3-8.2) g/dL Albumin (3.5-5.0) g/dL Amylase (30-110) U/L Lipase (23-300) U/L Urine Color Urine Appearance (Clear) Urine pH (5.0-8.0) Ur Specific [place] (1.001-1.035) Urine Protein (Negative) Urine Glucose (UA) (Negative) Urine Ketones (Negative) Urine Blood (Negative) Urine Nitrite (Negative) Urine Bilirubin (Negative) Urine Urobilinogen (<2.0) mg/dL Ur Leukocyte Esterase (Negative) Urine RBC (0-5) /hpf Urine WBC (0-5) /hpf Urine Mucus (None) /hpf Serum Alcohol mg/dL 07/21/18 07/22/18 07/22/18 Range/Units 22:25 02:45 12:45 WBC (3.8-10.6) k/uL RBC (4.30-5.90) m/uL Hgb (13.0-17.5) gm/dL Hct (39.0-53.0) % MCV (80.0-100.0) fL MCH (25.0-35.0) pg MCHC (31.0-37.0) g/dL RDW (11.5-15.5) % Plt Count (150-450) k/uL Neutrophils % % Lymphocytes % % Monocytes % % Eosinophils % % Basophils % % Neutrophils # (1.3-7.7) k/uL Lymphocytes # (1.0-4.8) k/uL Monocytes # (0-1.0) k/uL Eosinophils # (0-0.7) k/uL Basophils # (0-0.2) k/uL Anisocytosis Macrocytosis PT (9.0-12.0) sec INR (<1.2) APTT (22.0-30.0) sec Sodium (137-145) mmol/L Potassium (3.5-5.1) mmol/L Chloride (98-107) mmol/L Carbon Dioxide (22-30) mmol/L Anion Gap mmol/L BUN (9-20) mg/dL Creatinine (0.66-1.25) mg/dL Est GFR (CKD-EPI)AfAm (>60 ml/min/1.73 sqM) Est GFR (CKD-EPI)NonAf (>60 ml/min/1.73 sqM) Glucose (74-99) mg/dL POC Glucose (mg/dL) (75-99) mg/dL POC Glu [employer] ID Lactic Ac Sepsis Rflx Plasma Lactic Acid Mani 1.5 (0.7-2.0) mmol/L Calcium (8.4-10.2) mg/dL Magnesium (1.6-2.3) mg/dL Total Bilirubin (0.2-1.3) mg/dL AST (17-59) U/L ALT (21-72) U/L Alkaline Phosphatase (38-126) U/L Ammonia (<30) umol/L Total Creatine Kinase (55-170) U/L CK-MB (CK-2) (0.0-2.4) ng/mL CK-MB (CK-2) Rel Index Troponin I 0.041 H* (0.000-0.034) ng/mL Total Protein (6.3-8.2) g/dL Albumin (3.5-5.0) g/dL Amylase (30-110) U/L Lipase (23-300) U/L Urine Color Yellow Urine Appearance Clear (Clear) Urine pH 6.0 (5.0-8.0) Ur Specific [place] 1.022 (1.001-1.035) Urine Protein 3+ H (Negative) Urine Glucose (UA) Negative (Negative) Urine Ketones 1+ H (Negative) Urine Blood Moderate H (Negative) Urine Nitrite Negative (Negative) Urine Bilirubin Negative (Negative) Urine Urobilinogen <2.0 (<2.0) mg/dL Ur Leukocyte Esterase Negative (Negative) Urine RBC 7 H (0-5) /hpf Urine WBC 2 (0-5) /hpf Urine Mucus Rare H (None) /hpf Serum Alcohol mg/dL 07/22/18 07/22/18 07/23/18 Range/Units 20:05 21:31 06:12 WBC (3.8-10.6) k/uL RBC (4.30-5.90) m/uL Hgb (13.0-17.5) gm/dL Hct (39.0-53.0) % MCV (80.0-100.0) fL MCH (25.0-35.0) pg MCHC (31.0-37.0) g/dL RDW (11.5-15.5) % Plt Count (150-450) k/uL Neutrophils % % Lymphocytes % % Monocytes % % Eosinophils % % Basophils % % Neutrophils # (1.3-7.7) k/uL Lymphocytes # (1.0-4.8) k/uL Monocytes # (0-1.0) k/uL Eosinophils # (0-0.7) k/uL Basophils # (0-0.2) k/uL Anisocytosis Macrocytosis PT (9.0-12.0) sec INR (<1.2) APTT (22.0-30.0) sec Sodium (137-145) mmol/L Potassium (3.5-5.1) mmol/L Chloride (98-107) mmol/L Carbon Dioxide (22-30) mmol/L Anion Gap mmol/L BUN (9-20) mg/dL Creatinine (0.66-1.25) mg/dL Est GFR (CKD-EPI)AfAm (>60 ml/min/1.73 sqM) Est GFR (CKD-EPI)NonAf (>60 ml/min/1.73 sqM) Glucose (74-99) mg/dL POC Glucose (mg/dL) 114 H 109 H (75-99) mg/dL POC Glu [employer] ID Kelli Richards MauriceKelli Lactic Ac Sepsis Rflx Plasma Lactic Acid Mani (0.7-2.0) mmol/L Calcium (8.4-10.2) mg/dL Magnesium (1.6-2.3) mg/dL Total Bilirubin (0.2-1.3) mg/dL AST (17-59) U/L ALT (21-72) U/L Alkaline Phosphatase (38-126) U/L Ammonia (<30) umol/L Total Creatine Kinase (55-170) U/L CK-MB (CK-2) (0.0-2.4) ng/mL CK-MB (CK-2) Rel Index Troponin I 0.033 (0.000-0.034) ng/mL Total Protein (6.3-8.2) g/dL Albumin (3.5-5.0) g/dL Amylase (30-110) U/L Lipase (23-300) U/L Urine Color Urine Appearance (Clear) Urine pH (5.0-8.0) Ur Specific [place] (1.001-1.035) Urine Protein (Negative) Urine Glucose (UA) (Negative) Urine Ketones (Negative) Urine Blood (Negative) Urine Nitrite (Negative) Urine Bilirubin (Negative) Urine Urobilinogen (<2.0) mg/dL Ur Leukocyte Esterase (Negative) Urine RBC (0-5) /hpf Urine WBC (0-5) /hpf Urine Mucus (None) /hpf Serum Alcohol mg/dL 07/23/18 Range/Units 11:49 WBC (3.8-10.6) k/uL RBC (4.30-5.90) m/uL Hgb (13.0-17.5) gm/dL Hct (39.0-53.0) % MCV (80.0-100.0) fL MCH (25.0-35.0) pg MCHC (31.0-37.0) g/dL RDW (11.5-15.5) % Plt Count (150-450) k/uL Neutrophils % % Lymphocytes % % Monocytes % % Eosinophils % % Basophils % % Neutrophils # (1.3-7.7) k/uL Lymphocytes # (1.0-4.8) k/uL Monocytes # (0-1.0) k/uL Eosinophils # (0-0.7) k/uL Basophils # (0-0.2) k/uL Anisocytosis Macrocytosis PT (9.0-12.0) sec INR (<1.2) APTT (22.0-30.0) sec Sodium (137-145) mmol/L Potassium (3.5-5.1) mmol/L Chloride (98-107) mmol/L Carbon Dioxide (22-30) mmol/L Anion Gap mmol/L BUN (9-20) mg/dL Creatinine (0.66-1.25) mg/dL Est GFR (CKD-EPI)AfAm (>60 ml/min/1.73 sqM) Est GFR (CKD-EPI)NonAf (>60 ml/min/1.73 sqM) Glucose (74-99) mg/dL POC Glucose (mg/dL) 135 H (75-99) mg/dL POC Glu [employer] Evelin Garcia Lactic Ac Sepsis Rflx Plasma Lactic Acid Mani (0.7-2.0) mmol/L Calcium (8.4-10.2) mg/dL Magnesium (1.6-2.3) mg/dL Total Bilirubin (0.2-1.3) mg/dL AST (17-59) U/L ALT (21-72) U/L Alkaline Phosphatase (38-126) U/L Ammonia (<30) umol/L Total Creatine Kinase (55-170) U/L CK-MB (CK-2) (0.0-2.4) ng/mL CK-MB (CK-2) Rel Index Troponin I (0.000-0.034) ng/mL Total Protein (6.3-8.2) g/dL Albumin (3.5-5.0) g/dL Amylase (30-110) U/L Lipase (23-300) U/L Urine Color Urine Appearance (Clear) Urine pH (5.0-8.0) Ur Specific [place] (1.001-1.035) Urine Protein (Negative) Urine Glucose (UA) (Negative) Urine Ketones (Negative) Urine Blood (Negative) Urine Nitrite (Negative) Urine Bilirubin (Negative) Urine Urobilinogen (<2.0) mg/dL Ur Leukocyte Esterase (Negative) Urine RBC (0-5) /hpf Urine WBC (0-5) /hpf Urine Mucus (None) /hpf Serum Alcohol mg/dL - Radiology Data Radiology results: report reviewed (I did review the imaging and report no acute findings), image reviewed Disposition Clinical Impression: Failure to thrive, Alcohol abuse, Dehydration, Rhabdomyolysis, Elevated troponin Disposition: ADMITTED IP TO THIS [facility] Condition: Stable
[2018-07-22] MEDS ORDERED: LORazepam 2 MG/ML INJ IV PRN (06:46)
[2018-07-22] MEDS ORDERED: ONDANSETRON 4 MG/2 ML VIAL IVP PRN (06:46)
[2018-07-22] MEDS: SODIUM CHLORIDE 0.9% 1,000 ML IV SCH ×3 (06:51→20:07)
[2018-07-22] MEDS ORDERED: KETOROLAC 30 MG/ML 1 ML VIAL IVP PRN (10:49)
[2018-07-22] MEDS ORDERED: PANTOPRAZOLE 40 MG/10 ML VIAL IVP SCH (11:00)
--- NOTE | 2018-07-22 11:24 | P.HPIM ---
History of Present Illness 73-year-old male lives by himself on for 2 days patient was able to give a good history patient was drinking quite a bit of alcohol and he says he was too drunk and fell on the floor was found by the son patient lives by himself. Patient is but by his lives in a different home. Patient is alert oriented 3 patient has multiple hospitalizations in the past for the same thing patient has elevated lactic acidosis secondary to severe dehydration which improved with IV fluids patient is presently on IV fluids patient denied any chest pain and no new EKG changes but patient has minimally elevated troponin secondary to intravascular depletion and acute renal failure although his creatinine is 0.9 his normal creatinine is around 0.4. Patient denied any fever chills patient and dysuria cough. Patient is complaining of severe back pain patient denied any weakness increased weakness loss of bowel or bladder incontinence. I'll obtain a CAT scan of the lumbar spine to evaluate for lumbar spine. Patient had a head computed tomography scan which was negative. Patient had chest x-ray and hip x-ray all of which did not show any fractures. Review of Systems REVIEW OF SYSTEMS: CONSTITUTIONAL: No fever, no malaise, no fatigue. HEENT: No recent visual problems or hearing problems. Denied any sore throat. CARDIOVASCULAR: No chest pain, orthopnea, PND, no palpitations, no syncope. PULMONARY: No shortness of breath, no cough, no hemoptysis. GASTROINTESTINAL: No diarrhea, no nausea, no vomiting, no abdominal pain. NEUROLOGICAL: No headaches, no weakness, no numbness. HEMATOLOGICAL: Denies any bleeding or petechiae. GENITOURINARY: Denies any burning micturition, frequency, or urgency. MUSCULOSKELETAL/RHEUMATOLOGICAL: as mentioned in HPI ENDOCRINE: Denies any polyuria or polydipsia. The rest of the 14-point review of systems is negative. 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 Last Myocardial Infarction Date:: 2001 History of Any Multi-Drug Resistant Organisms: None Reported Past Surgical History: Adenoidectomy, Heart Catheterization With Stent, Tonsillectomy Additional Past Surgical History / Comment(s): 2 HEART CATHS-7 STENTS, AAA REPAIR, URSULA CATARACTS. Past Anesthesia/Blood Transfusion Reactions: No Reported Reaction Date of Last Stent Placement:: UNK Smoking Status: Current every day smoker - Past Family History Mother Additional Family Medical History / Comment(s): ETOH Father Additional Family Medical History / Comment(s): FROM AAA AT AGE 62 Medications and Allergies Home Medications Medication Instructions Recorded Confirmed Type Clopidogrel Bisulfate [Plavix] 75 mg PO DAILY 08/29/16 05/20/18 History Metoprolol Tartrate [Lopressor] 50 mg PO DAILY 02/14/17 05/20/18 History Ergocalciferol (Vitamin D2) 50,000 unit PO FR 11/22/17 05/20/18 History [Vitamin D2] FLUoxetine HCL [PROzac] 20 mg PO DAILY 02/26/18 05/20/18 History Cholestyramine (with Sugar) 4 gm PO BID@1000,1800 #60 packet 05/22/18 Rx [Questran Packet] Dicyclomine [Bentyl] 10 mg PO QID PRN #40 cap 05/22/18 Rx Pantoprazole [Protonix] 40 mg PO DAILY #30 tablet. 05/22/18 Rx Ibuprofen 800 mg PO Q6HR PRN #20 tablet 07/14/18 Rx Allergies Allergy/AdvReac Type Severity Reaction Status Date / Time egg Allergy Anaphylaxis Verified 07/22/18 11:16 Penicillins Allergy Unknown Verified 07/22/18 11:16 Childhood Physical Exam Vitals: Vital Signs Temp Pulse Pulse Resp BP BP Pulse Ox 07/22/18 08:50 98.4 F 82 18 153/80 07/22/18 06:00 98 30 H 158/83 07/22/18 05:39 98.2 F 110 H 18 152/77 93 L 07/22/18 05:00 92 29 H 146/74 07/22/18 04:49 98.2 F 111 H 18 152/77 93 L 07/21/18 23:00 117 H 28 H 181/88 07/21/18 22:26 105 H 18 171/91 97 07/21/18 22:00 171/88 07/21/18 21:00 106 H 29 H 178/90 95 07/21/18 20:33 95 07/21/18 20:08 98.9 F 117 H 18 178/98 95 Intake and Output 07/21/18 07/22/18 07/22/18 22:59 06:59 14:59 Intake Total 900 Balance 900 Intake: IV 900 Sodium Chloride 0.9% 1, 300 000 ml @ 100 mls/hr IV . Q10H7M ONE with Mvi, Adult No.4 with Vit K 10 ml with Thiamine 100 mg with Folic Acid 1 mg Rx#: [id number] Sodium Chloride 0.9% 1, 600 000 ml @ 150 mls/hr IV . Q6H40M STA Rx#:[id number] Other: Voiding Method Diaper Incontinent Weight 58.967 kg 58.967 kg PHYSICAL EXAMINATION: GENERAL: The patient is alert and oriented x3, not in any acute distress. patient is disheveled HEENT: Pupils are round and equally reacting to light. EOMI. No scleral icterus. No conjunctival pallor. Normocephalic, atraumatic. No pharyngeal erythema. No thyromegaly. CARDIOVASCULAR: S1 and S2 present. No murmurs, rubs, or gallops. PULMONARY: Chest is clear to auscultation, no wheezing or crackles. ABDOMEN: Soft, nontender, nondistended, normoactive bowel sounds. No palpable organomegaly. MUSCULOSKELETAL: No joint swelling or deformity. EXTREMITIES: No cyanosis, clubbing, or pedal edema. NEUROLOGICAL: Gross neurological examination did not reveal any focal deficits. SKIN: No rashes. Results CBC & Chem 7: 07/21/18 20:47 07/21/18 20:47 Labs: Abnormal Lab Results - Last 24 Hours (Table) 07/21/18 07/21/18 07/21/18 Range/Units 20:47 20:47 20:47 RBC 3.73 L (4.30-5.90) m/uL Hgb 12.4 L (13.0-17.5) gm/dL Hct 37.4 L (39.0-53.0) % MCV 100.3 H (80.0-100.0) fL RDW 19.2 H (11.5-15.5) % Lymphocytes # 0.4 L (1.0-4.8) k/uL Chloride 108 H (98-107) mmol/L BUN 36 H (9-20) mg/dL Glucose 163 H (74-99) mg/dL Plasma Lactic Acid Mani (0.7-2.0) mmol/L AST 101 H (17-59) U/L Total Creatine Kinase 867 H (55-170) U/L CK-MB (CK-2) 4.9 H (0.0-2.4) ng/mL Troponin I 0.057 H* (0.000-0.034) ng/mL Total Protein 6.0 L (6.3-8.2) g/dL Albumin 3.4 L (3.5-5.0) g/dL Amylase 112 H (30-110) U/L Urine Protein (Negative) Urine Ketones (Negative) Urine Blood (Negative) Urine RBC (0-5) /hpf Urine Mucus (None) /hpf 07/21/18 07/21/18 Range/Units 20:47 22:25 RBC (4.30-5.90) m/uL Hgb (13.0-17.5) gm/dL Hct (39.0-53.0) % MCV (80.0-100.0) fL RDW (11.5-15.5) % Lymphocytes # (1.0-4.8) k/uL Chloride (98-107) mmol/L BUN (9-20) mg/dL Glucose (74-99) mg/dL Plasma Lactic Acid Mani 6.1 H* (0.7-2.0) mmol/L AST (17-59) U/L Total Creatine Kinase (55-170) U/L CK-MB (CK-2) (0.0-2.4) ng/mL Troponin I (0.000-0.034) ng/mL Total Protein (6.3-8.2) g/dL Albumin (3.5-5.0) g/dL Amylase (30-110) U/L Urine Protein 3+ H (Negative) Urine Ketones 1+ H (Negative) Urine Blood Moderate H (Negative) Urine RBC 7 H (0-5) /hpf Urine Mucus Rare H (None) /hpf Thrombosis Risk Factor Assmnt - Choose All That Apply Any of the Below Risk Factors Present?: Yes Each Factor Represents 1 point: Acute [place] Other Risk Factors: Yes Each Risk Factor Represents 2 Points: Age 61-74 years Other congenital or acquired thrombophilia - If yes, enter type in comment: No Thrombosis Risk Factor Assessment Total Risk Factor Score: 3 Thrombosis Risk Factor Assessment Level: Moderate Risk Assessment and Plan Plan: -lactic acidosis secondary to severe intravascular depletion any with IV fluids at 1 50 mL per hour patient received boluses of IV fluids with improvement to lactic acid -Alcohol abuse and alcohol intoxication and fall secondary to that IV fluids as mentioned above -Alcohol withdrawal: Patient will be started on Ativan and will be on CIWA protocol -Mildly elevated troponin secondary to renal failure..the patient 2 more troponins patient doesn't have any chest painand indicates changes -Acute renal failure secondary to severe dehydration. Mildly elevated CK secondary to fall -tachycardia secondary to intravascular volume depletion improved with IV fluids -at 11 anemia -COPD without any acute exacerbation Have been benign prostatic hypertrophic -Coronary artery disease. For above-mentioned chronic medical problems patient will be resumed and continued on home medications will obtain PT and OT consultation. social work Consultation
--- NOTE | 2018-07-22 12:39 | CT ---
EXAMINATION TYPE: CT lumbar spine w con DATE OF EXAM: 07/22/2018 COMPARISON: CT abdomen and pelvis from May 20, 2018 HISTORY: Low back pain CT DLP: 606.7 mGycm Automated exposure control for dose reduction was used. CONTRAST: CT scan of the lumbar is performed with IV Contrast, patient injected with 100 mL of Isovue 300. Enhanced CT of the lumbar spine was performed. Bone and soft tissue window settings are submitted as well as coronal and sagittal reconstructions. There are 5 lumbar-type vertebra redemonstrated. Osseous structures are demineralized. There is persi stent moderate compression fracture at L5 level. There is stable slight retropulsion of posterior sup erior aspect L5 vertebra into the anterior spinal canal on sagittal image 32 unchanged from prior. No acute fracture or dislocation is seen. There is mild height loss superior T12 endplate left aspect r edemonstrated there is moderate multilevel lateral spurring throughout the thoracolumbar spine. No ne w prominent disc herniations are identified. Review of axial images shows mild facet degenerative changes L2-L3 level effacing posterior lateral t hecal sac on axial image 39. Axial images at L3-L4 level show moderate facet degenerative changes bilaterally on axial image 50. T here is mild broad disc bulge mildly effacing anterior thecal sac. Bilateral neural foramina remain p atent. Axial images at L4-L5 level show advanced facet degenerative changes bilaterally along with central d isc protrusion. There is effacement of the anterior and posterior lateral thecal sac on axial image 6 0. There is mild to moderate bilateral anterior inferior neural foraminal narrowing. Axial images at the L5-S1 level show moderate to advanced facet degenerative changes bilaterally. Spi nal canal is preserved. Bilateral neural foramina are patent. There is patent aortobiiliac stent graft redemonstrated. There is redemonstration of numerous bilater al renal calculi and scattered thin-walled presumed simple cysts throughout both kidneys. Visualized liver remains heterogeneously hypodense consistent with diffuse fatty infiltration. Diverticula in th e left hand sigmoid colon are also redemonstrated. No suspicious enhancement is present. IMPRESSION: No acute fracture or dislocation. Stable moderate compression fracture L5 level. Stable m ultilevel degenerative changes as detailed above.
[2018-07-22] MEDS: INSULIN ASPART 100 UNIT/ML 1 ML 10 ML VIAL SQ SCH ×3 (12:45→21:41)
[2018-07-22] MEDS: MULTIVITAMINS, THERA 1 EACH TAB PO SCH (12:50)
[2018-07-22 21:33] LABS: Glucose,Whole Blood 114 mg/dL (75-99)
[2018-07-23] MEDS: SODIUM CHLORIDE 0.9% 1,000 ML IV SCH ×3 (00:45→17:27)
[2018-07-23 06:13] LABS: Glucose,Whole Blood 109 mg/dL (75-99)
[2018-07-23] MEDS: INSULIN ASPART 100 UNIT/ML 1 ML 10 ML VIAL SQ SCH ×4 (06:17→21:11)
[2018-07-23] MEDS: PANTOPRAZOLE 40 MG TABLET PO SCH (06:19)
[2018-07-23] MEDS: MULTIVITAMINS, THERA 1 EACH TAB PO SCH (09:48)
[2018-07-23] MEDS ORDERED: LORazepam 2 MG/ML INJ IV PRN ×3 (11:55)
[2018-07-23] MEDS ORDERED: THIAMINE 100 MG/ML 2 ML VIAL IM STA (11:55)
[2018-07-23 12:02] LABS: Glucose,Whole Blood 135 mg/dL (75-99)
[2018-07-23] MEDS: THIAMINE 100 MG TAB PO SCH (12:18)
--- NOTE | 2018-07-23 14:47 | P.PN ---
Subjective 73-year-old male was admitted after he was found on the floor after excess alcohol drinking patient last drink was a were 3 days ago I do not expect any withdrawals patient is comparing of right hip pain as well as back pain I obtain a CAT scan of the back which showed lumbar spine compression fracture, will use brace for this and I will also ago. For orthopedic surgery. Patient looks much better today. Patient probably can be discharged today or tomorrow to subacute rehabilitation patient will be started on nonsteroidal anti- inflammatory is for his back pain. Constitutional: Denied any fatigue denied any fever. Cardio vascular: denied any chest pain, palpitations Gastrointestinal denied any nausea vomiting Pulmonary: Denied any shortness of breath cough Neurologic denied any new focal deficits All inpatient medications were reviewed and appropriate changes in these medications as dictated in the interval history and assessment and plan. Objective - Vital Signs Vital signs: Vital Signs Temp 97.7 F 07/23/18 09:43 Pulse 85 07/23/18 09:43 Resp 18 07/23/18 09:43 BP 136/72 07/23/18 09:43 Pulse Ox 95 07/23/18 09:43 Intake & Output 07/22/18 07/23/18 07/23/18 18:59 06:59 18:59 Intake Total 120 3600 240 Balance 120 3600 240 Weight 61.5 kg Intake: IV 3600 Sodium Chloride 0.9% 1, 3600 000 ml @ 150 mls/hr IV . Q6H40M [facility] Rx#:[id number] Oral 120 240 Other: Voiding Method Diaper Diaper Diaper Incontinent Incontinent Incontinent # Voids 2 - Exam PHYSICAL EXAMINATION: GENERAL: The patient is alert and oriented x3, not in any acute distress. Well developed, well nourished. HEENT: Pupils are round and equally reacting to light. EOMI. No scleral icterus. No conjunctival pallor. Normocephalic, atraumatic. No pharyngeal erythema. No thyromegaly. CARDIOVASCULAR: S1 and S2 present. No murmurs, rubs, or gallops. PULMONARY: Chest is clear to auscultation, no wheezing or crackles. ABDOMEN: Soft, nontender, nondistended, normoactive bowel sounds. No palpable organomegaly. MUSCULOSKELETAL: No joint swelling or deformity. EXTREMITIES: No cyanosis, clubbing, or pedal edema. NEUROLOGICAL: Gross neurological examination did not reveal any focal deficits. Does have generalized weakness and not able to do complete neuro exam because of his generalized weakness. SKIN: No rashes. - Labs CBC & Chem 7: 07/21/18 20:47 07/21/18 20:47 Labs: Abnormal Lab Results - Last 24 Hours (Table) 07/22/18 07/23/18 07/23/18 Range/Units 21:31 06:12 11:49 POC Glucose (mg/dL) 114 H 109 H 135 H (75-99) mg/dL Assessment and Plan Plan: -lactic acidosis secondary to severe intravascular depletion any with IV fluids at 1 50 mL per hour patient received boluses of IV fluids with improvement to lactic acid, will cut down the IV fluids to 75 mL/h today -Alcohol abuse and alcohol intoxication and fall secondary to that IV fluids as mentioned above -Alcohol withdrawal: Patient will be started on Ativan and will be on CIWA protocol. I do not expect much of withdrawals since his last alcohol was use was 3 days ago and he only has mild tremor now -Mildly elevated troponin secondary to renal failure.. Repeat troponins are negative. -Acute renal failure secondary to severe dehydration. Improved Mildly elevated CK secondary to fall -tachycardia secondary to intravascular volume depletion improved with IV fluids of improved Chronic Anemia secondary to alcoholism -COPD without any acute exacerbation Have been benign prostatic hypertrophic -Coronary artery disease. -Compression fractures in the lower lumbar spine brace considered to care physical therapy Patient probably can be discharged to subacute rehabilitation tomorrow
[2018-07-23 17:06] LABS: Glucose,Whole Blood 115 mg/dL (75-99)
[2018-07-23] MEDS ORDERED: MAGNESIUM SULFATE-D5W PMX 1 GM in DEXTROSE/WATER 1 100ML.BAG IVPB ONE (21:00)
[2018-07-23 21:01] LABS: Glucose,Whole Blood 156 mg/dL (75-99)
[2018-07-24] MEDS: SODIUM CHLORIDE 0.9% 1,000 ML IV SCH (04:47)
[2018-07-24 07:14] LABS: Glucose,Whole Blood 95 mg/dL (75-99)
[2018-07-24 08:46] LABS: ALT 48 U/L (21-72); AST 66 U/L (17-59); Albumin 2.4 g/dL (3.5-5.0); Alkaline Phosphatase 67 U/L (38-126); Anion Gap 1 mmol/L; Blood Urea Nitrogen 15 mg/dL (9-20); Calcium 7.9 mg/dL (8.4-10.2); Carbon Dioxide 29 mmol/L (22-30); Chloride 111 mmol/L (98-107); Glucose 91 mg/dL (74-99); Magnesium 1.7 mg/dL (1.6-2.3); Potassium 3.8 mmol/L (3.5-5.1); Sodium 141 mmol/L (137-145); Total Bilirubin 0.6 mg/dL (0.2-1.3); Total Protein 4.7 g/dL (6.3-8.2)
[2018-07-24] MEDS: INSULIN ASPART 100 UNIT/ML 1 ML 10 ML VIAL SQ SCH ×3 (09:49→18:26)
[2018-07-24] MEDS: PANTOPRAZOLE 40 MG TABLET PO SCH (09:53)
[2018-07-24] MEDS: CLOPIDOGREL 75 MG TAB PO SCH (09:53)
[2018-07-24] MEDS: FLUoxetine HCL 20 MG CAP PO SCH (10:44)
[2018-07-24 12:04] LABS: Glucose,Whole Blood 157 mg/dL (75-99)
[2018-07-24] MEDS: THIAMINE 100 MG TAB PO SCH ×2 (13:12→18:27)
[2018-07-24] MEDS: MULTIVITAMINS, THERA 1 EACH TAB PO SCH (13:14)
[2018-07-24 14:48] VITALS: BMI 19.4
[2018-07-24 17:23] LABS: Glucose,Whole Blood 128 mg/dL (75-99)
[2018-07-24] MEDS: LEVOFLOXACIN 750 MG TAB PO SCH (18:27)
--- NOTE | 2018-07-24 18:47 | CONS ---
CONSULTATION DATE OF SERVICE: 07/24/2018 REASON FOR CONSULTATION: Multiple wounds. HISTORY OF PRESENT ILLNESS: The patient is a 73-year-old male whose past medical history is significant for alcoholism. Patient was brought into the ER at [facility] on 07/21/2018 by the EMS after the patient had multiple falls. Apparently the patient had been drinking heavily and did not remember how he fell down. The patient was not complaining of any pain to the head or neck; however, he did have some pain to the right hip area. The patient had an extensive radiological workup in the ER by the ER physician, including x-rays of the hip and pelvic area which did not show any fracture. The patient also had a lumbosacral spine CT which did show some degenerative changes and a moderate compression fracture at L5, which was stable; no acute compression. The patient did have a chest x-ray with increasing left lower lobe infiltrate. I was asked to see the patient today for evaluation of multiple wounds that he has on his body. The patient has as well for trauma, fall and laceration. The patient denies any pain to the wound on his right thigh, right hand area. The patient denies having any chest pain or shortness of breath. He did have some cough, minimal sputum. No hemoptysis. No nausea, vomiting, abdominal pain, no diarrhea. REVIEW OF SYSTEMS: Positive points have been mentioned in the HPI. The rest of the systems has been negative. PAST MEDICAL HISTORY: 1. Asthma. 2. COPD. 3. Hyperlipidemia. 4. Hypertension. 5. SD. 6. Pneumonia. 7. Prostate disorder. 8. Rheumatoid arthritis. PAST SURGICAL HISTORY: 1. PTCA and stents x7. 2. Tonsillectomy. 3. Abdominal aortic aneurysm repair. 4. Adenoidectomy. 5. Bilateral cataract surgery. SOCIAL HISTORY: Current everyday smoker. Heavy alcohol abuse. Occasional marijuana use. FAMILY HISTORY: Mother with history of ETOH. Father at age 82 from abdominal aortic aneurysm rupture. ALLERGIES: PENICILLIN with rash. No history of anaphylaxis. CURRENT MEDICATIONS: Include: 1. Plavix. 2. Prozac. 3. NovoLog. 4. Toradol. 5. Ativan. 6. Theragran. 7. Zofran. 8. Protonix. PHYSICAL EXAMINATION: Blood pressure is 132/74, pulse of 50, temperature 98.9. He is 98% on room air. General description is an elderly male lying in bed in no distress. No tachypnea or accessory muscle of respiration use. HEENT examination shows no pallor or scleral icterus. Oral mucosa membrane is dry. No pharyngeal erythema or thrush. NECK: Trachea is central. No thyromegaly. LUNGS: Unlabored breathing. Some coarse breath sounds in the bases. No wheeze. HEART: S1, S2. Regular rate and rhythm. ABDOMEN: Soft. No tenderness. EXTREMITIES: No edema of the feet. SKIN EXAMINATION shows a wound to the right lateral thigh which is showing some slough tissue. There is no surrounding redness or any foul-smelling drainage. Neurologically the patient is awake, alert, oriented x2. Mood and affect normal. LABS: Hemoglobin is 12.4, white count 4.0, BUN of 15, creatinine 0.74. Electrolytes have been normal. DIAGNOSTIC IMPRESSION AND PLAN: 1. Patient with a wound to the right thigh, hip and right hand area, mostly with slough tissue. Likely etiology of all the wounds is more likely trauma from laceration and falls. Currently no active cellulitis. 2. Patient who did have a congested cough, bringing up some sputum, with left lower lobe infiltrate. Concern is likely for a community-acquired pneumonia. PLAN: 1. Obtain sputum for Gram stain, culture and sensitivity. 2. Will add Levaquin 750 p.o. daily for about 5 days. 3. Medihoney to the wounds, to be changed daily. Keep the area off pressure. 4. Will follow clinical condition to further adjust medication if needed. Thank you for this consultation. Will follow this patient along with you. MMODL / IJN: [id number] /
[2018-07-24 20:23] LABS: Glucose,Whole Blood 125 mg/dL (75-99)
--- NOTE | 2018-07-24 22:43 | P.PN ---
Subjective Progress Note Date: 07/24/18 Progress note dictated for Dr. Claudio. Interval history:73-year-old male was admitted after he was found on the floor after excess alcohol drinking patient last drink was a were 3 days ago I do not expect any withdrawals patient is comparing of right hip pain as well as back pain I obtain a CAT scan of the back which showed lumbar spine compression fracture, will use brace for this and I will also ago. For orthopedic surgery. Patient looks much better today. Patient probably can be discharged today or tomorrow to subacute rehabilitation patient will be started on nonsteroidal anti -inflammatory is for his back pain. Constitutional: Denied any fatigue denied any fever. Cardio vascular: denied any chest pain, palpitations Gastrointestinal denied any nausea vomiting Pulmonary: Denied any shortness of breath cough Neurologic denied any new focal deficits All inpatient medications were reviewed and appropriate changes in these medications as dictated in the interval history and assessment and plan. 07/24/2018 patient states he has been weak for several weeks, extremely weak unable to stand. Awaiting PT/OT evaluation. Notify manager social media that patient is indeed agreeable to subacute rehab. Multiple pressure ulcers, cultures ordered. Denies pain at ulcers' site. Denies chest pain, palpitations or shortness of breath. Occasional productive cough. Consuming 50%, no nausea, vomiting or diarrhea. Maintained on CIWA protocol, no DTs. Objective - Vital Signs Vital signs: Vital Signs Temp 98.4 F 07/24/18 20:00 Pulse 89 07/24/18 20:00 Resp 16 07/24/18 20:00 BP 154/74 07/24/18 20:00 Pulse Ox 98 07/24/18 20:00 Intake & Output 07/24/18 07/24/18 07/25/18 06:59 18:59 06:59 Intake Total 200 Output Total 850 1250 Balance -650 -1250 Weight 61.5 kg Intake: Oral 200 Output: Urine 850 1250 Condom 850 Other: Voiding Method Diaper Diaper Incontinent Incontinent # Bowel Movements 1 1 - Exam GENERAL: The patient is sitting up in bed, alert and oriented x3, not in any acute distress. HEENT: Pupils are round and equally reacting to light. EOMI. No scleral icterus. No conjunctival pallor. Normocephalic, atraumatic. Oral mucosa moist CARDIOVASCULAR: S1 and S2 present. No murmurs, rubs, or gallops. PULMONARY: Chest is coarse with occasional scattered rhonchi, no wheezing or crackles. ABDOMEN: Soft, nontender, nondistended, normoactive bowel sounds. No palpable organomegaly. MUSCULOSKELETAL: No joint swelling or deformity. EXTREMITIES: No cyanosis, clubbing, or pedal edema. NEUROLOGICAL: Gross neurological examination did not reveal any focal deficits. No DTs. SKIN: Right lateral thigh wound stage II with some sloughing of tissue, minimal drainage-no foul-smell - Labs CBC & Chem 7: 07/21/18 20:47 07/24/18 08:06 Labs: Abnormal Lab Results - Last 24 Hours (Table) 07/24/18 07/24/18 07/24/18 Range/Units 08:06 11:34 17:01 Chloride 111 H (98-107) mmol/L POC Glucose (mg/dL) 157 H 128 H (75-99) mg/dL Calcium 7.9 L (8.4-10.2) mg/dL AST 66 H (17-59) U/L Total Protein 4.7 L (6.3-8.2) g/dL Albumin 2.4 L (3.5-5.0) g/dL 07/24/18 Range/Units 20:11 Chloride (98-107) mmol/L POC Glucose (mg/dL) 125 H (75-99) mg/dL Calcium (8.4-10.2) mg/dL AST (17-59) U/L Total Protein (6.3-8.2) g/dL Albumin (3.5-5.0) g/dL Assessment and Plan Assessment: -lactic acidosis secondary to severe intravascular depletion -Community acquired pneumonia cannot be ruled out -Multiple wounds, right hand, right hip, Stage II right lateral thigh, present on admission. -Alcohol abuse and alcohol intoxication and fall -Mildly elevated troponin secondary to renal failure.. Repeat troponins are negative. -Acute renal failure secondary to severe dehydration. Improved Mildly elevated CK secondary to fall -tachycardia secondary to intravascular volume depletion improved with IV fluids Chronic Anemia secondary to alcoholism -COPD without any acute exacerbation Have been benign prostatic hypertrophic -Coronary artery disease. -Compression fractures in the lower lumbar spine brace Plan: Continue on current medication regime ,monitoring and symptomatic treatment. Antibiotics/wound care as per infectious disease. Sputum/Wound Cultures pending. Close monitoring of renal function and electrolytes with repeat labs ordered for a.m. Discharge planning in progress pending authorization for ECF as per manager social media. The impression and plan of care has been dictated as directed. : I performed a history and examination of this patient, discussed the same with the dictator. I agree with the dictator's note ,documented as a scribe. Any additional findings or plans will be noted.
[2018-07-25] MEDS: INSULIN ASPART 100 UNIT/ML 1 ML 10 ML VIAL SQ SCH ×5 (00:47→23:24)
[2018-07-25 07:02] LABS: Glucose,Whole Blood 99 mg/dL (75-99)
[2018-07-25 08:21] LABS: Anion Gap 1 mmol/L; Blood Urea Nitrogen 15 mg/dL (9-20); Carbon Dioxide 29 mmol/L (22-30); Chloride 107 mmol/L (98-107); Glucose 89 mg/dL (74-99); Potassium 3.8 mmol/L (3.5-5.1); Sodium 137 mmol/L (137-145)
[2018-07-25 08:29] LABS: Anisocytosis Slight; Basophils % (A) 0 %; Eosinophils # (A) 0.4 k/uL (0-0.7); Eosinophils % (A) 11 %; HCT 29.4 % (39.0-53.0); Lymphocytes # (A) 0.6 k/uL (1.0-4.8); Lymphocytes % (A) 14 %; MCH 33.2 pg (25.0-35.0); MCHC 32.5 g/dL (31.0-37.0); MCV 102.2 fL (80.0-100.0); Macrocytosis Moderate; Mean Platelet Volume 6.8; Monocytes # (A) 0.2 k/uL (0-1.0); Monocytes % (A) 6 %; Neutrophils # (A) 2.7 k/uL (1.3-7.7); Neutrophils % (A) 67 %; Platelet Count 137 k/uL (150-450); RBC 2.88 m/uL (4.30-5.90); RDW 18.6 % (11.5-15.5); WBC 4.1 k/uL (3.8-10.6)
[2018-07-25 08:30] LABS: HGB 9.6 gm/dL (13.0-17.5)
[2018-07-25] MEDS: FLUoxetine HCL 20 MG CAP PO SCH (08:53)
[2018-07-25] MEDS: CLOPIDOGREL 75 MG TAB PO SCH (08:53)
[2018-07-25] MEDS: PANTOPRAZOLE 40 MG TABLET PO SCH (08:54)
[2018-07-25] MEDS: LEVOFLOXACIN 750 MG TAB PO SCH (08:54)
[2018-07-25] MEDS: SODIUM CHLORIDE 0.9% 1,000 ML IV SCH ×3 (08:54→23:25)
[2018-07-25 12:02] LABS: Glucose,Whole Blood 124 mg/dL (75-99)
[2018-07-25] MEDS: THIAMINE 100 MG TAB PO SCH ×2 (12:27→16:38)
[2018-07-25] MEDS: MULTIVITAMINS, THERA 1 EACH TAB PO SCH (12:27)
--- NOTE | 2018-07-25 13:37 | P.PN ---
Subjective 73-year-old male was admitted after he was found on the floor after excess alcohol drinking patient last drink was a were 3 days ago I do not expect any withdrawals patient is comparing of right hip pain as well as back pain I obtain a CAT scan of the back which showed lumbar spine compression fracture, will use brace for this and I will also ago. For orthopedic surgery. Patient looks much better today. Patient probably can be discharged today or tomorrow to subacute rehabilitation patient will be started on nonsteroidal anti- inflammatory is for his back pain. 07/24/2018 patient states he has been weak for several weeks, extremely weak unable to stand. Awaiting PT/OT evaluation. Notify social welfare administrator that patient is indeed agreeable to subacute rehab. Multiple pressure ulcers, cultures ordered. Denies pain at ulcers' site. Denies chest pain, palpitations or shortness of breath. Occasional productive cough. Consuming 50%, no nausea, vomiting or diarrhea. Maintained on CIWA protocol, no DTs. 07/25/2018 Patient was a evaluated by infectious disease and they're recommending levofloxacin because of his congested cough and suspicious effusion or the infiltrate in the left lower lobes although concern for pneumonia is low. need prior authorization to go to subacute rehab may happen on Friday. Patient does have decubitus ulcer 1 sacral and one in the right hip area none of which appear to be infected at this time. patient is bit depressed. Constitutional: Denied any fatigue denied any fever. Cardio vascular: denied any chest pain, palpitations Gastrointestinal denied any nausea vomiting Pulmonary: Denied any shortness of breath cough Neurologic denied any new focal deficits All inpatient medications were reviewed and appropriate changes in these medications as dictated in the interval history and assessment and plan. Objective - Vital Signs Vital signs: Vital Signs Temp 98.5 F 07/25/18 07:43 Pulse 89 07/25/18 07:43 Resp 16 07/25/18 07:43 BP 172/78 07/25/18 07:43 Pulse Ox 93 L 07/25/18 07:43 Intake & Output 07/24/18 07/25/18 07/25/18 18:59 06:59 18:59 Intake Total 2050 Output Total 1250 1550 Balance -1250 500 Weight 61.5 kg Intake: Intake, IV Titration 1200 Amount Sodium Chloride 0.9% 1, 1200 000 ml @ 75 mls/hr IV . [id number] [facility] Rx#:[id number] Oral 850 Output: Urine 1250 1550 Condom 850 Other: Voiding Method Diaper Diaper Incontinent Incontinent # Voids 1,600 # Bowel Movements 1 - Exam PHYSICAL EXAMINATION: GENERAL: The patient is alert and oriented x3, not in any acute distress. Well developed, well nourished. HEENT: Pupils are round and equally reacting to light. EOMI. No scleral icterus. No conjunctival pallor. Normocephalic, atraumatic. No pharyngeal erythema. No thyromegaly. CARDIOVASCULAR: S1 and S2 present. No murmurs, rubs, or gallops. PULMONARY: Chest is clear to auscultation, no wheezing or crackles. ABDOMEN: Soft, nontender, nondistended, normoactive bowel sounds. No palpable organomegaly. MUSCULOSKELETAL: No joint swelling or deformity. EXTREMITIES: No cyanosis, clubbing, or pedal edema. NEUROLOGICAL: Gross neurological examination did not reveal any focal deficits. Does have generalized weakness and not able to do complete neuro exam because of his generalized weakness. SKIN: Decubitus ulcers as mentioned above - Labs CBC & Chem 7: 07/25/18 07:17 07/25/18 07:17 Labs: Abnormal Lab Results - Last 24 Hours (Table) 07/24/18 07/24/18 07/25/18 Range/Units 17:01 20:11 07:17 RBC 2.88 L (4.30-5.90) m/uL Hgb 9.6 L D (13.0-17.5) gm/dL Hct 29.4 L (39.0-53.0) % MCV 102.2 H (80.0-100.0) fL RDW 18.6 H (11.5-15.5) % Plt Count 137 L (150-450) k/uL Lymphocytes # 0.6 L (1.0-4.8) k/uL POC Glucose (mg/dL) 128 H 125 H (75-99) mg/dL Calcium (8.4-10.2) mg/dL 07/25/18 07/25/18 Range/Units 07:17 11:50 RBC (4.30-5.90) m/uL Hgb (13.0-17.5) gm/dL Hct (39.0-53.0) % MCV (80.0-100.0) fL RDW (11.5-15.5) % Plt Count (150-450) k/uL Lymphocytes # (1.0-4.8) k/uL POC Glucose (mg/dL) 124 H (75-99) mg/dL Calcium 8.0 L (8.4-10.2) mg/dL Assessment and Plan Plan: -lactic acidosis secondary to severe intravascular depletion patient is able to drink water intravascular volume depletion improved dehydration improved IV fluids can be discontinued -Alcohol abuse and alcohol intoxication and fall secondary to that -Atelectasis and low possibility of the committee acquired pneumonia because of which patient was started on levofloxacin -Decubitus ulcers: Local wound care -Alcohol withdrawal: No withdrawal at this time -Mildly elevated troponin secondary to renal failure.. Repeat troponins are negative. -Acute renal failure secondary to severe dehydration. Improved -tachycardia secondary to intravascular volume depletion resolved Chronic Anemia secondary to alcoholism -COPD without any acute exacerbation benign prostatic hypertrophic -Coronary artery disease. -Compression fractures in the lower lumbar spine brace considered to care physical therapy
[2018-07-25] MEDS: HEPARIN SODIUM,PORCINE 5,000 UNIT/ML 1 ML VIAL SQ SCH ×2 (16:38→23:24)
[2018-07-25 17:16] LABS: Glucose,Whole Blood 102 mg/dL (75-99)
[2018-07-25 20:02] LABS: Glucose,Whole Blood 132 mg/dL (75-99)
[2018-07-26 07:04] LABS: Glucose,Whole Blood 104 mg/dL (75-99)
[2018-07-26 07:47] LABS: Anisocytosis Slight; Basophils % (A) 0 %; Eosinophils # (A) 0.4 k/uL (0-0.7); Eosinophils % (A) 8 %; HGB 9.8 gm/dL (13.0-17.5); Lymphocytes # (A) 0.6 k/uL (1.0-4.8); Lymphocytes % (A) 13 %; MCHC 32.8 g/dL (31.0-37.0); MCV 100.8 fL (80.0-100.0); Macrocytosis Moderate; Mean Platelet Volume 6.9; Monocytes # (A) 0.3 k/uL (0-1.0); Monocytes % (A) 6 %; Neutrophils # (A) 3.2 k/uL (1.3-7.7); Neutrophils % (A) 71 %; Platelet Count 167 k/uL (150-450); RBC 2.98 m/uL (4.30-5.90); RDW 18.6 % (11.5-15.5); WBC 4.5 k/uL (3.8-10.6)
[2018-07-26 08:05] LABS: Anion Gap 2 mmol/L; Blood Urea Nitrogen 14 mg/dL (9-20); Calcium 8.5 mg/dL (8.4-10.2); Carbon Dioxide 31 mmol/L (22-30); Chloride 104 mmol/L (98-107); Glucose 91 mg/dL (74-99); Potassium 3.7 mmol/L (3.5-5.1); Sodium 137 mmol/L (137-145)
[2018-07-26] MEDS: INSULIN ASPART 100 UNIT/ML 1 ML 10 ML VIAL SQ SCH ×4 (08:54→20:14)
[2018-07-26] MEDS: LEVOFLOXACIN 750 MG TAB PO SCH (08:55)
[2018-07-26] MEDS: HEPARIN SODIUM,PORCINE 5,000 UNIT/ML 1 ML VIAL SQ SCH ×2 (08:55→15:59)
[2018-07-26] MEDS: PANTOPRAZOLE 40 MG TABLET PO SCH (08:56)
[2018-07-26] MEDS: CLOPIDOGREL 75 MG TAB PO SCH (08:56)
[2018-07-26] MEDS: FLUoxetine HCL 20 MG CAP PO SCH (08:56)
[2018-07-26 12:20] LABS: Glucose,Whole Blood 161 mg/dL (75-99)
[2018-07-26] MEDS: THIAMINE 100 MG TAB PO SCH ×2 (12:32→15:59)
[2018-07-26] MEDS: MULTIVITAMINS, THERA 1 EACH TAB PO SCH (12:32)
--- NOTE | 2018-07-26 13:37 | P.PN ---
Subjective 73-year-old male was admitted after he was found on the floor after excess alcohol drinking patient last drink was a were 3 days ago I do not expect any withdrawals patient is comparing of right hip pain as well as back pain I obtain a CAT scan of the back which showed lumbar spine compression fracture, will use brace for this and I will also ago. For orthopedic surgery. Patient looks much better today. Patient probably can be discharged today or tomorrow to subacute rehabilitation patient will be started on nonsteroidal anti- inflammatory is for his back pain. 07/24/2018 patient states he has been weak for several weeks, extremely weak unable to stand. Awaiting PT/OT evaluation. Notify social sciences research scientist that patient is indeed agreeable to subacute rehab. Multiple pressure ulcers, cultures ordered. Denies pain at ulcers' site. Denies chest pain, palpitations or shortness of breath. Occasional productive cough. Consuming 50%, no nausea, vomiting or diarrhea. Maintained on CIWA protocol, no DTs. 07/25/2018 Patient was a evaluated by infectious disease and they're recommending levofloxacin because of his congested cough and suspicious effusion or the infiltrate in the left lower lobes although concern for pneumonia is low. need prior authorization to go to subacute rehab may happen on Friday. Patient does have decubitus ulcer 1 sacral and one in the right hip area none of which appear to be infected at this time. patient is bit depressed. 07/26/2018 No overnight events Constitutional: Denied any fatigue denied any fever. Cardio vascular: denied any chest pain, palpitations Gastrointestinal denied any nausea vomiting Pulmonary: Denied any shortness of breath cough Neurologic denied any new focal deficits All inpatient medications were reviewed and appropriate changes in these medications as dictated in the interval history and assessment and plan. Objective - Vital Signs Vital signs: Vital Signs Temp 97.8 F 07/26/18 07:00 Pulse 81 07/26/18 07:00 Resp 16 07/26/18 07:45 BP 175/74 07/26/18 07:00 Pulse Ox 94 L 07/26/18 07:00 Intake & Output 07/25/18 07/26/18 07/26/18 18:59 06:59 18:59 Intake Total 1880 300 Output Total 4500 1 Balance -2620 299 Intake: Intake, IV Titration 1200 300 Amount Sodium Chloride 0.9% 1, 1200 300 000 ml @ 75 mls/hr IV . [id number] [facility] Rx#:[id number] Oral 680 Output: Urine 4500 Stool 1 Other: Voiding Method Diaper Diaper Incontinent # Voids 1,600 2 - Exam PHYSICAL EXAMINATION: GENERAL: The patient is alert and oriented x3, not in any acute distress. Well developed, well nourished. HEENT: Pupils are round and equally reacting to light. EOMI. No scleral icterus. No conjunctival pallor. Normocephalic, atraumatic. No pharyngeal erythema. No thyromegaly. CARDIOVASCULAR: S1 and S2 present. No murmurs, rubs, or gallops. PULMONARY: Chest is clear to auscultation, no wheezing or crackles. ABDOMEN: Soft, nontender, nondistended, normoactive bowel sounds. No palpable organomegaly. MUSCULOSKELETAL: No joint swelling or deformity. EXTREMITIES: No cyanosis, clubbing, or pedal edema. NEUROLOGICAL: Gross neurological examination did not reveal any focal deficits. Does have generalized weakness and not able to do complete neuro exam because of his generalized weakness. SKIN: Decubitus ulcers as mentioned above - Labs CBC & Chem 7: 07/26/18 07:22 07/26/18 07:22 Labs: Abnormal Lab Results - Last 24 Hours (Table) 07/25/18 07/25/18 07/26/18 Range/Units 17:04 19:50 06:52 RBC (4.30-5.90) m/uL Hgb (13.0-17.5) gm/dL Hct (39.0-53.0) % MCV (80.0-100.0) fL RDW (11.5-15.5) % Lymphocytes # (1.0-4.8) k/uL Carbon Dioxide (22-30) mmol/L POC Glucose (mg/dL) 102 H 132 H 104 H (75-99) mg/dL 07/26/18 07/26/18 07/26/18 Range/Units 07:22 07:22 12:08 RBC 2.98 L (4.30-5.90) m/uL Hgb 9.8 L (13.0-17.5) gm/dL Hct 30.0 L (39.0-53.0) % MCV 100.8 H (80.0-100.0) fL RDW 18.6 H (11.5-15.5) % Lymphocytes # 0.6 L (1.0-4.8) k/uL Carbon Dioxide 31 H (22-30) mmol/L POC Glucose (mg/dL) 161 H (75-99) mg/dL Assessment and Plan Plan: -lactic acidosis secondary to severe intravascular depletion patient is able to drink water intravascular volume depletion improved dehydration improved IV fluids can be discontinued -Alcohol abuse and alcohol intoxication and fall secondary to that -Atelectasis and low possibility of the committee acquired pneumonia because of which patient was started on levofloxacin -Decubitus ulcers: Local wound care -Alcohol withdrawal: No withdrawal at this time -Mildly elevated troponin secondary to renal failure.. Repeat troponins are negative. -Acute renal failure secondary to severe dehydration. Improved -tachycardia secondary to intravascular volume depletion resolved Chronic Anemia secondary to alcoholism -COPD without any acute exacerbation benign prostatic hypertrophic -Coronary artery disease. -Compression fractures in the lower lumbar spine brace considered to care physical therapy
[2018-07-26 16:59] LABS: Glucose,Whole Blood 97 mg/dL (75-99)
[2018-07-26 20:02] LABS: Glucose,Whole Blood 169 mg/dL (75-99)
--- NOTE | 2018-07-27 00:37 | PN ---
PROGRESS NOTE DATE OF SERVICE: July 26, 2018 REASON FOR FOLLOW UP: 1. Left lower lobe pneumonia. 2. Right arm and leg wounds. INTERVAL HISTORY: The patient is afebrile. He is breathing comfortably. The patient continues to have some cough and bringing up some sputum. No chest pain. No abdominal pain. No diarrhea. Denies pain into the wound area. PHYSICAL EXAMINATION: Blood pressure 146/66 with a pulse of 82, temperature of 99, he is 94% on room air. General description is an elderly male lying in bed in no distress. Respiratory system: Unlabored breathing with decreased breath sounds in the bases. No wheeze. Heart S1, S2. Regular rate. Abdomen soft. No tenderness. LABS: Hemoglobin 9.1, white count 4.5, BUN 14, creatinine 0.81. DIAGNOSTIC IMPRESSION AND PLAN: 1. Patient with left lower lobe pneumonia, possible community-acquired. Patient clinically responding to the Levaquin to continue for 5-7 day course. 2. Patient with right thigh and leg and hip wound. Local wound care with [facility]. Keep the area off the pressure. MMODL / IJN: [id number] /
[2018-07-27] MEDS: HEPARIN SODIUM,PORCINE 5,000 UNIT/ML 1 ML VIAL SQ SCH ×4 (01:48→23:09)
[2018-07-27 06:34] LABS: Anisocytosis Slight; Basophils % (A) 0 %; Eosinophils # (A) 0.4 k/uL (0-0.7); Eosinophils % (A) 8 %; HCT 29.6 % (39.0-53.0); HGB 9.7 gm/dL (13.0-17.5); Lymphocytes # (A) 0.6 k/uL (1.0-4.8); Lymphocytes % (A) 14 %; MCH 32.9 pg (25.0-35.0); MCHC 32.9 g/dL (31.0-37.0); MCV 99.8 fL (80.0-100.0); Macrocytosis Slight; Mean Platelet Volume 7.3; Monocytes # (A) 0.3 k/uL (0-1.0); Monocytes % (A) 7 %; Neutrophils % (A) 68 %; Platelet Count 202 k/uL (150-450); RBC 2.96 m/uL (4.30-5.90); WBC 4.5 k/uL (3.8-10.6)
[2018-07-27 06:47] LABS: Anion Gap 3 mmol/L; Blood Urea Nitrogen 16 mg/dL (9-20); Calcium 8.7 mg/dL (8.4-10.2); Carbon Dioxide 31 mmol/L (22-30); Chloride 105 mmol/L (98-107); Glucose 89 mg/dL (74-99); Potassium 3.9 mmol/L (3.5-5.1); Sodium 139 mmol/L (137-145)
[2018-07-27 07:24] LABS: Glucose,Whole Blood 110 mg/dL (75-99)
[2018-07-27] MEDS: INSULIN ASPART 100 UNIT/ML 1 ML 10 ML VIAL SQ SCH ×4 (07:25→21:23)
[2018-07-27] MEDS: PANTOPRAZOLE 40 MG TABLET PO SCH (07:29)
[2018-07-27] MEDS: LEVOFLOXACIN 750 MG TAB PO SCH (07:29)
[2018-07-27] MEDS: CLOPIDOGREL 75 MG TAB PO SCH (07:29)
[2018-07-27] MEDS: FLUoxetine HCL 20 MG CAP PO SCH (07:29)
[2018-07-27 11:21] LABS: Glucose,Whole Blood 128 mg/dL (75-99)
[2018-07-27] MEDS: MULTIVITAMINS, THERA 1 EACH TAB PO SCH (11:44)
[2018-07-27] MEDS: THIAMINE 100 MG TAB PO SCH ×2 (11:44→15:53)
[2018-07-27 16:15] LABS: Glucose,Whole Blood 132 mg/dL (75-99)
--- NOTE | 2018-07-27 20:02 | P.PN ---
Subjective Progress Note Date: 07/27/18 Progress note dictated for Dr. Claudio. Interval history:73-year-old male was admitted after he was found on the floor after excess alcohol drinking patient last drink was a were 3 days ago I do not expect any withdrawals patient is comparing of right hip pain as well as back pain I obtain a CAT scan of the back which showed lumbar spine compression fracture, will use brace for this and I will also ago. For orthopedic surgery. Patient looks much better today. Patient probably can be discharged today or tomorrow to subacute rehabilitation patient will be started on nonsteroidal anti -inflammatory is for his back pain. Constitutional: Denied any fatigue denied any fever. Cardio vascular: denied any chest pain, palpitations Gastrointestinal denied any nausea vomiting Pulmonary: Denied any shortness of breath cough Neurologic denied any new focal deficits All inpatient medications were reviewed and appropriate changes in these medications as dictated in the interval history and assessment and plan. 07/24/2018 patient states he has been weak for several weeks, extremely weak unable to stand. Awaiting PT/OT evaluation. Notify neonatal social worker that patient is indeed agreeable to subacute rehab. Multiple pressure ulcers, cultures ordered. Denies pain at ulcers' site. Denies chest pain, palpitations or shortness of breath. Occasional productive cough. Consuming 50%, no nausea, vomiting or diarrhea. Maintained on CIWA protocol, no DTs. 07/25/2018 Patient was a evaluated by infectious disease and they're recommending levofloxacin because of his congested cough and suspicious effusion or the infiltrate in the left lower lobes although concern for pneumonia is low. need prior authorization to go to subacute rehab may happen on Friday. Patient does have decubitus ulcer 1 sacral and one in the right hip area none of which appear to be infected at this time. patient is bit depressed. 07/26/2018 No overnight events 07/27/2018 maintained on IV antibiotics and wound care as per infectious disease. up in chair this morning.Afebrile, T-max 99, normal WBC. Consuming 75- 100% of diet with no nausea vomiting or diarrhea. Blood sugars controlled. Mild congestion, occasional productive cough. Denies wound/ulcer pain. Constitutional: Denied any fatigue denied any fever. Cardio vascular: denied any chest pain, palpitations Gastrointestinal denied any nausea vomiting Pulmonary: Denied any shortness of breath cough Neurologic denied any new focal deficits All inpatient medications were reviewed. Objective - Vital Signs Vital signs: Vital Signs Temp 98.4 F 07/27/18 14:45 Pulse 77 07/27/18 14:45 Resp 17 07/27/18 14:45 BP 127/63 07/27/18 14:45 Pulse Ox 95 07/27/18 14:45 Intake & Output 07/27/18 07/27/18 07/28/18 06:59 18:59 06:59 Output Total 1 Balance -1 Output: Stool 1 Other: Voiding Method Diaper Diaper # Voids 1 1 - Exam GENERAL: The patient is sitting up in bed, alert and oriented x3, not in any acute distress. HEENT: Pupils are round and equally reacting to light. EOMI. No scleral icterus. No conjunctival pallor. Normocephalic, atraumatic. Oral mucosa moist CARDIOVASCULAR: S1 and S2 present. No murmurs, rubs, or gallops. PULMONARY: Chest is coarse with occasional scattered rhonchi, no wheezing or crackles. ABDOMEN: Soft, nontender, nondistended, normoactive bowel sounds. No palpable organomegaly. EXTREMITIES: No cyanosis, clubbing, or pedal edema. NEUROLOGICAL: Gross neurological examination did not reveal any focal deficits. No DTs. SKIN: Right lateral thigh wound stage II with some sloughing of tissue, minimal drainage-no foul-smell, right hand dressing clean dry and intact. - Labs CBC & Chem 7: 07/27/18 05:55 07/27/18 05:55 Labs: Abnormal Lab Results - Last 24 Hours (Table) 07/26/18 07/27/18 07/27/18 Range/Units 19:50 05:55 05:55 RBC 2.96 L (4.30-5.90) m/uL Hgb 9.7 L (13.0-17.5) gm/dL Hct 29.6 L (39.0-53.0) % RDW 18.0 H (11.5-15.5) % Lymphocytes # 0.6 L (1.0-4.8) k/uL Carbon Dioxide 31 H (22-30) mmol/L POC Glucose (mg/dL) 169 H (75-99) mg/dL 07/27/18 07/27/18 07/27/18 Range/Units 07:11 11:14 16:13 RBC (4.30-5.90) m/uL Hgb (13.0-17.5) gm/dL Hct (39.0-53.0) % RDW (11.5-15.5) % Lymphocytes # (1.0-4.8) k/uL Carbon Dioxide (22-30) mmol/L POC Glucose (mg/dL) 110 H 128 H 132 H (75-99) mg/dL Assessment and Plan Assessment: -lactic acidosis secondary to severe intravascular depletion -Community acquired pneumonia cannot be ruled out -Multiple wounds, right hand, right hip, Stage II right lateral thigh, present on admission. -Alcohol abuse and alcohol intoxication and fall -Mildly elevated troponin secondary to renal failure.. Repeat troponins are negative. -Acute renal failure secondary to severe dehydration. Improved Mildly elevated CK secondary to fall -tachycardia secondary to intravascular volume depletion improved with IV fluids Chronic Anemia secondary to alcoholism -COPD without any acute exacerbation -benign prostatic hypertrophy -Coronary artery disease. -Compression fractures in the lower lumbar spine brace Plan: Continue on current medication regime ,monitoring and symptomatic treatment. Antibiotics/wound care as per infectious disease. Close monitoring of renal function and electrolytes with repeat labs ordered for a.m. Discharge planning in progress to modified subacute rehab. pending authorization. The impression and plan of care has been dictated as directed. : I performed a history and examination of this patient, discussed the same with the dictator. I agree with the dictator's note ,documented as a scribe. Any additional findings or plans will be noted.
[2018-07-27 21:15] LABS: Glucose,Whole Blood 122 mg/dL (75-99)
--- NOTE | 2018-07-27 21:29 | PN ---
PROGRESS NOTE DATE OF SERVICE: 07/27/2018. REASON FOR FOLLOWUP: 1. Left lower lobe pneumonia, community acquired. 2. Right leg, thigh and right hand wound. INTERVAL HISTORY: The patient is currently afebrile. He has been breathing comfortably. Cough has decreased in intensity. No chest pain. No abdominal pain or any worsening pain to the wound area. PHYSICAL EXAMINATION: Blood pressure 127/63 with a pulse of 77, temperature 98.4. He is 95% on room air. General description is an elderly male lying in bed in no distress. Respiratory system: Unlabored breathing with decreased breath sounds at the bases. No wheeze. Heart S1, S2. Regular rate and rhythm. Abdomen soft, no tenderness. Right leg and hip wound with minimal soft tissue, no surrounding redness. No drainage. LABS: Hemoglobin 9.7, white count 4.5. BUN of 16, creatinine 0.94. DIAGNOSTIC IMPRESSION AND PLAN: 1. Patient with left lower lobe pneumonia likely community acquired. The patient is currently covered with Levaquin to finish a 5 to 7 day course of therapy. 2. Right leg, hip and hand wound. Local care with [facility]. Keep the area off the pressure. 3. Continue supportive care. MMODL / IJN: [id number] /
[2018-07-28 07:01] LABS: Glucose,Whole Blood 95 mg/dL (75-99)
[2018-07-28] MEDS: INSULIN ASPART 100 UNIT/ML 1 ML 10 ML VIAL SQ SCH ×2 (07:10→12:05)
[2018-07-28 07:14] VITALS: BP 154/77; PULSE 78; RESP 12; TEMP 98
[2018-07-28 07:23] LABS: Anisocytosis Slight; Basophils % (A) 1 %; Eosinophils # (A) 0.4 k/uL (0-0.7); Eosinophils % (A) 9 %; HCT 30.2 % (39.0-53.0); HGB 10.2 gm/dL (13.0-17.5); Lymphocytes # (A) 0.6 k/uL (1.0-4.8); Lymphocytes % (A) 16 %; MCH 33.7 pg (25.0-35.0); MCHC 33.8 g/dL (31.0-37.0); MCV 99.6 fL (80.0-100.0); Macrocytosis Slight; Mean Platelet Volume 7.2; Monocytes # (A) 0.4 k/uL (0-1.0); Monocytes % (A) 9 %; Neutrophils # (A) 2.4 k/uL (1.3-7.7); Neutrophils % (A) 61 %; Platelet Count 257 k/uL (150-450); RBC 3.03 m/uL (4.30-5.90); RDW 17.9 % (11.5-15.5); WBC 3.9 k/uL (3.8-10.6)
[2018-07-28 07:47] LABS: Calcium 8.8 mg/dL (8.4-10.2); Potassium 4.1 mmol/L (3.5-5.1)
[2018-07-28] MEDS: THIAMINE 100 MG TAB PO SCH (08:49)
[2018-07-28] MEDS: LEVOFLOXACIN 750 MG TAB PO SCH (08:49)
[2018-07-28] MEDS: PANTOPRAZOLE 40 MG TABLET PO SCH (08:49)
[2018-07-28] MEDS: HEPARIN SODIUM,PORCINE 5,000 UNIT/ML 1 ML VIAL SQ SCH (08:50)
[2018-07-28] MEDS: CLOPIDOGREL 75 MG TAB PO SCH (08:50)
[2018-07-28] MEDS: MULTIVITAMINS, THERA 1 EACH TAB PO SCH (08:50)
[2018-07-28] MEDS: FLUoxetine HCL 20 MG CAP PO SCH (08:50)
[2018-07-28 11:47] LABS: Glucose,Whole Blood 102 mg/dL (75-99)
--- NOTE | 2018-07-28 13:43 | P.DS ---
Providers Date of admission: 07/23/18 16:10 Expected date of discharge: 07/28/18 Attending physician: Linda Blake Consults: 07/24/18 10:48 Consult Physician Routine Consulting Provider: Lili Parmar Consult Reason/Comments: multiple wounds Do you want consulting provider notified?: Yes Primary care physician: Stated None Dr Crain Hospital Course: Final Diagnoses: -lactic acidosis secondary to severe intravascular depletion -Community acquired pneumonia cannot be ruled out -Multiple wounds, right hand, right hip, Stage II right lateral thigh, present on admission. -Alcohol abuse and alcohol intoxication and fall -Mildly elevated troponin secondary to renal failure.. Repeat troponins are negative. -Acute renal failure secondary to severe dehydration. Improved Mildly elevated CK secondary to fall -tachycardia secondary to intravascular volume depletion improved with IV fluids Chronic Anemia secondary to alcoholism -COPD without any acute exacerbation -benign prostatic hypertrophy -Coronary artery disease. -Compression fractures in the lower lumbar spine brace Hospital course: This is a 73-year-old male was admitted after he was found on the floor after excess alcohol drinking patient last drink was a were 3 days ago I do not expect any withdrawals patient is comparing of right hip pain as well as back pain. CT of back which showed lumbar spine compression fracture, will use brace. F/U with orthopedic surgery. Also presented with multiple wounds. Evaluated by infectious disease. Treated with IV antibiotics, local wound care, NSAIDs. Significant clinical improvement. Cleared for discharge by infectious disease. Patient is being discharged to [facility] subacute rehab in a stable condition with guarded prognosis. - Exam GENERAL: The patient is sitting up in bed, alert and oriented x3, not in any acute distress. CARDIOVASCULAR: S1 and S2 present. No murmurs, rubs, or gallops. PULMONARY: Chest is coarse with occasional scattered rhonchi, no wheezing or crackles. ABDOMEN: Soft, nontender, nondistended, normoactive bowel sounds. No palpable organomegaly. NEUROLOGICAL: Gross neurological examination did not reveal any focal deficits. No DTs. SKIN: Right lateral thigh, hip wounds with no surrounding redness, no drainage. The impression and plan of care has been dictated as directed. : I performed a history and examination of this patient, discussed the same with the dictator. I agree with the dictator's note ,documented as a scribe. Any additional findings or plans will be noted. Time taken: 35 minutes Patient Condition at Discharge: Stable Plan - Discharge Summary New Discharge Prescriptions: New Levofloxacin [Levaquin] 750 mg PO DAILY 5 Days #5 tab Multivitamins, Thera [Multivitamin (formulary)] 1 each PO DAILY@1200 tab Thiamine [Vitamin B-1] 100 mg PO DAILY tab Continue Clopidogrel Bisulfate [Plavix] 75 mg PO DAILY Metoprolol Tartrate [Lopressor] 50 mg PO DAILY Ergocalciferol (Vitamin D2) [Vitamin D2] 50,000 unit PO FR FLUoxetine HCL [PROzac] 20 mg PO DAILY Cholestyramine (with Sugar) [Questran Packet] 4 gm PO BID@1000,1800 #60 packet Dicyclomine [Bentyl] 10 mg PO QID PRN #40 cap PRN Reason: Gi Upset Pantoprazole [Protonix] 40 mg PO DAILY #30 tablet. Discontinued Ibuprofen 800 mg PO Q6HR PRN #20 tablet PRN Reason: Pain Discharge Medication List Clopidogrel Bisulfate [Plavix] 75 mg PO DAILY 08/29/16 [History] Metoprolol Tartrate [Lopressor] 50 mg PO DAILY 02/14/17 [History] Ergocalciferol (Vitamin D2) [Vitamin D2] 50,000 unit PO FR 11/22/17 [History] FLUoxetine HCL [PROzac] 20 mg PO DAILY 02/26/18 [History] Cholestyramine (with Sugar) [Questran Packet] 4 gm PO BID@1000,1800 #60 packet 05/22/18 [Rx] Dicyclomine [Bentyl] 10 mg PO QID PRN #40 cap 05/22/18 [Rx] Pantoprazole [Protonix] 40 mg PO DAILY #30 tablet. 05/22/18 [Rx] Levofloxacin [Levaquin] 750 mg PO DAILY 5 Days #5 tab 07/24/18 [Rx] Multivitamins, Thera [Multivitamin (formulary)] 1 each PO DAILY@1200 tab [Rx] Thiamine [Vitamin B-1] 100 mg PO DAILY tab 07/28/18 [Rx] Follow up Appointment(s)/Referral(s): Wayne Strong, CARMEN [PHYSICIAN WAREHOUSE INSULATION WORKER] - 2 Weeks Rahat Martino, [NON-STAFF] - None,Stated [Primary Care Provider] - 1-2 days Activity/Diet/Wound Care/Special Instructions: [facility] subacute rehab Local wound care with [facility]. Keep area off pressure. Patient's son to bring in LSO brace - patient has one at home and is not eligible for a new one at this time Diet: Cardiac Activity: Limited until follow up Discharge Disposition: TRANSFER TO SNF/ECF
== END 2018-07-28 14:45 | DRG 542 ==
LOC: EC 20:06 → INTOOBSV 23:45 → 3SCARD 23:45 → OBSVTOIN 07-23 16:10 → 4SSUR 07-23 18:53
PROVIDERS: ADMIT Internal Medicine; ATTEND Internal Medicine
DX: M48.56XA Collapsed vertebra, not elsewhere classified, lumbar region, initial encounter for fracture (principal); J18.1 Lobar pneumonia, unspecified organism; M62.82 Rhabdomyolysis; F10.239 Alcohol dependence with withdrawal, unspecified; N17.9 Acute kidney failure, unspecified; J44.0 Chronic obstructive pulmonary disease with (acute) lower respiratory infection; E87.2 Acidosis; E86.0 Dehydration; L89.152 Pressure ulcer of sacral region, stage 2; L89.212 Pressure ulcer of right hip, stage 2; D63.8 Anemia in other chronic diseases classified elsewhere; M06.9 Rheumatoid arthritis, unspecified; S61.411A Laceration without foreign body of right hand, initial encounter; F10.229 Alcohol dependence with intoxication, unspecified; E78.5 Hyperlipidemia, unspecified; R62.7 Adult failure to thrive; I10 Essential (primary) hypertension; F32.9 Major depressive disorder, single episode, unspecified; I25.10 Atherosclerotic heart disease of native coronary artery without angina pectoris; R77.8 Other specified abnormalities of plasma proteins; N40.1 Benign prostatic hyperplasia with lower urinary tract symptoms; N39.498 Other specified urinary incontinence; H35.30 Unspecified macular degeneration; I25.2 Old myocardial infarction; Y90.0 Blood alcohol level of less than 20 mg/100 ml; F17.200 Nicotine dependence, unspecified, uncomplicated; R29.6 Repeated falls; Z79.02 Long term (current) use of antithrombotics/antiplatelets; Z79.899 Other long term (current) drug therapy; Z95.5 Presence of coronary angioplasty implant and graft; Z86.79 Personal history of other diseases of the circulatory system; Z87.19 Personal history of other diseases of the digestive system; Z98.42 Cataract extraction status, left eye; Z98.41 Cataract extraction status, right eye; W18.30XA Fall on same level, unspecified, initial encounter; Z88.0 Allergy status to penicillin; Z91.012 Allergy to eggs; Z81.1 Family history of alcohol abuse and dependence; Z82.49 Family history of ischemic heart disease and other diseases of the circulatory system
CPT/HCPCS: 36415; 70450; 71046; 72132; 73502; 80048; 80053; 80320; 81001; 82140; 82150; 82550; 82553; 83605; 83690; 83735; 84484; 85025; 85610; 85730; 93005; 96361; 96365; 96366; 99285

== ENCOUNTER 2019-01-15 14:30 | Inpatient (IN) | payer MEDICARE ==
[~2019-01-15 14:30] MED LIST: ERGOCALCIFEROL 50,000 UNIT CAP PO SCH
[2019-01-15] MEDS ORDERED: POTASSIUM CHLORIDE 20 MEQ in WATER FOR INJECTION 1 100ML.BAG IVPB STA (15:02)
[2019-01-15] MEDS ORDERED: SODIUM CHLORIDE 0.9% 1,000 ML IV ONE (15:42)
--- NOTE | 2019-01-15 15:46 | ED ---
General Adult HPI - General Chief complaint: Fall Stated complaint: ETOH Time Seen by Provider: 01/15/19 14:45 Source: patient, RN notes reviewed Mode of arrival: ambulatory Limitations: no limitations - History of Present Illness Initial comments: This is a 73-year-old male with past medical history significant for alcoholism. Patient states he was drinking last night and ended up on the floor he woke up this morning on the floor was unable to get up and walk around say called EMS. Per the patient he didn't want to come into the family stated that he was too weak to stay at home. Patient denies any drinking today. Patient states she's extremely thirsty. Patient denies any headache patient denies numbness weakness. Patient denies any head trauma. Patient denies any neck pain. Patient denies numbness weakness. Patient denies any chest pain palpitations difficulty breathing or shortness of breath. Patient denies any history of recent fever chills or cough per patient denies abdominal pain patient denies nausea vomiting or diarrhea. Patient denies any upper or lower extremity pain. - Related Data Home Medications Medication Instructions Recorded Confirmed Clopidogrel Bisulfate [Plavix] 75 mg PO DAILY 08/29/16 01/15/19 Metoprolol Tartrate [Lopressor] 50 mg PO DAILY 02/14/17 01/15/19 Ergocalciferol (Vitamin D2) 50,000 unit PO FR 11/22/17 01/15/19 [Vitamin D2] FLUoxetine HCL [PROzac] 20 mg PO DAILY 02/26/18 01/15/19 Previous Rx's Medication Instructions Recorded Ibuprofen [Motrin] 600 mg PO Q8HR PRN #1 tab 07/28/18 Allergies Allergy/AdvReac Type Severity Reaction Status Date / Time egg Allergy Anaphylaxis Verified 01/15/19 16:21 Penicillins Allergy Unknown Verified 01/15/19 16:21 Childhood Review of Systems ROS Statement: Those systems with pertinent positive or pertinent negative responses have been documented in the HPI. ROS Other: All systems not noted in ROS Statement are negative. 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 Last Myocardial Infarction Date:: 2001 History of Any Multi-Drug Resistant Organisms: None Reported Past Surgical History: Adenoidectomy, Heart Catheterization With Stent, Tonsillectomy Additional Past Surgical History / Comment(s): 2 HEART CATHS-7 STENTS, AAA REPAIR, URSULA CATARACTS. Past Anesthesia/Blood Transfusion Reactions: No Reported Reaction Date of Last Stent Placement:: UNK Past Psychological History: Depression Smoking Status: Current every day smoker Past Alcohol Use History: Abuse, Daily, Heavy Past Drug Use History: Heroin, Marijuana - Past Family History Mother Additional Family Medical History / Comment(s): ETOH Father Additional Family Medical History / Comment(s): FROM AAA AT AGE 62 General Exam - General Exam Comments Initial Comments: GENERAL: Patient is very unkept malodorous. ENT: Neck is soft and supple. No significant lymphadenopathy is noted. Oropharynx is clear. Moist mucous membranes. Neck has full range of motion without eliciting any pain. EYES: The sclera were anicteric and conjunctiva were pink and moist. Extraocular mov ements were intact and pupils were equal round and reactive to light. Eyelids were unremarkable. PULMONARY: Unlabored respirations. Good breath sounds bilaterally. No audible rales rhonchi or wheezing was noted. CARDIOVASCULAR: There is a regular rate and rhythm without any murmurs gallops or rubs. ABDOMEN: Soft and nontender with normal bowel sounds. SKIN: Skin is clear with no lesions or rashes and otherwise unremarkable. NEUROLOGIC: Patient is alert and oriented x3. Cranial nerves II through XII are grossly intact. Motor and sensory are also intact. Normal speech, volume and content. Symmetrical smile. MUSCULOSKELETAL: Normal extremities with adequate strength and full range of motion. LYMPHATICS: No significant lymphadenopathy is noted PSYCHIATRIC: Normal psychiatric evaluation. Limitations: no limitations Course Vital Signs 01/15/19 14:43 Temperature 98.1 F Pulse Rate 93 Respiratory 18 Rate Blood Pressure 197/80 O2 Sat by Pulse 98 Oximetry Medical Decision Making - Medical Decision Making EKG shows normal sinus rhythm at 77 bpm ND interval is 144 QRS 122 QT interval is 42 QTC is 454. Patient's EKG shows no ST segment elevation or depression. I went back in to reevaluate the patient after he was hydrated. Patient was unable to ambulate without significant assistance by myself and a tech. Even with assistance he was only able to move very slowly and no more than 6 inches at a time. Patient stated he did not feel safe going home. - Lab Data Result diagrams: 01/15/19 14:53 01/15/19 14:53 Lab Results 01/15/19 01/15/19 Range/Units 14:53 14:53 WBC 6.4 (3.8-10.6) k/uL RBC 3.88 L (4.30-5.90) m/uL Hgb 11.6 L (13.0-17.5) gm/dL Hct 35.3 L (39.0-53.0) % MCV 91.1 (80.0-100.0) fL MCH 29.9 (25.0-35.0) pg MCHC 32.8 (31.0-37.0) g/dL RDW 16.4 H (11.5-15.5) % Plt Count 280 (150-450) k/uL Neutrophils % 81 % Lymphocytes % 10 % Monocytes % 6 % Eosinophils % 2 % Basophils % 1 % Neutrophils # 5.1 (1.3-7.7) k/uL Lymphocytes # 0.6 L (1.0-4.8) k/uL Monocytes # 0.4 (0-1.0) k/uL Eosinophils # 0.1 (0-0.7) k/uL Basophils # 0.1 (0-0.2) k/uL Anisocytosis Slight Sodium 141 (137-145) mmol/L Potassium 4.6 (3.5-5.1) mmol/L Chloride 105 (98-107) mmol/L Carbon Dioxide 26 (22-30) mmol/L Anion Gap 10 mmol/L BUN 28 H (9-20) mg/dL Creatinine 0.96 (0.66-1.25) mg/dL Est GFR (CKD-EPI)AfAm >90 (>60 ml/min/1.73 sqM) Est GFR (CKD-EPI)NonAf 79 (>60 ml/min/1.73 sqM) Glucose 98 (74-99) mg/dL Calcium 8.9 (8.4-10.2) mg/dL Magnesium 1.8 (1.6-2.3) mg/dL Total Bilirubin 0.6 (0.2-1.3) mg/dL AST 35 (17-59) U/L ALT 21 (21-72) U/L Alkaline Phosphatase 135 H (38-126) U/L Creatine Kinase 221 H (55-170) U/L Total Protein 6.3 (6.3-8.2) g/dL Albumin 3.6 (3.5-5.0) g/dL Disposition Clinical Impression: Chronic alcoholism, Unable to ambulate Disposition: ADMITTED IP TO THIS HOSP Referrals: Surjit Cook DO [Primary Care Provider] - 1-2 days Time of Disposition: 16:17
[2019-01-15 15:57] LABS: Anisocytosis Slight; Basophils # (A) 0.1 k/uL (0-0.2); Basophils % (A) 1 %; Eosinophils # (A) 0.1 k/uL (0-0.7); Eosinophils % (A) 2 %; HCT 35.3 % (39.0-53.0); HGB 11.6 gm/dL (13.0-17.5); Lymphocytes # (A) 0.6 k/uL (1.0-4.8); Lymphocytes % (A) 10 %; MCH 29.9 pg (25.0-35.0); MCHC 32.8 g/dL (31.0-37.0); MCV 91.1 fL (80.0-100.0); Mean Platelet Volume 6.7; Monocytes # (A) 0.4 k/uL (0-1.0); Monocytes % (A) 6 %; Neutrophils # (A) 5.1 k/uL (1.3-7.7); Neutrophils % (A) 81 %; Platelet Count 280 k/uL (150-450); RBC 3.88 m/uL (4.30-5.90); RDW 16.4 % (11.5-15.5); WBC 6.4 k/uL (3.8-10.6)
[2019-01-15 16:07] LABS: ALT 21 U/L (21-72); AST 35 U/L (17-59); African American GFR (CKD) >90 (>60 ml/min/1.73 sqM); Albumin 3.6 g/dL (3.5-5.0); Alkaline Phosphatase 135 U/L (38-126); Anion Gap 10 mmol/L; Blood Urea Nitrogen 28 mg/dL (9-20); Calcium 8.9 mg/dL (8.4-10.2); Carbon Dioxide 26 mmol/L (22-30); Chloride 105 mmol/L (98-107); Creatine Kinase 221 U/L (55-170); Glucose 98 mg/dL (74-99); Magnesium 1.8 mg/dL (1.6-2.3); Potassium 4.6 mmol/L (3.5-5.1); Sodium 141 mmol/L (137-145); Total Bilirubin 0.6 mg/dL (0.2-1.3); Total Protein 6.3 g/dL (6.3-8.2)
[2019-01-15] MEDS ORDERED: LORazepam 2 MG/ML INJ IV PRN ×4 (16:59→18:18)
[2019-01-15] MEDS ORDERED: THIAMINE 100 MG/ML 2 ML VIAL IM STA (16:59)
[2019-01-15] MEDS ORDERED: ACETAMINOPHEN TAB 325 MG TAB PO PRN (18:06)
[2019-01-15] MEDS ORDERED: NALOXONE 0.4 MG/ML 1 ML VIAL IV PRN (18:06)
[2019-01-15] MEDS ORDERED: ONDANSETRON 4 MG/2 ML VIAL IVP PRN (18:06)
[2019-01-15] MEDS ORDERED: cloNIDine HCL 0.1 MG TAB PO PRN (18:26)
--- NOTE | 2019-01-15 18:44 | P.HPIM ---
History of Present Illness H&P Date: 01/15/19 Chief Complaint: Found himself on the floor and unable to get up this morning. This 73-year-old male with past medical history significant for Alcohol addiction, SMOKING ADDICTION, HYPERTENSION, DEPRESSION AND GENERALIZED WEAKNESS, who found himself this afternoon on the floor and was unable to get up. Patient stated that he drinks about a fifth of hard liker every day and yesterday he had more than that because of January 14. Patient stated he cannot remember what happened after that early afternoon today he found himself on the floor and was unable to move. Patient denies urine or stools incontinence at that point but as he was unable to move he urinated on himself twice. Patient stated that he often times have falls due to his I'll call intoxications. Patient called 911 and patient was brought to the emergency room. Patient wanted to go home but family insisted him to stay in the hospital and get medical care. In the emergency room patient has a rapid breath test done that was negative for alcohol. Patient was admitted for further management. Patient denies chest pain, palpitation, nausea, vomiting, diarrhea, headaches, dizziness, lightheadedness, seizures, fever, chills, cough, sputum production, lightheadedness and denies rest of the review of system. Patient is unable to explain why he has falls in the past but states that whenever he is drunk he falls. No significant workup was done in the emergency room as no significant trauma was noted by the ER physician. Review of Systems Patient did complains of generalized body aches and pains but denies all 12 or more of the review of system. 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 Last Myocardial Infarction Date:: 2001 History of Any Multi-Drug Resistant Organisms: None Reported Past Surgical History: Adenoidectomy, Heart Catheterization With Stent, Tonsillectomy Additional Past Surgical History / Comment(s): 2 HEART CATHS-7 STENTS, AAA REPAIR, URSULA CATARACTS. Past Anesthesia/Blood Transfusion Reactions: No Reported Reaction Date of Last Stent Placement:: UNK Past Psychological History: Depression Smoking Status: Current every day smoker Past Alcohol Use History: Abuse, Daily, Heavy Past Drug Use History: Heroin, Marijuana - Past Family History Mother Additional Family Medical History / Comment(s): ETOH Father Additional Family Medical History / Comment(s): FROM AAA AT AGE 62 Medications and Allergies Home Medications Medication Instructions Recorded Confirmed Type Clopidogrel Bisulfate [Plavix] 75 mg PO DAILY 08/29/16 01/15/19 History Metoprolol Tartrate [Lopressor] 50 mg PO DAILY 02/14/17 01/15/19 History Ergocalciferol (Vitamin D2) 50,000 unit PO FR 11/22/17 01/15/19 History [Vitamin D2] FLUoxetine HCL [PROzac] 20 mg PO DAILY 02/26/18 01/15/19 History Ibuprofen [Motrin] 600 mg PO Q8HR PRN #1 tab 07/28/18 01/15/19 Rx Allergies Allergy/AdvReac Type Severity Reaction Status Date / Time egg Allergy Anaphylaxis Verified 01/15/19 16:21 Penicillins Allergy Unknown Verified 01/15/19 16:21 Childhood Physical Exam Vitals: Vital Signs Temp Pulse Resp BP Pulse Ox 01/15/19 18:03 98.1 F 89 18 195/89 98 01/15/19 16:57 89 18 195/89 98 01/15/19 14:43 98.1 F 93 18 197/80 98 Intake and Output 01/15/19 01/15/19 01/15/19 06:59 14:59 22:59 Other: Weight 56.699 kg - Constitutional General appearance: cooperative, no acute distress - EENT Patient has cachectic appearance. Eyes: EOMI, PERRLA ENT: hearing grossly normal, NA/AT - Neck Neck: no lymphadenopathy, normal ROM, no rigidity - Respiratory Respiratory: bilateral: CTA (No rhonchi wheezes or crackles appreciated.) - Cardiovascular Rhythm is regular, S1-S2 positive, no gallops or murmur appreciated. - Gastrointestinal Abdomen soft, bowel sounds positive, nondistended, nontender, no guarding rigidity rebound detected. - Genitourinary Deferred. - Integumentary Patient has multiple bruises and the skin tear at different stages of healing over the bilateral upper extremities and around the knee and cuellar area. - Neurologic Neurological patient appears to be intact grossly no focal neuro deficit noted. - Musculoskeletal Patient is generalized weak, strength is 3-4/5 bilaterally with wasting of the muscles noted on the exam. Patient unable to sit in the bed or changes position in the bed without assistance due to weakness. Gait not assessed. - Psychiatric Psychiatric: A&O x's 3, appropriate affect, intact judgment & insight Results CBC & Chem 7: 01/15/19 14:53 01/15/19 14:53 Labs: Abnormal Lab Results - Last 24 Hours (Table) 01/15/19 01/15/19 Range/Units 14:53 14:53 RBC 3.88 L (4.30-5.90) m/uL Hgb 11.6 L (13.0-17.5) gm/dL Hct 35.3 L (39.0-53.0) % RDW 16.4 H (11.5-15.5) % Lymphocytes # 0.6 L (1.0-4.8) k/uL BUN 28 H (9-20) mg/dL Alkaline Phosphatase 135 H (38-126) U/L Creatine Kinase 221 H (55-170) U/L Thrombosis Risk Factor Assmnt - DVT/VTE Prophylaxis DVT/VTE Prophylaxis: Pharmacologic Prophylaxis ordered - Choose All That Apply Any of the Below Risk Factors Present?: Yes Each Factor Represents 1 point: Medical pt on bed rest Other Risk Factors: Yes Each Risk Factor Represents 2 Points: Age 61-74 years, Patient confined to bed Other congenital or acquired thrombophilia - If yes, enter type in comment: No Thrombosis Risk Factor Assessment Total Risk Factor Score: 5 Thrombosis Risk Factor Assessment Level: High Risk Assessment and Plan (1) Alcohol intoxication Current Visit: Yes Status: Acute Priority: High Code(s): F10.929 - ALCOHOL USE, UNSPECIFIED WITH INTOXICATION, UNSPECIFIED SNOMED Code(s): 50462613 (2) Dehydration Current Visit: Yes Status: Acute Priority: Medium Code(s): E86.0 - DEHYDRATION SNOMED Code(s): 99966167 (3) Failure to thrive Current Visit: Yes Status: Acute Priority: High Code(s): NMA5199 - SNOMED Code(s): 94313909 (4) Fall Current Visit: Yes Status: Acute Priority: High Code(s): W19.XXXA - UNSPECIFIED FALL, INITIAL ENCOUNTER SNOMED Code(s): 7872349 (5) Hypertension Current Visit: Yes Status: Acute Priority: High Code(s): I10 - ESSENTIAL (PRIMARY) HYPERTENSION SNOMED Code(s): 69158995 (6) Low back pain Current Visit: Yes Status: Acute Priority: Medium Code(s): M54.5 - LOW BACK PAIN SNOMED Code(s): 883452769 (7) Rhabdomyolysis Current Visit: Yes Status: Resolved Priority: High Code(s): M62.82 - RHABDOMYOLYSIS SNOMED Code(s): 281767019 Plan: Patient was given banana bag in the emergency department and Ativan was given first. Patient blood pressure was getting high and he reported that he is not taking his medication as prescribed. Patient was admitted to general medical floor with CIWA protocol initiated. Patient was given a lot of counseling regarding quitting alcohol and smoking and others substances of abuse but not well taken by the patient. We will provide nicotine patch to avoid withdrawal from nicotine and there when necessary Ativan will be given for I'll call withdrawal. Patient blood pressure will be monitored and home medication will be resumed. As needed clonidine will be given for blood pressure management. Dietary consult was obtained for failure to thrive and help with supplementation. carry in worker was also consulted for post discharge needs at home versus subacute rehabilitation placement. Physical therapy occupational therapy was also consulted for evaluation and management. Patient will be kept in the hospital until he is more stable and independent. Discharge disposition will be dependent on patient's improvement level. Time with Patient: Greater than 30
[2019-01-15] MEDS: SODIUM CHLORIDE 0.9% 1,000 ML IV ONE ×2 (19:17→20:20)
[2019-01-15] MEDS: SODIUM CHLORIDE 0.9% 1,000 ML IV SCH (20:22)
[2019-01-15] MEDS: THIAMINE 100 MG TAB PO SCH (20:44)
[2019-01-15] MEDS: HEPARIN SODIUM,PORCINE 5,000 UNIT/ML 1 ML VIAL SQ SCH (22:24)
[2019-01-15] MEDS: NICOTINE 21MG/24HR PATCH TRANSDERM SCH (22:24)
[2019-01-16] MEDS: SODIUM CHLORIDE 0.9% 1,000 ML IV SCH (04:59)
[2019-01-16 07:21] LABS: ALT 20 U/L (21-72); AST 31 U/L (17-59); African American GFR (CKD) >90 (>60 ml/min/1.73 sqM); Albumin 3.2 g/dL (3.5-5.0); Alkaline Phosphatase 111 U/L (38-126); Anion Gap 7 mmol/L; Blood Urea Nitrogen 24 mg/dL (9-20); Calcium 8.8 mg/dL (8.4-10.2); Carbon Dioxide 26 mmol/L (22-30); Chloride 110 mmol/L (98-107); Glucose 84 mg/dL (74-99); Lipase 121 U/L (23-300); Magnesium 1.9 mg/dL (1.6-2.3); Sodium 143 mmol/L (137-145); Total Bilirubin 0.5 mg/dL (0.2-1.3); Total Protein 5.8 g/dL (6.3-8.2)
[2019-01-16 07:25] LABS: Anisocytosis Slight; Basophils % (A) 1 %; Eosinophils # (A) 0.4 k/uL (0-0.7); Eosinophils % (A) 9 %; HCT 34.6 % (39.0-53.0); HGB 11.1 gm/dL (13.0-17.5); Lymphocytes # (A) 0.9 k/uL (1.0-4.8); Lymphocytes % (A) 19 %; MCH 29.5 pg (25.0-35.0); MCHC 32.2 g/dL (31.0-37.0); MCV 91.6 fL (80.0-100.0); Mean Platelet Volume 7.3; Monocytes # (A) 0.3 k/uL (0-1.0); Monocytes % (A) 6 %; Neutrophils # (A) 2.9 k/uL (1.3-7.7); Neutrophils % (A) 63 %; Platelet Count 224 k/uL (150-450); RBC 3.77 m/uL (4.30-5.90); RDW 17.3 % (11.5-15.5); WBC 4.5 k/uL (3.8-10.6)
[2019-01-16] MEDS: CLOPIDOGREL 75 MG TAB PO SCH (07:57)
[2019-01-16] MEDS: FLUoxetine HCL 20 MG CAP PO SCH (07:57)
[2019-01-16] MEDS: FOLIC ACID 1 MG TAB PO SCH (07:57)
[2019-01-16] MEDS: THIAMINE 100 MG TAB PO SCH ×2 (07:57→17:28)
[2019-01-16] MEDS: HEPARIN SODIUM,PORCINE 5,000 UNIT/ML 1 ML VIAL SQ SCH ×2 (07:57→20:43)
[2019-01-16] MEDS: NICOTINE 21MG/24HR PATCH TRANSDERM SCH (08:03)
[2019-01-16] MEDS ORDERED: METOPROLOL TARTRATE 50 MG TAB PO SCH (09:00)
[2019-01-16] MEDS ORDERED: THIAMINE 100 MG TAB PO SCH (09:00)
[2019-01-16 11:39] VITALS: BMI 17.9
--- NOTE | 2019-01-16 17:44 | P.PN ---
Subjective Progress Note Date: 01/16/19 (Delayed charting seen at noon) Principal diagnosis: Falls and weakness Patient is a 73-year-old male with a past medical history of COPD, hypertension, dyslipidemia, myocardial infarction, and chronic alcohol abuse who presented to the ER with a fall and inability to stand. Patient has been drinking about 1/5 of hard liquor every day. In the emergency department he underwent an extensive evaluation. On arrival he was found have an elevated blood pressure 197/180. Initial laboratory analysis revealed an anemia with hemoglobin 11.3, elevated alkaline phosphatase at 135, elevated BUN at 28, an elevated CK at 221. 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 Patient was started on CIWA protocol and PT and OT consults were placed. Patient seen and examined at bedside. He is having some back pain today but does not want any pain medications. He denies any chest pain, shortness of breath, nausea, or vomiting. He reports that he has been drinking excessively and getting weaker. He reports that he knows he needs help and would be amenable to subacute rehab. He reports that his appetite has been good and he has been eating. Objective - Vital Signs Vital signs: Vital Signs Temp 97.9 F 01/16/19 12:28 Pulse 92 01/16/19 12:28 Resp 15 01/16/19 12:28 BP 170/75 01/16/19 12:28 Pulse Ox 95 01/16/19 12:28 Intake & Output 01/15/19 01/16/19 01/16/19 18:59 06:59 18:59 Intake Total 1948 Balance 1948 Weight 56.699 kg 56.699 kg Intake: Intake, IV Titration 1948 Amount Potassium Chloride 20 meq 50 In Water For Injection 1 100ml.bag @ 50 mls/hr IVPB ONCE STA Rx#: [id number] Sodium Chloride 0.9% 1, 800 000 ml @ 100 mls/hr IV . Q10H ONE Rx#:[id number] Sodium Chloride 0.9% 1, 100 000 ml @ 100 mls/hr IV . Q10H [facility] Rx#:[id number] Sodium Chloride 0.9% 1, 999 000 ml @ 999 mls/hr IV . Q1H1M ONE Rx#:[id number] Other: # Voids 0 1 # Bowel Movements 1 - Exam General: non toxic, no distress, appears at stated age, disheveled Derm: Multiple areas of ecchymoses, warm, dry Head: atraumatic, normocephalic, symmetric Eyes: EOMI, no lid lag, anicteric sclera Mouth: no lip lesion, mucus membranes moist Cardiovascular: S1S2 reg, no murmur, positive posterior tibial pulse bilateral, Lungs: Decreased breath sounds bilateral, no rhonchi, no rales , no accessory muscle use Abdominal: soft, nontender to palpation, no guarding, no appreciable organomegaly Ext: no gross muscle atrophy, no edema, no contractures Neuro: CN II-XI grossly intact, no focal neuro deficits, no tremor noted Psych: Alert, oriented, appropriate affect - Labs CBC & Chem 7: 01/16/19 06:51 01/16/19 06:51 Labs: Abnormal Lab Results - Last 24 Hours (Table) 01/16/19 01/16/19 Range/Units 06:51 06:51 RBC 3.77 L (4.30-5.90) m/uL Hgb 11.1 L (13.0-17.5) gm/dL Hct 34.6 L (39.0-53.0) % RDW 17.3 H (11.5-15.5) % Lymphocytes # 0.9 L (1.0-4.8) k/uL Chloride 110 H (98-107) mmol/L BUN 24 H (9-20) mg/dL ALT 20 L (21-72) U/L Total Protein 5.8 L (6.3-8.2) g/dL Albumin 3.2 L (3.5-5.0) g/dL Assessment and Plan Assessment: Alcohol intoxication with impending DTs -Concern for 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 with signs of frequent falls -[facility] protocol -Thiamine and folic acid supplementation -Social work consult Generalized weakness -PT/OT evaluation -Likely will need rehab Acute on chronic low back pain, L5 compression fx -Patient still able to move and ambulate -Does not want any increased pain medications at this point in time Severe protein calorie malnutrition with BMI of 17.9, down from 19.9 in July -Patient denies decreased appetite or lack of oral intake despite drinking -Dietary consultation -Monitor for signs of refeeding syndrome Fall, mechanical -Fall precautions -PT/OT evaluation Normocytic anemia -Suspect secondary to chronic alcohol use -Recheck iron studies and his last ones checked for 6 months ago. -B12 checked 09/29 and was within normal limits, full acid checked 08/01 was above normal at 962. Will not recheck these. Mild dehydration now with hyperchloremia -Encourage oral fluid intake and stop IV fluids Stage I pressure ulcer of coccyx, present on admission -Frequent turns, barrier cream DVT prophylaxis: Heparin Discussed with: Patient, nursing Anticipated discharge: 1-[address]: correction A total of 35 minutes was spent on the care of this complex patient more than 50% of the time was spent in counseling and care coordination.
[2019-01-16] MEDS: METOPROLOL TARTRATE 50 MG TAB PO SCH (20:43)
[2019-01-16] MEDS: MELATONIN 3 MG TABLET PO PRN (22:12)
[2019-01-17] MEDS: CLOPIDOGREL 75 MG TAB PO SCH (06:59)
[2019-01-17] MEDS: NICOTINE 21MG/24HR PATCH TRANSDERM SCH (06:59)
[2019-01-17] MEDS: THIAMINE 100 MG TAB PO SCH ×2 (07:00→16:42)
[2019-01-17] MEDS: FLUoxetine HCL 20 MG CAP PO SCH (07:00)
[2019-01-17] MEDS: METOPROLOL TARTRATE 50 MG TAB PO SCH ×2 (07:00→22:10)
[2019-01-17] MEDS: HEPARIN SODIUM,PORCINE 5,000 UNIT/ML 1 ML VIAL SQ SCH ×2 (07:00→22:11)
[2019-01-17] MEDS: FOLIC ACID 1 MG TAB PO SCH (07:00)
[2019-01-17 08:01] LABS: Anisocytosis Slight; HCT 30.4 % (39.0-53.0); HGB 9.8 gm/dL (13.0-17.5); MCHC 32.2 g/dL (31.0-37.0); Mean Platelet Volume 6.8; Platelet Count 182 k/uL (150-450); RBC 3.27 m/uL (4.30-5.90); RDW 16.5 % (11.5-15.5)
[2019-01-17 08:14] LABS: ALT 18 U/L (21-72); AST 22 U/L (17-59); African American GFR (CKD) >90 (>60 ml/min/1.73 sqM); Albumin 2.7 g/dL (3.5-5.0); Alkaline Phosphatase 88 U/L (38-126); Anion Gap 3 mmol/L; Blood Urea Nitrogen 22 mg/dL (9-20); Calcium 8.3 mg/dL (8.4-10.2); Carbon Dioxide 26 mmol/L (22-30); Chloride 110 mmol/L (98-107); Glucose 90 mg/dL (74-99); Magnesium 1.7 mg/dL (1.6-2.3); Phosphorus 2.8 mg/dL (2.5-4.5); Potassium 3.9 mmol/L (3.5-5.1); Sodium 139 mmol/L (137-145); Total Bilirubin 0.3 mg/dL (0.2-1.3); Total Protein 5.2 g/dL (6.3-8.2)
--- NOTE | 2019-01-17 13:37 | XR ---
EXAM TYPE: LUMBAR SPINE X RAY SERIES COMPARISON: 01/05/2019 HISTORY: Pain TECHNIQUE: 4 views are submitted. FINDINGS: The previously seen L5 vertebral body moderate compression is stable. Aortic stent graft noted with l arge date of abdominal aortic aneurysm. Multilevel degenerative disc disease and facet arthropathy. Foraminal encroachment L4-5 and L5-S1 martha pected. Additional punctate bilateral renal calculi. Previously seen markedly advanced facet osteoarthritis c hanges at all levels are redemonstrated. IMPRESSION: 1. Stable compression fracture L5. 2. Large cowlitz aortic aneurysm measuring approximately 5 cm with stent graft. 3. Bilateral renal calculi. 4. Multilevel degenerative disc disease and facet arthropathy.
--- NOTE | 2019-01-17 13:40 | XR ---
EXAMINATION TYPE: XR ribs RT w pa chest xray DATE OF EXAM: 01/17/2019 COMPARISON: 07/21/2018 TECHNIQUE: PA view the chest and 2 views of the right ribs are submitted. HISTORY: Pain FINDINGS: Hyperinflation suggests COPD. Arthropathy shoulders noted. There is a 7 mm nodule left midlung. Subse gmental bilateral consolidation. There is a deformity involving the right third and fourth ribs later ally. Lower rib cage is limited due to technique. Suspect a small right pleural effusion. Chronic tim earing deformities involving the right ninth and 10th ribs are suspected. IMPRESSION: 1. Chronic appearing rib deformities involving the anterolateral right ninth and 10th ribs. 2. Age-indeterminate deformity right fourth rib correlate with point tenderness to exclude recent fra cture. 3. Frontal view demonstrates bilateral basilar consolidation and pleural effusion thickening. Correla te for COPD. 4. There is a 7 mm left lower lobe pulmonary nodule which could be correlated with short-term follow- up CT scan.
--- NOTE | 2019-01-17 14:00 | P.PN ---
Subjective Progress Note Date: 01/17/19 Principal diagnosis: Falls and weakness Patient is a 73-year-old male with a past medical history of COPD, hypertension, dyslipidemia, myocardial infarction, and chronic alcohol abuse who presented to the ER with a fall and inability to stand. Patient has been drinking about 1/5 of hard liquor every day. In the emergency department he underwent an extensive evaluation. On arrival he was found have an elevated blood pressure 197/180. Initial laboratory analysis revealed an anemia with hemoglobin 11.3, elevated alkaline phosphatase at 135, elevated BUN at 28, an elevated CK at 221. 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 Patient was started on CIWA protocol and PT and OT consults were placed. He had worsening of his acute on chronic low back pain as well as some right-sided chest pain after his falls. Patient seen and examined at bedside. He continues to have back pain, somewhat worse than on arrival. He is able to lift his lower extremities and denies any numbness or tingling. He states he was told before that he would be a candidate for some injections in his back due to the pain. Denies any chest pain, nausea, or vomiting. He admits that working with therapy did not go well. He also is having some worsening confusion than yesterday and feels somewhat anxious and tremulous. Objective - Vital Signs Vital signs: Vital Signs Temp 98.5 F 01/17/19 04:58 Pulse 62 01/17/19 04:58 Resp 18 01/17/19 04:58 BP 141/61 01/17/19 04:58 Pulse Ox 96 01/17/19 04:58 Intake & Output 01/16/19 01/17/19 01/17/19 18:59 06:59 18:59 Intake Total 800 Balance 800 Weight 56.699 kg Intake: Intake, IV Titration 800 Amount Sodium Chloride 0.9% 1, 800 000 ml @ 100 mls/hr IV . Q10H [facility] Rx#:[id number] Other: Voiding Method Urinal Bedpan # Voids 1 2 # Bowel Movements 1 - Exam General: non toxic, no distress, appears at stated age, disheveled Derm: Multiple areas of ecchymoses, warm, dry Head: atraumatic, normocephalic, symmetric Eyes: EOMI, no lid lag, anicteric sclera Mouth: no lip lesion, mucus membranes moist Cardiovascular: S1S2 reg, no murmur, positive posterior tibial pulse bilateral, Lungs: Decreased breath sounds bilateral, no rhonchi, no rales , no accessory muscle use Abdominal: soft, nontender to palpation, no guarding, no appreciable organomegaly Ext: no gross muscle atrophy, no edema, no contractures, muscle strength 3/5 b/l LE intact light touch bilateral lower extremities Neuro: CN II-XI grossly intact, no focal neuro deficits, + tremor noted Psych: Alert, oriented, confused about how long he has been in the hospital thinks here 4 days, appropriate affect - Labs CBC & Chem 7: 01/17/19 07:09 01/17/19 07:09 Labs: Abnormal Lab Results - Last 24 Hours (Table) 01/17/19 01/17/19 Range/Units 07:09 07:09 RBC 3.27 L (4.30-5.90) m/uL Hgb 9.8 L (13.0-17.5) gm/dL Hct 30.4 L (39.0-53.0) % RDW 16.5 H (11.5-15.5) % Chloride 110 H (98-107) mmol/L BUN 22 H (9-20) mg/dL Calcium 8.3 L (8.4-10.2) mg/dL ALT 18 L (21-72) U/L Total Protein 5.2 L (6.3-8.2) g/dL Albumin 2.7 L (3.5-5.0) g/dL Assessment and Plan Assessment: Alcohol intoxication with impending DTs -Concern for 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 with signs of frequent falls -[facility] protocol -Thiamine and folic acid supplementation -Social work consult - rehab on discharge Acute on chronic low back pain, L5 compression fx, right rib pain - Patient still able to move and ambulate - check Lumbar x-ray and rib x-ray - Does not want any increased pain medications at this point in time Generalized weakness -PT/OT evaluation -Likely will need rehab Severe protein calorie malnutrition with BMI of 17.9, down from 19.9 in July -Patient denies decreased appetite or lack of oral intake despite drinking -Dietary recs -Monitor for signs of refeeding syndrome Fall, mechanical -Fall precautions -PT/OT evaluation Normocytic anemia -Suspect secondary to chronic alcohol use -Await iron studies and his last ones checked for 6 months ago. -B12 checked 09/29 and was within normal limits, full acid checked 08/01 was above normal at 962. Will not recheck these. Mild dehydration now with hyperchloremia, improving -Encourage oral fluid intake Stage I pressure ulcer of coccyx, present on admission -Frequent turns, barrier cream DVT prophylaxis: Heparin Discussed with: Patient, nursing Anticipated discharge: 1-[address]: half-way A total of 35 minutes was spent on the care of this complex patient more than 50% of the time was spent in counseling and care coordination.
[2019-01-17] MEDS: MELATONIN 3 MG TABLET PO PRN (22:11)
[2019-01-18] MEDS: CLOPIDOGREL 75 MG TAB PO SCH (08:16)
[2019-01-18] MEDS: FLUoxetine HCL 20 MG CAP PO SCH (08:16)
[2019-01-18] MEDS: METOPROLOL TARTRATE 50 MG TAB PO SCH (08:16)
[2019-01-18] MEDS: NICOTINE 21MG/24HR PATCH TRANSDERM SCH (08:17)
[2019-01-18] MEDS: FOLIC ACID 1 MG TAB PO SCH (08:17)
[2019-01-18] MEDS: THIAMINE 100 MG TAB PO SCH (08:17)
[2019-01-18] MEDS: HEPARIN SODIUM,PORCINE 5,000 UNIT/ML 1 ML VIAL SQ SCH (08:17)
[2019-01-18 10:48] LABS: Iron Saturation 27.27 (15.00-50.00)
[2019-01-18 11:50] VITALS: BP 139/63; PULSE 54; RESP 20; TEMP 98.3
--- NOTE | 2019-01-18 12:03 | P.DS ---
Providers Date of admission: 01/15/19 16:58 Expected date of discharge: 01/18/19 Attending physician: Teodora Butcher MD Primary care physician: Surjit Cook DO Hospital Course: Discharge Diagnosis: Right rib 4 fracture Acute on chronic low back pain due to L5 compression fracture and severe arthritis Alcohol abuse, with impending withdrawal HTN urgency Generalized weakness Mechanical fall Normocytic anemia Mild dehydration Stage I pressure ulcer of coccyx, POA Hospital Course: Patient is a 73-year-old male with a past medical history of COPD, hypertension, dyslipidemia, myocardial infarction, and chronic alcohol abuse who presented to the ER with a fall and inability to stand. Patient has been drinking about 1/5 of hard liquor every day. In the emergency department he underwent an extensive evaluation. On arrival he was found have an elevated blood pressure 197/180. Initial laboratory analysis revealed an anemia with hemoglobin 11.3, elevated alkaline phosphatase at 135, elevated BUN at 28, an elevated CK at 221. 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 Patient was started on CIWA protocol and PT and OT consults were placed. He had worsening of his acute on chronic low back pain as well as some right-sided chest pain after his falls. His Repeat lumbar x-ray is consistent with his known L5 Compression fracture, patient had been told about option of surgery prior but continues to desire conservative management and is not requiring pain medications. rib study con sistent with Right Rib 4 fracture that appear acute and chronic right rib 9 and 10 deformities, it also showed possible pulmonary nodule which will need outpatient CT scan in the next 6 weeks, patient aware of the importance of follow-up. Patient was determined stable for discharge to [facility] for further rehab. Also noted to have uncontrolled blood pressure and metoprolol increased to twice daily and norvasc added. Patient seen and examined at bedside. Having some back pain, slightly better than yesterday Vital signs reviewed and stable. General: non toxic, no distress, appears older than stated age, temporal wasting, cachetic Derm: warm, dry Head: atraumatic, normocephalic, symmetric Eyes: EOMI, no lid lag, anicteric sclera Mouth: no lip lesion, mucus membranes moist Cardiovascular: S1S2 reg, no murmur, positive posterior tibial pulse bilateral, Lungs: CTA bilateral, no rhonchi, no rales , no accessory muscle use Abdominal: soft, nontender to palpation, no guarding, no appreciable organomegaly Ext: + gross muscle atrophy, no edema, no contractures Neuro: CN II-XI grossly intact, no focal neuro deficits Psych: Alert, oriented, appropriate affect A total of 35 minutes of time were spent preparing this complex discharge summary . Pertinent Studies: Lumbar a-[id number] compression fracture L5, standing rock aortic aneurysm with 5 cm stent grafts, bilateral renal calculi, multilevel disc disease with facet arthropathy Right rib study-chronic deformities ribs 9 and 10, acute fracture rib 4, possible pulmonary nodule Patient Condition at Discharge: Stable Plan - Discharge Summary New Discharge Prescriptions: New Folic Acid 1 mg PO DAILY tab Nicotine 21Mg/24Hr Patch [Habitrol] 1 patch TRANSDERM DAILY patch Metoprolol Tartrate [Lopressor] 50 mg PO BID tab Melatonin 3 mg PO HS PRN tablet PRN Reason: Insomnia amLODIPine [Norvasc] 2.5 mg PO DAILY #30 tablet Thiamine [Vitamin B-1] 100 mg PO BID-W/MEALS tab Continue Clopidogrel Bisulfate [Plavix] 75 mg PO DAILY Ergocalciferol (Vitamin D2) [Vitamin D2] 50,000 unit PO FR FLUoxetine HCL [PROzac] 20 mg PO DAILY Ibuprofen [Motrin] 600 mg PO Q8HR PRN #1 tab PRN Reason: Pain Discontinued Metoprolol Tartrate [Lopressor] 50 mg PO DAILY Discharge Medication List Clopidogrel Bisulfate [Plavix] 75 mg PO DAILY 08/29/16 [History] Ergocalciferol (Vitamin D2) [Vitamin D2] 50,000 unit PO FR 11/22/17 [History] FLUoxetine HCL [PROzac] 20 mg PO DAILY 02/26/18 [History] Ibuprofen [Motrin] 600 mg PO Q8HR PRN #1 tab 07/28/18 [Rx] Folic Acid 1 mg PO DAILY tab 01/18/19 [Rx] Melatonin 3 mg PO HS PRN tablet 01/18/19 [Rx] Metoprolol Tartrate [Lopressor] 50 mg PO BID tab 01/18/19 [Rx] Nicotine 21Mg/24Hr Patch [Habitrol] 1 patch TRANSDERM DAILY patch 01/18/19 [Rx] Thiamine [Vitamin B-1] 100 mg PO BID-W/MEALS tab 01/18/19 [Rx] amLODIPine [Norvasc] 2.5 mg PO DAILY #30 tablet 01/18/19 [Rx] Follow up Appointment(s)/Referral(s): Surjit Cook DO [Primary Care Provider] - 1-2 days Activity/Diet/Wound Care/Special Instructions: Rahat
== END 2019-01-18 16:05 | DRG 896 ==
LOC: EC 14:30 → 3NMEDONC 16:58
PROVIDERS: ADMIT Family Medicine; ATTEND Family Medicine
DX: F10.239 Alcohol dependence with withdrawal, unspecified (principal); E43 Unspecified severe protein-calorie malnutrition; M48.56XA Collapsed vertebra, not elsewhere classified, lumbar region, initial encounter for fracture; M62.82 Rhabdomyolysis; Z68.1 Body mass index [BMI] 19.9 or less, adult; D64.9 Anemia, unspecified; E78.5 Hyperlipidemia, unspecified; E86.0 Dehydration; E87.8 Other disorders of electrolyte and fluid balance, not elsewhere classified; F17.210 Nicotine dependence, cigarettes, uncomplicated; F32.9 Major depressive disorder, single episode, unspecified; G89.29 Other chronic pain; I10 Essential (primary) hypertension; I16.0 Hypertensive urgency; I25.2 Old myocardial infarction; J44.9 Chronic obstructive pulmonary disease, unspecified; L89.151 Pressure ulcer of sacral region, stage 1; M06.9 Rheumatoid arthritis, unspecified; M46.96 Unspecified inflammatory spondylopathy, lumbar region; R62.7 Adult failure to thrive; W18.30XA Fall on same level, unspecified, initial encounter; Z79.02 Long term (current) use of antithrombotics/antiplatelets; Z79.899 Other long term (current) drug therapy; I25.10 Atherosclerotic heart disease of native coronary artery without angina pectoris; Z95.5 Presence of coronary angioplasty implant and graft; Z98.42 Cataract extraction status, left eye; Z98.41 Cataract extraction status, right eye; Z81.1 Family history of alcohol abuse and dependence; Z88.0 Allergy status to penicillin; Z91.012 Allergy to eggs; Z87.01 Personal history of pneumonia (recurrent); H35.30 Unspecified macular degeneration; R91.1 Solitary pulmonary nodule
CPT/HCPCS: 36415; 72100; 80053; 82550; 82728; 83540; 83550; 83690; 83735; 84100; 85025; 85027; 93005; 96361; 96374; 99284

== ENCOUNTER 2019-05-31 16:30 | Observation (INO) | payer MEDICARE ==
[2019-05-31] MEDS ORDERED: SODIUM CHLORIDE 0.9% 1,000 ML IV STA ×3 (16:36→17:43)
--- NOTE | 2019-05-31 16:40 | ED ---
Weakness HPI - General Stated complaint: Frequent Falling Time Seen by Provider: 05/31/19 16:30 Source: patient, EMS, RN notes reviewed, old records reviewed Mode of arrival: EMS - History of Present Illness Initial comments: This is a 74-year-old male who is brought in by EMS with complaints of generali zed weakness and frequent falls. He does have a history of COPD and is a smoker history of hypertension and GERD alcoholism pancreatic cancer rhabdomyolysis and renal failure among other problems in the past. He states he is not able to get out of his chair to get food he states his son comes up from [place] to bring him fluids and food at times. Per paramedics the patient's swelling was unkempt with their cans and food containers found on the floor. No fevers chills nausea vomiting sweats no diarrhea he has been incontinent of urine. MD Complaint: generalized weakness - Related Data Home Medications Medication Instructions Recorded Confirmed Clopidogrel Bisulfate [Plavix] 75 mg PO DAILY 08/29/16 01/15/19 Ergocalciferol (Vitamin D2) 50,000 unit PO FR 11/22/17 01/15/19 [Vitamin D2] FLUoxetine HCL [PROzac] 20 mg PO DAILY 02/26/18 01/15/19 Previous Rx's Medication Instructions Recorded Ibuprofen [Motrin] 600 mg PO Q8HR PRN #1 tab 07/28/18 Folic Acid 1 mg PO DAILY tab 01/18/19 Melatonin 3 mg PO HS PRN tablet 01/18/19 Metoprolol Tartrate [Lopressor] 50 mg PO BID tab 01/18/19 Nicotine 21Mg/24Hr Patch [Habitrol] 1 patch TRANSDERM DAILY patch 01/18/19 Thiamine [Vitamin B-1] 100 mg PO BID-W/MEALS tab 01/18/19 amLODIPine [Norvasc] 2.5 mg PO DAILY #30 tablet 01/18/19 Allergies Allergy/AdvReac Type Severity Reaction Status Date / Time egg Allergy Anaphylaxis Verified 05/31/19 16:34 Penicillins Allergy Unknown Verified 05/31/19 16:34 Childhood Review of Systems ROS Statement: Those systems with pertinent positive or pertinent negative responses have been documented in the HPI. ROS Other: All systems not noted in ROS Statement are negative. Past Medical History Past Medical History: Asthma, COPD, Hyperlipidemia, Hypertension, Myocardial Infarction ([place]), Pneumonia, Prostate Disorder, Rheumatoid Arthritis (RA) Additional Past Medical History / Comment(s): 2001 [place]; 7 stents; aortic aneurysm (HAS SX) pancreatitis, ASTHMA CHILD, CONCUSSONS IN PAST, RT EYE START OF MAC DEGENERATION, "RUPTURED DISC IN NECK -NO SX JUST PT". Last Myocardial Infarction Date:: 2001 History of Any Multi-Drug Resistant Organisms: None Reported Past Surgical History: Adenoidectomy, Heart Catheterization With Stent, Tonsillectomy Additional Past Surgical History / Comment(s): 2 HEART CATHS-7 STENTS, AAA REPAIR, URSULA CATARACTS. Past Anesthesia/Blood Transfusion Reactions: No Reported Reaction Date of Last Stent Placement:: UNK Past Psychological History: Depression Smoking Status: Current every day smoker Past Alcohol Use History: Abuse, Daily, Heavy Additional Past Alcohol Use History / Comment(s): As noted when he has while he lives in his condominium, no one lives with him. Current smoker. Ongoing alcohol use binging at times. Related has been many years since he has used marijuana or heroin. No animals living with him. No experience related. NoTravel is related Past Drug Use History: Heroin, Marijuana Additional Drug Use History / Comment(s): PT STATED WHEN IN HIS 20'S HE SMOPKED MARIJUANA, DID SOME LSD AND OCC SOME HEROIN-WUIT ALL DRUGS IN HIS 30'S - Past Family History Mother Additional Family Medical History / Comment(s): ETOH Father Additional Family Medical History / Comment(s): FROM AAA AT AGE 62 General Exam - General Exam Comments Initial Comments: This a well-developed sec appearing male who is awake alert oriented 3 General appearance: alert, in no apparent distress Head exam: Present: atraumatic, normocephalic, normal inspection Eye exam: Present: normal appearance, PERRL, EOMI. Absent: scleral icterus, conjunctival injection, periorbital swelling ENT exam: Present: mucous membranes dry Neck exam: Present: normal inspection. Absent: tenderness, meningismus, lymphadenopathy Respiratory exam: Present: decreased breath sounds. Absent: respiratory distress, wheezes, rales, rhonchi, stridor Cardiovascular Exam: Present: regular rate, normal rhythm, normal heart sounds. Absent: systolic murmur, diastolic murmur, rubs, gallop, clicks GI/Abdominal exam: Present: soft, normal bowel sounds. Absent: distended, tenderness, guarding, rebound, rigid Extremities exam: Present: normal inspection, full ROM, normal capillary refill. Absent: tenderness, pedal edema, joint swelling, calf tenderness Back exam: Present: normal inspection Neurological exam: Present: alert, oriented X3, CN II-XII intact Psychiatric exam: Present: normal affect, normal mood Skin exam: Present: warm, dry, intact, normal color. Absent: rash Course Vital Signs 05/31/19 05/31/19 05/31/19 16:35 16:37 16:50 Temperature 98.5 F Pulse Rate 121 H 115 H Respiratory 16 14 Rate Blood Pressure 171/101 149/95 O2 Sat by Pulse 97 93 L 96 Oximetry 05/31/19 05/31/19 05/31/19 16:56 17:10 18:46 Temperature Pulse Rate 121 H 110 H 98 Respiratory 16 18 16 Rate Blood Pressure 149/87 133/84 155/99 O2 Sat by Pulse 94 L 97 98 Oximetry - Reevaluation(s) Reevaluation #1: 05/31/19 19:05 Patient did feel improved after some IV fluids. I did discuss the findings with him including elevated troponin and elevated lactic acid. Lactic acid is elevated likely on the basis of dehydration. Patient was given adequate IV fluids as well as IV medication. EKG Findings - EKG Results: EKG: interpreted by ERMRayna (Sinus tachycardia rate 122. Interval 138 QRS 122 QT/QTC 342/487, right atrial enlargement left exodeviation LVH) Medical Decision Making - Medical Decision Making I did discuss the findings with the patient as well as Dr. Potts who is covering Dr. Crain is a patient does see Dr. Crain in [place]. She'll be ad mitted with social service consultation. - Lab Data Result diagrams: 05/31/19 16:48 05/31/19 16:48 Lab Results 05/31/19 05/31/19 05/31/19 Range/Units 16:48 16:48 16:48 WBC 8.6 (3.8-10.6) k/uL RBC 4.53 (4.30-5.90) m/uL Hgb 14.6 (13.0-17.5) gm/dL Hct 42.3 (39.0-53.0) % MCV 93.4 (80.0-100.0) fL MCH 32.2 (25.0-35.0) pg MCHC 34.5 (31.0-37.0) g/dL RDW 14.4 (11.5-15.5) % Plt Count 201 (150-450) k/uL Neutrophils % 78 % Lymphocytes % 11 % Monocytes % 6 % Eosinophils % 3 % Basophils % 1 % Neutrophils # 6.7 (1.3-7.7) k/uL Lymphocytes # 0.9 L (1.0-4.8) k/uL Monocytes # 0.6 (0-1.0) k/uL Eosinophils # 0.3 (0-0.7) k/uL Basophils # 0.0 (0-0.2) k/uL Sodium 139 (137-145) mmol/L Potassium 3.4 L (3.5-5.1) mmol/L Chloride 102 (98-107) mmol/L Carbon Dioxide 26 (22-30) mmol/L Anion Gap 11 mmol/L BUN 38 H (9-20) mg/dL Creatinine 1.12 (0.66-1.25) mg/dL Est GFR (CKD-EPI)AfAm 75 (>60 ml/min/1.73 sqM) Est GFR (CKD-EPI)NonAf 65 (>60 ml/min/1.73 sqM) Glucose 127 H (74-99) mg/dL Plasma Lactic Acid Mani 2.8 H* (0.7-2.0) mmol/L Calcium 9.7 (8.4-10.2) mg/dL Magnesium 1.7 (1.6-2.3) mg/dL Total Bilirubin 0.6 (0.2-1.3) mg/dL AST 30 (17-59) U/L ALT 17 L (21-72) U/L Alkaline Phosphatase 106 (38-126) U/L Ammonia <9 (<30) umol/L Creatine Kinase 174 H (55-170) U/L Troponin I (0.000-0.034) ng/mL Total Protein 7.8 (6.3-8.2) g/dL Albumin 4.3 (3.5-5.0) g/dL Lipase 282 (23-300) U/L Serum Alcohol <10 mg/dL 11/18/19 Range/Units 16:48 WBC (3.8-10.6) k/uL RBC (4.30-5.90) m/uL Hgb (13.0-17.5) gm/dL Hct (39.0-53.0) % MCV (80.0-100.0) fL MCH (25.0-35.0) pg MCHC (31.0-37.0) g/dL RDW (11.5-15.5) % Plt Count (150-450) k/uL Neutrophils % % Lymphocytes % % Monocytes % % Eosinophils % % Basophils % % Neutrophils # (1.3-7.7) k/uL Lymphocytes # (1.0-4.8) k/uL Monocytes # (0-1.0) k/uL Eosinophils # (0-0.7) k/uL Basophils # (0-0.2) k/uL Sodium (137-145) mmol/L Potassium (3.5-5.1) mmol/L Chloride (98-107) mmol/L Carbon Dioxide (22-30) mmol/L Anion Gap mmol/L BUN (9-20) mg/dL Creatinine (0.66-1.25) mg/dL Est GFR (CKD-EPI)AfAm (>60 ml/min/1.73 sqM) Est GFR (CKD-EPI)NonAf (>60 ml/min/1.73 sqM) Glucose (74-99) mg/dL Plasma Lactic Acid Mani (0.7-2.0) mmol/L Calcium (8.4-10.2) mg/dL Magnesium (1.6-2.3) mg/dL Total Bilirubin (0.2-1.3) mg/dL AST (17-59) U/L ALT (21-72) U/L Alkaline Phosphatase (38-126) U/L Ammonia (<30) umol/L Creatine Kinase (55-170) U/L Troponin I 0.049 H* (0.000-0.034) ng/mL Total Protein (6.3-8.2) g/dL Albumin (3.5-5.0) g/dL Lipase (23-300) U/L Serum Alcohol mg/dL - Radiology Data Radiology results: report reviewed (I did review the imaging and report no acute findings.), image reviewed Disposition Clinical Impression: Elevated troponin, Elevated lactic acid level, Dehydration, Tachycardia, Failure to thrive in adult, Generalized weakness Disposition: ADMITTED IP TO THIS HOSP Condition: Fair Referrals: Surjit Cook DO [Primary Care Provider] - 1-2 days
--- NOTE | 2019-05-31 17:20 | XR ---
EXAMINATION TYPE: XR chest 2V DATE OF EXAM: 05/31/2019 COMPARISON: 01/17/19 HISTORY: Shortness of breath TECHNIQUE: Frontal and lateral views of the chest are obtained. FINDINGS: Scattered senescent parenchymal changes noted. Hyperinflation compatible with COPD. No evidence for infiltrate. No evidence for atelectasis. Heart size is stable. Mediastinal structures are stable and grossly unremarkable. No evidence for hilar prominence. Degenerative changes dorsal spine. IMPRESSION: 1. No evidence for acute pulmonary disease.
[2019-05-31 17:27] LABS: Basophils % (A) 1 %; Eosinophils # (A) 0.3 k/uL (0-0.7); Eosinophils % (A) 3 %; HCT 42.3 % (39.0-53.0); HGB 14.6 gm/dL (13.0-17.5); Lymphocytes # (A) 0.9 k/uL (1.0-4.8); Lymphocytes % (A) 11 %; MCH 32.2 pg (25.0-35.0); MCHC 34.5 g/dL (31.0-37.0); MCV 93.4 fL (80.0-100.0); Mean Platelet Volume 6.3; Monocytes # (A) 0.6 k/uL (0-1.0); Monocytes % (A) 6 %; Neutrophils # (A) 6.7 k/uL (1.3-7.7); Neutrophils % (A) 78 %; Platelet Count 201 k/uL (150-450); RBC 4.53 m/uL (4.30-5.90); RDW 14.4 % (11.5-15.5); WBC 8.6 k/uL (3.8-10.6)
[2019-05-31 17:32] LABS: Ammonia <9 umol/L (<30)
[2019-05-31 17:33] LABS: ALT 17 U/L (21-72); AST 30 U/L (17-59); African American GFR (CKD) 75 (>60 ml/min/1.73 sqM); Albumin 4.3 g/dL (3.5-5.0); Alcohol <10 mg/dL; Alkaline Phosphatase 106 U/L (38-126); Anion Gap 11 mmol/L; Blood Urea Nitrogen 38 mg/dL (9-20); Calcium 9.7 mg/dL (8.4-10.2); Carbon Dioxide 26 mmol/L (22-30); Chloride 102 mmol/L (98-107); Creatine Kinase 174 U/L (55-170); Glucose 127 mg/dL (74-99); Magnesium 1.7 mg/dL (1.6-2.3); Non-African American GFR(CKD) 65 (>60 ml/min/1.73 sqM); Potassium 3.4 mmol/L (3.5-5.1); Sodium 139 mmol/L (137-145); Total Bilirubin 0.6 mg/dL (0.2-1.3); Total Protein 7.8 g/dL (6.3-8.2)
[2019-05-31 17:35] LABS: Lactic Acid, Venous 2.8 mmol/L (0.7-2.0)
[2019-05-31] MEDS ORDERED: MAGNESIUM SULFATE-D5W PMX 1 GM in DEXTROSE/WATER 1 100ML.BAG IVPB ONE (17:43)
[2019-05-31] MEDS ORDERED: 0.9% NACL WITH KCL 20 MEQ/L 1,000 ML with MVI, ADULT NO.4 WITH VIT K 10 ML, THIAMINE 10... IV ONE ×4 (17:45)
[2019-05-31] MEDS ORDERED: NALOXONE 0.4 MG/ML 1 ML VIAL IV PRN (19:08)
[2019-05-31] MEDS ORDERED: MELATONIN 3 MG TABLET PO PRN (19:14)
[2019-05-31] MEDS: METOPROLOL TARTRATE 50 MG TAB PO SCH (21:50)
[2019-06-01 04:56] LABS: HCT 30.8 % (39.0-53.0); MCH 32.1 pg (25.0-35.0); MCHC 33.7 g/dL (31.0-37.0); MCV 95.3 fL (80.0-100.0); Mean Platelet Volume 6.6; Platelet Count 151 k/uL (150-450); RBC 3.23 m/uL (4.30-5.90); RDW 14.5 % (11.5-15.5); WBC 5.4 k/uL (3.8-10.6)
[2019-06-01 04:57] LABS: Calcium 8.1 mg/dL (8.4-10.2); Magnesium 1.8 mg/dL (1.6-2.3); Potassium 3.1 mmol/L (3.5-5.1)
[2019-06-01 05:07] LABS: HGB 10.4 gm/dL (13.0-17.5)
[2019-06-01 06:00] LABS: Appearance,Urine Clear (Clear); Bacteria,Urine Rare /hpf; Bilirubin,Urine Negative (Negative); Blood,Urine Moderate (Negative); Color,Urine Yellow; Glucose,Urine (UA) Negative (Negative); Hyaline Casts,Urine 23 /lpf (0-2); Ketones,Urine Negative (Negative); Leukocyte Esterase,Urine Negative (Negative); Mucus,Urine Occasional /hpf; Nitrite,Urine Negative (Negative); PH, Urine 5.5 (5.0-8.0); Protein,Urine 1+ (Negative); RBC,Urine 152 /hpf (0-5); Specific Gravity,Urine 1.024 (1.001-1.035); Squamous Epithelial Cell,Urine 1 /hpf (0-4); WBC,Urine 9 /hpf (0-5)
[2019-06-01] MEDS: NICOTINE 21MG/24HR PATCH TRANSDERM SCH (08:44)
[2019-06-01] MEDS: CLOPIDOGREL 75 MG TAB PO SCH (08:44)
[2019-06-01] MEDS: FLUoxetine HCL 20 MG CAP PO SCH (08:44)
[2019-06-01] MEDS: METOPROLOL TARTRATE 50 MG TAB PO SCH ×2 (08:45→20:21)
[2019-06-01] MEDS ORDERED: amLODIPine 2.5 MG TAB PO SCH (09:00)
[2019-06-01] MEDS ORDERED: POTASSIUM BICARBONATE/CIT AC 20 MEQ TABLET.EFF PO ONE (16:13)
[2019-06-01] MEDS: THIAMINE 100 MG TAB PO SCH (17:09)
[2019-06-01] MEDS ORDERED: ONDANSETRON 4 MG/2 ML VIAL IVP PRN (17:25)
[2019-06-01] MEDS ORDERED: ACETAMINOPHEN TAB 325 MG TAB PO PRN (17:25)
[2019-06-01] MEDS ORDERED: traMADol 50 MG TAB PO PRN (17:25)
[2019-06-01] MEDS ORDERED: CALCIUM CARBONATE 500 MG CHEWABLE PO PRN (17:25)
[2019-06-01] MEDS ORDERED: ALBUTEROL NEBULIZED 2.5 MG/3 ML INHALATION PRN (17:32)
--- NOTE | 2019-06-01 17:37 | P.HPIM ---
History of Present Illness H&P Date: 06/01/19 Chief Complaint: weakness Notified that the patient should be admitted to us from Dr. Potts on 06/01/19 at 1521. Patient is a 74-year-old male with a past medical history of myocardial infarction and coronary artery disease requiring stent and stents, abdominal aortic aneurysm status post repair, hypertension, dyslipidemia, and COPD with chronic ongoing tobacco abuse. Patient also has a history of severe alcoholism and is drinking approximately 1/5 of alcohol daily until 3 weeks ago. He presented to the emergency department via EMS secondary to weakness. Apparently he has found by his neighbor and a disheveled apartment and unable to right himself on the floor. On arrival to the ER he is tachycardic with a pulse of 121 and hypertensive with a blood pressure 171/101. Initial laboratory analysis showed an elevated lactic acid at 2.8, elevated troponin at 0.049, potassium of 3.4, BUN of 38, and glucose of 127. He was admitted for further monitoring secondary to his weakness. Patient seen and examined at bedside. He reports that he has been very weak and unable to get out of a chair for the last 2 weeks. He then tells me he's been eating by getting pizzas and he's been able to push himself up off the couch answer the door and sit back down. He reports that he has been crawling around and slithering on the floor. His son comes up from [place] 2-3 times weekly to bring him food. He states that he has been failing over the last 2 years. He was at [facility] over the summer and states he was discharged home because he was doing well with his physical therapy. He seems to struggle with timeline of his weakness and what is current versus old. He keeps pointing back to feeling well 2 years ago. He denies any recent chest pain or unusual shortness of breath. He reports that he is having an intermittent electric shooting pain down his left arm. He states that sometimes it feels numb and tingle. He states he is having intermittent palpitations but is unsure what brings them on. He had previously been drinking approximately 1/5 daily but has not had any alcohol intake in the last 3 weeks. He states he did go through some withdrawal but it has all and now. He reports that he has had intermittent fecal incontinence but no urinary incontinence. He denies any focal neuro deficits such as weakness of one arm or 1 leg, difficulty with speech, or difficulty with swallowing. He initially states that he has been losing weight but then it comes to light that he lost 40 pounds over a two-year period of time. He is still but does not live with his . He keeps saying he is unsure why he is getting so weak. Review of Systems Pertinent positives and negatives as discussed in HPI, a complete review of systems was performed and all other systems are negative. 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 Last Myocardial Infarction Date:: 2001 History of Any Multi-Drug Resistant Organisms: None Reported Past Surgical History: Adenoidectomy, Heart Catheterization With Stent, Tonsillectomy Additional Past Surgical History / Comment(s): 2 HEART CATHS-7 STENTS, AAA REPAIR, URSULA CATARACTS. Past Anesthesia/Blood Transfusion Reactions: No Reported Reaction Date of Last Stent Placement:: UNK Past Psychological History: Depression Smoking Status: Current every day smoker Past Alcohol Use History: Abuse, Daily, Heavy Additional Past Alcohol Use History / Comment(s): As noted when he has [facility], no one lives with him. Current smoker. Ongoing alcohol use binging at times. Related has been many years since he has used marijuana or heroin. No animals living with him. No experience related. NoTravel is related Past Drug Use History: Cocaine, Heroin, Marijuana Additional Drug Use History / Comment(s): PT STATED WHEN IN HIS 20'S HE SMOPKED MARIJUANA, DID SOME LSD AND OCC SOME HEROIN-WUIT ALL DRUGS IN HIS 30'S Additional History: Currently living alone, has a cane and a walker but uses neither because his house is so small, no alcohol intake in 3 weeks. - Past Family History Mother Additional Family Medical History / Comment(s): ETOH Father Additional Family Medical History / Comment(s): FROM AAA AT AGE 62 Medications and Allergies Home Medications Medication Instructions Recorded Confirmed Type Unable To Assess [Unable to Assess] 06/01/19 06/01/19 History Allergies Allergy/AdvReac Type Severity Reaction Status Date / Time egg Allergy Anaphylaxis Verified 05/31/19 19:40 Penicillins Allergy Unknown Verified 05/31/19 19:40 Childhood Physical Exam Osteopathic Statement: *. No significant issues noted on an osteopathic structural exam other than those noted in the History and Physical/Consult. Vitals: Vital Signs Temp Pulse Pulse Resp BP BP Pulse Ox 06/01/19 11:51 98.1 F 65 18 111/55 98 06/01/19 08:00 98.2 F 79 18 134/61 96 06/01/19 03:52 97.8 F 65 17 136/65 99 05/31/19 23:48 74 17 139/73 96 05/31/19 20:17 97.9 F 79 17 141/67 96 05/31/19 18:46 98 16 155/99 98 05/31/19 17:10 110 H 18 133/84 97 05/31/19 16:56 121 H 16 149/87 94 L Intake and Output 06/01/19 06/01/19 06/01/19 06:59 14:59 22:59 Intake Total 360 Output Total 250 Balance -250 360 Intake: Oral 360 Output: Urine 250 Other: Weight 74 kg 74 kg General: Chronically ill-appearing, temporal wasting, disheveled, no distress, appears at stated age, normal weight Derm: Scarring over sacral spine were patient states he had a pressure ulcer to the bone in the past no unusual ecchymoses, warm, dry Head: atraumatic, normocephalic, symmetric Eyes: EOMI, no lid lag, anicteric sclera, pupils equal round reactive to light ENT: Nose and ears atraumatic, no thrush, no pharyngeal erythema, poor dentition Neck: No thyromegaly, no cervical lymphadenopathy, trachea midline, supple Mouth: no lip lesion, mucus membranes moist Cardiovascular: S1S2 irreg, no murmur, positive posterior tibial pulse bilateral, trace pedal edema, capillary refill less than 2 seconds Lungs: Decreased breath sound bilateral, no rhonchi, no rales , no accessory muscle use Abdominal: soft, nontender to palpation, no guarding, no appreciable organomegaly, normal bowel sounds Ext: + gross muscle atrophy, muscle strength 4 out of 5 bilateral upper extremities and 3/5 in bilateral lower extremities grossly, no contractures, Neuro: CN II-XI grossly intact, light touch intact all 4 extremities, finger to nose poor on right, intact on left, Good rectal tone, muscle strength intact in intrinsic hand muscles Psych: Alert, oriented, appropriate affect Results CBC & Chem 7: 06/01/19 04:12 06/01/19 04:12 Labs: Abnormal Lab Results - Last 24 Hours (Table) 05/31/19 05/31/19 05/31/19 Range/Units 16:48 16:48 16:48 RBC (4.30-5.90) m/uL Hgb (13.0-17.5) gm/dL Hct (39.0-53.0) % Lymphocytes # 0.9 L (1.0-4.8) k/uL Sodium (137-145) mmol/L Potassium 3.4 L (3.5-5.1) mmol/L Chloride (98-107) mmol/L BUN 38 H (9-20) mg/dL Glucose 127 H (74-99) mg/dL Plasma Lactic Acid Mani 2.8 H* (0.7-2.0) mmol/L Calcium (8.4-10.2) mg/dL ALT 17 L (21-72) U/L Creatine Kinase 174 H (55-170) U/L Troponin I (0.000-0.034) ng/mL Urine Protein (Negative) Urine Blood (Negative) Urine RBC (0-5) /hpf Urine WBC (0-5) /hpf Urine Bacteria (None) /hpf Hyaline Casts (0-2) /lpf Urine Mucus (None) /hpf 05/31/19 05/31/19 06/01/19 Range/Units 16:48 22:42 03:42 RBC (4.30-5.90) m/uL Hgb (13.0-17.5) gm/dL Hct (39.0-53.0) % Lymphocytes # (1.0-4.8) k/uL Sodium (137-145) mmol/L Potassium (3.5-5.1) mmol/L Chloride (98-107) mmol/L BUN (9-20) mg/dL Glucose (74-99) mg/dL Plasma Lactic Acid Mani (0.7-2.0) mmol/L Calcium (8.4-10.2) mg/dL ALT (21-72) U/L Creatine Kinase (55-170) U/L Troponin I 0.049 H* 0.060 H* (0.000-0.034) ng/mL Urine Protein 1+ H (Negative) Urine Blood Moderate H (Negative) Urine RBC 152 H (0-5) /hpf Urine WBC 9 H (0-5) /hpf Urine Bacteria Rare H (None) /hpf Hyaline Casts 23 H (0-2) /lpf Urine Mucus Occasional H (None) /hpf 06/01/19 06/01/19 06/01/19 Range/Units 04:12 04:12 04:12 RBC 3.23 L (4.30-5.90) m/uL Hgb 10.4 L D (13.0-17.5) gm/dL Hct 30.8 L (39.0-53.0) % Lymphocytes # (1.0-4.8) k/uL Sodium 136 L (137-145) mmol/L Potassium 3.1 L (3.5-5.1) mmol/L Chloride 109 H (98-107) mmol/L BUN 29 H (9-20) mg/dL Glucose 176 H (74-99) mg/dL Plasma Lactic Acid Mani (0.7-2.0) mmol/L Calcium 8.1 L (8.4-10.2) mg/dL ALT (21-72) U/L Creatine Kinase (55-170) U/L Troponin I 0.048 H* (0.000-0.034) ng/mL Urine Protein (Negative) Urine Blood (Negative) Urine RBC (0-5) /hpf Urine WBC (0-5) /hpf Urine Bacteria (None) /hpf Hyaline Casts (0-2) /lpf Urine Mucus (None) /hpf Chest x-ray: report reviewed Thrombosis Risk Factor Assmnt - DVT/VTE Prophylaxis DVT/VTE Prophylaxis: Mechanical Prophylaxis ordered - Choose All That Apply Any of the Below Risk Factors Present?: Yes Each Factor Represents 1 point: Abnormal pulmonary function (COPD) Other Risk Factors: Yes Each Risk Factor Represents 2 Points: Age 61-74 years Other congenital or acquired thrombophilia - If yes, enter type in comment: No Thrombosis Risk Factor Assessment Total Risk Factor Score: 3 Thrombosis Risk Factor Assessment Level: Moderate Risk Assessment and Plan Assessment: Generalized weakness and falls -tele, echo, orthostatic vital signs - TSH, and B12 - PT/OT evaluation - consult neurology Elevated troponin - flat trend - Tele - consult cardio - check echo - May be due to HTN urgency on arrival - Resume plavix HTN, urgency on arrival - metoprolol started - imroved HLD - not talking medications at home - recheck lipid profile Alcoholism - no in take in 3 weeks, was 1/5 th daily before them - thiamine and folic acid replacement COPD without excerbation - prn asthma Tobacco abuse - cessation - nicotine replacement Anemia at baseline - like normal Hg on admission due to hemoconcentration - Follow CBC Dehydration, improved Hematuria - undetermined etiology - repeat UA The patient is admitted with an anticipated greater than 2 midnight stay for evaluation of Elevated troponin and generalized weakness. Patient unable to stand at home this is acute onset associated with elevated troponin. Surrogate decision-maker: - Beatrice CODE STATUS: Full DVT prophylaxis: SCDs Discussed with: Patient, nursing Anticipated discharge date: 2-[address]: SNF A total of 65 minutes was spent on the care of this complex patient more than 50% of the time was spent in counseling and care coordination.
[2019-06-02 06:19] LABS: HCT 29.5 % (39.0-53.0); HGB 9.6 gm/dL (13.0-17.5); MCHC 32.7 g/dL (31.0-37.0); MCV 97.9 fL (80.0-100.0); Mean Platelet Volume 7.3; Platelet Count 138 k/uL (150-450); RBC 3.01 m/uL (4.30-5.90); RDW 14.7 % (11.5-15.5); WBC 4.5 k/uL (3.8-10.6)
[2019-06-02 06:39] LABS: Calcium 8.1 mg/dL (8.4-10.2); Magnesium 1.9 mg/dL (1.6-2.3); Phosphorus 2.7 mg/dL (2.5-4.5); Potassium 4.3 mmol/L (3.5-5.1)
[2019-06-02] MEDS: THIAMINE 100 MG TAB PO SCH ×2 (06:39→17:33)
[2019-06-02] MEDS: CLOPIDOGREL 75 MG TAB PO SCH (08:34)
[2019-06-02] MEDS: FLUoxetine HCL 20 MG CAP PO SCH (08:34)
[2019-06-02] MEDS: FOLIC ACID 1 MG TAB PO SCH (08:34)
[2019-06-02] MEDS: METOPROLOL TARTRATE 50 MG TAB PO SCH ×2 (08:34→19:49)
[2019-06-02] MEDS: NICOTINE 21MG/24HR PATCH TRANSDERM SCH (08:34)
--- NOTE | 2019-06-02 10:28 | CDI ---
Documentation Clarification Form Date: 06/02/2019 10:17:42 AM From: Shamika Alvarado RN, CCDS Admit Date: 06/02/2019 8:59:00 AM Patient Name: Omer Aguirre Visit Number: [id number] ATTENTION: The Clinical Documentation Specialists (CDI) and [facility] Coding Staff appreciate your assistance in clarifying documentation. Please respond to the clarification below the line at the bottom and electronically sign. The CDI & [facility] Coding staff will review the response and follow-up if needed. Please note: Queries are made part of the Legal Health Record. If you have any questions, please contact the author of this message via ITS. Dr. Jessica Rice History/Risk Factors: Generalized weakness and falls, Hx of ETOH quit 3 weeks ago, COPD exacerbation Clinical Indicators: 06/01 H&P: Chronically ill-appearing, temporal wasting, disheveled, no distress, appears at stated age, normal weight Derm: Scarring over sacral spine were patient states he had a pressure ulcer to the bone in the past no unusual ecchymoses, warm, dry Head: atraumatic, normocephalic, symmetric Labs: Hgb 10.4/9.6, plasma LA 2.8 Current BMI: 24.5 Weight Loss: unintended weight loss H&P: Fluid accumulation: "trace pedal edema" Treatment: Dietary Consult: completed 06/01 1138 Supplements: Enlive TID Lab monitoring: AM Daily In your professional opinion, can you please clarify if these findings signify one of the following conditions? Mild Protein-Calorie Malnutrition Moderate Protein-Calorie Malnutrition Severe Protein-Calorie Malnutrition Other condition, please specify Unable to determine (Last Revision: January 2019) moderate PCM MTDD
--- NOTE | 2019-06-02 10:41 | CDI ---
Documentation Clarification Form Date: 06/02/2019 10:29:32 AM From: Shamika Lopez RN, CCDS Admit Date: 06/02/2019 8:59:00 AM Patient Name: Omer Aguirre Visit Number: [id number] ATTENTION: The Clinical Documentation Specialists (CDI) and [facility] Coding Staff appreciate your assistance in clarifying documentation. Please respond to the clarification below the line at the bottom and electronically sign. The CDI & [facility] Coding staff will review the response and follow-up if needed. Please note: Queries are made part of the Legal Health Record. If you have any questions, please contact the author of this message via ITS. Dr. Jessica Rice A diagnosis of anemia lacks specificity to accurately reflect your patients severity of condition and clarification is needed. History/Risk Factors: Asthma, COPD, HTN, HI, Pneumonia Clinical indicators: 06/01 H&P: "Anemia at baseline - like normal Hg on admission due to hemoconcentration - Follow CBC." Hemoglobin: 14.6/10.4/9.6 Hematocrit: 42.3/ 30.8/29.5 Treatment: Monitoring labs Plavix 75 mg PO QD IVF Bolus 2L In order to capture the severity of condition, please clarify the type of anemia and etiology if known: Chronic blood loss anemia Iron deficiency anemia Drug induced anemia Nutritional anemia Anemia of chronic disease Unable to determine Other, please specify (Last Revision: April 2017) Unable to determine at this time MTDD
--- NOTE | 2019-06-02 13:00 | P.CNNES ---
History of Present Illness Consult date: 06/02/19 Requesting physician: Jessica Rice Reason for Consult: Weakness, EtOH use, imbalance History of Present Illness: Patient is a 74-year-old, who has history of drinking for fairly long time. Patient states that he would drink a fifth of vodka a day, about 5 days a week. Patient states that he has been drinking since he was a "kid". He was living in [place] for 4 years, when he was not drinking much and he was much more active. However he returned back to [place] 2 years ago to be close to his children and since then he has been drinking much more heavily as mentioned. Patient states that when he wakes up in the morning, he would drink whiskey, and would drink it 3 times a day. He states that he can drink any type of alcohol that is available to him. Patient states that in the beginning he used to have problem with balance only when he was drinking, but now it is present all the time. He cannot walk without holding onto the furniture, falls off. Patient states that he has a walker and sometimes he falls along with a walker. He does have arthritis. He lives alone and. Denies any numbness or tingling in the feet. He does have arthritis of both hands with decreased range of motion of small joints of the fingers, and claims he has rheumatoid arthritis for which he sees a clean out driller helper, Dr. Brielle Castro. Patient states that sometimes he does get sharp pain in both hands that goes up to the shoulder but denies any numbness of the feet or hands. Patient's blood test shows normal WBC, hemoglobin 9.6 platelets 138. Chem-7 is normal. Troponins are elevated 0.048. Total cholesterol is 129, LDL is 81, HDL 34 and triglycerides 69. TSH normal 1.48. Patient's B12 is 335, folate 22.1. EKG shows sinus tachycardia with right atrial enlargement. Chest x-ray showed no acute process. Patient's MRI of the lumbar spine from 11/25/2017 showed suspect acute on chronic moderate compression fracture L5 level. Fracture line does not extend to the posterior vertebral body margin, there is some posterior migration of the superior L5 vertebra along with degenerative change causing most prominent spinal canal stenosis L4 5 and superior L5 level. There is 4.3 cm aneurysm of the distal abdominal aorta. Patient had a normal thoracic spine MRI 11/25/2017. Patient has seen Dr. Cao after this MRI was completed. Patient was fitted with a back brace. Patient states that he never underwent surgery, as the pain went away. Patient states that he does smoke 1 pack per day since age 14. He denies any drugs. He did use marijuana long time ago. Review of Systems Positive for arthritis, gait imbalance, frequent falls, pain in the hands, numbness. Denies headache problem with the vision, dysphagia dysarthria chest pain shortness of breath wheezing cough, abdominal pain. Past Medical History Past Medical History: Asthma, COPD, Hyperlipidemia, Hypertension, Myocardial Infarction ([place]), Pneumonia, Prostate Disorder, Rheumatoid Arthritis ([place]) Additional Past Medical History / Comment(s): 2001 [place]; 7 stents; aortic aneurysm (HAS SX) pancreatitis, ASTHMA CHILD, CONCUSSONS IN PAST, RT EYE START OF MACULAR DEGENERATION, "RUPTURED DISC IN NECK -NO SX JUST PT". Last Myocardial Infarction Date:: 2001 History of Any Multi-Drug Resistant Organisms: None Reported Past Surgical History: Adenoidectomy, Heart Catheterization With Stent, Tonsillectomy Additional Past Surgical History / Comment(s): 2 HEART CATHS-7 STENTS, AAA REPAIR, URSULA CATARACTS. Past Anesthesia/Blood Transfusion Reactions: No Reported Reaction Date of Last Stent Placement:: UNK Past Psychological History: Depression Smoking Status: Current every day smoker Past Alcohol Use History: Abuse, Daily, Heavy Additional Past Alcohol Use History / Comment(s): As noted when [facility], no one lives with him. Current smoker. Ongoing alcohol use binging at times. Related has been many years since he has used marijuana or heroin. No animals living with him. No experience related. NoTravel is related Past Drug Use History: Cocaine, Heroin, Marijuana Additional Drug Use History / Comment(s): PT STATED WHEN IN HIS 20'S HE SMOPKED MARIJUANA, DID SOME LSD AND OCC SOME HEROIN-WUIT ALL DRUGS IN HIS 30'S - Past Family History Mother Additional Family Medical History / Comment(s): ETOH Father Additional Family Medical History / Comment(s): FROM AAA AT AGE 62 Medications and Allergies Home Medications Medication Instructions Recorded Confirmed Type Unable To Assess [Unable to Assess] 06/01/19 06/01/19 History Allergies Allergy/AdvReac Type Severity Reaction Status Date / Time egg Allergy Anaphylaxis Verified 05/31/19 19:40 Penicillins Allergy Unknown Verified 05/31/19 19:40 Childhood Physical Examination - Vital Signs Vital Signs: Vital Signs Temp Pulse Resp BP Pulse Ox 06/02/19 11:37 98.4 F 56 L 18 133/64 98 06/02/19 08:00 98.5 F 64 18 130/64 98 06/02/19 03:02 98.8 F 61 17 123/58 98 06/01/19 23:32 72 17 103/55 96 06/01/19 20:00 98.8 F 83 17 139/66 97 06/01/19 16:00 97.9 F 62 18 116/62 97 Intake and Output 06/01/19 06/02/19 06/02/19 22:59 06:59 14:59 Intake Total 360 360 Balance 360 360 Intake: Oral 360 360 Other: # Voids 1 2 # Bowel Movements 1 Weight 77.5 kg On examination patient is an elderly male, in no distress. There is no carotid bruit or murmur, peripheral pulses present. No edema. Patient is alert and awake oriented to time place and person. He knows it is 06/02/2019 and that he is in [facility] in [place]. Speech and language functions are normal. Attention and concentration fund of knowledge appears adequate on cranial exam showed pupils are round and reactive to light, visual gil are full, face is symmetric and tongue protrudes the midline. Palatal elevation and sensation normal. On muscle strength testing there is no pronator drift. The strength appears normal in the arms except his hands are weak because of stiffness of the finger, from arthritis. In the lower extremities his ankles toes and knees are normal. His hip flexion is normal on the right, but is weak on the left. He has significant stiffness of the hip joints bilaterally, left worse. Reflexes are diminished and plantars are downgoing. Tone is normal and bulk of muscles slightly decreased in the legs. Patient is slightly dysmetric for [id number] testing. No definitive ataxia for [id number] although it was limited because of hip issues. Results - Laboratory Findings CBC and BMP: 06/02/19 05:07 06/02/19 05:07 Abnormal Lab Findings: Abnormal Labs 05/31/19 05/31/19 05/31/19 16:48 16:48 16:48 RBC Hgb Hct Plt Count Lymphocytes # 0.9 L Sodium Potassium 3.4 L Chloride BUN 38 H Glucose 127 H Plasma Lactic Acid Mani 2.8 H* Calcium ALT 17 L Creatine Kinase 174 H Troponin I HDL Cholesterol Urine Protein Urine Blood Urine RBC Urine WBC Urine Bacteria Hyaline Casts Urine Mucus 05/31/19 05/31/19 06/01/19 16:48 22:42 03:42 RBC Hgb Hct Plt Count Lymphocytes # Sodium Potassium Chloride BUN Glucose Plasma Lactic Acid Mani Calcium ALT Creatine Kinase Troponin I 0.049 H* 0.060 H* HDL Cholesterol Urine Protein 1+ H Urine Blood Moderate H Urine RBC 152 H Urine WBC 9 H Urine Bacteria Rare H Hyaline Casts 23 H Urine Mucus Occasional H 06/01/19 06/01/19 06/01/19 04:12 04:12 04:12 RBC 3.23 L Hgb 10.4 L D Hct 30.8 L Plt Count Lymphocytes # Sodium 136 L Potassium 3.1 L Chloride 109 H BUN 29 H Glucose 176 H Plasma Lactic Acid Mani Calcium 8.1 L ALT Creatine Kinase Troponin I 0.048 H* HDL Cholesterol Urine Protein Urine Blood Urine RBC Urine WBC Urine Bacteria Hyaline Casts Urine Mucus 06/02/19 06/02/19 05:07 05:07 RBC 3.01 L Hgb 9.6 L Hct 29.5 L Plt Count 138 L Lymphocytes # Sodium Potassium Chloride 110 H BUN 36 H Glucose Plasma Lactic Acid Mani Calcium 8.1 L ALT Creatine Kinase Troponin I HDL Cholesterol 34 L Urine Protein Urine Blood Urine RBC Urine WBC Urine Bacteria Hyaline Casts Urine Mucus Assessment and Plan Assessment: * Gait imbalance and tendency to fall, likely multifactorial. Patient's history of alcoholism, probably has affected the proprioception and some sensory ataxia. Rule out nutritional deficiency related to alcoholism. Patient has significant arthritis of bilateral hips and moderate to severe lumbar spinal stenosis at L4 5, which probably are contributing to gait imbalance and frequent falls. * Moderate to severe spinal stenosis L4 5, as per previous MRI. * Significant arthritis of bilateral hips. * Rheumatoid arthritis Plan: * We will check B12, methylmalonic acid, folic acid. * PT OT. Patient states he is planning to move to assisted living. * May consider orthopedic evaluation for severe hip arthrosis and lumbar spinal stenosis affecting gait.
--- NOTE | 2019-06-02 13:31 | P.CRDCN ---
History of Present Illness Consult date: 06/02/19 Requesting physician: Jessica Rice Reason for Consult (text): Abnormal troponin Chief complaint: Generalized weakness, falls History of present illness: This is a 74-year-old gentleman with history of COPD, nicotine dependence, hypertension, GERD, alcoholism, pancreatic cancer, metastases to my also, renal failure, most of the history was obtained from the medical record but according to the patient, he states he was extremely weak and he was falling at home. Patient does state that he was drinking significant amounts of alcohol although he did say to prior healthcare providers here during this admission that he had quit drinking. Patient was found to be incontinent of urine and there was a diarrhea stool as well as several cans and food containers on the floor. Chest x-ray did not reveal any evidence for acute pulmonary disease. EKG on presentation here showed a sinus tachycardia with nonspecific ST-T wave changes. Blood pressure 132/60 with a heart rate in the 50s, 98% on room air. White blood cell count 4.5, hemoglobin 9.6, platelet count 138. Sodium 138, potassium 4.3, BUN 36, creatinine 1.0. Troponins 0.04, 0.06, 0.04. TSH 1.48 Past Medical History Past Medical History: Asthma, COPD, Hyperlipidemia, Hypertension, Myocardial Infarction ([place]), Pneumonia, Prostate Disorder, Rheumatoid Arthritis ([place]) Additional Past Medical History / Comment(s): 2001 [place]; 7 stents; aortic aneurysm (HAS SX) pancreatitis, ASTHMA CHILD, CONCUSSONS IN PAST, RT EYE START OF MACULAR DEGENERATION, "RUPTURED DISC IN NECK -NO SX JUST PT". Last Myocardial Infarction Date:: 2001 History of Any Multi-Drug Resistant Organisms: None Reported Past Surgical History: Adenoidectomy, Heart Catheterization With Stent, Tonsillectomy Additional Past Surgical History / Comment(s): 2 HEART CATHS-7 STENTS, AAA REPAI R, URSULA CATARACTS. Past Anesthesia/Blood Transfusion Reactions: No Reported Reaction Date of Last Stent Placement:: UNK Past Psychological History: Depression Smoking Status: Current every day smoker Past Alcohol Use History: Abuse, Daily, Heavy Additional Past Alcohol Use History / Comment(s): As noted when he has while he lives in his condominium, no one lives with him. Current smoker. Ongoing alcohol use binging at times. Related has been many years since he has used marijuana or heroin. No animals living with him. No experience related. NoTravel is related Past Drug Use History: Cocaine, Heroin, Marijuana Additional Drug Use History / Comment(s): PT STATED WHEN IN HIS 20'S HE SMOPKED MARIJUANA, DID SOME LSD AND OCC SOME HEROIN-WUIT ALL DRUGS IN HIS 30'S - Past Family History Mother Additional Family Medical History / Comment(s): ETOH Father Additional Family Medical History / Comment(s): FROM AAA AT AGE 62 Medications and Allergies Home Medications Medication Instructions Recorded Confirmed Type Unable To Assess [Unable to Assess] 06/01/19 06/01/19 History Allergies Allergy/AdvReac Type Severity Reaction Status Date / Time egg Allergy Anaphylaxis Verified 05/31/19 19:40 Penicillins Allergy Unknown Verified 05/31/19 19:40 Childhood Physical Exam Vitals: Vital Signs Temp Pulse Resp BP Pulse Ox 06/02/19 11:37 98.4 F 56 L 18 133/64 98 06/02/19 08:00 98.5 F 64 18 130/64 98 06/02/19 03:02 98.8 F 61 17 123/58 98 06/01/19 23:32 72 17 103/55 96 06/01/19 20:00 98.8 F 83 17 139/66 97 06/01/19 16:00 97.9 F 62 18 116/62 97 Intake and Output 06/01/19 06/02/19 06/02/19 22:59 06:59 14:59 Intake Total 360 360 Balance 360 360 Intake: Oral 360 360 Other: # Voids 1 2 # Bowel Movements 1 Weight 77.5 kg General: Chronically ill-appearing, temporal wasting, disheveled, no distress, appears at stated age, normal weight Derm: Scarring over sacral spine were patient states he had a pressure ulcer to the bone in the past no unusual ecchymoses, warm, dry Head: atraumatic, normocephalic, symmetric Eyes: EOMI, no lid lag, anicteric sclera, pupils equal round reactive to light ENT: Nose and ears atraumatic, no thrush, no pharyngeal erythema, poor dentition Neck: No thyromegaly, no cervical lymphadenopathy, trachea midline, supple Mouth: no lip lesion, mucus membranes moist Cardiovascular: S1S2 irreg, no murmur, positive posterior tibial pulse bilateral, trace pedal edema, capillary refill less than 2 seconds Lungs: Decreased breath sound bilateral, no rhonchi, no rales , no accessory muscle use Abdominal: soft, nontender to palpation, no guarding, no appreciable organomegaly, normal bowel sounds Ext: + gross muscle atrophy, muscle strength 4 out of 5 bilateral upper extremities and 3/5 in bilateral lower extremities grossly, no contractures, Neuro: CN II-XI grossly intact, light touch intact all 4 extremities, finger to nose poor on right, intact on left, Good rectal tone, muscle strength intact in intrinsic hand muscles Psych: Alert, oriented, appropriate affect Results 06/02/19 05:07 06/02/19 05:07 Lipids 06/02/19 Range/Units 05:07 Triglycerides 69 (<150) mg/dL Cholesterol 129 (<200) mg/dL HDL Cholesterol 34 L (40-60) mg/dL CBC 06/02/19 Range/Units 05:07 WBC 4.5 (3.8-10.6) k/uL RBC 3.01 L (4.30-5.90) m/uL Hgb 9.6 L (13.0-17.5) gm/dL Hct 29.5 L (39.0-53.0) % Plt Count 138 L (150-450) k/uL Comprehensive Metabolic Panel 06/02/19 Range/Units 05:07 Sodium 138 (137-145) mmol/L Potassium 4.3 (3.5-5.1) mmol/L Chloride 110 H (98-107) mmol/L Carbon Dioxide 24 (22-30) mmol/L BUN 36 H (9-20) mg/dL Creatinine 1.01 (0.66-1.25) mg/dL Glucose 91 (74-99) mg/dL Calcium 8.1 L (8.4-10.2) mg/dL Current Medications Generic Name Dose Route Start Last Admin Trade Name Freq PRN Reason Stop Dose Admin Acetaminophen 650 mg 06/01/19 17:25 Tylenol Tab PO Q6HR PRN Mild Pain or Fever > 100.5 Albuterol Sulfate 2.5 mg 06/01/19 17:32 Ventolin Nebulized INHALATION RT-QID PRN Shortness Of Breath Or Wheezing Calcium Carbonate/Glycine 1,000 mg 06/01/19 17:25 Tums PO Q4HR PRN Dyspepsia Clopidogrel Bisulfate 75 mg 06/01/19 09:00 06/02/19 08:34 Plavix PO 75 mg DAILY BIANCA Administration Ergocalciferol 50,000 unit 06/04/19 09:00 Vitamin D2 PO FR BIANCA Fluoxetine HCl 20 mg 06/01/19 09:00 06/02/19 08:34 Prozac PO 20 mg DAILY BIANCA Administration Folic Acid 1 mg 06/02/19 09:00 06/02/19 08:34 Folic Acid PO 1 mg DAILY BIANCA Administration Melatonin 3 mg 05/31/19 19:14 05/31/19 23:18 Melatonin PO 3 mg HS PRN Administration Insomnia Metoprolol Tartrate 50 mg 05/31/19 21:00 06/02/19 08:34 Lopressor PO 50 mg BID BIANCA Administration Naloxone HCl 0.2 mg 05/31/19 19:08 Narcan IV Q2M PRN Opioid Reversal Nicotine 1 patch 06/01/19 09:00 06/02/19 08:34 Habitrol 21mg/24hr Patch TRANSDERM 1 patch DAILY BIANCA Administration Ondansetron HCl 4 mg 06/01/19 17:25 Zofran IVP Q8HR PRN Nausea And Vomiting Thiamine HCl 100 mg 06/01/19 17:30 06/02/19 06:39 Vitamin B-1 PO 100 mg BID-W/MEALS BIANCA Administration Tramadol HCl 50 mg 06/01/19 17:25 Ultram PO Q6H PRN Moderate Pain Intake and Output 06/01/19 06/02/19 06/02/19 22:59 06:59 14:59 Intake Total 360 360 Balance 360 360 Intake: Oral 360 360 Other: # Voids 1 2 # Bowel Movements 1 Weight 77.5 kg 06/02/19 05:07 06/02/19 05:07 EKG Interpretations (text) EKG shows sinus tachycardia with nonspecific ST-T wave changes Assessment and Plan Plan: Assessment and plan #1 weakness and falls, likely secondary to EtOH abuse. Patient stated that he had been drinking significant amount of alcohol, however he previously stated to her prior physician that he quit 3 weeks ago. #2 abnormal troponin, not consistent with acute coronary syndrome, we will obtain an echocardiogram with Doppler study #3 hypertensive urgency #4 EtOH abuse #5 COPD without exacerbation #6 nicotine dependence #7 hematuria #8 anemia #9 hypokalemia Plan We will obtain an echocardiogram with Doppler study. Continue Plavix, no aspirin, continue metoprolol, other recommendations to follow. DNP note has been reviewed, I agree with a documented findings and plan of care. Patient was seen and examined.
[2019-06-02] MEDS ORDERED: LORazepam 2 MG/ML INJ IV PRN ×3 (20:27)
--- NOTE | 2019-06-02 20:33 | P.PN ---
Subjective Progress Note Date: 06/02/19 (delayed chartig seen at 0930) Principal diagnosis: weakness. Patient is a 74-year-old male with a past medical history of myocardial infarction and coronary artery disease requiring stent and stents, abdominal aortic aneurysm status post repair, hypertension, dyslipidemia, and COPD with chronic ongoing tobacco abuse. Patient also has a history of severe alcoholism and is drinking approximately 1/5 of alcohol daily until 3 weeks ago. He presented to the emergency department via EMS secondary to weakness. Apparently he has found by his neighbor and a disheveled apartment and unable to right himself on the floor. On arrival to the ER he is tachycardic with a pulse of 121 and hypertensive with a blood pressure 171/101. Initial laboratory analysis showed an elevated lactic acid at 2.8, elevated troponin at 0.049, potassium of 3.4, BUN of 38, and glucose of 127. He was admitted for further monitoring secondary to his weakness. Cardio and neuro consulted. Echo ordered. PT/OT recommending SONDRA. Patient seen and examined at bedside. Still feeling very weak. No nausea, vomiting, chest pain, or shortness of breath. Agrees that he likely needs rehab. Objective - Vital Signs Vital signs: Vital Signs Temp 98.4 F 06/02/19 16:00 Pulse 56 L 06/02/19 11:37 Resp 18 06/02/19 16:00 BP 126/66 06/02/19 16:00 Pulse Ox 96 06/02/19 16:00 Intake & Output 06/02/19 06/02/19 06/03/19 06:59 18:59 06:59 Intake Total 360 360 Balance 360 360 Weight 77.5 kg Intake: Oral 360 360 Other: # Voids 2 # Bowel Movements 1 - Exam General: Disheveled, chronically ill-appearing, appears older than stated age Derm: Multiple areas of ecchymoses, warm, dry Head: atraumatic, normocephalic, symmetric Eyes: EOMI, no lid lag, anicteric sclera Mouth: no lip lesion, mucus membranes moist, poor dentition Cardiovascular: S1S2 reg, no murmur, positive posterior tibial pulse bilateral, Lungs: Coarse breath sounds bilateral , no accessory muscle use Abdominal: soft, nontender to palpation, no guarding, no appreciable organomegaly Ext: no gross muscle atrophy, no edema, no contractures Neuro: CN II-XI grossly intact, no focal neuro deficits Psych: Alert, oriented, appropriate affect - Labs CBC & Chem 7: 06/02/19 05:07 06/02/19 05:07 Labs: Abnormal Lab Results - Last 24 Hours (Table) 06/02/19 06/02/19 Range/Units 05:07 05:07 RBC 3.01 L (4.30-5.90) m/uL Hgb 9.6 L (13.0-17.5) gm/dL Hct 29.5 L (39.0-53.0) % Plt Count 138 L (150-450) k/uL Chloride 110 H (98-107) mmol/L BUN 36 H (9-20) mg/dL Calcium 8.1 L (8.4-10.2) mg/dL HDL Cholesterol 34 L (40-60) mg/dL Assessment and Plan Assessment: Generalized weakness and falls -tele, echo pending, orthostatic vital signs not recorded. Will reorder. - TSH, and B12 - PT/OT recs - Neurology recs appreciated- suspect alcohol related Elevated troponin - flat trend, not consistent with acute coronary syndrome - Tele - cardio recs appreciated - echo pending - May be due to HTN urgency on arrival - plavix HTN, urgency on arrival - metoprolol started - improved HLD - not talking medications at home - lipid profile normal, no indication for statin Alcoholism - no in take in 3 weeks, was 1/5 th daily before then - thiamine and folic acid replacement - CIWA COPD without excerbation - prn albuterol Tobacco abuse - cessation - nicotine replacement Anemia, worsening with thrombocytopenia - like normal Hg on admission due to hemoconcentration - repeat CBC in AM - check fe studies, B12 and folic acid levels - check hemoccult (still no BM) Dehydration, improved Hematuria - undetermined etiology - repeat UA pending Moderate protein calorie malnutrition - supplements - avoid alcohol DVT prophylaxis: SCDs Discussed with: Patient, nursing Anticipated discharge date: 2-[address]: SNF A total of 35 minutes was spent on the care of this complex patient more than 50% of the time was spent in counseling and care coordination.
[2019-06-02] MEDS: ARTIFICIAL TEARS-HYPROMELLOSE DROPS 15 ML BTL BOTH EYES SCH (23:21)
[2019-06-03 00:53] LABS: Folate, Serum 8.9 ng/mL
[2019-06-03 05:21] LABS: Hemoglobin A1C 5.1 % (4.0-6.0)
[2019-06-03 05:48] LABS: HCT 29.9 % (39.0-53.0); HGB 10.2 gm/dL (13.0-17.5); MCH 32.5 pg (25.0-35.0); MCHC 34.2 g/dL (31.0-37.0); MCV 95.1 fL (80.0-100.0); Platelet Count 144 k/uL (150-450); RBC 3.14 m/uL (4.30-5.90); RDW 14.6 % (11.5-15.5); WBC 5.2 k/uL (3.8-10.6)
[2019-06-03 05:58] LABS: African American GFR (CKD) >90 (>60 ml/min/1.73 sqM); Anion Gap 4 mmol/L; Blood Urea Nitrogen 28 mg/dL (9-20); Calcium 8.4 mg/dL (8.4-10.2); Carbon Dioxide 26 mmol/L (22-30); Chloride 108 mmol/L (98-107); Glucose 125 mg/dL (74-99); Non-African American GFR(CKD) 79 (>60 ml/min/1.73 sqM); Sodium 138 mmol/L (137-145)
[2019-06-03] MEDS: THIAMINE 100 MG TAB PO SCH ×2 (06:17→17:27)
[2019-06-03 06:29] LABS: Potassium 4.3 mmol/L (3.5-5.1)
[2019-06-03] MEDS: FOLIC ACID 1 MG TAB PO SCH (10:03)
[2019-06-03] MEDS: CLOPIDOGREL 75 MG TAB PO SCH (10:03)
[2019-06-03] MEDS: FLUoxetine HCL 20 MG CAP PO SCH (10:03)
[2019-06-03] MEDS: METOPROLOL TARTRATE 50 MG TAB PO SCH ×2 (10:03→19:49)
[2019-06-03] MEDS: NICOTINE 21MG/24HR PATCH TRANSDERM SCH (10:04)
[2019-06-03] MEDS: ARTIFICIAL TEARS-HYPROMELLOSE DROPS 15 ML BTL BOTH EYES SCH ×4 (10:09→23:21)
[2019-06-03 10:59] LABS: Ferritin 101.9 ng/mL (22.0-322.0)
[2019-06-03 11:40] LABS: % Iron Saturation 16.16 (15.00-50.00); Iron 32 ug/dL (65-175); Total Iron Binding Capacity 198 ug/dL (228-460)
[2019-06-03] MEDS: CYANOCOBALAMIN 1,000 MCG/ML 1 ML VIAL IM SCH (12:07)
--- NOTE | 2019-06-03 12:30 | P.PN ---
Subjective Progress Note Date: 06/03/19 Patient is laying comfortably in the bed, slightly confused, laying diagonally in the bed. Patient denies headache. Does not offer any complaints. Objective - Vital Signs Vital signs: Vital Signs Temp 98.2 F 06/03/19 08:00 Pulse 64 06/03/19 08:00 Resp 18 06/03/19 08:00 BP 166/78 06/03/19 08:00 Pulse Ox 96 06/03/19 08:00 Intake & Output 06/02/19 06/03/19 06/03/19 18:59 06:59 18:59 Intake Total 360 360 240 Balance 360 360 240 Weight 77 kg Intake: Oral 360 360 240 Other: # Voids 1 - Exam Patient's mental status is stable. Patient appears slightly tremulous. Rest of the examination is unchanged. - Labs CBC & Chem 7: 06/03/19 05:35 06/03/19 05:35 Labs: Abnormal Lab Results - Last 24 Hours (Table) 06/03/19 06/03/19 Range/Units 05:35 05:35 RBC 3.14 L (4.30-5.90) m/uL Hgb 10.2 L (13.0-17.5) gm/dL Hct 29.9 L (39.0-53.0) % Plt Count 144 L (150-450) k/uL Chloride 108 H (98-107) mmol/L BUN 28 H (9-20) mg/dL Glucose 125 H (74-99) mg/dL Iron 32 L (65-175) ug/dL TIBC 198 L (228-460) ug/dL Assessment and Plan Assessment: * Gait imbalance and tendency to fall, likely multifactorial. Patient's history of alcoholism, probably has affected the proprioception and some sensory ataxia. Rule out nutritional deficiency related to alcoholism. Patient has significant arthritis of bilateral hips and moderate to severe lumbar spinal stenosis at L4 5, which probably are contributing to gait imbalance and frequent falls. * B12 deficiency * Moderate to severe spinal stenosis L4 5, as per previous MRI. * Significant arthritis of bilateral hips. * Rheumatoid arthritis Plan: * Patient's B12 level is borderline low 285. Patient will be started on B12 replacement. Methylmalonic acid pending, folic acid 8.9, now on replacement. * Patient's hemoglobin A1c 5.1, TSH 1.48. RPR negative. * Patient appears slightly confused, concerned about impending alcohol withdrawals/DT. * DVT prophylaxis * PT OT. Patient states he is planning to move to assisted living. * May consider orthopedic evaluation for severe hip arthrosis and lumbar spinal stenosis affecting gait.
--- NOTE | 2019-06-03 14:36 | P.PN ---
Subjective Progress Note Date: 06/03/19 This is a 74-year-old gentleman with history of COPD, nicotine dependence, hypertension, GERD, alcoholism, pancreatic cancer, metastases to my also, renal failure, most of the history was obtained from the medical record but according to the patient, he states he was extremely weak and he was falling at home. Patient does state that he was drinking significant amounts of alcohol although he did say to prior healthcare providers here during this admission that he had quit drinking. Patient was found to be incontinent of urine and there was a diarrhea stool as well as several cans and food containers on the floor. Chest x-ray did not reveal any evidence for acute pulmonary disease. EKG on presentation here showed a sinus tachycardia with nonspecific ST-T wave changes. Blood pressure 132/60 with a heart rate in the 50s, 98% on room air. White blood cell count 4.5, hemoglobin 9.6, platelet count 138. Sodium 138, potassium 4.3, BUN 36, creatinine 1.0. Troponins 0.04, 0.06, 0.04. TSH 1.48. 06/03/2019 Patient was seen and examined today, blood pressure 155/80, heart rate in the 60s, 95% on room air. White blood cell count 5.2, hemogram and 10.2, platelet count 144. Sodium 138, potassium 4.3, BUN 28, creatinine 0.9. Echocardiogram with Doppler study yet remains pending. Patient is slightly confused today, no overt complaints. Objective - Vital Signs Vital signs: Vital Signs Temp 98.0 F 06/03/19 12:00 Pulse 66 06/03/19 12:00 Resp 18 06/03/19 12:00 BP 155/80 06/03/19 12:00 Pulse Ox 95 06/03/19 12:00 Intake & Output 06/02/19 06/03/19 06/03/19 18:59 06:59 18:59 Intake Total 360 360 360 Balance 360 360 360 Weight 77 kg Intake: Oral 360 360 360 Other: # Voids 1 2 - Exam General: Chronically ill-appearing, temporal wasting, disheveled, no distress, appears at stated age, normal weight Derm: Scarring over sacral spine were patient states he had a pressure ulcer to the bone in the past no unusual ecchymoses, warm, dry Head: atraumatic, normocephalic, symmetric Eyes: EOMI, no lid lag, anicteric sclera, pupils equal round reactive to light ENT: Nose and ears atraumatic, no thrush, no pharyngeal erythema, poor dentition Neck: No thyromegaly, no cervical lymphadenopathy, trachea midline, supple Mouth: no lip lesion, mucus membranes moist Cardiovascular: S1S2 irreg, no murmur, positive posterior tibial pulse bilateral, trace pedal edema, capillary refill less than 2 seconds Lungs: Decreased breath sound bilateral, no rhonchi, no rales , no accessory muscle use Abdominal: soft, nontender to palpation, no guarding, no appreciable organomegaly, normal bowel sounds Ext: + gross muscle atrophy, muscle strength 4 out of 5 bilateral upper extremities and 3/5 in bilateral lower extremities grossly, no contractures, Neuro: CN II-XI grossly intact, light touch intact all 4 extremities, finger to nose poor on right, intact on left, Good rectal tone, muscle strength intact in intrinsic hand muscles Psych: Alert, oriented, appropriate affect - Labs CBC & Chem 7: 06/03/19 05:35 06/03/19 05:35 Labs: Abnormal Lab Results - Last 24 Hours (Table) 06/03/19 06/03/19 Range/Units 05:35 05:35 RBC 3.14 L (4.30-5.90) m/uL Hgb 10.2 L (13.0-17.5) gm/dL Hct 29.9 L (39.0-53.0) % Plt Count 144 L (150-450) k/uL Chloride 108 H (98-107) mmol/L BUN 28 H (9-20) mg/dL Glucose 125 H (74-99) mg/dL Iron 32 L (65-175) ug/dL TIBC 198 L (228-460) ug/dL Assessment and Plan Plan: Assessment and plan #1 weakness and falls, likely secondary to EtOH abuse. Patient stated that he had been drinking significant amount of alcohol, however he previously stated to her prior physician that he quit 3 weeks ago. #2 abnormal troponin, not consistent with acute coronary syndrome, we will obtain an echocardiogram with Doppler study #3 hypertensive urgency #4 EtOH abuse #5 COPD without exacerbation #6 nicotine dependence #7 hematuria #8 anemia #9 hypokalemia Plan Echocardiogram with Doppler study results remain pending, we will review the ech o, if normal we'll follow the patient with you on an as-needed basis only. DNP note has been reviewed, I agree with a documented findings and plan of care. Patient was seen and examined.
[2019-06-03 14:42] VITALS: BMI 24.3
--- NOTE | 2019-06-03 17:26 | P.PN ---
Subjective Principal diagnosis: Patient is a 74-year-old male with a past medical history of myocardial infarction and coronary artery disease requiring stent and stents, abdominal aortic aneurysm status post repair, hypertension, dyslipidemia, and COPD with chronic ongoing tobacco abuse. Patient also has a history of severe alcoholism and is drinking approximately 1/5 of alcohol daily until 3 weeks ago. He presented to the emergency department via EMS secondary to weakness. Apparently he has found by his neighbor and a disheveled apartment and unable to right himself on the floor. On arrival to the ER he is tachycardic with a pulse of 121 and hypertensive with a blood pressure 171/101. Initial laboratory analysis showed an elevated lactic acid at 2.8, elevated troponin at 0.049, potassium of 3.4, BUN of 38, and glucose of 127. He was admitted for further monitoring secondary to his weakness. Cardio and neuro consulted. Echo ordered. PT/OT recommending SONDRA. Patient seen and examined at bedside having episodes of confusion at times. B12 level to 85, RPR nonreactive, unable to be evaluated by PT due to weakness, complains of arthritis in his hands and hips. Echocardiogram ordered results are pending. No acute events overnight Objective - Vital Signs Vital signs: Vital Signs Temp 98.0 F 06/03/19 12:00 Pulse 61 06/03/19 15:47 Resp 16 06/03/19 15:47 BP 134/61 06/03/19 15:47 Pulse Ox 94 L 06/03/19 15:47 Intake & Output 06/02/19 06/03/19 06/03/19 18:59 06:59 18:59 Intake Total 360 360 360 Balance 360 360 360 Weight 77 kg 77 kg Intake: Oral 360 360 360 Other: # Voids 1 2 - Exam Constitutional: No acute distress, conversant, pleasant Eyes: Anicteric sclerae, moist conjunctiva, no lid-lag, PERRLA ENMT: NC/AT,Oropharynx clear, no erythema, exudates Neck:Supple, FROM, no masses, or JVD, No carotid bruits; No thyromegaly Lungs: Clear to auscultation, Clear to percussion, Normal respiratory effort, no accessory muscle use Cardiovascular: Heart regular in rate and rhythm, No murmurs, gallops, or rubs no peripheral edema Abdominal: Soft Nontender, nom distended, no guarding, no rebound or rigidity, Normoactive bowel sounds No hepatomegaly, No splenomegaly, No palpable mass No abdominal wall hernia noted Skin: Normal temperature, tone, texture, turgor, No induration No subcutaneous nodules, No rash, lesions, No ulcers Extremities:No digital cyanosis No clubbing, Pedal pulses intact and symmetrical Radial pulses intact and unable to assess, No calf tenderness Psychiatric: Alert and oriented to person, place and time, Appropriate affect Intact judgement, appears tremulous and shaky Neuro: Muscles Strength 5/5 in all 4 extremities, Sensation to light touch grossly present throughout, Cranial nerves II-XII grossly intact. No focal sensory deficits - Labs CBC & Chem 7: 06/03/19 05:35 06/03/19 05:35 Labs: Abnormal Lab Results - Last 24 Hours (Table) 06/01/19 06/03/19 06/03/19 Range/Units 04:12 05:35 05:35 RBC 3.14 L (4.30-5.90) m/uL Hgb 10.2 L (13.0-17.5) gm/dL Hct 29.9 L (39.0-53.0) % Plt Count 144 L (150-450) k/uL Chloride 108 H (98-107) mmol/L BUN 28 H (9-20) mg/dL Glucose 125 H (74-99) mg/dL Iron 32 L (65-175) ug/dL TIBC 198 L (228-460) ug/dL Rheumatoid Factor 371 H (0-15) IU/mL Assessment and Plan Assessment: Generalized weakness and falls -tele, echo pending, orthostatic vital signs not recorded. Will reorder. - TSH, and B12 - PT/OT recs - Neurology recs appreciated- suspect alcohol related Elevated troponin - flat trend, not consistent with acute coronary syndrome - Tele - cardio recs appreciated - echo pending - May be due to HTN urgency on arrival - plavix HTN, urgency on arrival - metoprolol started - improved HLD - not talking medications at home - lipid profile normal, no indication for statin Alcoholism - no in take in 3 weeks, was 1/5 th daily before then - thiamine and folic acid replacement - CIWA COPD without excerbation - prn albuterol Tobacco abuse - cessation - nicotine replacement Anemia, worsening with thrombocytopenia - like normal Hg on admission due to hemoconcentration - repeat CBC in AM - check fe studies, B12 and folic acid levels - check hemoccult (still no BM) Pancytopenia -Likely secondary to chronic alcoholism Dehydration, improved Hematuria - undetermined etiology - repeat UA pending Moderate protein calorie malnutrition - supplements - avoid alcohol DVT prophylaxis: SCDs Discussed with: Patient, nursing Anticipated discharge date: 2-[address]: SNF A total of 35 minutes was spent on the care of this complex patient more than 50% of the time was spent in counseling and care coordinatio
[2019-06-03 17:45] LABS: Cyclic Citrull Pep IgG Unit 147.7 U/mL; Cyclic Citrullinated Pep IgG POSITIVE (NEGATIVE)
[2019-06-04 04:42] VITALS: RESP 18
[2019-06-04 06:05] LABS: HCT 31.1 % (39.0-53.0); HGB 10.2 gm/dL (13.0-17.5); MCH 31.1 pg (25.0-35.0); MCHC 32.8 g/dL (31.0-37.0); MCV 94.7 fL (80.0-100.0); Mean Platelet Volume 7.3; Platelet Count 163 k/uL (150-450); RBC 3.28 m/uL (4.30-5.90); RDW 14.6 % (11.5-15.5); WBC 5.1 k/uL (3.8-10.6)
[2019-06-04 06:14] LABS: Calcium 8.8 mg/dL (8.4-10.2); Potassium 4.8 mmol/L (3.5-5.1)
[2019-06-04] MEDS: THIAMINE 100 MG TAB PO SCH (06:16)
[2019-06-04 07:42] VITALS: BP 141/65; PULSE 63; TEMP 98.2
[2019-06-04] MEDS ORDERED: ERGOCALCIFEROL 50,000 UNIT CAP PO SCH (09:00)
[2019-06-04] MEDS: CLOPIDOGREL 75 MG TAB PO SCH (09:24)
[2019-06-04] MEDS: CYANOCOBALAMIN 1,000 MCG/ML 1 ML VIAL IM SCH (09:24)
[2019-06-04] MEDS: FLUoxetine HCL 20 MG CAP PO SCH (09:25)
[2019-06-04] MEDS: METOPROLOL TARTRATE 50 MG TAB PO SCH (09:25)
[2019-06-04] MEDS: FOLIC ACID 1 MG TAB PO SCH (09:25)
[2019-06-04] MEDS: NICOTINE 21MG/24HR PATCH TRANSDERM SCH (09:26)
[2019-06-04] MEDS: ARTIFICIAL TEARS-HYPROMELLOSE DROPS 15 ML BTL BOTH EYES SCH ×2 (09:32→15:05)
--- NOTE | 2019-06-04 11:55 | ECHOF ---
Referral Reason:abn trop MEASUREMENTS -------- HEIGHT: 152.4 cm WEIGHT: 76.7 kg BP: RVIDd: 3.2 cm (< 3.3) IVSd: 1.3 cm (0.6 - 1.1) LVIDd: 5.2 cm (3.9 - 5.3) LVPWd: 1.3 cm (0.6 - 1.1) IVSs: 1.8 cm LVIDs: 3.6 cm LVPWs: 1.5 cm Ao Diam: 3.2 cm (2.0 - 3.7) AV Cusp: 1.4 cm (1.5 - 2.6) MV E Brock: 0.66 m/s MV DecT: 255 ms MV A Brock: 0.49 m/s MV E/A Ratio: 1.33 AV maxP.83 mmHg AV meanP.43 mmHg RAP: 5.00 mmHg RVSP: 33.83 mmHg FINDINGS -------- Sinus rhythm. Views obtained Subcostal. The left ventricular size is normal. There is mild concentric left ventricular hypertrophy. Overa ll left ventricular systolic function is normal with, an EF between 55 - 60 %. The right ventricle is mild to moderately enlarged. The left atrial size is normal. The right atrial size is normal. There is mild aortic stenosis present. Peak/mean gradient across the Aortic Valve is 23.83mmHg / 11 .43mmHg. Mild mitral regurgitation is present. Mild tricuspid regurgitation present. Right ventricular systolic pressure is normal at < 35 mmHg. There is no evidence of pulmonary hypertension. There is no pulmonic regurgitation present. The aortic root size is normal. There is no pericardial effusion. CONCLUSIONS -------- 1. Sinus rhythm. 2. Views obtained Subcostal. 3. The left ventricular size is normal. 4. There is mild concentric left ventricular hypertrophy. 5. Overall left ventricular systolic function is normal with, an EF between 55 - 60 %. 6. The right ventricle is mild to moderately enlarged. 7. The left atrial size is normal. 8. The right atrial size is normal. 9. There is mild aortic stenosis present. 10. Peak/mean gradient across the Aortic Valve is 23.83mmHg / 11.43mmHg. 11. Mild mitral regurgitation is present. 12. Mild tricuspid regurgitation present. 13. Right ventricular systolic pressure is normal at < 35 mmHg. 14. There is no evidence of pulmonary hypertension. 15. There is no pulmonic regurgitation present. 16. The aortic root size is normal. 17. There is no pericardial effusion. MACHINE FUR CLEANER: Krystle Gutierrez RDCS
--- NOTE | 2019-06-04 12:37 | P.PN ---
Subjective Progress Note Date: 06/04/19 Principal diagnosis: Generalized weakness This is a 74-year-old gentleman with history of alcohol abuse who presented to the hospital with generalized weakness without any syncope. He continues to drink alcohol excessively. The echo revealed normal LV function was mild aortic stenosis. The patient was seen this morning. He remains asymptomatic from a cardiovascular standpoint overview. He is hemodynamically stable. From the cardiac vascular standpoint of view, the patient can be discharged home Objective - Vital Signs Vital signs: Vital Signs Temp 98.2 F 06/04/19 07:15 Pulse 63 06/04/19 07:15 Resp 18 06/04/19 07:15 BP 141/65 06/04/19 07:15 Pulse Ox 95 06/04/19 07:15 Intake & Output 06/03/19 06/04/19 06/04/19 18:59 06:59 18:59 Intake Total 720 120 360 Output Total 200 Balance 720 120 160 Weight 77 kg 74.5 kg Intake: Oral 720 120 360 Output: Urine 200 Other: # Voids 2 1 - Constitutional General appearance: Present: no acute distress - Respiratory Respiratory: bilateral: CTA - Cardiovascular Rhythm: regular Heart sounds: normal: S1, S2 Abnormal Heart Sounds: Present: systolic murmur - Labs CBC & Chem 7: 06/04/19 05:38 06/04/19 05:38 Labs: Abnormal Lab Results - Last 24 Hours (Table) 06/01/19 06/01/19 06/02/19 Range/Units 04:12 04:12 05:07 RBC (4.30-5.90) m/uL Hgb (13.0-17.5) gm/dL Hct (39.0-53.0) % Carbon Dioxide (22-30) mmol/L BUN (9-20) mg/dL Methylmalonic Acid 0.52 H (<0.40) umol/L Rheumatoid Factor 371 H (0-15) IU/mL Cyclic Citrull Peptide POSITIVE H (NEGATIVE) 06/04/19 06/04/19 Range/Units 05:38 05:38 RBC 3.28 L (4.30-5.90) m/uL Hgb 10.2 L (13.0-17.5) gm/dL Hct 31.1 L (39.0-53.0) % Carbon Dioxide 32 H (22-30) mmol/L BUN 24 H (9-20) mg/dL Methylmalonic Acid (<0.40) umol/L Rheumatoid Factor (0-15) IU/mL Cyclic Citrull Peptide (NEGATIVE) Assessment and Plan Assessment: Assessment #1 generalized weakness #2 mildly abnormal troponin #3 alcohol abuse Plan #1 the patient remains asymptomatic #2 he is hemodynamically stable #3 from the cardiac vascular standpoint overview, he can be discharged home
--- NOTE | 2019-06-04 15:12 | P.DS ---
Providers Date of admission: 06/02/19 08:59 Expected date of discharge: 06/04/19 Attending physician: Jessica Rice DO Consults: 06/01/19 16:08 Consult Physician Routine Consulting Provider: Colin Subramanian Consult Reason/Comments: Elevated troponin Do you want consulting provider notified?: Yes 06/01/19 17:34 Consult Physician Routine Consulting Provider: Estevan Porras Consult Reason/Comments: weakness, ETOH use, imbalance Do you want consulting provider notified?: Yes Primary care physician: Surjit Cook DO Hospital Course: Discharge diagnoses generalized weakness Falls Hypertensive urgency Hyperlipidemia Alcoholism Vitamin B12 deficiency Elevated troponin Rheumatoid arthritis COPD without acute exacerbation Anemia Pancytopenia Hematuria Moderate protein energy malnutrition Hospital course The patient is a 74-year-old male with a past medical history of CO coronary artery disease requiring stents, AAA status post repair, essential hypertension, COPD with ongoing tobacco abuse and chronic alcoholism who was admitted after presenting with generalized weakness and falls, apparently the patient was found in his apartment disheveled and unable to get up from the floor. The patient is known to be hypertensive and had elevated troponins, the patient resumed on his home and hypertensive regimen which improved his blood pressure which improved his blood pressure, echocardiogram was performed that showed a preserved LVEF and only mild aortic stenosis. It was thought the patient's gait imbalance was likely multifactorial due to patient's history of alcoholism with associated vitamin B12 deficiency with significant ostial and rheumatoid arthritis. Further workup included negative RPR normal thyroid studies and A1c. The patient was placed on vitamin B12 supplementation, folic acid and multivitamins. The patient was noted to be quite pancytopenic attributed to his chronic alcoholism. The patient was noted to have elevated rheumatoid factor 371 and anti-CCP that was positive. The patient was started on prednisone 40 mg by mouth daily and recommended to follow-up with rheumatology. The patient was seen by physical therapy and recommended to continue rehab and he was subsequently discharged there in stable condition . This discharge process took approximately 35 minutes. Focused exam cardiovascular: Regular rate and rhythm no murmurs rubs or gallops Patient Condition at Discharge: Fair Plan - Discharge Summary Discharge Rx Participant: No New Discharge Prescriptions: New Folic Acid 1 mg PO DAILY #30 tab Metoprolol Tartrate [Lopressor] 50 mg PO BID #0 tab Clopidogrel [Plavix] 75 mg PO DAILY #0 tab FLUoxetine HCL [PROzac] 20 mg PO DAILY #0 cap Acetaminophen Tab [Tylenol] 650 mg PO Q6HR PRN #0 tab PRN Reason: Mild Pain Or Fever > 100.5 Thiamine [Vitamin B-1] 100 mg PO BID-W/MEALS #60 tab Cyanocobalamin [Vitamin B-12 Injection] 1,000 mcg IM DAILY #0 vial Ergocalciferol [Vitamin D2 (DRISDOL)] 50,000 unit PO FR #0 cap Cyanocobalamin [Vitamin B-12 Injection] 1,000 mcg SQ QMONTH #1 vial Discharge Medication List Acetaminophen Tab [Tylenol] 650 mg PO Q6HR PRN #0 tab 06/04/19 [Rx] Clopidogrel [Plavix] 75 mg PO DAILY #0 tab 06/04/19 [Rx] Cyanocobalamin [Vitamin B-12 Injection] 1,000 mcg IM DAILY #0 vial 06/04/19 [Rx] Cyanocobalamin [Vitamin B-12 Injection] 1,000 mcg SQ QMONTH #1 vial 06/04/19 [Rx] Ergocalciferol [Vitamin D2 (DRISDOL)] 50,000 unit PO FR #0 cap 06/04/19 [Rx] FLUoxetine HCL [PROzac] 20 mg PO DAILY #0 cap 06/04/19 [Rx] Folic Acid 1 mg PO DAILY #30 tab 06/04/19 [Rx] Metoprolol Tartrate [Lopressor] 50 mg PO BID #0 tab 06/04/19 [Rx] Thiamine [Vitamin B-1] 100 mg PO BID-W/MEALS #60 tab 06/04/19 [Rx] Follow up Appointment(s)/Referral(s): Surjit Cook DO [Primary Care Provider] - 1-2 days Eugenia Bauer MD [STAFF PHYSICIAN] - (golf course keeper) Discharge Disposition: TRANSFER TO SNF/ECF
--- NOTE | 2019-06-04 15:28 | P.PN ---
Subjective Progress Note Date: 06/04/19 Patient is laying comfortably in the bed. Patient denies headache. Does not offer any complaints. Objective - Vital Signs Vital signs: Vital Signs Temp 98.2 F 06/04/19 07:15 Pulse 63 06/04/19 07:15 Resp 18 06/04/19 07:15 BP 141/65 06/04/19 07:15 Pulse Ox 95 06/04/19 07:15 Intake & Output 06/03/19 06/04/19 06/04/19 18:59 06:59 18:59 Intake Total 720 120 360 Output Total 200 Balance 720 120 160 Weight 77 kg 74.5 kg Intake: Oral 720 120 360 Output: Urine 200 Other: # Voids 2 1 - Exam Patient's mental status is stable. Patient appears less tremulous. Rest of the examination is unchanged. - Labs CBC & Chem 7: 06/04/19 05:38 06/04/19 05:38 Labs: Abnormal Lab Results - Last 24 Hours (Table) 06/01/19 06/01/19 06/02/19 Range/Units 04:12 04:12 05:07 RBC (4.30-5.90) m/uL Hgb (13.0-17.5) gm/dL Hct (39.0-53.0) % Carbon Dioxide (22-30) mmol/L BUN (9-20) mg/dL Methylmalonic Acid 0.52 H (<0.40) umol/L Rheumatoid Factor 371 H (0-15) IU/mL Cyclic Citrull Peptide POSITIVE H (NEGATIVE) 06/04/19 06/04/19 Range/Units 05:38 05:38 RBC 3.28 L (4.30-5.90) m/uL Hgb 10.2 L (13.0-17.5) gm/dL Hct 31.1 L (39.0-53.0) % Carbon Dioxide 32 H (22-30) mmol/L BUN 24 H (9-20) mg/dL Methylmalonic Acid (<0.40) umol/L Rheumatoid Factor (0-15) IU/mL Cyclic Citrull Peptide (NEGATIVE) Assessment and Plan Assessment: * Gait imbalance and tendency to fall, likely multifactorial. Patient's history of alcoholism, probably has affected the proprioception and some sensory ataxia. Patient also found to have B12 deficiency. Patient has significant arthritis of bilateral hips and moderate to severe lumbar spinal stenosis at L4 5, which probably are contributing to gait imbalance and frequent falls. * Vitamin B12 deficiency * Moderate to severe spinal stenosis L4 5, as per previous MRI. * Significant arthritis of bilateral hips. * Rheumatoid arthritis Plan: * Patient's B12 level is borderline low 285. Methylmalonic acid is elevated 0.52 (reference range <0.40). folic acid 8.9, now on replacement. Patient started on vitamin B12 replacement. Patient will receive vitamin B12 1000 g IM daily for 5 more days, then once a month thereafter. * Patient's hemoglobin A1c 5.1, TSH 1.48. RPR negative. * No signs of alcohol withdrawal at this time. * PT OT. Patient states he is planning to move to assisted living. * Neurologically clear for discharge.
== END 2019-06-04 15:54 ==
LOC: EC 16:30 → 3SCARD 19:09 → UNDOADMOB 19:16 → 3SCARD 20:32 → INTOOBSV 06-02 08:59 → OBSVTOIN 06-02 08:59 → UNDODISIN 06-04 15:54
PROVIDERS: ADMIT Internal Medicine; ATTEND Internal Medicine
DX: R53.1 Weakness (principal); R29.6 Repeated falls; R26.89 Other abnormalities of gait and mobility; D61.818 Other pancytopenia; E44.0 Moderate protein-calorie malnutrition; E53.8 Deficiency of other specified B group vitamins; E78.5 Hyperlipidemia, unspecified; E86.0 Dehydration; E87.6 Hypokalemia; F10.20 Alcohol dependence, uncomplicated; F17.210 Nicotine dependence, cigarettes, uncomplicated; F32.9 Major depressive disorder, single episode, unspecified; I11.9 Hypertensive heart disease without heart failure; I16.0 Hypertensive urgency; I25.10 Atherosclerotic heart disease of native coronary artery without angina pectoris; R79.89 Other specified abnormal findings of blood chemistry; I25.2 Old myocardial infarction; J44.9 Chronic obstructive pulmonary disease, unspecified; K21.9 Gastro-esophageal reflux disease without esophagitis; M06.9 Rheumatoid arthritis, unspecified; M19.041 Primary osteoarthritis, right hand; M19.042 Primary osteoarthritis, left hand; M48.061 Spinal stenosis, lumbar region without neurogenic claudication; R31.9 Hematuria, unspecified; R62.7 Adult failure to thrive; Z79.02 Long term (current) use of antithrombotics/antiplatelets; Z79.899 Other long term (current) drug therapy; Z85.07 Personal history of malignant neoplasm of pancreas; Z86.79 Personal history of other diseases of the circulatory system; Y90.0 Blood alcohol level of less than 20 mg/100 ml; Z71.6 Tobacco abuse counseling; Z91.012 Allergy to eggs; Z88.0 Allergy status to penicillin; Z98.41 Cataract extraction status, right eye; Z82.49 Family history of ischemic heart disease and other diseases of the circulatory system
CPT/HCPCS: 96361 ×2; 96372 ×2; 96365; 99285; 36415; 93005; 93306; 97530; 97162; 97535 ×2; 97166; 92523; 83921; 80061; 80053; 80048 ×4; 84443; 82607; 82728; 82140; 82550; 82746; 83540; 83550; 83605; 83690; 83735 ×3; 84100; 84484 ×2; 85025; 85027 ×4; 86431; 81001; 86780; 86038; 86200; 83036; 71046; G0378 ×5; G0480; S4990 ×4; J3420 ×2; J3411; J3475; 80320